=== PATIENT | male | born 1945 | race Caucasian/White ===

== ENCOUNTER 2019-08-10 09:06 | Emergency (ER) | payer MEDICARE, SELFPAY ==
[2019-08-10 09:12] VITALS: BP 108/67; PULSE 79; RESP 22; TEMP 37.5; O2SAT 98
--- NOTE | 2019-08-10 09:13 | ED.GENADULT ---
HPI - General Adult General Chief complaint: Upper Respiratory Infection Stated complaint: RUNNY NOSE/COUGH Time Seen by Provider: 08/10/19 09:29 Source: patient Mode of arrival: ambulatory Limitations: no limitations History of Present Illness HPI narrative: 74-year-old male patient presents to the [facility] with complaints of cold symptoms that started yesterday. Patient had been complaining of a runny nose as well as a stuffy nose, as well as a cough. Patient states that he has had some shortness of breath with the cough at times and only has a sore throat when he coughs. Denies any fevers that he is aware of. Denies any history of lung issues but was a previous smoker that has quit now for 10 years. Patient states he has been taking [id number] Tylenol and Coricidin for his symptoms so far. Patient states that he did get a flu shot this year. Related Data Home Medications Medication Instructions Recorded Confirmed hydrochlorothiazide 25 mg tablet 12.5 mg PO DAILY tablet 05/04/19 08/10/19 metformin 500 mg tablet 500 mg PO BID 05/04/19 08/10/19 metoprolol tartrate 25 mg tablet 25 mg PO BID 05/04/19 08/10/19 aspirin 81 mg tablet,delayed 81 mg PO DAILY 07/01/19 08/10/19 release pantoprazole 40 mg granules 40 mg PO DAILY 07/01/19 08/10/19 delayed-release for susp in packet acetaminophen [Tylenol] 325 mg PO ONCE PRN 08/10/19 08/10/19 chlorpheniramine-dextromethorp tablet PO 08/10/19 [Coricidin HBP Cough and Cold] Allergies Allergy/AdvReac Type Severity Reaction Status Date / Time simvastatin Allergy Unknown Leg cramp Verified 08/10/19 09:22 Hyfyoqa-Ecu-Llp Reductase Allergy Unknown Cramping Verified 08/10/19 09:22 Inhibitor of the Muscles Review of Systems Review of Systems: Narrative: CONSTITUTIONAL: Denies fever, chills, or sweats. EYES: Denies visual changes, redness, or discharge. ENT: Positive rhinorrhea, congestion, sore throat, denies otalgia. CARDIOVASCULAR: Denies chest pain, palpitations, or edema. RESPIRATORY: Positive cough with dyspnea. GASTROINTESTINAL: Denies abdominal pain, nausea, vomiting, or diarrhea. GENITOURINARY: Denies dysuria or hematuria. SKIN: Denies rash or itching. MUSCULOSKELETAL: Denies back pain, joint pain, or myalgia. NEUROLOGIC: Denies headache, numbness, or weakness. PSYCHIATRIC: Denies anxiety or depression. [facility], [facility] Past Medical History Medical History Afib CAD (coronary artery disease) Diabetes 1.5, managed as type 2 GERD (gastroesophageal reflux disease) Hyperlipidemia Hypertension Peptic ulcer Primary osteoarthritis of left hip Left worse than right Surgical History Surgical History History of cholecystectomy History of coronary artery bypass graft History of hernia repair History of total bilateral knee replacement Family History Family History Sibling Patient's sister is in good health Other Breast cancer Carcinoma of colon Malignant neoplasm of prostate Lung cancer Arthritis Social History Social History Smoking status: Former smoker Alcohol intake: current Comments At the time of my signature I agree with nursing past medical history, surgical, social, and family history. There is no relevant family history pertinent to the presenting complaint. Exam Narrative: Exam Narrative: GENERAL: ill-appearing, well-nourished, and in no acute distress. HEAD: Normocephalic, atraumatic. No tenderness noted to frontal maxillary sinuses on palpation. EYES: PERRLA and EOMI. ENT: Nares with erythema and edema noted bilaterally, no rhinorrhea or epistaxis. Mucous membranes moist. Posterior pharynx with slight erythema but no tonsil enlargement no exudates or lesions present. Bilateral TMs are clear no erythema or foreign
== END 2019-08-10 09:45 | disposition home or self-care (01) ==
PROVIDERS: Emergency Provider Nurse Practitioner Family; PCP Internal Medicine
DX: J06.9 Acute upper respiratory infection, unspecified (principal); R05 Cough; Z87.891 Personal history of nicotine dependence; I48.91 Unspecified atrial fibrillation; I25.10 Atherosclerotic heart disease of native coronary artery without angina pectoris; E11.9 Type 2 diabetes mellitus without complications; K21.9 Gastro-esophageal reflux disease without esophagitis; E78.5 Hyperlipidemia, unspecified; I10 Essential (primary) hypertension; M16.0 Bilateral primary osteoarthritis of hip; Z96.653 Presence of artificial knee joint, bilateral; Z95.1 Presence of aortocoronary bypass graft
CPT/HCPCS: 87804; 99213; G0463

== ENCOUNTER 2019-08-10 16:58 | Inpatient (IN) | payer MEDICARE, SELFPAY ==
--- NOTE | ~2019-08-10 | XR_ITS ---
EXAMINATION: XR chest 2V DATE: 08/10/2019 18:04 INDICATION: Cough, confirmed influenza TECHNIQUE: AP and lateral views of the chest are obtained. COMPARISON: 02/27/2018 FINDINGS: There are minimal airspace opacities of the lung bases. There is no pleural effusion or pne umothorax. Median sternotomy wires and mediastinal surgical clips are seen, likely from prior coronar y artery bypass grafting. The heart size is normal. There is mild thoracic spondylosis. IMPRESSION: 1. Minimal airspace opacities of the lung bases, consistent with atelectasis versus pneumonia. Reviewed, dictated and finalized at location A. CIENCE TECHNICIAN IMPRESSION: 1. Minimal airspace opacities of the lung bases, consistent with atelectasis ve rsus pneumonia.
[2019-08-10 17:07] VITALS: BP 124/68; PULSE 76; RESP 26; TEMP 38.5; O2SAT 93
[2019-08-10 17:10] VITALS: PULSE 74
--- NOTE | 2019-08-10 17:11 | ECG_ITS ---
Measurements Intervals Bennett Rate: 72 P: 67 MD: 176 QRS: 119 QRSD: 154 T: -14 QT: 386 QTc: 425 Interpretive Statements SINUS RHYTHM RIGHT BUNDLE BRANCH BLOCK LEFT POSTERIOR FASCICULAR BLOCK BASELINE ARTIFACT- I, II, AVR ABNORMAL ECG Electronically Signed On 08-10-2019 20:34:25 FIELD SPECIALIST by Aquiles Posey D.O.
--- NOTE | 2019-08-10 17:14 | ED.WEAKNESS ---
HPI - Weakness General Chief complaint: Weakness Stated complaint: Weakness, dizziness Time Seen by Provider: 08/10/19 17:08 Source: patient, family (spouse) and RN notes reviewed Mode of arrival: ambulatory Limitations: no limitations History of Present Illness HPI Narrative: Pt is a y/o male who presents to the ED with c/o moderate generalized weakness which began yesterday. He states he has been unable to stand up or ambulate. Pt reports he was leaning towards the left when he was ambulating. He reports a fever, a cough, rhinorrhea, and headache which began yesterday morning, but denies pain anywhere else in his body. The pt?s spouse reports the pt was also increasingly disoriented this morning. He also denies any aggravating or alleviating factors. Pt reports going to the Urgent Care today and had a flu test as well as some blood tests done. Patient was discharged with diagnosis of a cold. MD Complaint: generalized weakness Onset (ago): day(s) (yesterday) Duration: constant Location: generalized Migration: none Severity: moderate Relieving factors: none Exacerbating factors: none Associated symptoms: fever/chills (fever), headaches and other (rhinorrhea; cough; disoriented) Related Data Home Medications Medication Instructions Recorded Confirmed hydrochlorothiazide 25 mg tablet 12.5 mg PO DAILY tablet 05/04/19 08/10/19 metformin 500 mg tablet 500 mg PO BID 05/04/19 08/10/19 metoprolol tartrate 25 mg tablet 25 mg PO BID 05/04/19 08/10/19 aspirin 81 mg tablet,delayed 81 mg PO DAILY 07/01/19 08/10/19 release pantoprazole 40 mg granules 40 mg PO DAILY 07/01/19 08/10/19 delayed-release for susp in packet acetaminophen [Tylenol] 325 mg PO ONCE PRN 08/10/19 08/10/19 chlorpheniramine-dextromethorp tablet PO 08/10/19 [Coricidin HBP Cough and Cold] Allergies Allergy/AdvReac Type Severity Reaction Status Date / Time simvastatin Allergy Unknown Leg cramp Verified 08/10/19 09:22 Kchomyb-Cth-Utd Reductase Allergy Unknown Cramping Verified 08/10/19 09:22 Inhibitor of the Muscles Review of Systems Constitutional: Constitutional: Reports fever(s), Reports headache(s), Reports weakness (generalized) and Denies other (pain anywhere else in his body) ENT: Reports nasal discharge (rhinorrhea) Respiratory: Respiratory: Reports cough Neurologic: Denies headache(s), Reports weakness (generalized) and Reports other (disoriented) [facility] Social History Social History Smoking packs per day: 1.5 Smoking cigarettes per day: 30.0 Years smoked: 35 Smoking pack-years: 52.50 Smoking status: Former smoker Tobacco type: cigarettes Alcohol intake: never Substance use: never Gender identity (if verbalized by the patient): Male Spiritual care concerns: No Agree to blood products: Yes Exam Const: General: no acute distress and well developed Orientation/consciousness: oriented to person, oriented to place, oriented to time and patient oriented x3 HENMT: Head: normocephalic Ears: external ears normal General nose exam: Normal external nose present Eyes: General: appearance normal, both eyes and all related structures Conjunctivae: conjunctivae normal Neck: Neck: normal visual inspection and full ROM Chest: Chest palpation & inspection: normal inspection of the chest and no tenderness Resp: Effort & Inspection: normal respiratory effort Auscultation: clear to auscultation bilaterally Cardio: Rate: regular rate Rhythm: regular rhythm GI: GI Palp: No abdominal tenderness and Yes Soft to palpation Skin: General skin exam: normal color and turgor normal Neuro: General: oriented to person, oriented to place, oriented to time and patient oriented x3 Cognition (Neuro): normal cognition Extrem: General: normal to inspection, full ROM and no pedal edema Psych: Appearance: grossly normal Mental Status: mental status grossly normal Affect: kerri
[2019-08-10 17:32] VITALS: O2SAT 96
[2019-08-10] MEDS: ACETAMINOPHEN 325 MG TABLET 650 MG PO (17:35)
[2019-08-10] MEDS: SODIUM CHLORIDE 0.9% IV 1,000 ML 999 ML IV CONT (17:36)
[2019-08-10 17:39] LABS: Basophils Percent Auto 0.4 % (0.2-1.2); Eosinophils Percent Auto 0.1 % (0-4.4); Hematocrit 44.6 % (42.0-52.0); Hemoglobin 15.1 g/dL (14.0-18.0); Immature Granulocyte Absolute 0.03 K/mm3 (0.00-0.031); Immature Granulocyte Percent A 0.4 % (0-0.5); Lymphocytes Absolute Auto 1.16 K/mm3 (0.9-3.2); Lymphocytes Percent Auto 16.4 % (18.3-44.2); Mean Corpuscular HGB Conc 33.9 g/dl (32-36); Mean Corpuscular Hemoglobin 30.3 pg (26-34); Mean Corpuscular Volume 89.6 fl (80-100); Mean Platelet Volume 9.6 fl (7.4-10.4); Monocytes Absolute Auto 1.1 K/mm3 (0.1-0.6); Monocytes Percent Auto 14.9 % (2.6-8.5); Neutrophils Absolute Auto 4.8 K/mm3 (1.3-6.7); Neutrophils Percent Auto 67.8 % (45.5-73.1); Platelet Count Result 141 k/mm3 (150-375); Red Blood Count 4.98 M/mm3 (4.6-6.20); Red Cell Distribution Width 12.5 % (11.5-14.5); White Blood Count 7.1 K/mm3 (4.5-10.0)
[2019-08-10 17:50] LABS: Partial Thromboplastin Time 29.7 SECONDS (22.3-36.8)
[2019-08-10 17:51] LABS: Lactic Acid Reflex 1.6 mmol/L (0.7-2.1)
[2019-08-10 17:52] LABS: Alanine Aminotransferase 29 U/L (4-50); Albumin Level 4.3 g/dL (3.5-5.1); Alkaline Phosphatase 72 U/L (38-126); Aspartate Amino Transferase 28 U/L (17-59); Bilirubin,Total 0.7 mg/dL (0.2-1.3); Blood Urea Nitrogen 15 mg/dL (9-20); Calcium 9.5 mg/dL (8.4-10.2); Carbon Dioxide 27 mmol/L (22-30); Chloride 93 mmol/L (98-107); Estimated Glomerular Filt Rate 46; Glucose 127 mg/dL (75-110); Potassium 3.9 mmol/L (3.4-5.0); Sodium 134 mmol/L (137-145)
[2019-08-10 18:18] LABS: Add Urine Microscopic? YES; Appearance Urine Clear (Clear); Bilirubin Urine Negative (Negative); Blood Urine 1+ (Negative); Color Urine Yellow (Yellow); Glucose Urine UA Negative (Negative); Ketones Urine Negative (Negative); Leukocyte Esterase Ur Negative LEU/UL (Negative); Nitrate Urine Negative (Negative); Protein Urine 2+ mg/dL (Negative); RBC Urine 0-2 /hpf (0-2); Squamous Epithelial Cell Urine Rare /hpf (Few); Urobilinogen Urine Negative mg/dL (<2.0); WBC Urine 0-3 /hpf
[2019-08-10] MEDS: OSELTAMIVIR PHOSPHATE 75 MG CAP (18:42)
[2019-08-10 19:28] VITALS: BP 110/79; PULSE 73; RESP 18; TEMP 37.7; O2SAT 94
--- NOTE | 2019-08-10 19:51 | ADMGEN ---
This patient, Justin Fair, was admitted to Medical Room 245-. Patient/family oriented to hospital policies and general routines including ID bracelet, bed and alarms, visiting hours, pain management, procedures, bathroom and other care routines, personal items, smoking policy, room service/diet, and visiting hours. Valuables list has been completed. Information on how to activate the Rapid Response Team has been discussed. Patient/Family are encouraged to report perceived risks to care and to ask questions if they do not understand what they are told or what they should do.
[2019-08-10 20:00] VITALS: BP 110/66; PULSE 65; RESP 22; TEMP 36.6; O2SAT 94; BMI 30.7
[2019-08-10 20:50] VITALS: TEMP 36.6
[2019-08-11] MEDS: ACETAMINOPHEN 325 MG TABLET 650 MG PO ×3 (02:49→15:14)
--- NOTE | 2019-08-11 03:44 | PM.IMHP ---
H&P: HPI History of Present Illness Chief complaint: influenza a Narrative: Jutsin Fair is a 74 year old male who was very weak and according to his was somewhat confused. The symptoms started 2 days ago. He was is unable to stand up or ambulate. The patient was leaning toward the left side when he is ambulating. He had fever cough runny nose headache that started yesterday his generalized body aches. He had flu-like symptoms. The patient went to the urgent care to yesterday and the flu test was found to be negative and he was diagnosed with a cold. Patient was found to be positive for influenza a here and was started on Tamiflu. Also his acute renal failure as well. Initially the patient was given a Zithromax and Rocephin for infiltrates possible pneumonia but they were stopped. He was given Tylenol for the fever. Date of service 08/11/2019. Review of Systems Review of Systems: Narrative: The patient stated that he was so weak and unable to take care of himself. He does live with his . His stated that he was disorientated. He is now answering questions without difficulty. He has body aches fever and chills. All systems reviewed & are unremarkable except as noted in HPI and below Constitutional: Constitutional: Reports as per HPI and Reports no additional constitutional complaints Eyes: Eyes: Reports as per HPI and Reports no additional eye complaints ENT: Reports system reviewed and no additional complaints, except as documented and Reports Normal hearing present Cardiovascular: Cardiovascular: Reports no additional cardiovascular complaints Respiratory: Respiratory: Reports no additional respiratory complaints and Reports no additional respiratory complaints Gastrointestinal: Gastrointestinal: Reports as per HPI and Reports no additional gastrointestinal complaints Musculoskeletal: Musculoskeletal: Reports no additional musculoskeletal complaints Integumentary/Breasts: Skin/Breast: Reports system reviewed and no additional complaints, except as docu and Reports as per HPI Neurologic: Reports system reviewed and no additional complaints, except as documented, Reports as per HPI and Reports Normal hearing present Psychiatric: Psychiatric: Reports no additional psychiatric complaints and Reports as per HPI Endocrine: Endocrine: Reports no additional endocrine complaints Hematologic/Lymphatic: Hematologic/Lymphatic: Reports no additional hematologic/lymphatic complaints Allergic/Immunologic: Allergic/Immunologic: Reports no additional allergic/immunologic complaints [facility] Past Medical History Medical History (Updated 08/11/19 @ 03:54 by Maribell Walden NP) Afib Intermittent CAD (coronary artery disease) 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, managed as type 2 GERD (gastroesophageal reflux disease) History of prostate cancer Treated with radiation pellets Hyperlipidemia Hypertension Peptic ulcer Primary osteoarthritis of left hip Left worse than right Surgical History Surgical History (Updated 08/11/19 @ 03:49 by Maribell Walden NP) History of cholecystectomy History of coronary artery bypass graft 2 vessel CABG History of hernia repair History of total bilateral knee replacement Family History Family History (Updated 08/11/19 @ 03:49 by Maribell Walden NP) Sibling Patient's sister is in good health Breast cancer Other Breast cancer Carcinoma of colon Malignant neoplasm of prostate Lung cancer Arthritis Mother Mesothelioma Social History Social History (Updated 08/11/19 @ 03:50 by Maribell Walden NP) Social History: Patient lives with his and she is the power of title attorney for healthcare. He desires to be full code. He has 3 sons and 1 stepdaughter. 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 Smoking packs per day: 1.5 Smoking cigarettes per day: 30.0 Years smoked: 35 Smoking pack-years: 52.50 Smoking status: Former smoker Tobac
[2019-08-11 04:00] VITALS: BP 111/63; PULSE 72; RESP 22; TEMP 36.2; O2SAT 94
[2019-08-11] MEDS: BENZOCAINE/MENTHOL (*BKC) 18 EA LOZENGE 1 LOZENGE PO ×3 (04:41→21:37)
[2019-08-11 06:00] VITALS: BP 111/63; PULSE 72; RESP 22; TEMP 36.2; O2SAT 94
[2019-08-11 06:10] LABS: Basophils Percent Auto 0.4 % (0.2-1.2); Eosinophils Percent Auto 0.4 % (0-4.4); Hematocrit 40.4 % (42.0-52.0); Hemoglobin 13.9 g/dL (14.0-18.0); Immature Granulocyte Absolute 0.02 K/mm3 (0.00-0.031); Immature Granulocyte Percent A 0.4 % (0-0.5); Immature Platelet Fraction Pct 2.8 % (0.9-11.2); Lymphocytes Absolute Auto 1.52 K/mm3 (0.9-3.2); Lymphocytes Percent Auto 27.6 % (18.3-44.2); Mean Corpuscular HGB Conc 34.4 g/dl (32-36); Mean Corpuscular Hemoglobin 30.6 pg (26-34); Mean Platelet Volume 9.7 fl (7.4-10.4); Monocytes Absolute Auto 0.9 K/mm3 (0.1-0.6); Monocytes Percent Auto 16.4 % (2.6-8.5); Neutrophils Percent Auto 54.8 % (45.5-73.1); Platelet Count Result 126 k/mm3 (150-375); Red Blood Count 4.54 M/mm3 (4.6-6.20); Red Cell Distribution Width 12.6 % (11.5-14.5); White Blood Count 5.5 K/mm3 (4.5-10.0)
[2019-08-11 06:13] LABS: Alanine Aminotransferase 27 U/L (4-50); Albumin Level 3.5 g/dL (3.5-5.1); Alkaline Phosphatase 58 U/L (38-126); Aspartate Amino Transferase 27 U/L (17-59); Bilirubin,Total 0.5 mg/dL (0.2-1.3); Blood Urea Nitrogen 14 mg/dL (9-20); Carbon Dioxide 27 mmol/L (22-30); Chloride 98 mmol/L (98-107); Estimated CRCL calculation 51 ml/min; Estimated Glomerular Filt Rate 49; Glucose 114 mg/dL (75-110); Magnesium 1.8 mg/dL (1.6-2.3); Potassium 3.3 mmol/L (3.4-5.0); Sodium 134 mmol/L (137-145)
[2019-08-11] MEDS: ASPIRIN 81 MG ENTERIC TABLET PO (09:13)
[2019-08-11] MEDS: PANTOPRAZOLE 40 MG TABLET PO (09:13)
[2019-08-11] MEDS: OSELTAMIVIR PHOSPHATE 75 MG CAP PO ×2 (09:13→20:06)
[2019-08-11 09:14] VITALS: PULSE 68
[2019-08-11] MEDS: METOPROLOL TARTRATE 25 MG TABLET PO ×2 (09:14→17:52)
[2019-08-11 11:28] LABS: Glucose Point of Care 101 (65-105)
--- NOTE | 2019-08-11 12:13 | PM.IMPN ---
Progress Note: A&P Assessment and Plan (1) Acute renal failure: Code(s): N17.9 - Acute kidney failure, unspecified Status: Acute Assessment and Plan: Iv hydration, creat is 1.4, continue to hold metformin (2) Hypertension: Code(s): I10 - Essential (primary) hypertension Status: Chronic Assessment and Plan: Continue with metoprolol for BP control (3) Hyperlipidemia: Code(s): E78.5 - Hyperlipidemia, unspecified Status: Chronic Assessment and Plan: Continue with Zetia. (4) Diabetes 1.5, managed as type 2: Code(s): E13.9 - Other specified diabetes mellitus without complications Status: Chronic Assessment and Plan: Accu-Cheks AC and HS. Correction SSI (5) Afib: Code(s): I48.91 - Unspecified atrial fibrillation Status: Chronic Assessment and Plan: Patient is in sinus rhythm at this time. On metoprolol. low risk not on any anti coagulation (6) Influenza A: Code(s): J10.1 - Influenza due to other identified influenza virus with other respiratory manifestations Status: Acute Assessment and Plan: Supportive care. Tylenol for the fever and Tamiflu. Patient is acute renal failure, add Iv fluids for hydration. (7) Weakness: Code(s): R53.1 - Weakness Status: Acute Assessment and Plan: Likley secondary to influenza and CAP (8) CAP (community acquired pneumonia): Code(s): J18.9 - Pneumonia, unspecified organism Status: Acute Assessment and Plan: per cxr and symptoms, pt is on iv rocephin amd iv zithromax, Bc is still pending Subjective Date/time seen: 08/11/19 12:13 Interval history: 74 year old male admitted weak and confused found to have influenza a and pneumonia. Still feels tired and has a cough, not confused today, holding conservation answering questions appropriately Review of Systems Review of Systems: All systems reviewed & are unremarkable except as noted in HPI and below Cardiovascular: Cardiovascular: Reports no additional cardiovascular complaints Respiratory: Respiratory: Reports chest congestion and Reports cough Gastrointestinal: Gastrointestinal: Reports as per HPI and Reports no additional gastrointestinal complaints Musculoskeletal: Musculoskeletal: Reports no additional musculoskeletal complaints Neurologic: Reports system reviewed and no additional complaints, except as documented, Reports as per HPI and Reports Normal hearing present Psychiatric: Psychiatric: Reports no additional psychiatric complaints and Reports as per HPI Exam Const: Other: Fatigue, ill appearing, wet cough HENMT: Head: normal to inspection Resp: Effort & Inspection: no respiratory distress Auscultation: no rhonchi and no wheezes Cardio: Rate: regular rate Rhythm: regular rhythm GI: Inspection: normal to inspection GI Palp: No abdominal tenderness, No Guarding due to palpation present (GI) and No Hepatomegaly present Auscultation: normal bowel sounds Neuro: General: oriented to person and No confusion Extrem: General: clubbing, cyanosis or edema noted Objective Data Vital Signs Vital Signs: Vital Signs - 24 hr 08/10/19 17:07 08/10/19 17:10 08/10/19 17:32 Temperature 38.5 C H Pulse Rate 76 74 Respiratory Rate 26 H Blood Pressure 124/68 Pulse Oximetry 93 96 08/10/19 19:28 08/10/19 20:00 08/10/19 20:50 Temperature 37.7 C H 36.6 C 36.6 C Pulse Rate 73 65 Respiratory Rate 18 22 H Blood Pressure 110/79 110/66 Pulse Oximetry 94 94 08/11/19 04:00 08/11/19 06:00 08/11/19 09:14 Temperature 36.2 C L 36.2 C L Pulse Rate 72 72 68 Respiratory Rate 22 H 22 H Blood Pressure 111/63 111/63 Pulse Oximetry 94 94 Intake/Output Intake/Output: Intake & Output 08/08/19 08/09/19 08/10/19 08/11/19 23:59 23:59 23:59 23:59 Intake Total 1350 740 Output Total 1000 Balance 1350 -260 Meds/Results Medications: Ac
[2019-08-11 12:15] LABS: Glucose Point of Care 100 (65-105)
--- NOTE | 2019-08-11 13:15 | PCCCNOTE ---
On 08/11/19, the student, [Landy Scott ], provided care and completed [id number] documentation on this patient. I have reviewed the student's documentation and agree with the findings.
[2019-08-11] MEDS: SODIUM CHLORIDE 0.9% IV 1,000 ML 75 ML IV CONT (13:22)
[2019-08-11 14:00] VITALS: BP 111/63; PULSE 58; RESP 20; TEMP 36.3; O2SAT 95
[2019-08-11 17:52] VITALS: PULSE 62
[2019-08-11 18:01] LABS: Glucose Point of Care 90 (65-105)
[2019-08-11] MEDS: EZETIMIBE 10 MG TABLET PO (20:06)
[2019-08-11 22:00] VITALS: BP 127/68; PULSE 61; RESP 20; TEMP 36.2; O2SAT 99
[2019-08-12] MEDS: ACETAMINOPHEN 325 MG TABLET 650 MG PO (00:22)
[2019-08-12] MEDS: SODIUM CHLORIDE 0.9% IV 1,000 ML 75 ML IV CONT (05:40)
[2019-08-12 05:54] LABS: Hematocrit 43.1 % (42.0-52.0); Hemoglobin 14.4 g/dL (14.0-18.0); Mean Corpuscular HGB Conc 33.4 g/dl (32-36); Mean Corpuscular Hemoglobin 30.6 pg (26-34); Mean Corpuscular Volume 91.5 fl (80-100); Mean Platelet Volume 9.8 fl (7.4-10.4); Platelet Count Result 129 k/mm3 (150-375); Red Blood Count 4.71 M/mm3 (4.6-6.20); Red Cell Distribution Width 12.9 % (11.5-14.5); White Blood Count 5.1 K/mm3 (4.5-10.0)
[2019-08-12 06:00] VITALS: BP 113/69; PULSE 61; RESP 20; TEMP 36.3; O2SAT 98
[2019-08-12 06:07] LABS: Blood Urea Nitrogen 16 mg/dL (9-20); Calcium 8.7 mg/dL (8.4-10.2); Carbon Dioxide 27 mmol/L (22-30); Chloride 102 mmol/L (98-107); Estimated CRCL calculation 60 ml/min; Estimated Glomerular Filt Rate 59; Glucose 102 mg/dL (75-110); Sodium 139 mmol/L (137-145)
[2019-08-12 06:19] LABS: Glucose Point of Care 137 (65-105)
[2019-08-12 08:04] VITALS: PULSE 61
[2019-08-12] MEDS: ASPIRIN 81 MG ENTERIC TABLET PO (08:04)
[2019-08-12] MEDS: METOPROLOL TARTRATE 25 MG TABLET PO ×2 (08:04→17:21)
[2019-08-12] MEDS: PANTOPRAZOLE 40 MG TABLET PO (08:04)
[2019-08-12] MEDS: OSELTAMIVIR PHOSPHATE 75 MG CAP PO ×2 (08:05→21:16)
[2019-08-12 09:49] LABS: Glucose Point of Care 101 (65-105)
[2019-08-12] MEDS: BENZOCAINE/MENTHOL (*BKC) 18 EA LOZENGE 1 LOZENGE PO ×2 (11:05→19:31)
--- NOTE | 2019-08-12 13:25 | PM.IMPN ---
Progress Note: A&P Assessment and Plan (1) Acute renal failure: Code(s): N17.9 - Acute kidney failure, unspecified Status: Acute Assessment and Plan: Creat improved to 1.2 stop iv fluids encourage oral, can restart pts metformin (2) Hypertension: Code(s): I10 - Essential (primary) hypertension Status: Chronic Assessment and Plan: Continued with metoprolol for BP control (3) Hyperlipidemia: Code(s): E78.5 - Hyperlipidemia, unspecified Status: Chronic Assessment and Plan: Continue with Zetia. (4) Diabetes 1.5, managed as type 2: Code(s): E13.9 - Other specified diabetes mellitus without complications Status: Chronic Assessment and Plan: Accu-Cheks AC and HS. Correction SSI (5) Afib: Code(s): I48.91 - Unspecified atrial fibrillation Status: Chronic Assessment and Plan: Patient is in sinus rhythm at this time. On metoprolol. low risk not on any anti coagulation (6) Influenza A: Code(s): J10.1 - Influenza due to other identified influenza virus with other respiratory manifestations Status: Acute Assessment and Plan: Supportive care. Tylenol for the fever and Tamiflu. Add perles (7) Weakness: Code(s): R53.1 - Weakness Status: Acute Assessment and Plan: Likley secondary to influenza and CAP (8) CAP (community acquired pneumonia): Code(s): J18.9 - Pneumonia, unspecified organism Status: Acute Assessment and Plan: per cxr and symptoms, pt is on iv rocephin amd iv zithromax, Bc prelim is negative Subjective Date/time seen: 08/12/19 13:25 Interval history: 74 year old male admitted weak and confused found to have influenza a and pneumonia. Pt feels fatigued, with dry throat and cough. But overall feels better than yesterday, not confused, holding conservation answering questions appropriately Review of Systems Review of Systems: All systems reviewed & are unremarkable except as noted in HPI and below Constitutional: Constitutional: Reports as per HPI and Reports no additional constitutional complaints Eyes: Eyes: Reports as per HPI and Reports no additional eye complaints ENT: Reports system reviewed and no additional complaints, except as documented and Reports Normal hearing present Cardiovascular: Cardiovascular: Reports no additional cardiovascular complaints Respiratory: Respiratory: Reports no additional respiratory complaints, Reports no additional respiratory complaints, Reports chest congestion and Reports cough Gastrointestinal: Gastrointestinal: Reports as per HPI and Reports no additional gastrointestinal complaints Musculoskeletal: Musculoskeletal: Reports no additional musculoskeletal complaints Integumentary/Breasts: Skin/Breast: Reports system reviewed and no additional complaints, except as docu and Reports as per HPI Neurologic: Reports system reviewed and no additional complaints, except as documented, Reports as per HPI, Reports Normal hearing present and Denies confusion Psychiatric: Psychiatric: Reports no additional psychiatric complaints, Reports as per HPI and Denies confusion Endocrine: Endocrine: Reports no additional endocrine complaints Hematologic/Lymphatic: Hematologic/Lymphatic: Reports no additional hematologic/lymphatic complaints Allergic/Immunologic: Allergic/Immunologic: Reports no additional allergic/immunologic complaints Exam Const: General: cooperative, comfortable, no acute distress, well developed, alert, awake, Physically active and ill appearing; No confusion Nutritional Appearance: average body habitus, well nourished and overweight Orientation/consciousness: oriented to person, oriented to place, oriented to time, patient oriented x3 and No confusion Limitations: no limitations Other: Fatigue, ill appearing, wet cough HENMT: Head: normal to inspection, No palpable skull fracture present, normoceph
[2019-08-12 13:52] LABS: Glucose Point of Care 116 (65-105)
[2019-08-12 14:00] VITALS: BP 119/64; PULSE 60; RESP 18; TEMP 36.3; O2SAT 97
[2019-08-12 17:21] VITALS: PULSE 60
[2019-08-12] MEDS: BENZONATATE 100 MG CAPSULE PO (17:21)
[2019-08-12] MEDS: metFORMIN HCL 500 MG TABLET PO (17:21)
[2019-08-12 17:38] LABS: Glucose Point of Care 108 (65-105)
[2019-08-12 20:09] LABS: Glucose Point of Care 157 (65-105)
[2019-08-12] MEDS: EZETIMIBE 10 MG TABLET PO (21:16)
[2019-08-12 21:56] VITALS: BP 137/85; PULSE 50; RESP 20; TEMP 36.4; O2SAT 98
[2019-08-13 02:00] VITALS: BP 144/86; PULSE 53; RESP 20; TEMP 36.3; O2SAT 98
[2019-08-13 06:00] VITALS: BP 117/57; PULSE 74; RESP 18; TEMP 36.4; O2SAT 96
[2019-08-13 08:03] LABS: Glucose Point of Care 106 (65-105)
[2019-08-13 08:04] VITALS: PULSE 64
[2019-08-13] MEDS: ASPIRIN 81 MG ENTERIC TABLET PO (08:04)
[2019-08-13] MEDS: BENZONATATE 100 MG CAPSULE PO ×2 (08:04→13:04)
[2019-08-13] MEDS: METOPROLOL TARTRATE 25 MG TABLET PO (08:04)
[2019-08-13] MEDS: hydroCHLOROthiazide 12.5 MG CAPSULE PO (08:04)
[2019-08-13] MEDS: PANTOPRAZOLE 40 MG TABLET PO (08:04)
[2019-08-13] MEDS: OSELTAMIVIR PHOSPHATE 75 MG CAP PO (08:04)
[2019-08-13] MEDS: metFORMIN HCL 500 MG TABLET PO (08:05)
[2019-08-13 10:00] VITALS: BP 117/67; PULSE 52; RESP 17; TEMP 36.8; O2SAT 96
[2019-08-13] MEDS: BENZOCAINE/MENTHOL (*BKC) 18 EA LOZENGE 1 LOZENGE PO (11:09)
--- NOTE | 2019-08-13 12:04 | PM.DS ---
DS: Diagnosis Admitting Diagnosis Admitting Diagnosis: Influenza due to other identified influenza virus with other respiratory manifestations Discharge Diagnosis (1) Acute renal failure: Code(s): N17.9 - Acute kidney failure, unspecified Status: Acute Assessment and Plan: Creat improved to 1.2, encourage oral fluids,restart pts metformin, pt had been on iv hydration earlier in admission (2) Hypertension: Code(s): I10 - Essential (primary) hypertension Status: Chronic Assessment and Plan: Continued with metoprolol for BP control (3) Hyperlipidemia: Code(s): E78.5 - Hyperlipidemia, unspecified Status: Chronic Assessment and Plan: Continue with Zetia. (4) Diabetes 1.5, managed as type 2: Code(s): E13.9 - Other specified diabetes mellitus without complications Status: Chronic Assessment and Plan: Restart metformin (5) Afib: Code(s): I48.91 - Unspecified atrial fibrillation Status: Chronic Assessment and Plan: Patient is in sinus rhythm at this time. On metoprolol. low risk not on any anti coagulation (6) Influenza A: Code(s): J10.1 - Influenza due to other identified influenza virus with other respiratory manifestations Status: Acute Assessment and Plan: Supportive care. Tylenol for the fever and Tamiflu. Continue perles at home. (7) Weakness: Code(s): R53.1 - Weakness Status: Acute Assessment and Plan: Likley secondary to influenza and CAP (8) CAP (community acquired pneumonia): Code(s): J18.9 - Pneumonia, unspecified organism Status: Acute Assessment and Plan: per cxr and symptoms, pt is on iv rocephin amd iv zithromax, Bc prelim is negative, transition to oral z-pack DS: Summary Time Spent with Patient Time attestation: Total time spent providing and/or coordinating discharge services:40 minutes on day of discharge Exam Const: General: cooperative, comfortable, no acute distress, well developed, alert, awake, Physically active and ill appearing; No confusion Nutritional Appearance: average body habitus, well nourished and overweight Orientation/consciousness: oriented to person, oriented to place, oriented to time, patient oriented x3 and No confusion Limitations: no limitations Other: Tired, no cough today HENMT: Head: normal to inspection, No palpable skull fracture present, normocephalic, atraumatic and abrasion Ears: hearing grossly normal bilaterally, external ears normal and TM's normal bilaterally General nose exam: Normal external nose present, Normal nares present and No nasal polyps present Mouth: Yes Normal oral and palatal mucosa present Throat: posterior oropharynx normal Eyes: General: appearance normal, both eyes and all related structures Alignment and Position: alignment normal Periorbital: periorbital findings normal Eyelids: eyelids normal Conjunctivae: conjunctivae normal Sclera: sclerae normal Cornea: corneas normal Pupils: Equal, round and reactive pupils present and Pupil accommodation reflex normal EOM: EOMs intact bilaterally Neck: Neck: normal visual inspection, full ROM, no lymphadenopathy, trachea midline and supple Thyroid: thyroid normal Carotids: normal carotid upstroke Lymphatic: no lymphadenopathy noted Chest: Chest palpation & inspection: normal inspection of the chest Resp: Effort & Inspection: normal respiratory effort and no respiratory distress Auscultation: clear to auscultation bilaterally, no rhonchi and no wheezes Percussion: percussion normal Cardio: Palpation: normal PMI Rate: regular rate Rhythm: regular rhythm Heart sounds: S1 normal heart sound present and S2 normal heart sound present Peripheral pulses: Peripheral pulses 2+ throughout GI: Inspection: normal to inspection Auscultation: normal bowel sounds Rectal Exam: deferred Other: Large right lower quadrant hernia that is soft and a
[2019-08-13 19:37] LABS: Glucose Point of Care 80 (65-105)
== END 2019-08-13 13:45 | disposition home or self-care (01) | DRG 682 ==
LOC: ANHED 17:38 → ANH2MED 18:50
PROVIDERS: Nurse Practitioner; Admitting Provider Hospitalist; Emergency Provider Emergency Medicine; PCP Internal Medicine; Visit Provider Family Medicine
DX: N17.9 Acute kidney failure, unspecified (principal); J10.00 Influenza due to other identified influenza virus with unspecified type of pneumonia; I48.20 Chronic atrial fibrillation, unspecified; E78.5 Hyperlipidemia, unspecified; E13.9 Other specified diabetes mellitus without complications; I10 Essential (primary) hypertension; I25.10 Atherosclerotic heart disease of native coronary artery without angina pectoris; K21.9 Gastro-esophageal reflux disease without esophagitis; M16.0 Bilateral primary osteoarthritis of hip; Z87.11 Personal history of peptic ulcer disease; Z85.46 Personal history of malignant neoplasm of prostate; Z95.1 Presence of aortocoronary bypass graft; Z90.49 Acquired absence of other specified parts of digestive tract; Z96.653 Presence of artificial knee joint, bilateral; Z87.891 Personal history of nicotine dependence
CPT/HCPCS: 36415; 71046; 80048; 80053; 81001; 83605; 83735; 85025; 85027; 85055; 85610; 85730; 87040; 87804; 93005; 96361; 96365; 99285; A9270; J0456; J0696; J7030; J7060

== ENCOUNTER 2019-08-17 10:12 | Outpatient (CLI) | payer MEDICARE, SELFPAY ==
--- NOTE | ~2019-08-17 | XR_ITS ---
EXAMINATION: XR chest 2V EXAM DATE: 08/17/2019 10:30 INDICATION: Pneumonia. TECHNIQUE: Frontal and lateral projections of the chest obtained and reviewed. Comparison is made to prior examination from 08/10/2019. FINDINGS: Sternotomy wires are present without findings to suggest sternal dehiscence. The lungs are clear. There are no pleural effusions. The cardiomediastinal silhouette is within normal limits. There is no pneumothorax suspected. The bones and soft tissues are unremarkable. IMPRESSION: Resolution of previously seen basilar airspace disease. Reviewed, dictated and finalized at location A. Y MOBILE EQUIPMENT OPERATOR
== END 2019-08-17 10:13 | disposition home or self-care (01) ==
LOC: ANHIMG 10:14
PROVIDERS: PCP Internal Medicine; Visit Provider Internal Medicine
DX: J18.9 Pneumonia, unspecified organism (principal); R91.8 Other nonspecific abnormal finding of lung field
CPT/HCPCS: 71046

== ENCOUNTER 2019-12-22 10:01 | Outpatient (CLI) | payer MEDICARE, SELFPAY ==
[2019-12-22 11:20] LABS: Basophils Percent Auto 0.5 % (0.2-1.2); Eosinophils Absolute Auto 0.2 K/mm3 (0-0.3); Eosinophils Percent Auto 2.1 % (0-4.4); Hematocrit 43.6 % (42.0-52.0); Hemoglobin 15.1 g/dL (14.0-18.0); Immature Granulocyte Absolute 0.03 K/mm3 (0.00-0.031); Immature Granulocyte Percent A 0.4 % (0-0.5); Lymphocytes Absolute Auto 2.62 K/mm3 (0.9-3.2); Lymphocytes Percent Auto 32.6 % (18.3-44.2); Mean Corpuscular HGB Conc 34.6 g/dl (32-36); Mean Corpuscular Hemoglobin 31.1 pg (26-34); Mean Corpuscular Volume 89.7 fl (80-100); Mean Platelet Volume 9.8 fl (7.4-10.4); Monocytes Absolute Auto 0.6 K/mm3 (0.1-0.6); Neutrophils Absolute Auto 4.5 K/mm3 (1.3-6.7); Neutrophils Percent Auto 56.4 % (45.5-73.1); Platelet Count Result 154 k/mm3 (150-375); Red Blood Count 4.86 M/mm3 (4.6-6.20); Red Cell Distribution Width 12.5 % (11.5-14.5)
[2019-12-22 11:32] LABS: Albumin Level 4.2 g/dL (3.5-5.1)
[2019-12-22 11:36] LABS: Hemoglobin A1C 6.7 % (<5.7)
[2019-12-22 13:20] LABS: Urine Cotinine NEGATIVE
== END 2019-12-22 10:02 | disposition home or self-care (01) ==
LOC: ANHSURGERY 10:06
PROVIDERS: PCP Internal Medicine; Visit Provider Orthopaedic Surgery
DX: Z01.818 Encounter for other preprocedural examination (principal); M16.12 Unilateral primary osteoarthritis, left hip
CPT/HCPCS: 36415; 80307; 82040; 83036; 85025; 87081

== ENCOUNTER 2020-01-27 06:33 | Outpatient (CLI) | payer MEDICARE, SELFPAY ==
[2020-01-27 08:02] LABS: Alanine Aminotransferase 38 U/L (4-50); Albumin Level 4.3 g/dL (3.5-5.1); Alkaline Phosphatase 73 U/L (38-126); Anion Gap 13.4 mmol/L (7-16); Aspartate Amino Transferase 40 U/L (17-59); Bilirubin,Total 0.9 mg/dL (0.2-1.3); Blood Urea Nitrogen 17 mg/dL (9-20); Calcium 9.9 mg/dL (8.4-10.2); Carbon Dioxide 27 mmol/L (22-30); Chloride 102 mmol/L (98-107); Cholesterol 183 mg/dL (0-200); Estimated Glomerular Filt Rate 59; Glucose 134 mg/dL (75-110); HDL Direct 40 mg/dL; Potassium 4.4 mmol/L (3.4-5.0); Sodium 138 mmol/L (137-145); Triglycerides 120 mg/dL (<150)
[2020-01-27 08:13] LABS: LDL Cholesterol Direct 122 mg/dL
[2020-01-27 08:56] LABS: Creatinine Urine 168.6 mg/dL
[2020-01-27 08:59] LABS: MALB Creatinine Ratio 6.3 mg/g (0-30); Microalbumin Urine Random 10.7 mg/L (0-16.7)
[2020-01-27 11:18] LABS: Hemoglobin A1C 6.4 % (<5.7)
== END 2020-01-27 06:34 | disposition home or self-care (01) ==
LOC: ANHLAB 06:35
PROVIDERS: PCP Internal Medicine; Visit Provider Internal Medicine
DX: E78.5 Hyperlipidemia, unspecified (principal); I10 Essential (primary) hypertension; E11.9 Type 2 diabetes mellitus without complications
CPT/HCPCS: 36415; 80053; 80061; 82043; 83036

== ENCOUNTER 2020-07-13 11:34 | Outpatient (CLI) | payer MEDICARE, SELFPAY ==
--- NOTE | ~2020-07-13 | XR_ITS ---
EXAMINATION: XR chest 2V DATE: 07/13/2020 11:48 INDICATION: Abnormal weight loss. TECHNIQUE: Frontal and lateral views of the chest were obtained. COMPARISON: Chest 2 views 08/17/2019, CT abdomen and pelvis 02/24/2019 FINDINGS: The chest demonstrates clear lungs without pneumonia, pleural effusion, or pneumothorax. Th e heart size is normal. Median sternotomy wires and mediastinal surgical clips are seen, likely from prior coronary artery bypass grafting. Surgical clips in the right upper quadrant are likely from cho lecystectomy. IMPRESSION: 1. No acute cardiopulmonary disease. Reviewed, dictated and finalized at location A. TRONICS PROCESSOR
== END 2020-07-13 11:35 | disposition home or self-care (01) ==
PROVIDERS: PCP Internal Medicine; Visit Provider Internal Medicine
DX: R63.4 Abnormal weight loss (principal)
CPT/HCPCS: 71046

== ENCOUNTER 2020-07-24 07:14 | Outpatient (CLI) | payer MEDICARE, SELFPAY ==
[2020-07-24 08:02] LABS: Basophils Percent Auto 0.5 % (0.2-1.2); Eosinophils Absolute Auto 0.2 K/mm3 (0-0.3); Eosinophils Percent Auto 2.4 % (0-4.4); Hematocrit 50.4 % (42.0-52.0); Hemoglobin 17.5 g/dL (14.0-18.0); Immature Granulocyte Absolute 0.02 K/mm3 (0.00-0.031); Immature Granulocyte Percent A 0.3 % (0-0.5); Lymphocytes Absolute Auto 2.46 K/mm3 (0.9-3.2); Lymphocytes Percent Auto 33.4 % (18.3-44.2); Mean Corpuscular HGB Conc 34.7 g/dl (32-36); Mean Corpuscular Hemoglobin 30.9 pg (26-34); Mean Platelet Volume 9.7 fl (7.4-10.4); Monocytes Absolute Auto 0.6 K/mm3 (0.1-0.6); Monocytes Percent Auto 8.2 % (2.6-8.5); Neutrophils Absolute Auto 4.1 K/mm3 (1.3-6.7); Neutrophils Percent Auto 55.2 % (45.5-73.1); Platelet Count Result 197 k/mm3 (150-375); Red Blood Count 5.66 M/mm3 (4.6-6.20); Red Cell Distribution Width 11.9 % (11.5-14.5); White Blood Count 7.4 K/mm3 (4.5-10.0)
[2020-07-24 08:03] LABS: Alanine Aminotransferase 32 U/L (4-50); Albumin Level 4.4 g/dL (3.5-5.1); Alkaline Phosphatase 84 U/L (38-126); Anion Gap 4 mmol/L (8-16); Aspartate Amino Transferase 32 U/L (17-59); Bilirubin,Total 1.1 mg/dL (0.2-1.3); Blood Urea Nitrogen 14 mg/dL (9-20); Carbon Dioxide 33 mmol/L (22-30); Chloride 100 mmol/L (98-107); Cholesterol 181 mg/dL (0-200); Estimated Glomerular Filt Rate 59; Glucose 118 mg/dL (75-110); HDL Direct 35 mg/dL; Potassium 3.4 mmol/L (3.4-5.0); Sodium 137 mmol/L (137-145); Triglycerides 190 mg/dL (<150)
[2020-07-24 08:14] LABS: LDL Cholesterol Direct 129 mg/dL
[2020-07-24 08:24] LABS: Creatinine Urine 256.9 mg/dL
[2020-07-24 08:28] LABS: MALB Creatinine Ratio 6.7 mg/g (0-30); Microalbumin Urine Random 17.2 mg/L (0-16.7)
[2020-07-24 08:33] LABS: Prostate Specific Antigen < 0.1 ng/mL (< OR = 4.0)
== END 2020-07-24 07:15 | disposition home or self-care (01) ==
PROVIDERS: PCP Internal Medicine; Referring Provider Internal Medicine Gastroenterology; Visit Provider Internal Medicine
DX: R63.4 Abnormal weight loss (principal); Z85.46 Personal history of malignant neoplasm of prostate; I10 Essential (primary) hypertension; Z51.81 Encounter for therapeutic drug level monitoring; E78.5 Hyperlipidemia, unspecified; E11.9 Type 2 diabetes mellitus without complications
CPT/HCPCS: 36415; 80053; 80061; 82043; 83036; 84153; 84443; 85025

== ENCOUNTER 2020-08-08 09:35 | Outpatient (CLI) | payer MEDICARE, SELFPAY ==
--- NOTE | ~2020-08-08 | CT_ITS ---
EXAMINATION: CT abdomen pelvis w con INDICATION: Abnormal weight loss TECHNIQUE: Computed tomographic images of the abdomen and pelvis were obtained after the administrati on of 100 cc of Omnipaque 350 intravenous contrast. The dose-length product (DLP) was 716.03 mGy-cm. Automated exposure control and iterative reconstruction technique were employed. COMPARISON: 02/24/2019 FINDINGS: Minimal dependent atelectasis is present in the lung bases. The heart size is normal. The g allbladder is surgically absent. The spleen and pancreas are normal. Cysts of the liver measure up to 7 mm in the liver dome. There is chronic unchanged mild nodularity of the adrenal glands. Simple cys ts of the kidneys measure up to 4.2 cm on the right. There is an unchanged 2.6 cm hyperattenuating le dwayne of the right kidney lower pole which does not enhance when compared to the prior examination, mo st consistent with a proteinaceous cyst. There is chronic moderate right hydronephrosis with abrupt c hange in caliber at the ureteropelvic junction, likely related to a large adjacent peripelvic cysts N o pathologically enlarged abdominal or pelvic lymph nodes are identified. There is no free intraperit abreu gas or evidence of bowel obstruction. There are multiple ventral hernias containing both fat an d nonobstructed loops of small bowel. There is mild lumbar spondylosis. Brachytherapy seeds are noted in the prostate. There are changes of left inguinal hernia repair. 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 IMPRESSION: 1. No CT correlate for the patient's symptoms. Reviewed, dictated and finalized at location A. RMATION SYSTEMS PLANNER
== END 2020-08-08 09:36 | disposition home or self-care (01) ==
PROVIDERS: PCP Internal Medicine; Referring Provider Internal Medicine Gastroenterology; Visit Provider Internal Medicine
DX: R63.4 Abnormal weight loss (principal); K76.89 Other specified diseases of liver
CPT/HCPCS: 74177; Q9967

== ENCOUNTER → 2020-08-19 06:27 | Outpatient (CLI) | payer MEDICARE, SELFPAY ==
[2020-08-19 22:49] LABS: SARS-CoV-2 RNA PCR Negative
== END ==
PROVIDERS: PCP Internal Medicine; Visit Provider Internal Medicine Gastroenterology
DX: Z01.812 Encounter for preprocedural laboratory examination (principal); Z20.822 Contact with and (suspected) exposure to COVID-19
CPT/HCPCS: C9803; U0003; U0005

== ENCOUNTER 2020-08-23 01:18 | Day surgery (SDC) | payer MEDICARE, SELFPAY ==
[2020-08-07 12:31] VITALS: BMI 26.3
[2020-08-23 07:52] VITALS: BP 129/78; PULSE 56; RESP 18; TEMP 36.3; O2SAT 98; BMI 24.8
[2020-08-23] MEDS: LACTATED RINGERS 1,000 ML 150 ML IV CONT (08:07)
[2020-08-23 08:08] LABS: Glucose Point of Care 91 (65-105)
--- NOTE | 2020-08-23 08:55 | WPDHPUPDATE1 ---
History and Physical Update Update Date/Time: 08/23/20 08:55 History and Physical has been reviewed, including an updated exam of the patient. There are NO changes in the patient's condition. Risks, benefits, and alternatives have been discussed and questions answered. Patient agrees to proceed with procedure.
[2020-08-23] MEDS: BENZOCAINE (*SP) 60 ML SPRAY CAN (HURRICAINE) 1 SPRAY MUCOUS MEM (09:02)
--- NOTE | 2020-08-23 09:08 | WPDANESEPPF ---
Anes - Initial Pre Proc Eval Procedure: Operation Date: 08/23/20 09:00 Proposed Procedures p Esophagogastroduodenoscopy & Colonoscopy - Yohan Espinosa MD Date/Time: 08/23/20 09:08 Surgeon: Yohan Espinosa MD Pre Op Diagnosis: Weight Loss/ Diarrhea/ Gerd Patient Data Age: 75 Gender: M Height: 6 ft 1 in Weight: 85.5 kg Last Vital Signs Temp 97.3 F L 08/23/20 07:52 Pulse 56 L 08/23/20 07:52 Resp 18 08/23/20 07:52 BP 129/78 08/23/20 07:52 Pulse Ox 98 08/23/20 07:52 Allergies Allergy/AdvReac Type Severity Reaction Status Date / Time simvastatin Allergy Mild Leg cramp Verified 08/23/20 07:51 Zjtmvkv-Mqj-Mbr Reductase Allergy Mild Cramping Verified 08/23/20 07:51 Inhibitor of the Muscles Home Medications Medication Instructions Recorded Confirmed Type hydrochlorothiazide 25 mg tablet 12.5 mg PO DAILY tablet 05/04/19 08/07/20 History metoprolol tartrate 25 mg tablet 25 mg PO BID 05/04/19 08/07/20 History aspirin 81 mg tablet,delayed 81 mg PO DAILY 07/01/19 08/07/20 History release pantoprazole 40 mg granules 40 mg PO DAILY 07/01/19 08/07/20 History delayed-release for susp in packet acetaminophen [Tylenol] 650 mg PO Q4H PRN 08/10/19 08/07/20 History ezetimibe 10 mg tablet 10 mg PO HS #90 tablet 03/16/20 08/07/20 Rx metformin 500 mg tablet 500 mg PO BID #180 tablet 04/24/20 08/07/20 Rx blood-glucose meter #1 ea 07/20/20 08/02/20 Rx blood sugar diagnostic #200 ea 07/24/20 08/02/20 Rx lancets 30 gauge #200 ea 07/24/20 08/02/20 Rx buspirone 7.5 mg tablet 7.5 mg PO TID #60 tablet 08/02/20 08/07/20 Rx sodium,potassium,mag sulfates 17.5 See Rx Instructions PO .COMPLEX 08/03/20 Rx gram-3.13 gram-1.6 gram oral soln #354 ml Laboratory Tests 08/23/20 08:04 POC Capillary Glucose 91 mg/dl mg/dl (65-105) Patient hx anesthesia problems: none Family hx anesthesia problems: none PMFSH Past Medical History Medical History (Updated 08/02/20 @ 08:38 by Bo Hong DO) Afib Intermittent CAD (coronary artery disease) 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, managed as type 2 GERD (gastroesophageal reflux disease) History of prostate cancer Treated with radiation pellets Hyperlipidemia Hypertension Peptic ulcer Primary osteoarthritis of left hip Left worse than right Weight loss Surgical History Surgical History History of cholecystectomy History of coronary artery bypass graft 2 vessel CABG History of hernia repair History of total bilateral knee replacement Family History Family History Sibling Patient's sister is in good health Breast cancer Other Breast cancer Carcinoma of colon Malignant neoplasm of prostate Lung cancer Arthritis Mother Mesothelioma Social History Social History Social History: Patient lives with his and she is the power of staff attorney for healthcare. He desires to be full code. He has 3 sons and 1 stepdaughter. 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 Smoking packs per day: 1 Smoking cigarettes per day: 20.0 Years smoked: 52.5 Smoking pack-years: 52.50 Smoking status: Current every day smoker Tobacco type: cigarettes Additional smoking assessment comments: QUIT SMOKING FOR YEAR BUT DUE TO CURRENT ISSUES, SMOKING AGAIN Alcohol intake: never Substance use: never Substance use type: unknown Living arrangements: with family Gender identity (if verbalized by the patient): Male Spiritual care concerns: No Agree to blood products: Yes Anes - Eval Final PreProcedure Day of Procedure 08/23/20 09:08 Heart: irregular rhythm Lungs: clear to auscultation Airway: Mallampati scale class III Neurological: alert and oriented Last oral intake: >/= 8 hours ASA classification: III Zoie
[2020-08-23 09:29] VITALS: BP 95/62; PULSE 56; RESP 20; O2SAT 99
[2020-08-23 09:39] VITALS: BP 99/67; PULSE 54; RESP 18; O2SAT 99
[2020-08-23 09:49] VITALS: BP 112/69; PULSE 56; RESP 20; O2SAT 98
== END 2020-08-23 10:05 | disposition home or self-care (01) ==
PROVIDERS: PCP Internal Medicine; Visit Provider Internal Medicine Gastroenterology
PROC: 0DJ08ZZ Inspection of Upper Intestinal Tract, Via Natural or Artificial Opening Endoscopic (ICD-10-PCS; CPT 43235; principal; 2020-08-23 09:00)
DX: R19.7 Diarrhea, unspecified (principal); R63.4 Abnormal weight loss; D12.2 Benign neoplasm of ascending colon; K44.9 Diaphragmatic hernia without obstruction or gangrene; K29.50 Unspecified chronic gastritis without bleeding; K57.30 Diverticulosis of large intestine without perforation or abscess without bleeding; K21.9 Gastro-esophageal reflux disease without esophagitis; K27.9 Peptic ulcer, site unspecified, unspecified as acute or chronic, without hemorrhage or perforation; K64.8 Other hemorrhoids; K64.4 Residual hemorrhoidal skin tags; I25.10 Atherosclerotic heart disease of native coronary artery without angina pectoris; I48.20 Chronic atrial fibrillation, unspecified; I10 Essential (primary) hypertension; E78.5 Hyperlipidemia, unspecified; E13.9 Other specified diabetes mellitus without complications; C61 Malignant neoplasm of prostate; M16.12 Unilateral primary osteoarthritis, left hip; Z95.1 Presence of aortocoronary bypass graft; Z80.0 Family history of malignant neoplasm of digestive organs; Z96.653 Presence of artificial knee joint, bilateral; Z90.49 Acquired absence of other specified parts of digestive tract
CPT/HCPCS: 45385; 45380; 43239; 82948; 88305; 88342; C9803; J2704; J7120; U0003; U0005

== ENCOUNTER 2020-09-15 07:34 | Outpatient (CLI) | payer MEDICARE, SELFPAY ==
--- NOTE | ~2020-09-15 | CT_ITS ---
EXAMINATION: CT lung screening DATE: 09/15/2020 07:54 INDICATION: Z87.891 - Personal history of nicotine dependence TECHNIQUE: Computed tomography (CT) of the chest was performed without intravenous contrast. Addition al 3D reconstructions utilizing coronal maximum intensity projection (MIP) were performed. Automated exposure control and iterative reconstruction technique were employed. The dose-length product was 12 8.55 mGy-cm. COMPARISON: CT abdomen and pelvis studies dated 08/08/2020 and 02/16/2019 FINDINGS: There are multiple bilateral scattered <4 mm pulmonary nodules some of which are calcified and others not. Bilateral diffuse mild bronchiectasis with lower lobar predominance. Unchanged patchy regions o f mild reticular and groundglass opacities in the right lower lobe, likely sequela of chronic infecti on. No acute pneumonia, pulmonary edema or pleural effusion. Heart size is normal. Atherosclerotic co ronary artery calcification. Postoperative change of prior median sternotomy and coronary artery bypa ss grafting. No pericardial effusion. No pathologically enlarged thoracic lymphadenopathy. A few low- attenuation right renal cysts the largest measuring up to 2.3 cm. Again seen is high attenuation mate rial likely representing small gallstones within a small fluid-filled structure at the gallbladder fo ssa which likely represents a cystic duct remnant in this patient reportedly post cholecystectomy wit h a couple surgical clips near the splenic flexure of the colon. Correlate with surgical history. The re are several diverticula along the transverse colon without adjacent inflammatory change to suggest diverticulitis. Air-fluid level within a 6 x 3.3 cm duodenal diverticulum. Mild thoracic dextrocurva ture with mild spondylosis. IMPRESSION: 1. Lung-RADS category 2: Benign appearance or behavior. Continue annual screening with noncontrast lo w-dose chest CT in 12 months. 2. Cholelithiasis within a likely small cystic duct remnant at the gallbladder fossa. Reviewed, dictated and finalized at location B. IMPRESSION: 1. Lung-RADS category 2: Benign appearance or behavior. Continue annual screeni ng with noncontrast low-dose chest CT in 12 months. 2. Cholelithiasis within a likely small cystic duct remnant at the gallbladder fossa.
== END 2020-09-15 07:35 | disposition home or self-care (01) ==
PROVIDERS: PCP Internal Medicine; Visit Provider Internal Medicine
DX: Z87.891 Personal history of nicotine dependence (principal)
CPT/HCPCS: 71271

== ENCOUNTER 2021-01-26 06:33 | Outpatient (CLI) | payer MEDICARE, SELFPAY ==
[2021-01-26 07:39] LABS: Alanine Aminotransferase 20 U/L (4-50); Albumin Level 3.9 g/dL (3.5-5.1); Alkaline Phosphatase 82 U/L (38-126); Anion Gap 5 mmol/L (8-16); Aspartate Amino Transferase 24 U/L (17-59); Blood Urea Nitrogen 11 mg/dL (9-20); Calcium 9.7 mg/dL (8.4-10.2); Carbon Dioxide 29 mmol/L (22-30); Chloride 105 mmol/L (98-107); Cholesterol 182 mg/dL (0-200); Estimated Glomerular Filt Rate > 60; Glucose 103 mg/dL (65-110); HDL Direct 49 mg/dL; Potassium 4.6 mmol/L (3.4-5.0); Sodium 139 mmol/L (137-145); Triglycerides 97 mg/dL (<150)
[2021-01-26 07:43] LABS: LDL Cholesterol Direct 112 mg/dL
[2021-01-26 08:22] LABS: Creatinine Urine 60.2 mg/dL
[2021-01-26 08:25] LABS: Hemoglobin A1C 5.8 % (<5.7)
[2021-01-26 09:34] LABS: MALB Creatinine Ratio < 10.0 mg/g (0-30); Microalbumin Urine Random < 6.0 mg/L (0-16.7)
== END 2021-01-26 06:34 | disposition home or self-care (01) ==
PROVIDERS: PCP Internal Medicine; Visit Provider Nurse Practitioner
DX: E13.9 Other specified diabetes mellitus without complications (principal); E78.5 Hyperlipidemia, unspecified
CPT/HCPCS: 36415; 80053; 80061; 82043; 83036

== ENCOUNTER 2021-07-10 06:39 | Outpatient (CLI) | payer MEDICARE, SELFPAY ==
[2021-07-10 07:50] LABS: Alanine Aminotransferase 22 U/L (4-50); Albumin Level 4.4 g/dL (3.5-5.1); Alkaline Phosphatase 88 U/L (38-126); Anion Gap 7 mmol/L (8-16); Aspartate Amino Transferase 26 U/L (17-59); Blood Urea Nitrogen 15 mg/dL (9-20); Calcium 9.8 mg/dL (8.4-10.2); Carbon Dioxide 31 mmol/L (22-30); Chloride 101 mmol/L (98-107); Cholesterol 188 mg/dL (0-200); Estimated Glomerular Filt Rate 53; Glucose 104 mg/dL (65-110); HDL Direct 45 mg/dL; Potassium 4.3 mmol/L (3.4-5.0); Sodium 139 mmol/L (137-145); Triglycerides 143 mg/dL (<150)
[2021-07-10 08:01] LABS: LDL Cholesterol Direct 113 mg/dL
[2021-07-10 08:20] LABS: Prostate Specific Antigen < 0.1 ng/mL (< OR = 4.0)
== END 2021-07-10 06:40 | disposition home or self-care (01) ==
PROVIDERS: PCP Internal Medicine; Visit Provider Internal Medicine
DX: Z51.81 Encounter for therapeutic drug level monitoring (principal); Z79.899 Other long term (current) drug therapy; I10 Essential (primary) hypertension; E13.9 Other specified diabetes mellitus without complications; E78.5 Hyperlipidemia, unspecified; Z85.46 Personal history of malignant neoplasm of prostate
CPT/HCPCS: 36415; 80053; 80061; 83036; 84153

== ENCOUNTER 2021-07-13 09:47 | Outpatient (CLI) | payer MEDICARE, SELFPAY ==
--- NOTE | ~2021-07-13 | XR_ITS ---
EXAMINATION: XR thoracic spine 3V EXAM DATE: 07/13/2021 10:07 INDICATION: M54.9 - Dorsalgia, unspecified. TECHNIQUE: Frontal and lateral projections of the thoracic spine as well as lateral swimmers projecti on of the upper thoracic spine for interpretation. There is no prior study for comparison. FINDINGS: Sternotomy wires. Mild mid and lower thoracic disc disease. No acute fractures identified. The vertebral body heights relatively well-maintained. Paraspinal soft tissue is unremarkable. IMPRESSION: Mild thoracic spondylosis. No acute findings. Reviewed, dictated and finalized at location A. PLE CUTTER
--- NOTE | ~2021-07-13 | XR_ITS ---
EXAMINATION: XR lumbar spine 2-3V EXAM DATE: 07/13/2021 10:07 INDICATION: M54.9 - Dorsalgia, unspecified . TECHNIQUE: Lumber spine frontal, lateral, lateral L5-S1 projections for interpretation. There is no prior study for comparison. FINDINGS: Mild to moderate lumbar disc disease. Severe left L4-5 facet arthropathy, otherwise modera te to severe lower lumbar facet arthropathy. Small endplate osteophytes. Mild lumbar levoscoliosis. T here is 2 mm anterolisthesis L3 on L4. There are cholecystectomy clips. Sacrum, sacroiliac joints, sa cral arcuate lines are intact. Paraspinal soft tissue is unremarkable. IMPRESSION: Advanced lower lumbar facet arthropathy. Reviewed, dictated and finalized at location A. ECTION MANAGER
== END 2021-07-13 09:48 | disposition home or self-care (01) ==
LOC: ANHIMG 09:50
PROVIDERS: PCP Internal Medicine; Visit Provider Internal Medicine
DX: M47.813 Spondylosis without myelopathy or radiculopathy, cervicothoracic region (principal)
CPT/HCPCS: 72072; 72100

== ENCOUNTER 2021-10-04 08:00 | Outpatient (RCR) | payer MEDICARE, SELFPAY ==
--- NOTE | 2021-09-06 11:41 | PTOPEVAL ---
Thank you for referring Justin Fair to [facility].? The patient is scheduled to be seen for therapy? 2 x/week for 6 weeks. Please review, sign, date and return this plan of care SHI. I agree with and certify that the following plan of care is medically necessary. Referring Physician Date Attending Provider: Bo Hong DO Referring Provider: Bo Hong DO Evaluation Information Problem Diagnosis low back pain Onset unknown Cause 6-7 months Additional Evaluation Detail X-ray: Severe left L4-5 facet arthropathy, otherwise moderate to severe lower lumbar facet arthropathy. Small endplate osteophytes. Mild lumbar levoscoliosis. There is 2 mm anterolisthesis L3 on L4 He has received previous therapy, but not for his back. Subjective Information He has had an increase in his Query Text:As Reported By Patient/ low back pain for the past 6-7 Family months. He as attending [employer] but stopped in May due to people not wearing a mask. He has been trying to walk the past few weeks. He reports limitations with playing golf due to twisting motion, lifting, walking, prolong sitting, daily task. Repeated child nurse increase his pain. Increased pain in the morning, but improved with movement. Pain Assessment Self Report Pain Assessment Lower Back Reported Pain Level 0 Pain Description Aching,Sharp,Tightness Pain Frequency Chronic Lowest Pain Intensity 0 Greatest Pain Intensity 8 Pain Aggravating Factors Bending,Exercise/Activity, Lifting,Prolonged Position, Sitting,Supine,Walking,Weight Bearing/Standing Cervical and Lumbar ROM Lumbar ROM Lumbar Flexion Active Mid Dean:Hands to: Lateral Flexion mid thigh region:Active Hands to: Lumbar Comments 75% flex/lateral flex 100% ext pain with lateral flex and ext Lower Extremity Range of Motion General Lower Extremity Range of Motion Reason Not Measur
--- NOTE | 2021-09-20 08:15 | PCPTNOTE ---
Patient called & cancelled scheduled appointment this date due to having another appointment.
--- NOTE | 2021-10-04 08:46 | PTOPEVAL ---
Physical Therapy Discharge Summary Thank you for referring Justin Fair to [facility].? Justin has achieved 8 therapy visits to address his back pain. He demonstrates indep with his HEP. As a result of skilled therapy services he has reached maximal potential with therapy services. Will DC skilled therapy services. Please review, sign, date and return this discharge summary SHI. I agree with and certify that the following plan of care is medically necessary. Referring Physician Date Attending Provider: Bo Hong DO Referring Provider: Bo Hong DO Diagnosis low back pain Onset unknown Cause 6-7 months Additional Evaluation Detail X-ray: Severe left L4-5 facet arthropathy, otherwise moderate to severe lower lumbar facet arthropathy. Small endplate osteophytes. Mild lumbar levoscoliosis. There is 2 mm anterolisthesis L3 on L4 He has received previous therapy, but not for his back. Subjective Information Reports he cont to have more Query Text:As Reported By Patient/ pain in the morning, but Family improves during the day. Improved pain with morning exercises. Denies any changes in pain with walking. Mild increased with 18 holes of golf. Pain noted with the twisting motion. Increased pain with vacuuming, otherwise only slight pain with normal daily task. Pain Assessment Lower Back Reported Pain Level 0 Pain Description Aching Pain Frequency Chronic Lowest Pain Intensity 0 Greatest Pain Intensity 6 Cervical and Lumbar ROM Lumbar Flexion Active Ankle:Hands to: Lateral Flexion distal thigh region:Active Hands to: Lumbar Comments 75% flex/lateral flex 100% ext no pain with trunk motion, pulling sensation Cervical and Lumbar Muscle Testing Upper Abdominal Strength 4-Good- Lower Abdominal Strength 3+Fair+ Upper Back Extension 3 Fair Lower Back Extension 3 Fair Lower Extremity Muscle Strength Testing General Lower Extremity Strength Gross Lower Extremity Strength right hip flex: 5/5, ext: 5/5, abd: 3/5
== END 2021-10-05 11:03 | disposition home or self-care (01) ==
LOC: ANHPT 08:00
PROVIDERS: PCP Internal Medicine; Referring Provider Internal Medicine; Visit Provider Internal Medicine
DX: M54.9 Dorsalgia, unspecified (principal)
CPT/HCPCS: 97110; 97112; 97162

== ENCOUNTER 2021-10-31 08:52 | Emergency (ER) | payer MEDICARE, SELFPAY ==
--- NOTE | ~2021-10-31 | XR_ITS ---
EXAMINATION: XR knee LT 3V DATE: 10/31/2021 09:49 INDICATION: Medial left knee pain post twisting injury TECHNIQUE: Anteroposterior, oblique and crosstable lateral views of the left knee were obtained COMPARISON: None. FINDINGS: Left total knee arthroplasty with patellar resurfacing which appears well seated with no periprosthet ic lucency to suggest loosening or infection. No fracture. Joint spaces appear unremarkable on nonwei ghtbearing imaging. Small left knee joint effusion suggested at the suprapatellar pouch. Surgical cli ps along the medial aspect of the thigh likely related to prior saphenous vein graft harvest. IMPRESSION: 1. Left total knee arthroplasty with no acute osseous abnormality. 2. Likely small left knee joint effusion. Reviewed, dictated and finalized at location A.
[2021-10-31 08:55] VITALS: BP 152/94; PULSE 56; RESP 18; TEMP 36.6; O2SAT 100
--- NOTE | 2021-10-31 09:33 | ED.FALL ---
HPI - Fall General Chief Complaint: Fall Stated Complaint: fall yesterday Time Seen by Provider: 10/31/21 09:04 History of Present Illness HPI Narrative: 76-year-old male presents to the emergency room for evaluation of left knee pain. Patient states that he was on his porch yesterday and slipped down 1 stair, causing his knee to bend beneath him. Patient states that he was ambulatory following the injury. Reports noticing some soft tissue swelling and applied ice to the affected area. Patient denies any joint laxity when he is walking. Patient does report history of left knee arthroplasty. Related Data Home Medications Medication Instructions Recorded Confirmed hydrochlorothiazide 25 mg tablet 12.5 mg PO DAILY tablet 05/04/19 08/16/21 metoprolol tartrate 25 mg tablet 25 mg PO BID 05/04/19 08/16/21 aspirin 81 mg tablet,delayed 81 mg PO DAILY 07/01/19 08/16/21 release acetaminophen [Tylenol] 650 mg PO Q4H PRN 08/10/19 07/13/21 Allergies Allergy/AdvReac Type Severity Reaction Status Date / Time simvastatin Allergy Mild Leg cramp Verified 08/16/21 13:10 Uedaslm-NEU-QqM Reductase Allergy Mild Cramping Verified 08/16/21 13:10 Inhibitor of the [Jybmhjp-Uqi-Ukj Reductase Muscles Inhibitor] Review of Systems Review of Systems: CONSTITUTIONAL: Denies fever, chills, or sweats. EYES: Denies visual changes, redness, or discharge. ENT: Denies rhinorrhea, congestion, sore throat, or otalgia. CARDIOVASCULAR: Denies chest pain, palpitations, or edema. RESPIRATORY: Denies cough or dyspnea. GASTROINTESTINAL: Denies abdominal pain, nausea, vomiting, or diarrhea. GENITOURINARY: Denies dysuria or hematuria. SKIN: Denies rash or itching. MUSCULOSKELETAL: Reports left knee pain NEUROLOGIC: Denies headache, numbness, dizziness, or weakness. PSYCHIATRIC: Denies anxiety or depression. 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, managed as type 2 Diarrhea GERD (gastroesophageal reflux disease) History of prostate cancer Treated with radiation pellets Hyperlipidemia Hypertension Peptic ulcer Primary osteoarthritis of left hip Left worse than right Right shoulder pain Weight loss Surgical History Surgical History History of cholecystectomy History of coronary artery bypass graft 2 vessel CABG History of hernia repair History of total bilateral knee replacement Family History Family History Sibling Patient's sister is in good health Breast cancer Other Breast cancer Carcinoma of colon Malignant neoplasm of prostate Lung cancer Arthritis Mother Mesothelioma Social History Social History Social History: Patient lives with his and she is the power of wood pattern maker for healthcare. He desires to be full code. He has 3 sons and 1 stepdaughter. 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 Smoking packs per day: 1 Smoking cigarettes per day: 20.0 Years smoked: 53 Smoking pack-years: 53.00 Smoking status: Former smoker Tobacco type: cigarettes Second hand tobacco smoke exposure: No Additional smoking assessment comments: QUIT SMOKING FOR YEAR BUT DUE TO CURRENT ISSUES, SMOKING AGAIN Alcohol intake: current Alcohol use details: social beers Substance use: never Substance use type: does not use and unknown Gender identity (if verbalized by the patient): Male Spiritual care concerns: No Agree to blood products: Yes Exam Narrative: GENERAL: Well-appearing, well-nourished, and in no acute distress. HEAD: Normocephalic, atraumatic. EYES: PERRLA and EOMI. CHEST: Clear to auscultation. No respiratory distress. No wheezes rales or rhonchi HEART: Regular r
== END 2021-10-31 10:00 | disposition home or self-care (01) ==
PROVIDERS: Emergency Provider Nurse Practitioner Family; PCP Internal Medicine
DX: S83.92XA Sprain of unspecified site of left knee, initial encounter (principal); I48.91 Unspecified atrial fibrillation; I25.10 Atherosclerotic heart disease of native coronary artery without angina pectoris; E78.5 Hyperlipidemia, unspecified; E13.9 Other specified diabetes mellitus without complications; I10 Essential (primary) hypertension; K21.9 Gastro-esophageal reflux disease without esophagitis; M16.0 Bilateral primary osteoarthritis of hip; Z87.11 Personal history of peptic ulcer disease; Z85.46 Personal history of malignant neoplasm of prostate; Z95.1 Presence of aortocoronary bypass graft; Z96.653 Presence of artificial knee joint, bilateral; Z79.82 Long term (current) use of aspirin; F17.210 Nicotine dependence, cigarettes, uncomplicated; W10.9XXA Fall (on) (from) unspecified stairs and steps, initial encounter
CPT/HCPCS: 73562; 99283

== ENCOUNTER 2022-02-18 06:34 | Outpatient (CLI) | payer MEDICARE, SELFPAY ==
[2022-02-18 07:41] LABS: Alanine Aminotransferase 26 U/L (6-50); Alkaline Phosphatase 89 U/L (38-126); Anion Gap 8 mmol/L (8-16); Aspartate Amino Transferase 28 U/L (17-59); Bilirubin,Total 0.6 mg/dL (0.2-1.3); Blood Urea Nitrogen 13 mg/dL (9-20); Carbon Dioxide 28 mmol/L (22-30); Chloride 103 mmol/L (98-107); Cholesterol 186 mg/dL (0-200); Estimated Glomerular Filt Rate 59; Glucose 112 mg/dL (65-110); HDL Direct 38 mg/dL; Potassium 4.4 mmol/L (3.4-5.0); Sodium 139 mmol/L (137-145); Triglycerides 109 mg/dL (<150)
[2022-02-18 07:52] LABS: LDL Cholesterol Direct 108 mg/dL
[2022-02-18 10:04] LABS: Hemoglobin A1C 5.9 % (<5.7)
== END 2022-02-18 06:35 | disposition home or self-care (01) ==
LOC: ANHLAB 06:36
PROVIDERS: PCP Internal Medicine; Visit Provider Internal Medicine
DX: I10 Essential (primary) hypertension (principal); Z51.81 Encounter for therapeutic drug level monitoring; E78.5 Hyperlipidemia, unspecified; E13.9 Other specified diabetes mellitus without complications
CPT/HCPCS: 36415; 80053; 80061; 83036

== ENCOUNTER 2022-06-07 08:45 | Outpatient (RCR) | payer MEDICARE, SELFPAY ==
[2022-04-11 09:42] VITALS: BP_SYST 110
--- NOTE | 2022-04-11 10:56 | PTOPEVAL1 ---
Assessment and note entered by Georgina Rabago, PT Evaluation Information Diagnosis right shoulder pain Onset 11/2021 Subjective Information Saw another therapy place for shoulder a year ago, helped pain some. Shoulder has flared up again. Had a steroid shot 2 weeks ago that didn't help. RTD May 08 Reported Pain Level Pain Score 4/10 current, 10/10 highest 1/10 lowest rating Assessment PT Clinical Summary Pt presents w/ c/o right shoulder pain that he has a history of in previous years. Sought therapy a year ago and had some benefit but reports pain increased again this past summer. Current pt reports at rest being a 4/10, pain will go as low as 1/10, and as high as 10/10. His pain is effecting his ability to dress, bathe, lift/carry, effects his sleeping, and perform recreational activities such as golfing. Evaluation shows poor posture w/ rounded shoulder, anterior and inferiorly subluxed humerus, capsular tightness, impingement symptoms with poor GH/scapular kinematics, decreased RTC and postural strength without RTC tear. Today pt was educated in use of cryotherapy vs heat for inflammation, kinematics with golfing, and how appropriate posture benefits his shoulder rehab. Pt will benefit from therapy for continued education, manual stretching, strengthening, postural reeducation, and anti- inflammatory modalities to improve efficiency of progress. Pt reports he will be out of town for a time prior to RTD on May 01, thus will have minimal visits to address issues prior to that date. Will be provided home program for his trip to prevent loss of gains while away. Plan of Care Interventions Electrical Stimulation,Hot Pack/Cold Pack,Manual Therapy,Neuro Re-education,Patient/Caregiver Educati,Therapeutic Activities,Therapeutic Exercise,Ultrasound PT Services Indicated Yes Treatment Frequency and 2x weekly x 4 weeks. Duration These treatments will address the objective and functional deficits as defined above. The patient will be advanced safely and appropriately in order for the patient to progress towards his/her prior level of function. Additional exercises will be introduced and as well as a comprehensive home exercise program upon discharge, if needed, ?to ensure carryover of functional gains achieved in the clinic. This treatment plan has been reviewed and agreement upon by the patient.
[2022-05-08 08:42] VITALS: BP_SYST 130
--- NOTE | 2022-05-08 09:22 | PTOPEVAL1 ---
Assessment and note entered by Georgina Rabago, PT Assessment Status Progress note Diagnosis right shoulder pain Onset 11/2021 Subjective Information Reports last two visits therapists they got aggressive and this seemed to help RTD Jun 12. Reported Pain Level Pain Score 1: Self Report Assessment PT Clinical Summary Pt has attended 8 therapy sessions and has been applying education and home exercises. Last two sessions he reports the therapists were more aggressive and he felt like this helped significantly. Cont to demo mild discomfort with resisted testing and with end-range PROM, cont to demo subluxation of humerus in GH joint. Thus patient would benefit from continued therapy for remainder of four visits from initial script then additional therapy 1-2x weekly x 4-6 weeks. Plan of Care Interventions Electrical Stimulation,Hot Pack/Cold Pack,Manual Therapy,Neuro Re-education,Patient/Caregiver Educati,Therapeutic Activities,Therapeutic Exercise,Ultrasound PT Services Indicated Yes Treatment Frequency and 1-2x weekly x 4-6 weeks. Duration These treatments will address the objective and functional deficits as defined above. The patient will be advanced safely and appropriately in order for the patient to progress towards his/her prior level of function. Additional exercises will be introduced and as well as a comprehensive home exercise program upon discharge, if needed, ?to ensure carryover of functional gains achieved in the clinic. This treatment plan has been reviewed and agreement upon by the patient.
--- NOTE | 2022-05-20 11:26 | PCPTNOTE ---
Patient called & cancelled scheduled appointments for this week due to holiday.
--- NOTE | 2022-07-09 11:13 | PCPTNOTE ---
PHYSICAL THERAPY DISCHARGE 07-09-22 Attending Provider: MARYJANE Lacey Patient:Justin Fair Date of :1945 Mr. Fair has not returned for any further treatments since 06/07/2022, therefore he will be discharged at this time. He had received 12 PT sessions, from April 11 to June 07 for R shoulder pain. He then stopped attending therapy. The goals were not assessed. Thank you for referring this patient to [facility].
== END 2022-07-09 13:47 | disposition home or self-care (01) ==
LOC: ANHPT 08:45
PROVIDERS: PCP Internal Medicine; Visit Provider Physician Assistant Surgical
DX: M25.511 Pain in right shoulder (principal); M75.81 Other shoulder lesions, right shoulder
CPT/HCPCS: 97014; 97110; 97140; 97162; 97530; G0283

== ENCOUNTER 2022-08-26 07:26 | Outpatient (CLI) | payer MEDICARE, SELFPAY ==
[2022-08-26 08:37] LABS: Alanine Aminotransferase 23 U/L (6-50); Albumin Level 4.3 g/dL (3.5-5.1); Alkaline Phosphatase 105 U/L (38-126); Anion Gap 4 mmol/L (8-16); Aspartate Amino Transferase 25 U/L (17-59); Blood Urea Nitrogen 13 mg/dL (9-20); Calcium 9.5 mg/dL (8.4-10.2); Carbon Dioxide 31 mmol/L (22-30); Chloride 99 mmol/L (98-107); Cholesterol 200 mg/dL (0-200); Estimated Glomerular Filt Rate 58; Glucose 107 mg/dL (65-110); HDL Direct 39 mg/dL; Potassium 4.2 mmol/L (3.4-5.0); Sodium 134 mmol/L (137-145); Triglycerides 132 mg/dL (<150)
[2022-08-26 08:48] LABS: LDL Cholesterol Direct 113 mg/dL
== END 2022-08-26 07:27 | disposition home or self-care (01) ==
PROVIDERS: PCP Internal Medicine; Visit Provider Nurse Practitioner
DX: E78.5 Hyperlipidemia, unspecified (principal)
CPT/HCPCS: 36415; 80053; 80061

== ENCOUNTER 2022-09-03 10:00 | Outpatient (CLI) | payer MEDICARE, SELFPAY | END 2022-09-03 10:01 | disposition home or self-care (01) | PROVIDERS: PCP Internal Medicine; Visit Provider Specialist | DX: D36.10 Benign neoplasm of peripheral nerves and autonomic nervous system, unspecified (principal) | CPT/HCPCS: 88305; 88342 ==

== ENCOUNTER 2022-09-25 10:49 | Outpatient (CLI) | payer MEDICARE, SELFPAY ==
--- NOTE | ~2022-09-25 | CT_ITS ---
CT Scan of the Chest without Contrast: Clinical Indication: Lung cancer screening, current smoker Technique: Contiguous sections were acquired throughout the chest without intravenous contrast. Dose reduction technique was used on this scan by utilizing automated exposure control and iterative recon struction technique. The dose-length product (DLP) was 108.26 mGy-cm. COMPARISON: 09/15/2020 Findings: There is no evidence of any significant mediastinal, hilar or axillary lymphadenopathy. Evidence of p rior CABG noted. There is no evidence of pleural or pericardial effusion. Stable scattered areas of focal scarring or chronic interstitial change. No suspicious pulmonary nodu le. Images through the upper abdomen reveal gallstones. Impression: Lung-RADS 2: Benign appearance. 12 month follow-up screening CT advised. Cholelithiasis. Reviewed, dictated and finalized at [facility]. Impression: Lung-RADS 2: Benign appearance. 12 month follow-up screening CT advised. Cholelithiasis.
== END 2022-09-25 10:50 | disposition home or self-care (01) ==
PROVIDERS: PCP Internal Medicine; Visit Provider Nurse Practitioner Family
DX: Z12.2 Encounter for screening for malignant neoplasm of respiratory organs (principal); F17.210 Nicotine dependence, cigarettes, uncomplicated
CPT/HCPCS: 71271

== ENCOUNTER 2023-02-05 06:33 | Outpatient (CLI) | payer MEDICARE, SELFPAY ==
[2023-02-05 07:16] LABS: Alanine Aminotransferase 24 U/L (6-50); Albumin Level 4.1 g/dL (3.5-5.1); Alkaline Phosphatase 82 U/L (38-126); Anion Gap 3 mmol/L (8-16); Aspartate Amino Transferase 27 U/L (17-59); Bilirubin,Total 0.5 mg/dL (0.2-1.3); Blood Urea Nitrogen 14 mg/dL (9-20); Calcium 9.7 mg/dL (8.4-10.2); Carbon Dioxide 31 mmol/L (22-30); Chloride 102 mmol/L (98-107); Cholesterol 189 mg/dL (0-200); Estimated Glomerular Filt Rate 53; Glucose 121 mg/dL (65-110); HDL Direct 41 mg/dL; Potassium 4.9 mmol/L (3.4-5.0); Sodium 136 mmol/L (137-145); Triglycerides 113 mg/dL (<150)
[2023-02-05 07:26] LABS: Hemoglobin A1C 6.1 % (<5.7)
[2023-02-05 07:27] LABS: LDL Cholesterol Direct 119 mg/dL
[2023-02-05 08:05] LABS: Creatinine Urine 86.7 mg/dL
[2023-02-05 08:12] LABS: MALB Creatinine Ratio < 6.9 mg/g (0-30); Microalbumin Urine Random < 6.0 mg/L (0-16.7)
== END 2023-02-05 06:34 | disposition home or self-care (01) ==
PROVIDERS: PCP Family Medicine; Referring Provider Podiatrist Foot & Ankle Surgery; Visit Provider Nurse Practitioner Family
DX: I10 Essential (primary) hypertension (principal); E13.9 Other specified diabetes mellitus without complications; E78.5 Hyperlipidemia, unspecified
CPT/HCPCS: 36415; 80053; 80061; 82043; 83036

== ENCOUNTER 2023-02-24 13:52 | Outpatient (CLI) | payer MEDICARE, SELFPAY ==
--- NOTE | ~2023-02-24 | US_ITS ---
EXAMINATION: US art doppler w press LE BI DATE: 02/24/2023 15:37 INDICATION: Bilateral lower extremity peripheral arterial occlusive disease TECHNIQUE: Segmental pressures and plethysmographic and Doppler waveforms of the brachial and lower e xtremity arteries were obtained. COMPARISON: None. FINDINGS: Right and left brachial artery pressures of 103 mm Hg and 104 mm Hg, respectively, are concordant (no rmal difference <= 30 mmHg). The right and left high-thigh pressure indices are 1.27 and 1.36, respec tively (normal > 1.2). The right ankle-brachial index (CABRERA) is 1.38 (normal >= 0.9-1). The right great toe-brachial index (T BI) is 0.18 (normal >= 0.6-0.8). The right lower extremity segmental pressure gradients are increased between the right dorsalis pedis artery and both the right whirk-sog-picw popliteal artery and poste rior tibial artery (normal gradients <= 20-30 mmHg between adjacent levels on the same leg or the love e levels on the two legs). Arterial waveforms are biphasic with brisk systolic upstrokes throughout t he arteries of the right lower limb. The left CABRERA is 1.38. The left TBI is 0.31. The left lower extremity segmental pressure gradients are increased between the left dorsalis pedis artery and both the left qbhss-nuc-uljn popliteal artery a nd posterior tibial artery. Arterial waveforms are biphasic with brisk systolic upstrokes throughout the arteries of the left lower limb. IMPRESSION: 1. Arterial occlusive disease to bilateral lower limbs with moderate to severely decreased right and moderately decreased left toe brachial indices. Reviewed, dictated and finalized at location A. IMPRESSION: 1. Arterial occlusive disease to bilateral lower limbs with moderate to severel y decreased right and moderately decreased left toe brachial indices.
== END 2023-02-24 13:53 | disposition home or self-care (01) ==
PROVIDERS: PCP Family Medicine; Visit Provider Podiatrist Foot & Ankle Surgery
DX: I73.9 Peripheral vascular disease, unspecified (principal)
CPT/HCPCS: 93923

== ENCOUNTER 2023-04-19 14:45 | Emergency (ER) | payer MEDICARE, SELFPAY ==
[2023-04-19] VITALS (7 sets, daily range): BP systolic 120–138; BP diastolic 74–78; PULSE 58; RESP 16; TEMP 36.8; O2SAT 94–98
--- NOTE | ~2023-04-19 | CT_ITS ---
EXAMINATION: CT chest abdomen pelvis w con DATE: 04/19/2023 16:12 INDICATION: left sided abdominal pain, fall, hemoptysis . TECHNIQUE: Computed tomography (CT) of the chest, abdomen, and pelvis was performed with 100 mL Omnip aque-350 intravenous contrast. Automated exposure control and iterative reconstruction technique were employed. The dose-length product was 911.09 mGy-cm. COMPARISON: CT lung screening 09/25/2022; CT abdomen pelvis 08/08/2020 FINDINGS: CHEST: No thoracic aortic injury. No mediastinal hematoma. No pericardial effusion. Coronary artery calcification. Prior CABG. No acute lung injury. Senescent changes in the lungs. No pleural effusion or pneumothorax. ABDOMEN/PELVIS: No solid organ injury. Chronic adrenal nodularity. Multiple bilateral renal cysts and hypodensities t hat are too small to characterize but statistically most likely represent cysts. Chronic right pelvie ctasis. No evidence of bowel or mesenteric injury. Cholecystectomy. Large duodenal diverticula. No free fluid or free air. No retroperitoneal hematoma. Pelvic contents are atraumatic. Prostate seeds. Diverticulosis without diverticulitis. MUSCULOSKELETAL: No acute extraspinal fracture. No fracture or traumatic malalignment of the thoracic or lumbar spine. Multiple large fat and bowel-containing but otherwise uncomplicated appearing ventral hernias. Fat-co ntaining, 3.9 cm uncomplicated appearing left lateral abdominal wall hernia. Uncomplicated fat-contai dory right inguinal hernia. Left inguinal hernia repair. Urethral diverticulum. IMPRESSION: No acute process detected in the chest, abdomen, or pelvis. Reviewed, dictated and finalized at location K.
--- NOTE | ~2023-04-19 | XR_ITS ---
EXAM: XR elbow RT min 3V DATE: 04/19/2023 15:45 HISTORY: posterior right elbow pain, fall today onto bricks . COMPARISON: None available. FINDINGS: Normal mineralization. No fracture or dislocation. No lytic or blastic lesion. Mild degene rative changes. No erosion or periosteal change. Soft tissues within normal limits. IMPRESSION: No acute osseous finding in the right elbow. Reviewed, dictated and finalized at location K.
[2023-04-19 15:33] LABS: Basophils Absolute Auto 0.1 K/mm3 (0.0-0.1); Basophils Percent Auto 0.6 % (0.2-1.2); Eosinophils Absolute Auto 0.2 K/mm3 (0-0.3); Eosinophils Percent Auto 2.2 % (0-4.4); Hematocrit 46.4 % (42.0-52.0); Hemoglobin 15.9 g/dL (14.0-18.0); Immature Granulocyte Absolute 0.03 K/mm3 (0.00-0.031); Immature Granulocyte Percent A 0.3 % (0-0.5); Lymphocytes Absolute Auto 3.08 K/mm3 (0.9-3.2); Lymphocytes Percent Auto 33.2 % (18.3-44.2); Mean Corpuscular HGB Conc 34.3 g/dl (32-36); Mean Corpuscular Hemoglobin 30.9 pg (26-34); Mean Corpuscular Volume 90.3 fl (80-100); Mean Platelet Volume 9.3 fl (7.4-10.4); Monocytes Absolute Auto 0.7 K/mm3 (0.1-0.6); Monocytes Percent Auto 7.7 % (2.6-8.5); Neutrophils Absolute Auto 5.2 K/mm3 (1.3-6.7); Platelet Count Result 175 k/mm3 (150-375); Red Blood Count 5.14 M/mm3 (4.6-6.20); Red Cell Distribution Width 12.9 % (11.5-14.5); White Blood Count 9.3 K/mm3 (4.5-10.0)
--- NOTE | 2023-04-19 15:33 | ED.FALL ---
HPI - Fall General Chief Complaint: Fall Stated Complaint: fall Time Seen by Provider: 04/19/23 15:04 Source: patient and family Mode of arrival: ambulatory Limitations: no limitations History of Present Illness HPI Narrative: This is a 78 year old male that presents to the ER for a fall today. Reports he was walking up the steps carrying a box and tripped and fell forward. Reports landing on his left side. Reports since he has had left sided abdominal pain. Also reports right elbow pain. Reports he had one episode of hemoptysis. This happened a couple of hours prior to arrival. Denies hitting his head, loss of consciousness, vomiting, numbness, or weakness. Related Data Home Medications Medication Instructions Recorded Confirmed hydrochlorothiazide 25 mg tablet 12.5 mg PO DAILY 05/04/19 04/02/23 metoprolol tartrate 25 mg tablet 25 mg PO BID 05/04/19 04/02/23 aspirin 81 mg tablet,delayed 81 mg PO DAILY 07/01/19 04/02/23 release (Adult Aspirin Regimen) acetaminophen 325 mg tablet 650 mg PO Q4H PRN Pain 08/10/19 04/02/23 (Tylenol) Allergies Allergy/AdvReac Type Severity Reaction Status Date / Time simvastatin Allergy Mild Leg cramp Verified 04/19/23 14:46 Ksaubnp-RUL-BkZ Reductase Allergy Mild Cramping Verified 04/19/23 14:46 Inhibitor of the [Zanflnh-Jgt-Owl Reductase Muscles Inhibitor] Review of Systems Review of Systems: CONSTITUTIONAL: Denies fever EYES: Denies visual changes CARDIOVASCULAR: Denies chest pain RESPIRATORY: Denies dyspnea. GASTROINTESTINAL: Reports abdominal pain. Denies vomiting MUSCULOSKELETAL: Reports joint pain, and myalgia.Denies back pain NEUROLOGIC: Denies numbness, or weakness. 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, managed as type 2 Diarrhea GERD (gastroesophageal reflux disease) History of prostate cancer Treated with radiation pellets Hyperlipidemia Hypertension Peptic ulcer Primary osteoarthritis of left hip Left worse than right Right shoulder pain Weight loss Surgical History Surgical History History of cholecystectomy History of coronary artery bypass graft 2 vessel CABG History of hernia repair History of total bilateral knee replacement Family History Family History Sibling Patient's sister is in good health Breast cancer Other Breast cancer Carcinoma of colon Malignant neoplasm of prostate Lung cancer Arthritis Mother Mesothelioma Social History Social History Social History: Patient lives with his and she is the power of fingernail technician for healthcare. He desires to be full code. He has 3 sons and 1 stepdaughter. 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 Smoking packs per day: 1 Smoking cigarettes per day: 20.0 Years smoked: 53 Smoking pack-years: 53.00 Smoking status: Current every day smoker Tobacco type: cigarettes Second hand tobacco smoke exposure: No Additional smoking assessment comments: QUIT SMOKING FOR YEAR BUT DUE TO CURRENT ISSUES, SMOKING AGAIN Alcohol intake: current Alcohol use details: social beers Substance use: never Substance use type: does not use and unknown Lack of Transportation: No Lack of Food: Never True Current Housing: I Have Housing Concerned About Future Housing: No Difficulty Paying Gas/Electric Bills: No Difficulty Paying for Meds: No Currently Unemployed: No Education: Decline to Answer Difficulty w/ Childcare or Family Care: No Living arrangements: with family Occupation/Education: retired Gender identity (if verbalized by the patient): Male Spiritual
[2023-04-19 15:43] LABS: INR 0.9; Partial Thromboplastin Time 31.2 SECONDS (22.3-36.8); Prothrombin Time 12.8 Seconds (11.1-14.7)
[2023-04-19 15:44] LABS: Alanine Aminotransferase 23 U/L (6-50); Albumin Level 4.2 g/dL (3.5-5.1); Alkaline Phosphatase 79 U/L (38-126); Anion Gap 5 mmol/L (8-16); Aspartate Amino Transferase 28 U/L (17-59); Bilirubin,Total 0.6 mg/dL (0.2-1.3); Blood Urea Nitrogen 15 mg/dL (9-20); Calcium 9.5 mg/dL (8.4-10.2); Carbon Dioxide 26 mmol/L (22-30); Chloride 103 mmol/L (98-107); Estimated CRCL calculation 54 ml/min; Estimated Glomerular Filt Rate > 60; Glucose 106 mg/dL (65-110); Potassium 3.6 mmol/L (3.4-5.0); Sodium 134 mmol/L (137-145)
== END 2023-04-19 17:09 | disposition home or self-care (01) ==
PROVIDERS: Emergency Provider Physician Assistant; PCP Nurse Practitioner Family
DX: S59.901A Unspecified injury of right elbow, initial encounter (principal); R10.12 Left upper quadrant pain; I48.91 Unspecified atrial fibrillation; I25.10 Atherosclerotic heart disease of native coronary artery without angina pectoris; I10 Essential (primary) hypertension; E13.9 Other specified diabetes mellitus without complications; E78.5 Hyperlipidemia, unspecified; K21.9 Gastro-esophageal reflux disease without esophagitis; M16.0 Bilateral primary osteoarthritis of hip; F17.210 Nicotine dependence, cigarettes, uncomplicated; Z95.1 Presence of aortocoronary bypass graft; Z96.653 Presence of artificial knee joint, bilateral; Z85.46 Personal history of malignant neoplasm of prostate; Z90.49 Acquired absence of other specified parts of digestive tract; Z79.82 Long term (current) use of aspirin; W10.9XXA Fall (on) (from) unspecified stairs and steps, initial encounter
CPT/HCPCS: 36415; 71260; 73080; 74177; 80053; 85025; 85610; 85730; 99284; Q9967

== ENCOUNTER 2023-05-16 09:15 | Outpatient (RCR) | payer MEDICARE, SELFPAY ==
--- NOTE | 2023-05-06 13:46 | OPREHPOC ---
Outpatient Therapy Plan of Care This is a Multidisciplinary Plan of Care that may contain components documented by all disciplines (PT, OT, and ST.) PT Problem 1 PT Problem #1 Knowledge Deficit PT Goal 1 Goal 1. Patient will perform independent HEP Target Visit 9 PT Problem 2 PT Problem #2 Impaired Functional Mobil PT Goal 1 Goal 1. Patient will report no falls in the last month Target Visit 9 PT Problem 3 PT Problem #3 Impaired Strength PT Goal 1 Goal 1. Patient will demo 4+/5 LE MMT in all planes Target Visit 9 PT Problem 4 PT Problem #4 Impaired Functional ADLs PT Goal 1 Goal 1. Patient will report he is able to perform all ADL's at his prior level Target Visit 9
--- NOTE | 2023-05-06 13:46 | PTOPEVAL1 ---
Assessment and note entered by Faiza Zuniga DPT Evaluation Information Assessment Status Evaluation Subjective Information Pt reports he fell 2 weeks ago. He is moving and was carrying a box, missed a step and fell and hit concrete. Reports he was negative for fractures or internal bleeding but he is still having tenderness under his ribs (highest 7-8/10 and lowest 0/10). This is his only fall. Also states he feels like he is getting weak and feels unsteady on his feet. Gets wobbly if turning too quickly. Pt also reports he has been told he has peripheral artery disease and an abominal surgery. Can cook, clean, walk, and do other exercises but is much slower than he used to be. Also thinks he shuffles his feet. No return to MD scheduled currently. Patient goal: improve function, get around without falling Reported Pain Level Pain Score 0: Self Report Assessment PT Clinical Summary The patient is presenting to skilled therapy following a fall 2 weeks ago. He presents with decreased LE strength, gait impairments, and a 45/ 56 Puente Balance Scale score which are contributing to his difficulty with his normal activities including walking and doing ADL's at his prior level. He will highly benefit from therapy to address his impairments to improve strength and function and to prevent further falls. Plan of Care Interventions Gait Training,Manual Therapy,Neuro Re-education, Patient/Caregiver Education,Therapeutic Activities, Therapeutic Exercise PT Services Indicated Yes Treatment Frequency and 2 times a week for 8 visits Duration These treatments will address the objective and functional deficits as defined above. The patient will be advanced safely and appropriately in order for the patient to progress towards his/her prior level of function. Additional exercises will be introduced and as well as a comprehensive home exercise program upon discharge, if needed, ?to ensure carryover of functional gains achieved in the clinic. This treatment plan has been reviewed and agreement upon by the patient.
--- NOTE | 2023-05-19 15:05 | PCPTNOTE ---
Pt. came into office on date of appointment and canceled 05/19/23 appointment and all remaining visits but did not state why.
--- NOTE | 2023-05-20 08:56 | PTOPDC ---
Assessment and note entered by Faiza Zuniga DPT Evaluation Information Assessment Status Discharge - Pt Not Present Subjective Information - Assessment PT Clinical Summary Patient is self discharging at this time- has too many other commitments and will follow up when he is able. Plan of Care PT Services Indicated No
== END 2023-05-20 10:44 | disposition home or self-care (01) ==
LOC: ANHPT 09:15
PROVIDERS: PCP Nurse Practitioner Family; Visit Provider Nurse Practitioner Family
DX: R53.1 Weakness (principal); W19.XXXA Unspecified fall, initial encounter
CPT/HCPCS: 97110; 97112; 97161; 97530

== ENCOUNTER 2023-06-26 06:36 | Outpatient (CLI) | payer MEDICARE, SELFPAY ==
[2023-06-26 07:34] LABS: Basophils Percent Auto 0.7 % (0.2-1.2); Eosinophils Absolute Auto 0.2 K/mm3 (0-0.3); Eosinophils Percent Auto 2.6 % (0-4.4); Hematocrit 52.2 % (42.0-52.0); Hemoglobin 17.4 g/dL (14.0-18.0); Immature Granulocyte Absolute 0.01 K/mm3 (0.00-0.031); Immature Granulocyte Percent A 0.2 % (0-0.5); Lymphocytes Absolute Auto 2.28 K/mm3 (0.9-3.2); Lymphocytes Percent Auto 39.4 % (18.3-44.2); Mean Corpuscular HGB Conc 33.3 g/dl (32-36); Mean Corpuscular Hemoglobin 30.9 pg (26-34); Mean Corpuscular Volume 92.6 fl (80-100); Mean Platelet Volume 9.2 fl (7.4-10.4); Monocytes Absolute Auto 0.4 K/mm3 (0.1-0.6); Monocytes Percent Auto 6.7 % (2.6-8.5); Neutrophils Absolute Auto 2.9 K/mm3 (1.3-6.7); Neutrophils Percent Auto 50.4 % (45.5-73.1); Platelet Count Result 181 k/mm3 (150-375); Red Blood Count 5.64 M/mm3 (4.6-6.20); Red Cell Distribution Width 12.7 % (11.5-14.5); White Blood Count 5.8 K/mm3 (4.5-10.0)
[2023-06-26 07:43] LABS: Alanine Aminotransferase 27 U/L (6-50); Albumin Level 4.5 g/dL (3.5-5.1); Alkaline Phosphatase 104 U/L (38-126); Anion Gap 9 mmol/L (8-16); Aspartate Amino Transferase 30 U/L (17-59); Bilirubin,Total 0.9 mg/dL (0.2-1.3); Blood Urea Nitrogen 12 mg/dL (9-20); Calcium 9.8 mg/dL (8.4-10.2); Carbon Dioxide 28 mmol/L (22-30); Chloride 104 mmol/L (98-107); Estimated Glomerular Filt Rate 58; Glucose 114 mg/dL (65-110); Sodium 141 mmol/L (137-145)
[2023-06-26 10:50] LABS: Hemoglobin A1C 6.1 % (<5.7)
== END 2023-06-26 06:37 | disposition home or self-care (01) ==
LOC: ANHLAB 06:39
PROVIDERS: PCP Nurse Practitioner Family; Visit Provider Nurse Practitioner Family
DX: E78.5 Hyperlipidemia, unspecified (principal); I10 Essential (primary) hypertension; Z51.81 Encounter for therapeutic drug level monitoring; Z85.46 Personal history of malignant neoplasm of prostate; Z87.891 Personal history of nicotine dependence; E13.9 Other specified diabetes mellitus without complications
CPT/HCPCS: 36415; 80053; 83036; 85025

== ENCOUNTER 2023-09-29 06:38 | Outpatient (CLI) | payer MEDICARE, SELFPAY ==
[2023-09-29 07:21] LABS: Basophils Absolute Auto 0.1 K/mm3 (0.0-0.1); Eosinophils Absolute Auto 0.2 K/mm3 (0-0.3); Eosinophils Percent Auto 2.7 % (0-4.4); Hematocrit 50.3 % (42.0-52.0); Hemoglobin 16.7 g/dL (14.0-18.0); Immature Granulocyte Absolute 0.03 K/mm3 (0.00-0.031); Immature Granulocyte Percent A 0.5 % (0-0.5); Lymphocytes Percent Auto 33.5 % (18.3-44.2); Mean Corpuscular HGB Conc 33.2 g/dl (32-36); Mean Corpuscular Hemoglobin 30.6 pg (26-34); Mean Corpuscular Volume 92.1 fl (80-100); Mean Platelet Volume 8.8 fl (7.4-10.4); Monocytes Absolute Auto 0.5 K/mm3 (0.1-0.6); Monocytes Percent Auto 8.1 % (2.6-8.5); Neutrophils Absolute Auto 3.4 K/mm3 (1.3-6.7); Neutrophils Percent Auto 54.2 % (45.5-73.1); Platelet Count Result 175 k/mm3 (150-375); Red Blood Count 5.46 M/mm3 (4.6-6.20); Red Cell Distribution Width 12.8 % (11.5-14.5); White Blood Count 6.3 K/mm3 (4.5-10.0)
[2023-09-29 09:37] LABS: Iron 167 ug/dL (49-181)
[2023-09-29 09:44] LABS: Vitamin D 25 Hydroxy 58.7 ng/mL
[2023-09-29 09:53] LABS: Alanine Aminotransferase 27 U/L (6-50); Albumin Level 4.2 g/dL (3.5-5.1); Alkaline Phosphatase 90 U/L (38-126); Anion Gap 4 mmol/L (4-12); Aspartate Amino Transferase 28 U/L (17-59); Bilirubin,Total 0.7 mg/dL (0.2-1.3); Blood Urea Nitrogen 16 mg/dL (9-20); Calcium 9.8 mg/dL (8.4-10.2); Carbon Dioxide 28 mmol/L (22-30); Chloride 104 mmol/L (98-107); Cholesterol 192 mg/dL (0-200); Estimated Glomerular Filt Rate > 60; Glucose 116 mg/dL (65-110); HDL Direct 40 mg/dL; Magnesium 2.3 mg/dL (1.6-2.3); Potassium 3.8 mmol/L (3.4-5.0); Sodium 136 mmol/L (137-145); Triglycerides 140 mg/dL (<150)
[2023-09-29 09:54] LABS: Percent Iron Saturation 53 % (20-50)
[2023-09-29 10:05] LABS: LDL Cholesterol Direct 124 mg/dL
[2023-09-29 10:17] LABS: NT Pro B Type Natriuretic Pept 112 pg/mL (19.9-100)
[2023-09-29 10:28] LABS: Hemoglobin A1C 6.3 % (<5.7)
[2023-10-04 06:29] LABS: Testosterone Total 655 ng/dL (250-1100)
== END 2023-09-29 06:39 | disposition home or self-care (01) ==
PROVIDERS: PCP Nurse Practitioner Family; Referring Provider Internal Medicine Cardiovascular Disease; Visit Provider Nurse Practitioner Family
DX: E78.5 Hyperlipidemia, unspecified (principal); I10 Essential (primary) hypertension; I25.810 Atherosclerosis of coronary artery bypass graft(s) without angina pectoris; I48.91 Unspecified atrial fibrillation; R53.83 Other fatigue; R06.02 Shortness of breath
CPT/HCPCS: 36415; 80053; 80061; 82306; 82607; 82728; 82746; 83036; 83540; 83550; 83735; 83880; 84403; 84443; 85025

== ENCOUNTER 2024-02-12 08:45 | Outpatient (RCR) | payer MEDICARE, SELFPAY | END 2024-02-12 10:27 | disposition home or self-care (01) | LOC: ANHCPREHAB 08:45 | PROVIDERS: PCP Nurse Practitioner Family; Visit Provider Internal Medicine Cardiovascular Disease | DX: Z95.5 Presence of coronary angioplasty implant and graft (principal) | CPT/HCPCS: 93798 ==

== ENCOUNTER 2024-04-01 07:22 | Outpatient (CLI) | payer MEDICARE, SELFPAY ==
[2024-04-01 08:23] LABS: LDL Cholesterol Direct 127 mg/dL
[2024-04-01 08:29] LABS: Alanine Aminotransferase 27 U/L (6-50); Albumin Level 4.7 g/dL (3.5-5.1); Alkaline Phosphatase 83 U/L (38-126); Anion Gap 6 mmol/L (4-12); Aspartate Amino Transferase 35 U/L (17-59); Bilirubin,Total 1.1 mg/dL (0.2-1.3); Blood Urea Nitrogen 16 mg/dL (9-20); Carbon Dioxide 30 mmol/L (22-30); Chloride 101 mmol/L (98-107); Cholesterol 212 mg/dL (0-200); Estimated Glomerular Filt Rate > 60; Glucose 117 mg/dL (65-110); HDL Direct 45 mg/dL; Potassium 5.3 mmol/L (3.4-5.0); Sodium 137 mmol/L (137-145); Triglycerides 158 mg/dL (<150)
[2024-04-01 08:37] LABS: Hemoglobin A1C 6.1 % (<5.7)
[2024-04-01 10:13] LABS: Creatinine Urine 83.1 mg/dL
[2024-04-01 10:32] LABS: MALB Creatinine Ratio < 7.2 mg/g (0-30); Microalbumin Urine Random < 6.0 mg/L (0-16.7)
== END 2024-04-01 07:23 | disposition home or self-care (01) ==
LOC: ANHLAB 07:24
PROVIDERS: PCP Nurse Practitioner Family; Visit Provider Nurse Practitioner Family
DX: E13.9 Other specified diabetes mellitus without complications (principal); I10 Essential (primary) hypertension; R53.83 Other fatigue; I48.91 Unspecified atrial fibrillation; I73.9 Peripheral vascular disease, unspecified
CPT/HCPCS: 36415; 80053; 80061; 82043; 83036

== ENCOUNTER 2024-05-25 10:20 | Outpatient (CLI) | payer MEDICARE, SELFPAY ==
--- NOTE | ~2024-05-25 | CT_ITS ---
CT abdomen pelvis w con Ordering provider: Shazia Funes APRN History: 79 years Male with . STAT abdominal pain, large non reduciable ventral herni . Comparison: April 19, 2023 Technique: CT abdomen and pelvis with IV and without oral contrast. Automated exposure control and it erative reconstruction technique were employed. The dose-length product was 624.92 mGy-cm. 100 mL Omnipaque 350 was given IV. Findings: VISUALIZED LOWER CHEST: Dependent atelectatic changes. UPPER ABDOMINAL ORGANS: Liver: Fat infiltration. Gallbladder: Status post cholecystectomy with highly suggestive stone seen in the dilated CBD. Spleen: Normal. Stomach/duodenum: Thickened wall of the stomach. Clinical evaluation for gastritis advised. Duodenal diverticulum. Pancreas: Atrophic. Adrenals: Right adrenal adenoma measuring 1.1. Left adrenal adenoma measuring 1.1 cm. No follow-up is advised unless clinically warranted. Kidneys: Bilateral renal cysts with the largest in the right lower pole measuring 4.6 x 3.4 cm. PELVIC ORGANS: The bladder is normal. Brachytherapy changes seen in the prostate. BOWEL AND MESENTERY: Colon: Thickened wall of the sigmoid colon is seen in the right side with inflammatory changes sugges tive of diverticulitis. Normal appendix. Small Bowel: Slight dilatation of the small bowel is seen in the left side of the abdomen No definite obstruction. Peritoneum/mesentery: No free air or free fluid. No mesenteric lymphadenopathy. RETROPERITONEUM: Mild atheromatous disease of the abdominal aorta. No retroperitoneal lymphadenopat hy. MUSCULOSKELETAL: Superficial soft tissues: Anterior abdominal wall hernias noted in the right anterior and left anteri or wall of the pelvis with bowel content. Right inguinal hernia with fat content. The superficial sof t tissues are normal. Bones: Age appropriate degenerative changes of the spine. 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 IMPRESSION: 1. Diverticulitis in the sigmoid colon seen in the right side of the pelvis with no definite abscess formation or free air or fluid. 2. Anterior abdominal wall hernias with no definite obstruction. Slight dilatation of the bowel loop s in the left side of the abdomen is noted. Follow-up advised. 3. Right fat-containing inguinal hernia. 4. Bilateral renal cysts. 5. Atrophic pancreas. 6. Thickened wall of the stomach which may indicate gastritis. Clinical evaluation advised. Reviewed, dictated and finalized at location A. NG MANAGER IMPRESSION: 1. Diverticulitis in the sigmoid colon seen in the right side of the pelvis wi th no definite abscess formation or free air or fluid. 2. Anterior abdominal wall hernias with no definite obstruction. Slight dilata tion of the bowel loops in the left side of the abdomen is noted. Follow-up adv ised. 3. Right fat-containing inguinal hernia. 4. Bilateral renal cysts. 5. Atrophic pancreas. 6. Thickened wall of the stomach which may indicate gastritis. Clinical evalua tion advised.
[2024-05-25 10:58] LABS: Estimated Glomerular Filt Rate 49
== END 2024-05-25 10:21 | disposition home or self-care (01) ==
PROVIDERS: PCP Nurse Practitioner Family; Visit Provider Nurse Practitioner
DX: K43.9 Ventral hernia without obstruction or gangrene (principal); K40.90 Unilateral inguinal hernia, without obstruction or gangrene, not specified as recurrent; K92.89 Other specified diseases of the digestive system; K86.89 Other specified diseases of pancreas; K57.32 Diverticulitis of large intestine without perforation or abscess without bleeding; K46.9 Unspecified abdominal hernia without obstruction or gangrene; N28.1 Cyst of kidney, acquired
CPT/HCPCS: 74177; Q9967

== ENCOUNTER 2024-07-28 12:15 | Outpatient (CLI) | payer MEDICARE, SELFPAY ==
--- OUTSIDE RECORDS SUMMARY | 2024-07-28 13:12 | XMS_ITS | Continuity of Care Document ---
Author Organization [facility] Address [address] [place] [address] [address] [place] [address] Phone Care Team Providers Care Client Engagement Manager Name Role Phone Arminda Bauer Unavailable Unavailable Procedures Procedure Date Remove Foreign Body From Eye Advance Directives Directive Yes / No Effective Date File Name No Information Encounters Encounter Description Practice Location Reason(s) For Visit Diagnoses Date Provider Providers Copied on Encounter [facility], [address] [place] [address] [address], [place], [place], [id number], [place] tel:[phone] [address] [facility] No Information [phone] Lizette Hilliard. [address] [facility] , [address], [place], [address], [place]. tel:[phone] Family History Family Member Type Diagnosis Age At Onset No Information Payers Payer name Insurance type Covered republican ID Authoriza tion(s) No Information Social History Type Description Quantity Date Captured Comments Sex Male Smoking Status No Information Chief Complaint And Reason For Visit No Information Reason For Referral Reason For Referral No Information History Of Present Illness Encounter Date Complaint History Of Prese nt Illness No Information Functional Status Date Functional Assessmen t No Information Instructions Date Instruction Additional Infor mation No Information Assessments Type Assessment Date No Information Patient Care Teams Name Effective Dates (start - stop) Status Members No Information
--- OUTSIDE RECORDS SUMMARY | 2024-07-28 13:12 | XMS_ITS | Patient Health Summary ---
Author Organization [facility] Address [address] [place] [address] Care Team Providers Care Assistant Designer Name Role Phone Ace Hanna MD Primary Care Provider [phone] Note from [facility],non-owned Affiliates and Associated Physician Practices is amultiple site organization consisting of ambulatory clinics and hospital sitesin [place], [place], [place] and [place]. This disclosure is being madepursuant to the Care Everywhere program and may not contain all information available regarding this patient. Last updated 18.[facility] Allergies No known active allergies Medications * Be aware that medications may not be up to date on this document. Alwaysverify current medications with the patient. * metoprolol tartrate IR (LOPRESSOR) 100 MG tablet * atorvastatin (LIPITOR) 20 MG tablet * Tamsulosin HCl (FLOMAX PO) * aspirin 325 MG tablet * Ranitidine HCl (ZANTAC 75 PO) Active Problems Problem Noted Date Diagnosed Date Heart disease Prostate CA Hypertension Social History Tobacco Use Types Packs/Day Years Used Date Smoking Tobacco: Some Days Cigarettes 1 8 Alcohol Use Standard Drinks/Week Comments No 0 (1 standard drink = 0.6 oz pur e alcohol) Sex and Gender Information Value Date Recorded Sex Assigned at Not on file Gender Identity Not on file Sexual Orientation Not on file Last Filed Vital Signs Vital Sign Reading Time Taken Comments Blood Pressure 113/80 07/18/2015 12:00 PM [employer] Pulse 62 07/18/2015 12:00 PM [employer] Temperature 36.8 ??C (98.3 ??F) 07/18/2015 11:[address] Respiratory Rate 15 07/18/2015 12:00 PM [employer] Oxygen Saturation 94% 07/18/2015 12:00 PM [employer] Inhaled Oxygen Concentration - - Weight 111.1 kg (245 lb) 07/18/2015 9:34 AM [employer] Height 185.4 cm (6' 1 ) 07/18/2015 9:34 AM [employer] Body Mass Index 32.32 07/18/2015 9:34 AM [employer] Procedures * PATHOLOGY TISSUE EXAM (STL)(Performed 12/14/2012) Performed for Hernia, inguinal, Heart disease, Prostate ca (HCC), Hypertension * DERMATOPATHOLOGY(Performed 10/29/2011) * DERMATOPATHOLOGY(Performed 10/17/2011) * DERMATOPATHOLOGY(Performed 12/18/2010) Results * GROSS + MICRO EXAM (STL) (12/14/2012 10:00 AM CDT) Case Report Surgical Pathology Report ? Case: [id number] ? Authorizing Provider: ??Nathaniel Salazar MD ? Ordering Provider: ?? Nathaniel Salazar MD ? Ordering Location: ? [facility] ?Collected: ? 12/14/2012 10:00 AM ? Pathologist: ? Víctor De La O MD ?Received: ?12/15/2012 ??8:12 AM ?Signed Out: ?12/16/2012 ??3:02 PM (Final) ? Specimen: ?Hernia Inguinal, left ? 12/16/2012 3:02 PM CDT [facility] Final Diagnosis 1. ? Hernia sac, left, contents: -- ? Adipose tissue with fat necrosis /lionel 12/16/2012 3:02 PM CDT [facility] Gross Description The specimen is labeled, Glass, Justin, and hernia sac left contents and consists of a 5.5 x 2 x 2 cm irregular strip of partially indurated yellow lobular congested tissue. The cut surfaces display areas of bright yellow discoloration. [employer] Lecturer sections of the specimen are submitted in a single cassette. LL/na 12/16/2012 3:02 PM CDT [facility] Microscopic Description Section labeled hernia sac, left, shows fibrofatty tissue. ??Fat necrosis is present. ??Malignancy is not identified. ?? MALACHI/lionel 12/16/2012 3:02 PM CDT [facility] Synoptic Report 12/16/2012 3:02 PM CDT [facility] Miscellaneous samples (specimen) MISCELLANEOUS SAMPLES / Unknown 12/14/2012 10:00 AM CDT 12/15/2012 8:12 AM CDT Nathaniel Salazar MD LAB - PATHOLOGY/CYTO LOGY ORDERABLES Performing Organization Address [facility] Co de Phone Number [facility] [address] [place] [address] * PATHOLOGY TISSUE FOR DERMATOLOGY (10/29/2011 12:00 AM CDT) Only the most recent of3 resultswithin the time period is included. 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 Check margins. Previous Bx: [id number]. GROSS DESCRIPTION: Received is one formalin filled container labeled with the patient's name and designated left scapula. The specimen consists of an ellipse measuring [id number] and is oriented with a suture/notch at the 12 o'clock position (labeled on the requisition as notched at medial pole). The 12 o'clock to 6 o'clock margin is inked green. The 6 o'clock to 12 o'clock margin is inked black. The 12 o'clock tip is submitted in cassette 1. The 6 o'clock tip is submitted in cassette 2. The remainder of the ellipse is serially sectioned and submitted in cassettes 3. Jar 0. MICROSCOPIC DESCRIPTION: There are fibroblasts and collagen bundles oriented parallel to the skin surface. There are elongated blood vessels, some of which are oriented perpendicular to the skin surface. ?? No residual tumor is identified. Final Diagnosis performed by Isa Murrell M.D. Electronically signed 10/31/2011 5:02:27PM [facility] Comment: Performed at: Dermatopathology Laboratory [facility] - Department of Dermatology [address] [place] [address] Phone number: [phone] Toll Free: [phone] FAX: [phone] 10/29/2011 10/30/2011 Martin Garcia MD LAB - PATHOLOGY/CYTO LOGY ORDERABLES Performing Organization Address [facility] Co de Phone Number [facility] [address] Lab [address] [phone] Care Teams Assistant Designer Relationship Specialty Start Date End Date Ace Hanna MD [address] [place] [id number] PCP - General Family Medicine 11/25/12
--- OUTSIDE RECORDS SUMMARY | 2024-07-28 13:12 | XMS_ITS | CONTINUITY OF CARE DOCUMENT ---
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 Jeronimo Chandler RN ENCOUNTERS Date Type Provider Location Encounter Diag nosis - In-person encounter Office Visit Pushpa Thomas MD [facility] HYPERCHOLESTEROLEMI A- intolerant of all statins and zetia - In-person encounter Office Visit Pushpa Thomas MD [facility] - In-person encounter Office Visit Pushpa Thomas MD [facility] - In-person encounter Office Visit Pushpa Thomas MD [facility] - In-person encounter Office Visit Pushpa Thomas MD [facility] HYPERCHOLESTEROLEMI A- intolerant of all statins and zetiaCAD-03/13 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, inf lat ischemia on stress 02/10 - In-person encounter Office Visit Pushpa Thomas MD [facility] CABG- SVG- DIAG open, 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 in [place]-10/29 CATH OCC VALDES-LAD, PAT SVG-2ND DIAGCAD-03/13 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, inf lat ischemia on stress 02/10DIZZINESS-02/10 HOLTER SB PVC-HR 83-42, 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 2013 - In-person encounter Office Visit Pushpa Thomas MD [facility] - In-person encounter Office Visit Pushpa Thomas MD [facility] - In-person encounter Office Visit Pushpa Thomas MD [facility] - In-person encounter Office Visit Pushpa Thomas MD [facility] - In-person encounter Office Visit Pushpa Thomas MD [facility] DIZZINESS-02/10 HOLTER SB PVC-HR 83-42, 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 2012 - In-person encounter Office Visit Pushpa Thomas MD [facility] - In-person encounter Office Visit Pushpa Thomas MD [facility] - In-person encounter Office Visit Pushpa Thomas MD [facility] - In-person encounter Office Visit Pushpa Thomas MD [facility] - In-person encounter Office Visit Pushpa Thomas MD [facility] - In-person encounter Office Visit Pushpa Thomas MD [facility] - In-person encounter Office Visit Pushpa Thomas MD [facility] - In-person encounter Office Visit Pushpa Thomas MD [facility] CAD-03/13 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, inf lat ischemia on stress 02/10TOBACCO ABUSE - In-person encounter Office Visit Pushpa Thomas MD [facility] HYPERCHOLESTEROLEMI A- intolerant of all statins and zetia - In-person encounter Office Visit Pushpa Thomas MD [facility] HTN-11/11 CAROTID NEGCABG- SVG- DIAG open, 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 in HYPERCHOLESTEROLE [place]- intolerant of all statins and zetia VITAL SIGNS Date Observation Value Provider blood pressure, diastolic 75 mm[Hg] Nd debbie Marcelino blood pressure, systolic 130 mm[Hg] Ruth Ann arauz Marcelino pulse rate 60 /min Kiersten Marcelino oxygen saturation, oximetry 97 % Kiersten Marcelino respiratory rate E&M 15 /min Kiersten Marcelino Body Mass Index (Ratio) 33.90 kg/m2 Tessa juwan Marcelino weight E&M 250 [lb_av] Kiersten Marcelino blood pressure, diastolic 79 mm[Hg] Alejandro Danielle blood pressure, systolic 148 mm[Hg] Fernanda Danielle pulse rate 73 /min Melida hutton oxygen saturation, oximetry 97 % Melida Danielle respiratory rate E&M 18 /min Hernan Danielle Body Mass Index (Ratio) 33.50 kg/m2 Shelly Danielle weight E&M 247 [lb_av] Melida hutton Body Mass Index (Ratio) 31.73 kg/m2 Anea clark Champagne blood pressure, diastolic 93 mm[Hg] An eatkinza Champagne blood pressure, systolic 150 mm[Hg] Ane atris Brown pulse rate 55 /min Aneatris Brown oxygen saturation, oximetry 99 % Aneatris Brown respiratory rate E&M 18 /min Aneatri s Brown weight E&M 234 [lb_av] Aneatris Brown Body Mass Index (Ratio) 30.92 kg/m2 Mills i Diego blood pressure, diastolic 80 mm[Hg] Ke rri Diego blood pressure, systolic 120 mm[Hg] Kaity ri Diego pulse rate 66 /min Michelle Willy piotr oxygen saturation, oximetry 98 % Michelle Diego respiratory rate E&M 16 /min Michelle larios weight E&M 228 [lb_av] Michelle Willy [facility] Body Mass Index (Ratio) 30.11 kg/m2 Anea clark [facility] blood pressure, diastolic 74 mm[Hg] An eatris [facility] blood pressure, systolic 124 mm[Hg] Ane atris [facility] pulse rate 53 /min Aneatris [facility] oxygen saturation, oximetry 98 % Aneatris [facility] respiratory rate E&M 18 /min Aneatri s [facility] weight E&M 222 [lb_av] Aneatris [facility] Body Mass Index (Ratio) 29.70 kg/m2 Anea clark [facility] blood pressure, diastolic 87 mm[Hg] An eatris [facility] blood pressure, systolic 140 mm[Hg] Ane atris [facility] pulse rate 85 /min Aneatris Brown oxygen saturation, oximetry 95 % Aneatris Brown respiratory rate E&M 18 /min Aneatri s Brown weight E&M 219 [lb_av] Aneatris Brown Body Mass Index (Ratio) 29.56 kg/m2 Anea clark [facility] blood pressure, diastolic 102 mm[Hg] An eatris Brown blood pressure, systolic 154 mm[Hg] Ane atris Brown pulse rate 80 /min Aneatris Brown oxygen saturation, oximetry 98 % Aneatris Brown respiratory rate E&M 18 /min Aneatri s [facility] weight E&M 218 [lb_av] Aneatris Brown Body Mass Index (Ratio) 29.81 kg/m2 Tessa ssa [facility] blood pressure, diastolic 70 mm[Hg] Nd debbie [facility] blood pressure, systolic 130 mm[Hg] Ruth Ann dailya [facility] pulse rate 48 /min Kiersten [facility] oxygen saturation, oximetry 97 % Kiersten Marcelino respiratory rate E&M 14 /min Kiersten [facility] weight E&M 219 [lb_av] Kiersten Marcelino Body Mass Index (Ratio) 30.35 kg/m2 Mills i Diego blood pressure, diastolic 86 mm[Hg] Ke rri Diego blood pressure, systolic 128 mm[Hg] Kaity ri Diego pulse rate 50 /min Michelle Willy lrer oxygen saturation, oximetry 98 % Michelle Cortez respiratory rate E&M 15 /min Michelle larios weight E&M 223 [lb_av] Michelle Mirae lder Body Mass Index (Ratio) 29.26 kg/m2 Travis Suero 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 weight E&M 215 [lb_av] Melony Suero 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 Body Mass Index (Ratio) 29.81 kg/m2 Mills i Diego blood pressure, diastolic 69 mm[Hg] Ke rri Diego blood pressure, systolic 124 mm[Hg] Ker ri Diego pulse rate 53 /min Michelle Mirawilson lder oxygen saturation, oximetry 98 % Michelle Diego respiratory rate E&M 17 /min Michelle Mclaughlin farrukhnfeldpiotr weight E&M 219 [lb_av] Michelle Willy lder height E&M 72 [in_i] Michelle Willy lder Body Mass Index (Ratio) 30.96 kg/m2 Lacr etifernando Tadeo 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 weight E&M 221.2 [lb_av] Lacretifernando Contreras ls 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 blood pressure, diastolic, standing 80 mm [Hg] Jeronimo Chandler RN blood pressure, systolic, standing 140 mm [Hg] Jeronimo Chandler RN blood pressure, diastolic, sitting 80 mm[ Hg] Jeronimo Chandler RN blood pressure, systolic, sitting 140 mm[ Hg] Jeronimo Chandler RN blood pressure, caro tolic, supine, left arm 80 mm[Hg] Jeronimo Chandler RN blood pressure, syst olic, supine, left arm 128 mm[Hg] Jeronimo Chandler RN Body Mass Index (Ratio) 30.51 kg/m2 Lina humphries Diego blood pressure, diastolic 82 mm[Hg] Alpesh vasquezkristel Diego blood pressure, systolic 143 mm[Hg] Kaity mchugh Diego pulse rate 46 /min Michelle Willy lder oxygen saturation, oximetry 96 % Michelle Diego respiratory rate E&M 16 /min Michelle Mclaughlin harriet weight E&M 218 [lb_av] Michelle Willy lder height E&M 71 [in_i] Michelle Willy lder blood pressure, diastolic 78 mm[Hg] Aleyda acevedo [place] blood pressure, systolic 134 mm[Hg] Adalberto eph [place] pulse rate 67 /min Amilcar [place] oxygen saturation, oximetry 96 % Amilcar [place] respiratory rate E&M 16 /min Amilcar [place] weight E&M 225 [lb_av] Amilcar [place] blood pressure, diastolic 58 mm[Hg] Aleyda seph [place] blood pressure, systolic 120 mm[Hg] Adalberto eph [place] pulse rate 55 /min Mineral [place] oxygen saturation, oximetry 97 % Mineral [place] respiratory rate E&M 16 /min Mineral [place] weight E&M 226 [lb_av] Mineral [place] blood pressure, diastolic, left arm 61 mm [Hg] [facility] pressure, systolic, left arm 114 mm [Hg] [facility] blood pressure, diastolic, right arm 58 m m[Hg] Denyean Soliz blood pressure, systolic, right arm 132 m m[Hg] Denyean Soliz blood pressure, diastolic 61 mm[Hg] Sandoval Soliz blood pressure, systolic 114 mm[Hg] Andi an Soliz pulse rate 58 /min [facility] oxygen saturation, oximetry 98 % [facility] respiratory rate E&M 16 /min Andiyean Soliz weight E&M 231 [lb_av] Denyean Soliz blood pressure, diastolic 75 mm[Hg] Chris Gordon blood pressure, systolic 140 mm[Hg] Abdullahi Gordon pulse rate 60 /min Liz Gordon respiratory rate E&M 16 /min Eze Gordon weight E&M 231 [lb_av] Liz Gordon blood pressure, diastolic 79 mm[Hg] Elder Chandler RN blood pressure, systolic 143 mm[Hg] Jeronimo Chandler RN pulse rate 57 /min Jeronimo Chandler RN oxygen saturation, oximetry 98 % Jeronimo Chandler RN respiratory rate E&M 16 /min Jeronimo arteagaterry RN weight E&M 230 [lb_av] Jeronimo Chandler RN blood pressure, diastolic 70 mm[Hg] Aleyda seph [place] blood pressure, systolic 135 mm[Hg] Adalberto eph [place] pulse rate 56 /min Amilcar [place] oxygen saturation, oximetry 97 % Amilcar [place] respiratory rate E&M 16 /min Amilcar [place] weight E&M 261 [lb_av] Amilcar [place] blood pressure, diastolic 76 mm[Hg] Aleyda seph [place] blood pressure, systolic 126 mm[Hg] Adalberto eph [place] pulse rate 56 /min Amilcar [place] oxygen saturation, oximetry 97 % Amilcar [place] respiratory rate E&M 16 /min Amilcar [place] weight E&M 247 [lb_av] Amilcar [place] blood pressure, diastolic 81 mm[Hg] Aleyda seph [place] blood pressure, systolic 148 mm[Hg] Adalberto eph [place] pulse rate 56 /min Amilcar [place] oxygen saturation, oximetry 97 % Amilcar [place] respiratory rate E&M 16 /min Amilcar [place] weight E&M 246 [lb_av] Amilcar [place] ALLERGIES Allergy Name Onset Date Reaction Criticality Status ZETIA abdominal pain abdominal pain Low Cr iticality active CRESTOR Low Criticality active LIPITOR muscle aches Low Criticality active ZOCOR Upset stomach Low Criticality active RESULTS Date Observation Value Provider Reference Range Interpretation Location red blood cell distribution width, size density 41.3 fL [facility] - immature granulocytes, percentage of total cells, blood 0.3 % [facility] - nucleated red blood cells as percent of blood leukocytes 0.0 % [facility] - red blood cell (erythrocyte) count, per high power field 0.0 10*3/UL [facility] - eosinophils as percent of blood leukocytes 1.6 % [facility] - neutrophils as percent of blood leukocytes 63.7 % [facility] - Absolute Neutrophils 7.6 CELLS/UL [facility] 1.5 - 7.8 basophils as percent of blood leukocytes 0.5 % [facility] - Absolute Basophils 0.1 CELLS/UL [facility] 0.0 - 0.2 monocytes as percent of blood leukocytes 7.8 % [facility] - Absolute Monocytes 0.9 CELLS/UL [facility] 0.2 - 1.0 lymphocytes as percent of blood leukocytes 26.1 % [facility] - Absolute Lymphocytes 3.1 CELLS/UL [facility] 0.9 - 3.9 mean platelet volume 10.0 (?) [facility] - platelet count 185.0 THOUSAND/UL [facility] 100.0 - 400.0 mean corpuscular hemoglobin concentration, RBC 33.2 G/DL [facility] 31.0 - 38.0 mean corpuscular hemoglobin, RBC 30.6 pg [facility] 25.0 - 35.0 mean corpuscular volume, RBC 92.1 fL [facility] 75.0 - 100.0 hematocrit, blood 46.4 % [facility] 35.0 - 55.0 hemoglobin, blood 15.4 g/dL [facility] 11.5 - 16.5 erythrocyte count, whole blood 5.0 MILLION/UL [facility] 3.5 - 5.5 hemoglobin A1C, blood, as % of total hemoglobin 6.2 % [facility] 4.0 - 6.0 High thyroid stimulating hormone, serum 1.230 ?IU/ML [facility] 0.270 - 4.200 anion gap, serum 12.4 [facility] - albumin/globulin ratio, serum 2.7 g/dL [facility] 1.1 - 2.5 High globulin, serum 3.2 [facility] 2.3 - 3.8 urea nitrogen/creatinine ratio, serum 9.2 [facility] - Estimated Glomerular Filtration Rate (calc) 63.3 (?) [facility] 59.0 - chloride, serum 103.6 mmol/L [facility] 98.0 - 107.0 potassium, serum 4.4 mmol/L [facility] 3.5 - 5.1 sodium, serum 142.0 mmol/L [facility] 136.0 - 145.0 creatine, serum 1.2 mg/dL [facility] 0.7 - 1.2 carbon dioxide, venous blood 26.0 mmol/L [facility] 23.0 - 31.0 albumin, serum 4.6 g/dL [facility] 3.5 - 5.2 calcium, serum 9.8 mg/dL [facility] 8.6 - 10.2 aspartate aminotransferase (SGOT), serum 22.0 1/L [facility] 0.0 - 40.0 alkaline phosphatase, serum 96.0 1/L [facility] 40.0 - 130.0 alanine aminotransferase (SGPT), serum 34.0 1/L [facility] 0.0 - 41.0 protein, total, serum 7.8 g/dL [facility] 6.6 - 8.7 urea nitrogen, blood 11.0 mg/dL [facility] 8.0 - 23.0 Glucose Urine 125.0 mg/dL [facility] 74.0 - 99.0 High bilirubin, serum, total 0.5 mg/dL [facility] 0.0 - 1.2 platelet count 159 10*3/mm3 Jorge Ruiz hematocrit, blood 48.0 % Jorge Ruiz international normalized ratio (INR) 1.0 [facility] blood glucose, random 96 mg/dL [facility] creatinine, serum 1.01 mg/dL [facility] urea nitrogen, blood 14 mg/dL [facility] potassium, serum 4.2 mmol/L [facility] sodium, serum 142 mmol/L [facility] TOTAL NON-HDL-C (LDL VLDL) 101 [facility] alanine aminotransferase (SGPT), serum 18 1/L [facility] aspartate aminotransferase (SGOT), serum 22 1/L [facility] cholesterol/HDL ratio, serum 4.2 [facility] cholesterol, serum 132 mg/dL [facility] triglyceride, target level 150 mg/dL [facility] HDL cholesterol, serum, target level 40 mg/dL [facility] triglyceride, serum, fasting 92 mg/dL [facility] Normal HDL cholesterol, serum 31 mg/dL [facility] Low LDL cholesterol, serum 82 mg/dL [facility] Normal LDL target level 100 mg/dL [facility] cholesterol, target level 200 mg/dL [facility] TOTAL NON-HDL-C (LDL VLDL) 101 [facility] amin[facility] ([facility]PT), serum 18 1/L Lac[facility] aspartate aminotransferase (SGOT), serum 24 1/L [facility] cholesterol/HDL ratio, serum 3.7 [facility] cholesterol, serum 138 mg/dL [facility] triglyceride, target level 150 mg/dL [facility] HDL cholesterol, serum, target level 40 mg/dL [facility] triglyceride, serum, fasting 90 mg/dL Lui Tadeo 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 Normal HDL cholesterol, serum 37 mg/dL Lui Tadeo 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 Low LDL cholesterol, serum 83 mg/dL Lui aTdeo 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 Normal LDL target level 100 mg/dL Lui Tadeo 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 cholesterol, target level 200 mg/dL Lui Tadeo 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 LDL cholesterol, serum 151 mg/dL [facility] cholesterol, serum 221 mg/dL [facility] triglyceride, serum, fasting 98 mg/dL [facility] HDL cholesterol, serum 33 mg/dL [facility] LDL cholesterol, serum 165 mg/dL [facility] cholesterol, serum 218 mg/dL [facility] thyroid stimulating hormone, serum 0.83 u[IU]/mL [facility] hemoglobin A1C, blood, as % of total hemoglobin 5.6 % [facility] anion gap, serum 8.9 [facility] globulins, serum, total 3.3 g/dL [facility] estimated glomerular filtration rate >60 [facility] albumin/globulin ratio, serum 1.2 [facility] protein, total, serum 7.4 g/dL [facility] albumin, serum 4.1 g/dL [facility] bilirubin, serum, total 0.55 mg/dL [facility] alkaline phosphatase, serum 137 1/L [facility] alanine aminotransferase (SGPT), serum 36 1/L [facility] aspartate aminotransferase (SGOT), serum 19 1/L [facility] calcium, serum 9.2 mg/dL [facility] blood glucose, fasting 102 mg/dL [facility] creatinine, serum 0.93 mg/dL [facility] urea nitrogen, blood 9.3 mg/dL [facility] carbon dioxide, serum, total 28 mmol/L [facility] chloride, serum 104 mmol/L [facility] potassium, serum 3.9 mmol/L [facility] sodium, serum 137 mmol/L [facility] platelet count 168 10*3/uL [facility] red blood cell distribution width 12.4 % [facility] mean corpuscular hemoglobin concentration, RBC 34.8 g/dL [facility] mean corpuscular hemoglobin, RBC 32.0 pg [facility] mean corpuscular volume, RBC 91.9 fL [facility] hematocrit, blood 42.2 % [facility] hemoglobin, blood 14.7 g/dL [facility] erythrocyte (RBC) count 4.59 10*6/mm3 [facility] monocytes as percent of blood leukocytes 8.9 % [facility] lymphocytes as percent of blood leukocytes 35.2 % [facility] leukocyte count, blood 5.9 10*3/mm3 [facility] cholesterol/HDL ratio, serum 3.3 [facility] triglyceride, serum, fasting 99 mg/dL [facility] HDL cholesterol, serum 39 mg/dL [facility] LDL cholesterol, serum 68 mg/dL [facility] cholesterol, serum 127 mg/dL [facility] albumin/globulin ratio, serum 1.4 [facility] protein, total, serum 6.6 g/dL [facility] albumin, serum 3.9 g/dL [facility] bilirubin, serum, total 0.7 mg/dL [facility] alkaline phosphatase, serum 103 1/L [facility] alanine aminotransferase (SGPT), serum 27 1/L [facility] aspartate aminotransferase (SGOT), serum 35 1/L [facility] calcium, serum 9.2 mg/dL [facility] blood glucose, fasting 109 mg/dL [facility] creatinine, serum 1.2 mg/dL [facility] urea nitrogen, blood 10 mg/dL [facility] carbon dioxide, serum, total 26 mmol/L [facility] chloride, serum 106 mmol/L [facility] potassium, serum 4.7 mmol/L [facility] sodium, serum 143 mmol/L [facility] platelet count 160 10*3/uL [facility] red blood cell distribution width 13.7 % [facility] mean corpuscular hemoglobin concentration, RBC 33.6 g/dL [facility] mean corpuscular hemoglobin, RBC 31.6 pg [facility] mean corpuscular volume, RBC 93.9 fL [facility] hematocrit, blood 49.4 % [facility] hemoglobin, blood 16.6 g/dL [facility] erythrocyte (RBC) count 5.3 10*6/mm3 [facility] neutrophils, segmented as percent of blood leukocytes 3.3 % [facility] monocyte count, blood 0.4 10*3/mm3 [facility] lymphocyte count, blood 2.7 10*3/mm3 [facility] neutrophils as percent of blood leukocytes 50.8 % [facility] monocytes as percent of blood leukocytes 6.7 % [facility] lymphocytes as percent of blood leukocytes 42.5 % [facility] leukocyte count, blood 6.4 10*3/mm3 [facility] cholesterol/HDL ratio, serum 3.3 [facility] triglyceride, serum, fasting 99 mg/dL [facility] HDL cholesterol, serum 39 mg/dL [facility] LDL cholesterol, serum 68 mg/dL [facility] cholesterol, serum 127 mg/dL [facility] albumin/globulin ratio, serum 1.4 [facility] protein, total, serum 6.6 g/dL [facility] albumin, serum 3.9 g/dL [facility] bilirubin, serum, total 0.7 mg/dL [facility] alkaline phosphatase, serum 103 1/L [facility] alanine aminotransferase (SGPT), serum 35 1/L [facility] aspartate aminotransferase (SGOT), serum 27 1/L [facility] calcium, serum 9.2 mg/dL [facility] blood glucose, fasting 109 mg/dL [facility] creatinine, serum 1.2 mg/dL [facility] Joseph urea nitrogen, blood 10 mg/dL [facility] carbon dioxide, serum, total 26 mmol/L [facility] chloride, serum 106 mmol/L [facility] potassium, serum 4.7 mmol/L [facility] sodium, serum 143 mmol/L [facility] platelet count 160 10*3/uL [facility] red blood cell distribution width 13.7 % [facility] Joseph mean corpuscular hemoglobin concentration, RBC 33.6 g/dL [facility] mean corpuscular hemoglobin, RBC 31.6 pg [facility] mean corpuscular volume, RBC 93.9 fL [facility] hematocrit, blood 49.4 % [facility] hemoglobin, blood 16.6 g/dL [facility] erythrocyte (RBC) count 5.3 10*6/mm3 [facility] Joseph neutrophils, segmented as percent of blood leukocytes 3.3 % [facility] Joseph monocyte count, blood 0.4 10*3/mm3 [facility] lymphocyte count, blood 2.7 10*3/mm3 [facility] neutrophils as percent of blood leukocytes 50.8 % [facility] monocytes as percent of blood leukocytes 6.7 % [facility] lymphocytes as percent of blood leukocytes 42.5 % [facility] leukocyte count, blood 6.4 10*3/mm3 [facility] international normalized ratio (INR) 1.1 [facility] prothrombin time (patient) 10.5 s [facility] platelet count 162 THOUSAND/UL [facility] 140-400 Normal red blood cell distribution width 13.0 % [facility] 11.0-15.0 Normal mean corpuscular hemoglobin concentration, RBC 35.4 G/DL [facility] 32.0-36.0 Normal mean corpuscular hemoglobin, RBC 32.5 pg [facility] 27.0-33.0 Normal mean corpuscular volume, RBC 91.8 fL [facility] 80.0-100.0 Normal hematocrit, blood 50.3 % [facility] 38.5-50.0 High hemoglobin electrophoresis, blood 17.8 [facility] 13.2-17.1 High erythrocyte (RBC) count 5.48 MILLION/UL [facility] 4.20-5.80 Normal leukocyte (white blood cells) count, blood 7.5 THOUSAND/UL [facility] 3.8-10.8 Normal alanine aminotransferase (SGPT), serum 29 1/L [facility] 9-60 Normal aspartate aminotransferase (SGOT), serum 21 1/L [facility] 10-35 Normal alkaline phosphatase, serum 102 1[facility] Normal bilirubin, serum, total 0.6 mg/dL [facility] 0.2-1.2 Normal albumin/globulin ratio, serum 1.4 (calc) [facility] 1.0-2.1 Normal globulins, serum, total 3.0 G/DL (CALC) [facility] 2.1-3.7 Normal albumin, serum 4.3 g/dL [facility] 3.6-5.1 Normal protein, total, serum 7.3 g/dL [facility] 6.2-8.3 Normal calcium, serum 10.2 mg/dL [facility] 8.6-10.2 Normal carbon dioxide, venous blood 25 mmol/L [facility] 21-33 Normal chloride, serum 105 mmol/L [facility] 98-110 Normal potassium, serum 5.0 mmol/L [facility] 3.5-5.3 Normal sodium, serum 141 mmol/L [facility] 135-146 Normal urea nitrogen/creatinine ratio, serum NOT APPLICABLE (calc) [facility] 6-22 Estimated Glomerular Filtration Rate (calc) >60 mL/min/1.73m2 [facility] > OR = 60 Normal creatinine, serum 1.30 mg/dL [facility] 0.76-1.46 Normal urea nitrogen, blood 11 mg/dL [facility] 7-25 Normal blood glucose, random 109 mg/dL [facility] 65-99 High cholesterol/HDL ratio, serum, percent 4.5 (calc) [facility] < OR = 5.0 Normal LDL cholesterol, serum 97 MG/DL (CALC) [facility] <130 Normal HDL cholesterol, serum 38 mg/dL [facility] > OR = 40 Low cholesterol, serum 170 mg/dL [facility] 125-200 Normal triglyceride, serum, fasting 173 mg/dL [facility] <150 High HISTORY OF MEDICATION USE Medication Status Instructions Dates Provider Indications Com ments HYDROCHLOROTHIAZIDE 25 MG ORAL TABLET active ONE TAB DAILY 03/27 Pushpa Thomas MD TOPROL XL 25 MG ORAL TABLET EXTENDED RELEASE 24 HOUR active 1 tab daily 10/31 Melida Danielle LOSARTAN POTASSIUM-HCTZ 50-12.5 MG ORAL TABLET completed po daily 10/24 - 03/27 Melida Danielle PRILOSEC 20 MG ORAL CAPSULE DELAYED RELEASE active take one pill a day 08/30 Michelle Cortez LOSARTAN POTASSIUM 50 MG ORAL TABLET completed po daily 02/21 - 08/30 Michelle Cortez ZETIA 10 MG ORAL TABLET completed ONE TAB. DAILY 02/08 - Kiersten Marcelino HYZAAR 50-12.5 MG ORAL TABLET completed po daily 02/08 - 02/21 Pushpa Thomsa MD TOPROL XL 25 MG ORAL TABLET EXTENDED RELEASE 24 HOUR completed take one pill a day 02/08 - 10/24 Pushpa Thomas MD CRESTOR 10 MG ORAL TABLET completed ONE TAB. DAILY - 11/08 Kiersten Marcelino LIPITOR 20 MG ORAL TABLET completed ONE TAB PO DAILY - Michelle Cortez TOPROL XL 50 MG ORAL TABLET EXTENDED RELEASE 24 HOUR completed take one pill a day - 02/08 Peri Champagne ZANTAC 150 MG ORAL TABLET completed 1 tablet by mouth daily - 08/30 Michelle Cortez FLOMAX 0.4 MG ORAL CAPSULE completed 1 capsule by mouth daily - 02/08 Peri Champagne LIVALO 4 MG ORAL TABLET completed One tablet daily - 10/27 Amilcar Manacotushar RAPAFLO 8 MG ORAL CAPSULE completed 1 capsule by mouth daily - 10/27 Amilcar Manacotushar CHANTIX STARTING MONTH SHAHID 0.5 MG X 11 & 1 MG X 42 [facility] completed One pack. Take as directed. 07/08 - 11/06 Liz Gordon BUSPAR 5 MG TABS completed 3 tablets daily - 11/06 Liz Gordon NIASPAN 1000 MG ORAL TABLET EXTENDED RELEASE completed ONE TAB. AT BEDTIME - Dispense as written - 11/05 Ryan Soliz CHANTIX 1 MG ORAL TABLET completed 1 tbalet by mouth three times daily - 09/12 Amilcar Joiner ASPIRIN 325 MG ORAL TABLET active one tab daily Yolette [place] PROTONIX 40 MG ORAL TABLET DELAYED RELEASE completed 1 tablet by mouth once daily - 11/06 Liz Gordon LIPITOR 20 MG ORAL TABLET completed 1 tbalet by mouth once daily - 11/05 Ryan Soliz SOCIAL HISTORY Date Observation Value Provider social history reviewed E&M revi ewed - no changes required Pushpa Thomas MD physical exercise, frequency, days per week yes Kiersten Marcelino alcohol use, average drinks per day social Kiersten Marcelino alcohol use yes Kiersten Mareclino caffeine use, averag e drinks per day yes Kiersten Macrelino drug use none Kiersten Marcelino passive cigarette sm julianne exposure yes Kiersten Marcelino smoking, year quit 2014 Kiersten Pham cCaarthur number of years as a smoker 35 a Kiersten Marcelino smoking, date started 1976 Leigh Ann Marcelino smoking history, tot al pack/year 36 Kiersten Marcelino smoking history, tot al pack/day 1 Kiersten Marcelino cigarette use yes Kiersten Marcelino smoking status Former smoker Kiersten Lilly arthur social history reviewed E&M revi ewed - no changes required Pushpa Thomas MD physical exercise, frequency, days per week yes Melida Danielle alcohol use, average drinks per day social Melida Danielle alcohol use yes Melida hutton caffeine use, averag e drinks per day yes Melida Danielle drug use none Melida Donnell brennen passive cigarette sm julianne exposure yes Melida Danielle smoking, year quit 2014 Melida Danielle number of years as a smoker 35 a Melida Danielle smoking, date started 1976 Alicia Danielle smoking history, tot al pack/year 36 Melida Danielle smoking history, tot al pack/day 1 Melida Danielle cigarette use yes Melida calvin smoking status Former smoker Melida Avila smoking history, tot al pack/year 38 Jeronimo Chandler RN social history reviewed E&M revi ewed - no changes required Peri Champagne smoking status Former smoker Peri Carson kinsey social history reviewed E&M revi ewed - no changes required Pushpa Thomas MD alcohol use, average drinks per day social Michelle Cortez alcohol use yes Michelle Willy davis number of years as a smoker 35 a Michellelolita Cortez smoking history, tot al pack/day 1 Michelle Cortez smoking, year quit 2014 Michelle olson cigarette use yes Michelle duran smoking status Former smoker Michelle dodge smoking/tobacco cess ation, patient education and counseling yes Pushpa Thomas MD social history reviewed E&M revi ewed - no changes required Pushpa Thomas MD smoking/tobacco cess ation, patient education and counseling yes Pushpa Thomas MD social history reviewed E&M revi ewed - no changes required Pushpa Thomas MD social history reviewed E&M revi ewed - no changes required Pushpa Thomas MD smoking/tobacco cess ation, patient education and counseling yes Pushpa Thomas MD social history reviewed E&M reviewed Pushpa Thomas MD smoking history, tot al pack/year 35 Kiersten Marcelino smoking history, tot al pack/year 37 Jeronimo Chandler RN smoking/tobacco cess ation, patient education and counseling yes Pushpa Thomas MD social history reviewed E&M reviewed Pushpa Thomas MD cigarette use yes Michelle duran smoking history, tot al pack/year 36 Michelle Cortez smoking/tobacco cess ation, patient education and counseling yes Melony Pio 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 smoking history, tot al pack/year 34 Melony Pio [employer]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 smoking/tobacco cess ation, patient education and counseling yes Pushpa Thomas MD drug use none Pushpa Thomas MD social history reviewed E&M reviewed Pushpa Thomas MD smoking history, tot al pack/day 1 Michelle Cortez smoking history, tot al pack/year 36 Michelle Cortez physical exercise, frequency, days per week yes Lui Tadeo 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 smoking status current every day smoker L rjbutch Carlyle [employer]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 cigarette use 1 Lacrbutch Barretowilson breen [employer]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 social history reviewed E&M reviewed Lui Tadeo [employer]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 smoking history, tot al pack/year 34 Lui Carlyle [employer]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 social history reviewed E&M reviewed Jeronimo Chandler RN drug use no Michelle lrer passive cigarette sm julianne exposure yes Michelle Cortez smoking/tobacco cess ation, patient education and counseling yes Michelle Cortez smoking history, tot al pack/day 1.5 Michelle Cortez smoking history, tot al pack/year 33 Michelle Cortez cigarette use yes Michelle duran smoking, date started 1976 Michelle Cortez smoking status current every day smoker K sirikristel Cortez social history reviewed E&M reviewed Pushpa Thomas MD smoking/tobacco cess ation, patient education and counseling yes Pushpa Thomas MD social history reviewed E&M reviewed Pushpa Thomas MD smoking/tobacco cess ation, patient education and counseling yes Pushpa Thomas MD smoking/tobacco cess ation, patient education and counseling yes Pushpa Thomas MD social history reviewed E&M reviewed Pushpa Thomas MD smoking/tobacco cess ation, patient education and counseling yes Jeronimo Chandler RN social history reviewed E&M reviewed Jeronimo Chandler RN drug use none Pushpa Thomas MD smoking/tobacco cess ation, patient education and counseling yes Jeronimo Chandler RN social history reviewed E&M reviewed Jeronimo Chandler RN social history reviewed E&M reviewed Jeronimo Chandler RN social history reviewed E&M reviewed Jeronimo Chandler RN smoking/tobacco cess ation, patient education and counseling yes Pushpa Thomas MD social history E&M Marital Statu s: L rudy with family/friends E thnicity: Jeronimo Chandler RN caffeine use, averag e drinks per day yes Jeronimo Chandler RN alcohol use, average drinks per day socially Jeronimo Chandler RN smoking status Smoker Jeronimo Chandler RN social history reviewed E&M reviewed Jeronimo Chandler RN MENTAL STATUS Date Observation Value Provider assessment of judgme nt and insight E&M Alert and oriented to time, place and person. Mood and affect are normal. Pushpa Thomas MD assessment of judgme nt and insight E&M Alert and oriented to time, place and person. Mood and affect are normal. Pushpa Thomas MD assessment of judgme nt and insight E&M Alert and oriented to time, place and person. Mood and affect are normal. Pushpa Thomas MD assessment of judgme nt and insight E&M Alert and oriented to time, place and person. Mood and affect are normal. Jeronimo Chandler RN assessment of judgme nt and insight E&M Alert and oriented to time, place and person. Mood and affect are normal. Pushpa Thomas MD assessment of judgme nt and insight E&M Alert and oriented to time, place and person. Mood and affect are normal. Pushpa Thomas MD assessment of judgme nt and insight E&M Alert and oriented to time, place and person. Mood and affect are normal. Pushpa Thomas MD assessment of judgme nt and insight E&M Alert and oriented to time, place and person. Mood and affect are normal. Jeronimo Chandler RN assessment of judgme nt and insight E&M Alert and oriented to time, place and person. Mood and affect are normal. Jeronimo Chandler RN assessment of judgme nt and insight E&M Alert and oriented to time, place and person. Mood and affect are normal. Jeronimo Chandler RN assessment of judgme nt and insight E&M Alert and oriented to time, place and person. Mood and affect are normal. Jeronimo Chandler RN assessment of judgme nt and insight E&M Alert and oriented to time, place and person. Mood and affect are normal. Jeronimo Chandler RN FAMILY HISTORY Family Member Condition Father Family History of Co antonella Cancer: Mother Negative FH of Coron memo Artery Disease INSURANCE PROVIDERS Payer name Policy type / Coverage type [employer] [employer] [facility] DUAL COMPLETE HMO O [id number] TREATMENT PLAN Date Name Performer Cardiology Pushpa Thomas MD Cardiology Pushpa Thomas MD Cardiology Pushpa Thomas MD Cardiology Pushpa Thomas MD Cardiology Pushpa Thomas MD Cardiology Pushpa Thomas MD Cardiology Pushpa Thomas MD Cardiology:quit jun 2014 Pushpa Thomas MD Cardiology Pushpa Thomas MD Cardiology Pushpa Thomas MD Follow up : T he following medications were removed from the medication list: Losartan Potassium 50 Mg Tabs (Losartan potassium) ..... Po daily His updated medication list for this problem includes: Aspirin 325 Mg Tabs (Aspirin) ..... One tab daily Toprol Xl 25 Mg Oral [id number] (Metoprolol succinate) ..... Take one pill a day BP today: 120/80 P rior BP: 124/74 (04/04/2014) Prior 10 Yr Risk Heart Disease: N/A (07/08/2012) Labs Reviewed: C reat: 1.01 (02/21/2014) C hol: 132 (01/06/2013) HDL: 31 (01/06/2013) LDL: 82 (01/06/2013) T (01/06/2013) Pushpa Thomas MD Follow Up: T he following medications were removed from the medication list: Crestor 10 Mg Tabs (Rosuvastatin calcium) ..... One tab. daily His updated medication list for this problem includes: Toprol Xl 50 Mg [id number] (Metoprolol succinate) ..... Take one pill a day Aspirin 325 Mg Tabs (Aspirin) ..... One tab daily Pushpa Thomas MD Follow Up: T he following medications were removed from the medication list: Crestor 10 Mg Tabs (Rosuvastatin calcium) ..... One tab. daily His updated medication list for this problem includes: Toprol Xl 50 Mg [id number] (Metoprolol succinate) ..... Take one pill a day Aspirin 325 Mg Tabs (Aspirin) ..... One tab daily BP today: 130/70 Prior BP: 128/86 (04/26/2013) N uclear Stress Findings: 1. Regadenoson mediated myocardial perfusion study 2 . Normal left ventricular systolic function with a calculated ejection fraction of 54%. 3 . There is a fixed defect involving the inferior wall most consistent with diaphragmatic attenuation. (10/30/2010) C ardiac Cath: Complete revascularization with the LAD territory to a vein graft. A tretic VALDES. 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 N ormal LV systolic function. [facility] (10/11/2008) C arotid Doppler/Duplex: Mild plaque with less than 50% stenosis of the internal carotid arteries bilaterally. Vertebral flow is antegrade bilaterally. - (11/11/2012) C HOL: 132 (01/06/2013) LDL: 82 (01/06/2013) HDL: 31 (01/06/2013) T (01/06/2013) H gb: 14.7 (06/06/2011) HCT: 42.2 (06/06/2011) Platelets: 162 THOUSAND/UL (09/07/2008) R BC: 4.59 (06/06/2011) WBC: 5.9 (06/06/2011) B UN: 9.3 (06/06/2011) Creat: 0.93 (06/06/2011) Glucose: 102 (06/06/2011) N a+: 137 (06/06/2011) K+: 3.9 (06/06/2011) Cl: 104 (06/06/2011) PT: 10.5 (09/19/2008) INR: 1.1 (09/19/2008) T SH: 0.83 (06/06/2011) Pushpa Thomas MD Follow up: T he following medications were removed from the medication list: Lipitor 20 Mg Tabs (Atorvastatin calcium) ..... One tab po daily His updated medication list for this problem includes: Toprol Xl 50 Mg [id number] (Metoprolol succinate) ..... Take one pill a day Aspirin 325 Mg Tabs (Aspirin) ..... One tab daily Crestor 10 Mg Tabs (Rosuvastatin calcium) ..... One tab. daily Pushpa Thomas MD Follow up: T he following medications were removed from the medication list: Lipitor 20 Mg Tabs (Atorvastatin calcium) ..... One tab po daily His updated medication list for this problem includes: Toprol Xl 50 Mg [id number] (Metoprolol succinate) ..... Take one pill a day Aspirin 325 Mg Tabs (Aspirin) ..... One tab daily Crestor 10 Mg Tabs (Rosuvastatin calcium) ..... One tab. daily Orders: E KG (CPT-02707) BP today: 128/86 Prior BP: 124/69 (10/26/2012) N uclear Stress Findings: 1. Regadenoson mediated myocardial perfusion study 2 . Normal left ventricular systolic function with a calculated ejection fraction of 54%. 3 . There is a fixed defect involving the inferior wall most consistent with diaphragmatic attenuation. (10/30/2010) C ardiac Cath: Complete revascularization with the LAD territory to a vein graft. A tretic VALDES. 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 N ormal LV systolic function. [facility] (10/11/2008) C arotid Doppler/Duplex: Mild plaque with less than 50% stenosis of the internal carotid arteries bilaterally. Vertebral flow is antegrade bilaterally. - GC (11/11/2012) C HOL: 132 (01/06/2013) LDL: 82 (01/06/2013) HDL: 31 (01/06/2013) T (01/06/2013) H gb: 14.7 (06/06/2011) HCT: 42.2 (06/06/2011) Platelets: 162 THOUSAND/UL (09/07/2008) R BC: 4.59 (06/06/2011) WBC: 5.9 (06/06/2011) B UN: 9.3 (06/06/2011) Creat: 0.93 (06/06/2011) Glucose: 102 (06/06/2011) N a+: 137 (06/06/2011) K+: 3.9 (06/06/2011) Cl: 104 (06/06/2011) PT: 10.5 (09/19/2008) INR: 1.1 (09/19/2008) T SH: 0.83 (06/06/2011) Pushpa Thomas MD Follow up: H is updated medication list for this problem includes: Toprol Xl 50 Mg [id number] (Metoprolol succinate) ..... Take one pill a day Aspirin 325 Mg Tabs (Aspirin) ..... One tab daily BP today: 128/86 P rior BP: 124/69 (10/26/2012) Prior 10 Yr Risk Heart Disease: N/A (07/08/2012) Labs Reviewed: C reat: 0.93 (06/06/2011) C hol: 132 (01/06/2013) HDL: 31 (01/06/2013) LDL: 82 (01/06/2013) T (01/06/2013) Pushpa Thomas MD Follow up: T he following medications were removed from the medication list: Lipitor 20 Mg Tabs (Atorvastatin calcium) ..... One tab po daily His updated medication list for this problem includes: Toprol Xl 50 Mg [id number] (Metoprolol succinate) ..... Take one pill a day Aspirin 325 Mg Tabs (Aspirin) ..... One tab daily Pushpa Thomas MD Follow up: T he following medications were removed from the medication list: Lipitor 20 Mg Tabs (Atorvastatin calcium) ..... One tab po daily His updated medication list for this problem includes: Toprol Xl 50 Mg [id number] (Metoprolol succinate) ..... Take one pill a day Aspirin 325 Mg Tabs (Aspirin) ..... One tab daily Orders: E KG (CPT-96599) BP today: 128/86 Prior BP: 124/69 (10/26/2012) N uclear Stress Findings: 1. Regadenoson mediated myocardial perfusion study 2 . Normal left ventricular systolic function with a calculated ejection fraction of 54%. 3 . There is a fixed defect involving the inferior wall most consistent with diaphragmatic attenuation. (10/30/2010) C ardiac Cath: Complete revascularization with the LAD territory to a vein graft. A tretic VALDES. 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 N ormal LV systolic function. [facility] (10/11/2008) C arotid Doppler/Duplex: Mild plaque with less than 50% stenosis of the internal carotid arteries bilaterally. Vertebral flow is antegrade bilaterally. - (11/11/2012) C HOL: 132 (01/06/2013) LDL: 82 (01/06/2013) HDL: 31 (01/06/2013) T (01/06/2013) H gb: 14.7 (06/06/2011) HCT: 42.2 (06/06/2011) Platelets: 162 THOUSAND/UL (09/07/2008) R BC: 4.59 (06/06/2011) WBC: 5.9 (06/06/2011) B UN: 9.3 (06/06/2011) Creat: 0.93 (06/06/2011) Glucose: 102 (06/06/2011) N a+: 137 (06/06/2011) K+: 3.9 (06/06/2011) Cl: 104 (06/06/2011) PT: 10.5 (09/19/2008) INR: 1.1 (09/19/2008) T SH: 0.83 (06/06/2011) Pushpa Thomas MD Follow up: H is updated medication list for this problem includes: Toprol Xl 50 Mg [id number]-[id number] (Metoprolol succinate) ..... Take one pill a day Aspirin 325 Mg Tabs (Aspirin) ..... One tab daily BP today: 128/86 Prior BP: 124/69 (10/26/2012) H gb: 14.7 (06/06/2011) HCT: 42.2 (06/06/2011) Platelets: 162 THOUSAND/UL (09/07/2008) R BC: 4.59 (06/06/2011) WBC: 5.9 (06/06/2011) BUN: 9.3 (06/06/2011) Creat: 0.93 (06/06/2011) Glucose: 102 (06/06/2011) N a+: 137 (06/06/2011) K+: 3.9 (06/06/2011) Cl: 104 (06/06/2011) Anion Gap: 8.9 (06/06/2011) Calcium: 9.2 (06/06/2011) TSH: 0.83 (06/06/2011) Nuclear Stress Findings: 1. Regadenoson mediated myocardial perfusion study 2 . Normal left ventricular systolic function with a calculated ejection fraction of 54%. 3 . There is a fixed defect involving the inferior wall most consistent with diaphragmatic attenuation. (10/30/2010) C ardiac Cath: Complete revascularization with the LAD territory to a vein graft. A celeste VALDES. 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 N ormal LV systolic function. [facility] (10/11/2008) Pushpa Thomas MD Lipid management: H is updated medication list for this problem includes: Lipitor 20 Mg Tabs (Atorvastatin calcium) ..... One tab po daily Patient presents for lipid follow up. States he is taking his medications faithfully but not adhering to a low fat, low cholesterol diet. He continues to smoke and his HDL continues to be low. He is advised to stop smoking. No change in medications. Will return to lipid clinic in 6 months. Melony Suero NP follow up: H is updated medication list for this problem includes: Toprol Xl 50 Mg [id number] (Metoprolol succinate) ..... Take one pill a day Aspirin 325 Mg Tabs (Aspirin) ..... One tab daily BP today: 124/69 P rior BP: 140/80 (04/13/2012) Prior 10 Yr Risk Heart Disease: N/A (07/08/2012) Labs Reviewed: C reat: 0.93 (06/06/2011) C hol: 138 (07/08/2012) HDL: 37 (07/08/2012) LDL: 83 (07/08/2012) T (07/08/2012) Pushpa Thomas MD follow up: H is updated medication list for this problem includes: Toprol Xl 50 Mg [id number]-[id number] (Metoprolol succinate) ..... Take one pill a day Aspirin 325 Mg Tabs (Aspirin) ..... One tab daily Lipitor 20 Mg Tabs (Atorvastatin calcium) ..... One tab po daily BP today: 124/69 Prior BP: 140/80 (04/13/2012) N uclear Stress Findings: 1. Regadenoson mediated myocardial perfusion study 2 . Normal left ventricular systolic function with a calculated ejection fraction of 54%. 3 . There is a fixed defect involving the inferior wall most consistent with diaphragmatic attenuation. (10/30/2010) C ardiac Cath: Complete revascularization with the LAD territory to a vein graft. A tretic VALDES. 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 N ormal LV systolic function. [facility] (10/11/2008) C HOL: 138 (07/08/2012) LDL: 83 (07/08/2012) HDL: 37 (07/08/2012) T (07/08/2012) H gb: 14.7 (06/06/2011) HCT: 42.2 (06/06/2011) Platelets: 162 THOUSAND/UL (09/07/2008) R BC: 4.59 (06/06/2011) WBC: 5.9 (06/06/2011) B UN: 9.3 (06/06/2011) Creat: 0.93 (06/06/2011) Glucose: 102 (06/06/2011) N a+: 137 (06/06/2011) K+: 3.9 (06/06/2011) Cl: 104 (06/06/2011) PT: 10.5 (09/19/2008) INR: 1.1 (09/19/2008) T SH: 0.83 (06/06/2011) Pushpa Thomas MD follow up: H is updated medication list for this problem includes: Toprol Xl 50 Mg [id number]-[id number] (Metoprolol succinate) ..... Take one pill a day Aspirin 325 Mg Tabs (Aspirin) ..... One tab daily Lipitor 20 Mg Tabs (Atorvastatin calcium) ..... One tab po daily BP today: 124/69 Prior BP: 140/80 (04/13/2012) N uclear Stress Findings: 1. Regadenoson mediated myocardial perfusion study 2 . Normal left ventricular systolic function with a calculated ejection fraction of 54%. 3 . There is a fixed defect involving the inferior wall most consistent with diaphragmatic attenuation. (10/30/2010) C ardiac Cath: Complete revascularization with the LAD territory to a vein graft. A celeste VALDES. 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 N ormal LV systolic function. [facility] (10/11/2008) C HOL: 138 (07/08/2012) LDL: 83 (07/08/2012) HDL: 37 (07/08/2012) T (07/08/2012) H gb: 14.7 (06/06/2011) HCT: 42.2 (06/06/2011) Platelets: 162 THOUSAND/UL (09/07/2008) R BC: 4.59 (06/06/2011) WBC: 5.9 (06/06/2011) B UN: 9.3 (06/06/2011) Creat: 0.93 (06/06/2011) Glucose: 102 (06/06/2011) N a+: 137 (06/06/2011) K+: 3.9 (06/06/2011) Cl: 104 (06/06/2011) PT: 10.5 (09/19/2008) INR: 1.1 (09/19/2008) T SH: 0.83 (06/06/2011) Pushpa Thomas MD follow up: H is updated medication list for this problem includes: Toprol Xl 50 Mg [id number] (Metoprolol succinate) ..... Take one pill a day Aspirin 325 Mg Tabs (Aspirin) ..... One tab daily BP today: 143/82 P rior BP: 134/78 (10/28/2011) Labs Reviewed: C reat: 0.93 (06/06/2011) C hol: 218 (06/06/2011) HDL: 33 (06/06/2011) LDL: 165 (06/06/2011) T (06/06/2011) Pushpa Thomas MD follow up: H is updated medication list for this problem includes: Toprol Xl 50 Mg [id number] (Metoprolol succinate) ..... Take one pill a day Aspirin 325 Mg Tabs (Aspirin) ..... One tab daily Lipitor 20 Mg Tabs (Atorvastatin calcium) ..... One tab po daily BP today: 143/82 Prior BP: 134/78 (10/28/2011) N uclear Stress Findings: 1. Regadenoson mediated myocardial perfusion study 2 . Normal left ventricular systolic function with a calculated ejection fraction of 54%. 3 . There is a fixed defect involving the inferior wall most consistent with diaphragmatic attenuation. (10/30/2010) C ardiac Cath: Complete revascularization with the LAD territory to a vein graft. A tretic VALDES. 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 N ormal LV systolic function. [facility] (10/11/2008) C HOL: 218 (06/06/2011) LDL: 165 (06/06/2011) HDL: 33 (06/06/2011) T (06/06/2011) H gb: 14.7 (06/06/2011) HCT: 42.2 (06/06/2011) Platelets: 162 THOUSAND/UL (09/07/2008) R BC: 4.59 (06/06/2011) WBC: 5.9 (06/06/2011) B UN: 9.3 (06/06/2011) Creat: 0.93 (06/06/2011) Glucose: 102 (06/06/2011) N a+: 137 (06/06/2011) K+: 3.9 (06/06/2011) Cl: 104 (06/06/2011) PT: 10.5 (09/19/2008) INR: 1.1 (09/19/2008) T SH: 0.83 (06/06/2011) Pushpa Thomas MD follow up: H is updated medication list for this problem includes: Toprol Xl 50 Mg [id number]-[id number] (Metoprolol succinate) ..... Take one pill a day Aspirin 325 Mg Tabs (Aspirin) ..... One tab daily Lipitor 20 Mg Tabs (Atorvastatin calcium) ..... One tab po daily Orders: E KG (CPT-93193) BP today: 143/82 Prior BP: 134/78 (10/28/2011) N uclear Stress Findings: 1. Regadenoson mediated myocardial perfusion study 2 . Normal left ventricular systolic function with a calculated ejection fraction of 54%. 3 . There is a fixed defect involving the inferior wall most consistent with diaphragmatic attenuation. (10/30/2010) C ardiac Cath: Complete revascularization with the LAD territory to a vein graft. A vedatic VALDES. 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 N ormal LV systolic function. [facility] (10/11/2008) C HOL: 218 (06/06/2011) LDL: 165 (06/06/2011) HDL: 33 (06/06/2011) T (06/06/2011) H gb: 14.7 (06/06/2011) HCT: 42.2 (06/06/2011) Platelets: 162 THOUSAND/UL (09/07/2008) R BC: 4.59 (06/06/2011) WBC: 5.9 (06/06/2011) B UN: 9.3 (06/06/2011) Creat: 0.93 (06/06/2011) Glucose: 102 (06/06/2011) N a+: 137 (06/06/2011) K+: 3.9 (06/06/2011) Cl: 104 (06/06/2011) PT: 10.5 (09/19/2008) INR: 1.1 (09/19/2008) T SH: 0.83 (06/06/2011) Pushpa Thomas MD follow up: B P today: 143/82 Prior BP: 134/78 (10/28/2011) C HOL: 218 (06/06/2011) LDL: 165 (06/06/2011) HDL: 33 (06/06/2011) T (06/06/2011) His updated medication list for this problem includes: Lipitor 20 Mg Tabs (Atorvastatin calcium) ..... One tab po daily Pushpa Thomas MD follow up: B P today: 143/82 Prior BP: 134/78 (10/28/2011) C HOL: 218 (06/06/2011) LDL: 165 (06/06/2011) HDL: 33 (06/06/2011) T (06/06/2011) Pushpa Thomas MD follow up: H is updated medication list for this problem includes: Toprol Xl 50 Mg [id number] (Metoprolol succinate) ..... Take one pill a day Aspirin 325 Mg Tabs (Aspirin) ..... One tab daily BP today: 143/82 Prior BP: 134/78 (10/28/2011) N uclear Stress Findings: 1. Regadenoson mediated myocardial perfusion study 2 . Normal left ventricular systolic function with a calculated ejection fraction of 54%. 3 . There is a fixed defect involving the inferior wall most consistent with diaphragmatic attenuation. (10/30/2010) C ardiac Cath: Complete revascularization with the LAD territory to a vein graft. A tretic VALDES. 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 N ormal LV systolic function. [facility] (10/11/2008) C HOL: 218 (06/06/2011) LDL: 165 (06/06/2011) HDL: 33 (06/06/2011) T (06/06/2011) H gb: 14.7 (06/06/2011) HCT: 42.2 (06/06/2011) Platelets: 162 THOUSAND/UL (09/07/2008) R BC: 4.59 (06/06/2011) WBC: 5.9 (06/06/2011) B UN: 9.3 (06/06/2011) Creat: 0.93 (06/06/2011) Glucose: 102 (06/06/2011) N a+: 137 (06/06/2011) K+: 3.9 (06/06/2011) Cl: 104 (06/06/2011) PT: 10.5 (09/19/2008) INR: 1.1 (09/19/2008) T SH: 0.83 (06/06/2011) Pushpa Thomas MD follow up Pushpa Thomas MD 6 month follow-up: H is updated medication list for this problem includes: Toprol Xl 100 Mg Tb24 (Metoprolol succinate) ..... 1 tablet by mouth once daily Aspirin 325 Mg Tabs (Aspirin) ..... One tab daily BP today: 134/78 P rior BP: 120/58 (04/15/2011) Labs Reviewed: C reat: 0.93 (06/06/2011) C hol: 218 (06/06/2011) HDL: 33 (06/06/2011) LDL: 165 (06/06/2011) T (06/06/2011) Pushpa Thomas MD 6 month follow-up: T he following medications were removed from the medication list: Livalo 4 Mg Tabs (Pitavastatin calcium) ..... One tablet daily His updated medication list for this problem includes: Toprol Xl 100 Mg Tb24 (Metoprolol succinate) ..... 1 tablet by mouth once daily Aspirin 325 Mg Tabs (Aspirin) ..... One tab daily BP today: 134/78 Prior BP: 120/58 (04/15/2011) N uclear Stress Findings: 1. Regadenoson mediated myocardial perfusion study 2 . Normal left ventricular systolic function with a calculated ejection fraction of 54%. 3 . There is a fixed defect involving the inferior wall most consistent with diaphragmatic attenuation. (10/30/2010) C ardiac Cath: Complete revascularization with the LAD territory to a vein graft. A tretic VALDES. 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 N ormal LV systolic function. [facility] (10/11/2008) C HOL: 218 (06/06/2011) LDL: 165 (06/06/2011) HDL: 33 (06/06/2011) T (06/06/2011) H gb: 14.7 (06/06/2011) HCT: 42.2 (06/06/2011) Platelets: 162 THOUSAND/UL (09/07/2008) R BC: 4.59 (06/06/2011) WBC: 5.9 (06/06/2011) B UN: 9.3 (06/06/2011) Creat: 0.93 (06/06/2011) Glucose: 102 (06/06/2011) N a+: 137 (06/06/2011) K+: 3.9 (06/06/2011) Cl: 104 (06/06/2011) PT: 10.5 (09/19/2008) INR: 1.1 (09/19/2008) T SH: 0.83 (06/06/2011) Pushpa Thomas MD 6 month follow-up Pushpa Grewal 6 month follow-up [facility] Echo: H is updated medication list for this problem includes: Toprol Xl 100 Mg Tb24 (Metoprolol succinate) ..... 1 tablet by mouth once daily Aspirin 325 Mg Tabs (Aspirin) ..... One tab daily BP today: 120/58 P rior BP: 114/61 (11/05/2010) Labs Reviewed: C reat: 1.2 (04/20/2009) C hol: 127 (04/20/2009) HDL: 39 (04/20/2009) LDL: 68 (04/20/2009) T (04/20/2009) Pushpa Thomas MD 6 month follow-up [facility] Echo: H is updated medication list for this problem includes: Toprol Xl 100 Mg Tb24 (Metoprolol succinate) ..... 1 tablet by mouth once daily Aspirin 325 Mg Tabs (Aspirin) ..... One tab daily BP today: 120/58 Prior BP: 114/61 (11/05/2010) N uclear Stress Findings: 1. Regadenoson mediated myocardial perfusion study 2 . Normal left ventricular systolic function with a calculated ejection fraction of 54%. 3 . There is a fixed defect involving the inferior wall most consistent with diaphragmatic attenuation. (10/30/2010) C ardiac Cath: Complete revascularization with the LAD territory to a vein graft. A tretic VALDES. 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 N ormal LV systolic function. [facility] (10/11/2008) C HOL: 127 (04/20/2009) LDL: 68 (04/20/2009) HDL: 39 (04/20/2009) T (04/20/2009) H gb: 16.6 (04/20/2009) HCT: 49.4 (04/20/2009) Platelets: 162 THOUSAND/UL (09/07/2008) R BC: 5.3 (04/20/2009) WBC: 6.4 (04/20/2009) B UN: 10 (04/20/2009) Creat: 1.2 (04/20/2009) Glucose: 109 (04/20/2009) N a+: 143 (04/20/2009) K+: 4.7 (04/20/2009) Cl: 106 (04/20/2009) PT: 10.5 (09/19/2008) INR: 1.1 (09/19/2008) Pushpa Thomas MD 6 month follow-up wi th Echo: H is updated medication list for this problem includes: Toprol Xl 100 Mg Tb24 (Metoprolol succinate) ..... 1 tablet by mouth once daily Aspirin 325 Mg Tabs (Aspirin) ..... One tab daily Orders: E KG ([id number]) BP today: 120/58 Prior BP: 114/61 (11/05/2010) N uclear Stress Findings: 1. Regadenoson mediated myocardial perfusion study 2 . Normal left ventricular systolic function with a calculated ejection fraction of 54%. 3 . There is a fixed defect involving the inferior wall most consistent with diaphragmatic attenuation. (10/30/2010) C ardiac Cath: Complete revascularization with the LAD territory to a vein graft. A tretic VALDES. 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 N ormal LV systolic function. [facility] (10/11/2008) C HOL: 127 (04/20/2009) LDL: 68 (04/20/2009) HDL: 39 (04/20/2009) T (04/20/2009) H gb: 16.6 (04/20/2009) HCT: 49.4 (04/20/2009) Platelets: 162 THOUSAND/UL (09/07/2008) RBC: 5.3 (04/20/2009) WBC: 6.4 (04/20/2009) B UN: 10 (04/20/2009) Creat: 1.2 (04/20/2009) Glucose: 109 (04/20/2009) N a+: 143 (04/20/2009) K+: 4.7 (04/20/2009) Cl: 106 (04/20/2009) PT: 10.5 (09/19/2008) INR: 1.1 (09/19/2008) Pushpa Thomas MD 6 month follow-up with Echo Claude Thomas MD follow up: H is updated medication list for this problem includes: Toprol Xl 100 Mg Tb24 (Metoprolol succinate) ..... 1 tablet by mouth once daily Aspirin 325 Mg Tabs (Aspirin) ..... One tab daily BP today: 114/61 P rior BP: 140/75 (11/06/2009) Labs Reviewed: C reat: 1.2 (04/20/2009) C hol: 127 (04/20/2009) HDL: 39 (04/20/2009) LDL: 68 (04/20/2009) T (04/20/2009) Pushpa Thomas MD follow up: T he following medications were removed from the medication list: Lipitor 20 Mg Tabs (Atorvastatin calcium) ..... 1 tbalet by mouth once daily Niaspan 1000 Mg Tbcr (Niacin (antihyperlipidemic)) ..... One tab. at bedtime - dispense as written His updated medication list for this problem includes: Toprol Xl 100 Mg Tb24 (Metoprolol succinate) ..... 1 tablet by mouth once daily Aspirin 325 Mg Tabs (Aspirin) ..... One tab daily BP today: 114/61 Prior BP: 140/75 (11/06/2009) N uclear Stress Findings: 1. Regadenoson mediated myocardial perfusion study 2 . Normal left ventricular systolic function with a calculated ejection fraction of 54%. 3 . There is a fixed defect involving the inferior wall most consistent with diaphragmatic attenuation. (10/30/2010) C ardiac Cath: Complete revascularization with the LAD territory to a vein graft. A vedatic VALDES. 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 N ormal LV systolic function. [facility] (10/11/2008) C HOL: 127 (04/20/2009) LDL: 68 (04/20/2009) HDL: 39 (04/20/2009) T (04/20/2009) H gb: 16.6 (04/20/2009) HCT: 49.4 (04/20/2009) Platelets: 162 THOUSAND/UL (09/07/2008) R BC: 5.3 (04/20/2009) WBC: 6.4 (04/20/2009) B UN: 10 (04/20/2009) Creat: 1.2 (04/20/2009) Glucose: 109 (04/20/2009) N a+: 143 (04/20/2009) K+: 4.7 (04/20/2009) Cl: 106 (04/20/2009) PT: 10.5 (09/19/2008) INR: 1.1 (09/19/2008) Pushpa Thomas MD follow up: T he following medications were removed from the medication list: Lipitor 20 Mg Tabs (Atorvastatin calcium) ..... 1 tbalet by mouth once daily Niaspan 1000 Mg Tbcr (Niacin (antihyperlipidemic)) ..... One tab. at bedtime - dispense as written His updated medication list for this problem includes: Toprol Xl 100 Mg Tb24 (Metoprolol succinate) ..... 1 tablet by mouth once daily Aspirin 325 Mg Tabs (Aspirin) ..... One tab daily BP today: 114/61 Prior BP: 140/75 (11/06/2009) N uclear Stress Findings: 1. Regadenoson mediated myocardial perfusion study 2 . Normal left ventricular systolic function with a calculated ejection fraction of 54%. 3 . There is a fixed defect involving the inferior wall most consistent with diaphragmatic attenuation. (10/30/2010) C ardiac Cath: Complete revascularization with the LAD territory to a vein graft. A tretic VALDES. 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 N ormal LV systolic function. [facility] (10/11/2008) C HOL: 127 (04/20/2009) LDL: 68 (04/20/2009) HDL: 39 (04/20/2009) T (04/20/2009) H gb: 16.6 (04/20/2009) HCT: 49.4 (04/20/2009) Platelets: 162 THOUSAND/UL (09/07/2008) R BC: 5.3 (04/20/2009) WBC: 6.4 (04/20/2009) B UN: 10 (04/20/2009) Creat: 1.2 (04/20/2009) Glucose: 109 (04/20/2009) N a+: 143 (04/20/2009) K+: 4.7 (04/20/2009) Cl: 106 (04/20/2009) PT: 10.5 (09/19/2008) INR: 1.1 (09/19/2008) Pushpa Thomas MD cath follow-up: H is updated medication list for this problem includes: Toprol Xl 100 Mg Tb24 (Metoprolol succinate) ..... 1 tablet by mouth once daily Aspirin 81 Mg Tabs (Aspirin) ..... 1 tablet by mouth once daily BP today: 135/70 P rior BP: 126/76 (09/12/2008) Labs Reviewed: C reat: 1.30 (09/07/2008) C hol: 170 (09/07/2008) HDL: 38 (09/07/2008) LDL: 97 MG/DL (CALC) (09/07/2008) T (09/07/2008) Pushpa Thomas MD cath follow-up: B P today: 135/70 Prior BP: 126/76 (09/12/2008) N uclear Stress Findings: 1. Adenosine mediated myocardial perfusion study 2 . Normal left ventricular systolic function with a calculated ejection fraction of 57%. 3 . Myocardial scintigraphy demonstrates inferior wall ischemia. [facility] (09/08/2008) C ardiac Cath: Complete revascularization with the LAD territory to a vein graft. A tretic VALDES. 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 N ormal LV systolic function. [facility] (10/11/2008) C HOL: 170 (09/07/2008) LDL: 97 MG/DL (CALC) (09/07/2008) HDL: 38 (09/07/2008) T (09/07/2008) H CT: 50.3 (09/07/2008) Platelets: 162 THOUSAND/UL (09/07/2008) R BC: 5.48 MILLION/UL (09/07/2008) BUN: 11 (09/07/2008) Creat: 1.30 (09/07/2008) Glucose: 109 (09/07/2008) N a+: 141 (09/07/2008) K+: 5.0 (09/07/2008) Cl: 105 (09/07/2008) PT: 10.5 (09/19/2008) INR: 1.1 (09/19/2008) Pushpa Thomas MD cath follow-up: H is updated medication list for this problem includes: Toprol Xl 100 Mg Tb24 (Metoprolol succinate) ..... 1 tablet by mouth once daily Lipitor 20 Mg Tabs (Atorvastatin calcium) ..... 1 tbalet by mouth once daily Niaspan 500 Mg Tbcr (Niacin (antihyperlipidemic)) ..... One tab. at bedtime Aspirin 81 Mg Tabs (Aspirin) ..... 1 tablet by mouth once daily & #13;BP today: 135/70 Prior BP: 126/76 (09/12/2008) N uclear Stress Findings: 1. Adenosine mediated myocardial perfusion study 2 . Normal left ventricular systolic function with a calculated ejection fraction of 57%. 3 . Myocardial scintigraphy demonstrates inferior wall ischemia. [facility] (09/08/2008) C ardiac Cath: Complete revascularization with the LAD territory to a vein graft. Atretic VALDES. 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 N ormal LV systolic function. [facility] (10/11/2008) C HOL: 170 (09/07/2008) LDL: 97 MG/DL (CALC) (09/07/2008) HDL: 38 (09/07/2008) T (09/07/2008) H CT: 50.3 (09/07/2008) Platelets: 162 THOUSAND/UL (09/07/2008) R BC: 5.48 MILLION/UL (09/07/2008) BUN: 11 (09/07/2008) Creat: 1.30 (09/07/2008) Glucose: 109 (09/07/2008) N a+: 141 (09/07/2008) K+: 5.0 (09/07/2008) Cl: 105 (09/07/2008) PT: 10.5 (09/19/2008) INR: 1.1 (09/19/2008) Pushpa Thomas MD cath follow-up: H is updated medication list for this problem includes: Toprol Xl 100 Mg Tb24 (Metoprolol succinate) ..... 1 tablet by mouth once daily Lipitor 20 Mg Tabs (Atorvastatin calcium) ..... 1 tbalet by mouth once daily Niaspan 500 Mg Tbcr (Niacin (antihyperlipidemic)) ..... One tab. at bedtime Aspirin 81 Mg Tabs (Aspirin) ..... 1 tablet by mouth once daily & #13;BP today: 135/70 Prior BP: 126/76 (09/12/2008) N uclear Stress Findings: 1. Adenosine mediated myocardial perfusion study 2 . Normal left ventricular systolic function with a calculated ejection fraction of 57%. 3 . Myocardial scintigraphy demonstrates inferior wall ischemia. [facility] (09/08/2008) C ardiac Cath: Complete revascularization with the LAD territory to a vein graft. Atretic VALDES. 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 N ormal LV systolic function. [facility] (10/11/2008) C HOL: 170 (09/07/2008) LDL: 97 MG/DL (CALC) (09/07/2008) HDL: 38 (09/07/2008) T (09/07/2008) H CT: 50.3 (09/07/2008) Platelets: 162 THOUSAND/UL (09/07/2008) R BC: 5.48 MILLION/UL (09/07/2008) BUN: 11 (09/07/2008) Creat: 1.30 (09/07/2008) Glucose: 109 (09/07/2008) N a+: 141 (09/07/2008) K+: 5.0 (09/07/2008) Cl: 105 (09/07/2008) PT: 10.5 (09/19/2008) INR: 1.1 (09/19/2008) Pushpa Thomas MD cath follow-up: H is updated medication list for this problem includes: Lipitor 20 Mg Tabs (Atorvastatin calcium) ..... 1 tbalet by mouth once daily Niaspan 500 Mg Tbcr (Niacin (antihyperlipidemic)) ..... One tab. at bedtime BP today: 135/70 Prior BP: 126/76 (09/12/2008) C HOL: 170 (09/07/2008) LDL: 97 MG/DL (CALC) (09/07/2008) HDL: 38 (09/07/2008) T (09/07/2008) Pushpa Thomas MD cath follow-up: H is updated medication list for this problem includes: Toprol Xl 100 Mg Tb24 (Metoprolol succinate) ..... 1 tablet by mouth once daily Lipitor 20 Mg Tabs (Atorvastatin calcium) ..... 1 tbalet by mouth once daily Niaspan 500 Mg Tbcr (Niacin (antihyperlipidemic)) ..... One tab. at bedtime Aspirin 81 Mg Tabs (Aspirin) ..... 1 tablet by mouth once daily & #13;BP today: 135/70 Prior BP: 126/76 (09/12/2008) N uclear Stress Findings: 1. Adenosine mediated myocardial perfusion study 2 . Normal left ventricular systolic function with a calculated ejection fraction of 57%. 3 . Myocardial scintigraphy demonstrates inferior wall ischemia. [facility] (09/08/2008) C ardiac Cath: Complete revascularization with the LAD territory to a vein graft. Atretic VALDES. 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 N ormal LV systolic function. [facility] (10/11/2008) C HOL: 170 (09/07/2008) LDL: 97 MG/DL (CALC) (09/07/2008) HDL: 38 (09/07/2008) T (09/07/2008) H CT: 50.3 (09/07/2008) Platelets: 162 THOUSAND/UL (09/07/2008) R BC: 5.48 MILLION/UL (09/07/2008) BUN: 11 (09/07/2008) Creat: 1.30 (09/07/2008) Glucose: 109 (09/07/2008) N a+: 141 (09/07/2008) K+: 5.0 (09/07/2008) Cl: 105 (09/07/2008) PT: 10.5 (09/19/2008) INR: 1.1 (09/19/2008) Pushpa Thomas MD stress test follow-u p: H is updated medication list for this problem includes: Lipitor 20 Mg Tabs (Atorvastatin calcium) ..... 1 tbalet by mouth once daily Toprol Xl 100 Mg Tb24 (Metoprolol succinate) ..... 1 tablet by mouth once daily Aspirin 81 Mg Tabs (Aspirin) ..... 1 tablet by mouth once daily BP today: 126/76 Prior BP: 148/81 (08/29/2008) N uclear Stress Findings: 1. Adenosine mediated myocardial perfusion study 2 . Normal left ventricular systolic function with a calculated ejection fraction of 57%. 3 . Myocardial scintigraphy demonstrates inferior wall ischemia. [facility] (09/08/2008) C ardiac Cath: Single vessel CAD unchanged from 1994. Occluded PIERRE to the LAD artery. Patent SVG to the 2nd digonal filling the LAD distribution as well. [facility] (11/25/2001) C HOL: 170 (09/07/2008) LDL: 97 MG/DL (CALC) (09/07/2008) HDL: 38 (09/07/2008) T (09/07/2008) H CT: 50.3 (09/07/2008) Platelets: 162 THOUSAND/UL (09/07/2008) R BC: 5.48 MILLION/UL (09/07/2008) BUN: 11 (09/07/2008) Creat: 1.30 (09/07/2008) Glucose: 109 (09/07/2008) N a+: 141 (09/07/2008) K+: 5.0 (09/07/2008) Cl: 105 (09/07/2008) Pushpa Thomas MD stress test follow-u p: H is updated medication list for this problem includes: Lipitor 20 Mg Tabs (Atorvastatin calcium) ..... 1 tbalet by mouth once daily Toprol Xl 100 Mg Tb24 (Metoprolol succinate) ..... 1 tablet by mouth once daily Aspirin 81 Mg Tabs (Aspirin) ..... 1 tablet by mouth once daily BP today: 126/76 Prior BP: 148/81 (08/29/2008) N uclear Stress Findings: 1. Adenosine mediated myocardial perfusion study 2 . Normal left ventricular systolic function with a calculated ejection fraction of 57%. 3 . Myocardial scintigraphy demonstrates inferior wall ischemia. [facility] (09/08/2008) C ardiac Cath: Single vessel CAD unchanged from 1994. Occluded PIERRE to the LAD artery. Patent SVG to the 2nd digonal filling the LAD distribution as well. [facility] (11/25/2001) C HOL: 170 (09/07/2008) LDL: 97 MG/DL (CALC) (09/07/2008) HDL: 38 (09/07/2008) T (09/07/2008) H CT: 50.3 (09/07/2008) Platelets: 162 THOUSAND/UL (09/07/2008) R BC: 5.48 MILLION/UL (09/07/2008) BUN: 11 (09/07/2008) Creat: 1.30 (09/07/2008) Glucose: 109 (09/07/2008) N a+: 141 (09/07/2008) K+: 5.0 (09/07/2008) Cl: 105 (09/07/2008) Pushpa Thomas MD Date Name TSH, 3RD GENERATION W/REFLEX TO FT4 HEMOGLOBIN A1c CBC (INCLUDES DIFF/P LT) COMPREHENSIVE METABO LIC PANEL W/EGFR Stress Test - Adenos ine Complete Echo ECP Commercial COMPREHENSIVE METABO LIC PANEL W/EGFR CBC (H/H, RBC, INDIC ES, WBC, PLT) LIPID PANEL Stress Test - Adenos ine Complete Echo HISTORY OF PROCEDURES Procedure Date Procedure Name Provider Procedure Notes S tatus SNOMED-CT: 28889452 Physical Exam, Performed: Pulse Exam of Foot Pushpa Thomas MD completed SNOMED-CT: 254426978 [id number] Current Medications Documented Pushpa Thomas MD completed FVC - 17575 Pushpa Thomas MD complete d FRC - 49967 Pushpa Thomas MD complete d DLCO - 64416 Pushpa Thomas MD complet ed Lipid Strip Pushpa Thomas MD complete d EKG Pushpa Thomas MD completed EKG Pushpa Thomas MD completed EKG Pushpa Thomas MD completed ePrescribe - Check t his box if eRx is used Pushpa Thomas MD completed JF Thomas MD completed JF Thomas MD completed JF Thomas MD completed JF Thomas MD completed
--- OUTSIDE RECORDS SUMMARY | 2024-07-28 13:12 | XMS_ITS | Clinical Summary ---
Author Organization [facility] Address [address] [place] [address] Phone Care Team Providers Care Clay Stain Mixer Name Role Phone Ace Hanna MD Primary Care Provider [phone] Allergies Active Allergy Reactions Criticality Noted Date Comments Simvastatin Nausea and Vomiting Low 07/20/2012 Medications metoprolol tartrate (LOPRESSOR) 50 mg Oral tablet 100 mg daily. 03/06/2011 Active aspirin (SAGAR) 325 mg Oral tablet daily. Active omeprazole (PRILOSEC) 20 mg Capsule, Delayed Release(E.C.) Take 20 mg by mouth daily. Active losartan-hydroch lorothiazide (HYZAAR) 50-12.5 mg tablet Take 1 Tab by mouth daily. Active ezetimibe (ZETIA) 10 mg tablet Take 10 mg by mouth daily. Active Active Problems No known active problems Social History Tobacco Use Types Packs/Day Years Used Date Smoking Tobacco: Former Cigarettes 1 27 0 06/30/1987 - 06/30/2014 Alcohol Use Standard Drinks/Week Comments Yes 1.7 (1 standard drink = 0.6 oz p ure alcohol) Sex and Gender Information Value Date Recorded Sex Assigned at Not on file Legal Sex Male 5:58 AM POLICY INTERN Gender Identity Not on file Sexual Orientation Not on file Occupation Industry Job Start Date Job End Date Not on file Not on file Not on file Not on file Last Filed Vital Signs Vital Sign Reading Time Taken Comments Blood Pressure 130/84 10/28/2016 1:24 PM CDT Pulse 60 07/17/2016 10:26 AM POLICY INTERN Temperature 37 ??C (98.6 ??F) 07/17/2016 10:25 AM POLICY INTERN Respiratory Rate 18 02/16/2013 10:09 AM CDT Oxygen Saturation 97% 07/17/2016 10:26 AM POLICY INTERN Inhaled Oxygen Concentration - - Weight 111.6 kg (246 lb) 10/28/2016 1:24 PM CDT Height 185.4 cm (6' 1 ) 10/28/2016 1:24 PM CDT Body Mass Index 32.46 10/28/2016 1:24 PM CDT Plan of Treatment Health Maintenance Due Date Last Done Comments DIABETES ANNUAL FOOT EXAM 1961 DIABETES ANNUAL RETINAL EXAM 1961 DIABETES HBA1C Q 6 MONTHS 1961 DIABETES MICROALBUMIN ANNUAL SCREEN 1961 LDL CHOLESTEROL ANNUAL 1961 DTAP/TDAP/TD VACCINES (1 - Tdap) 1962 PNEUMOCOCCAL VACCINE 65+ YEARS (1 of 2 - PCV) 03/04/19 62 ZOSTER VACCINE (1 of 2) 1993 RSV VACCINE (60+ or ) (1 - 1-dose 75+ series) 2018 INFLUENZA VACCINE (#1) 2024 Medical Devices Implanted Type Area Supervisor Last Model Department Device Identifier Shelf Expiration Date Model / Serial / Lot Log [id number] - Brachytherapy Implants - 1 - Seed Calibrated 1-125 [id number] Implanted:Qty: 1 on 03/12/2011 at [facility] Bilateral: Prostate CR BARD- UROL DIV 06/29/2012 [id number] / / [id number] Description:total # [place]: 22total # Seeds:78 Insurance [facility] [id number] Advance Directives For more information, please contact: [phone] * Full Code (Latest Code Status on File) Date Activated Date Inactivated Comments 03/12/2011 1:20 PM 03/13/2011 1:33 PM * Full Code Date Activated Date Inactivated Comments 03/12/2011 7:51 AM 03/12/2011 1:20 PM Care Teams Clay Stain Mixer Relationship Specialty [place] [address] [place] [address] [address] [place] [id number] PCP - General Family Practice 07/05/10
--- OUTSIDE RECORDS SUMMARY | 2024-07-28 13:12 | XMS_ITS | Encounter Summary ---
Author Organization [facility] Address [address] [place] [id number] Care Team Providers Care Supervisor Prop Making Name Role Phone Teodoro Garcia MD Primary Care Provider [phone] [phone] Encounter Details Date Type Department Care Team (Late st Contact Info) Description 09/29/2023 Orders Only [facility] [address] [place] [id number] Scanning, Provider Social History Tobacco Use Types Packs/Day Years Used Date Smoking Tobacco: Every Day Cigarettes Smokeless Tobacco: Never Alcohol Use Standard Drinks/Week Comments Yes 0 (1 standard drink = 0.6 oz pur e alcohol) Personal Safety Answer Date Recorded Getting School Help Needed Not on file 08/14 Sex and Gender Information Value Date Recorded Sex Assigned at Not on file Legal Sex Male 3:43 AM BUSINESS ADMINISTRATION PROGRAM CHAIR Gender Identity Not on file Sexual Orientation Not on file documented as of this encounter Plan of Treatment Not on file documented as of this encounter Procedures Procedure Name Priority Date/Time Associated Diagnosis Comments SCAN - LABS 09/29/2023 documented in this encounter Results * SCAN - LABS (09/29/2023) us Provider Scanning Edited Result - Final documented in this encounter Visit Diagnoses Not on filedocumented in this encounter Care Teams Supervisor Prop Making Relationship Specialty Start Date End Date Teodoro Garcia MD PCP - General Family Practice 03/19/23 documented as of this encounter
--- OUTSIDE RECORDS SUMMARY | 2024-07-28 13:12 | XMS_ITS | Referral Summary ---
Author Organization [facility] Address [address] [place] [address] Care Team Providers Care Business Law Teacher Name Role Phone Ace Hanna MD Primary Care Provider +1- [phone] Source Comments [facility],non-owned Affiliates and Associated Physician Practices is amultiple site organization consisting of ambulatory clinics and hospital sitesin [place], [place], [place] and [place]. This disclosure is being madepursuant to the Care Everywhere program and may not contain all information available regarding this patient. Last updated 18.[facility] [employer] Allergies No known active allergies Medications * Be aware that medications may not be up to date on this document. Alwaysverify current medications with the patient. Medication Sig Dispensed Refills Start Date End Date Status metoprolol tartrate IR (LOPRESSOR) 100 MG tablet Active atorvastatin (LIPITOR) 20 MG tablet Active Tamsulosin HCl (FLOMAX PO) Active aspirin 325 MG tablet Act tian Ranitidine HCl (ZANTAC 75 PO) Active Active Problems Problem Noted Date Diagnosed Date [...] Comments Blood Pressure 113/80 07/18/2015 12:00 PM COLLEGE HIRE Pulse 62 07/18/2015 12:00 PM COLLEGE HIRE Temperature 36.8 ??C (98.3 ??F) 07/18/2015 11:[address] Respiratory Rate 15 07/18/2015 12:00 PM COLLEGE HIRE Oxygen Saturation 94% 07/18/2015 12:00 PM COLLEGE HIRE Inhaled Oxygen Concentration - - Weight 111.1 kg (245 lb) 07/18/2015 9:34 AM COLLEGE HIRE Height 185.4 cm (6' 1 ) 07/18/2015 9:34 AM COLLEGE HIRE Body Mass Index 32.32 07/18/2015 9:34 AM COLLEGE HIRE Plan of Treatment Not on file Care Teams Business Law Teacher Relationship Specialty Start Date End Date Ace Hanna MD [address] [place] [address] [address] [place] [address] PCP - General Family Medicine 11/25/12
--- OUTSIDE RECORDS SUMMARY | 2024-07-28 13:12 | XMS_ITS | Clinical Summary ---
Author Organization [facility] Address [address] [place] [address] Care Team Providers Care Securities Clerk Name Role Phone Ace Hanna MD Primary Care Provider +1- [phone] Source Comments [facility],non-owned Affiliates and Associated Physician Practices is amultiple site organization consisting of ambulatory clinics and hospital sitesin [place], [place], [place] and [place]. This disclosure is being madepursuant to the Care Everywhere program and may not contain all information available regarding this patient. Last updated 18.[facility] [employer] Allergies No known active allergies Medications * [...] Diagnosed Date Heart disease Prostate CA Hypertension Family History Medical History Relation Name Comments Lung Cancer Mother mesothelomia Relation Name Status Comments Father Alive Mother Sister Alive Social History Tobacco Use Types Packs/Day Years [...] Comments Blood Pressure 113/80 07/18/2015 12:00 PM WORKFORCE MANAGER Pulse 62 07/18/2015 12:00 PM WORKFORCE MANAGER Temperature 36.8 ??C (98.3 ??F) 07/18/2015 11:[address] Respiratory Rate 15 07/18/2015 12:00 PM WORKFORCE MANAGER Oxygen Saturation 94% 07/18/2015 12:00 PM WORKFORCE MANAGER Inhaled Oxygen Concentration - - Weight 111.1 kg (245 lb) 07/18/2015 9:34 AM WORKFORCE MANAGER Height 185.4 cm (6' 1 ) 07/18/2015 9:34 AM WORKFORCE MANAGER Body Mass Index 32.32 07/18/2015 9:34 AM WORKFORCE MANAGER Plan of Treatment Health Maintenance Due Date Last Done Comments DTAP/TDAP/TD VACCINES (1 - Tdap) 1962 PNEUMOCOCCAL VACCINE 50+ (1 of 2 - PCV) 1962 ZOSTER VACCINE (1 of 2) 1993 Respiratory Syncytial Virus (RSV) Vaccine Pt: or over 60 yrs (1 - 1-dose 75+ series) 2018 COVID-19 VACCINE ( - 2023-2 5 season) 2024 INFLUENZA VACCINE (#1) 2024 DEPRESSION SCREENING 06/30/2024 MEDICARE AWV ? CALENDAR YEAR 2024 HEPATITIS B VACCINE Aged Out No longe r eligible based on patient's age to complete this topic HIB VACCINE Aged Out No longer eligi ble based on patient's age to complete this topic HPV VACCINE Aged Out No longer eligi ble based on patient's age to complete this topic MENINGOCOCCAL (Group B) VACCINE Aged Out No longer eligible based on patient's age to complete this topic MENINGOCOCCAL VACCINE Aged Out No antonella swathi eligible based on patient's age to complete this topic Care Teams Securities Clerk Relationship Specialty Start Date End Date Ace Hanna MD [address] [place] [address] [address] [place] [address] PCP - General Family Medicine 11/25/12
--- OUTSIDE RECORDS SUMMARY | 2024-07-28 13:12 | XMS_ITS | Clinical Summary ---
Author Organization [facility] [address] Address [address] [place] [address] Care Team Providers Care Software Installer Name Role Phone Teodoro Garcia MD Primary Care Provider +1 -[phone] Allergies Active Allergy Reactions Criticality Noted Date Comments Erythromycin Ethyl Alcohol Unknown Ezetimibe Muscle pain Medium Simvastatin Nausea And Vomiting Low 07/20/2012 Zgncsgj-Emj-Wee Reductase Inhibitors High Medications pantoprazole DR (PROTONIX) 40 mg EC tablet Take 1 tablet (40 mg total) by mouth daily Active aspirin 81 mg tablet Take 1 tablet (81 mg total) by mouth daily Active ezetimibe (ZETIA) 10 mg tablet Take 1 tablet (10 mg total) by mouth daily Active ticagrelor (BRILINTA) 90 mg tablet Take 1 tablet (90 mg total) by mouth 2 (two) times a day 60 tablet 11 4 Active isosorbide mononitrate ER (IMDUR) 30 mg 24 hr tablet Take 1 tablet (30 mg total) by mouth daily 90 tablet 2 4 11/04/19 25 Active Additional Information Patient not taking.Reported on 05/18/2024 hydroCHLOROthiaz tabby 12.5 mg tablet Take 1 tablet (12.5 mg total) by mouth daily 90 tablet 2 4 Active rosuvastatin (CRESTOR) 20 mg tablet Take 1 tablet (20 mg total) by mouth nightly 90 tablet 3 4 05/18/20 25 Active metoprolol tartrate (LOPRESSOR) 25 mg immediate release tablet Take 1 tablet (25 mg total) by mouth 2 (two) times a day 180 tablet 2 4 Active Active Problems Problem Noted Date Diagnosed Date Chest pain 09/29/2023 Cardiovascular stress test abnormal 09/29/2023 PAD (peripheral artery disease) 09/23/2023 Tobacco abuse 12/10/2021 Unintentional weight loss 07/27/2020 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 Palpitations 03/08/2019 Mixed diabetic hyperlipidemi a associated with type 2 diabetes mellitus ([facility]) 03/08/2019 Sick sinus syndrome ([facility]) 01/12/2018 Atrial bigeminy 12/22/2017 Ventricular bigeminy 09/08/2017 PVC's (premature ventricular contractions) 11/21 Overview (11/29/2016): Frequent PVCs Hyperglycemia 11/21/2016 Overview (11/29/2016): Elevated blood sugar Premature atrial contraction 11/21/2016 Overview (11/29/2016): PAC (premature atrial contraction) Muscle pain 10/11/2016 Overview (11/22/2016): Myalgia Bradycardia 10/11/2016 Overview (11/22/2016): Bradycardia 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 01/29/2016 Overview (10/04/2016): Coronary artery disease involving red cliff coronary artery of red cliff heart without angina pectoris Dyspnea on exertion 01/29/2016 Overview (10/04/2016): BARKER (dyspnea on exertion) Statin intolerance 01/29/2016 Overview (10/04/2016): Statin intolerance Obstructive sleep apnea syndrome 01/29/2016 Overview (10/04/2016): KATIE (obstructive sleep apnea) History of coronary artery bypass surgery 2015 Overview (10/04/2016): S/P CABG (coronary artery bypass graft) Tobacco dependence in remission 01/29/2016 Overview (10/04/2016): Tobacco abuse, in remission Hypertensive heart disease without congestive he art failure 01/29/2016 Overview (10/04/2016): Hypertensive heart disease without heart failure Hypertension associated with diabetes 01/03/2015 Overview (10/04/2016): HBP Acid reflux 01/03/2015 Overview (10/04/2016): Acid reflux Shortness of breath 01/03/2015 Overview (10/04/2016): SOB Cyst of thyroid 01/03/2015 Overview (10/04/2016): Thyroid cyst Resolved Problems Problem Noted Date Diagnosed Date Resolved Date Dyslipidemia 03/07/2017 12/10/2021 Benign hypertension 01/29/2016 12/11/19 22 Overview (10/04/2016): HTN (hypertension), benign Hypercholesterolemia 01/03/2015 022 Overview (10/04/2016): High cholesterol Encounters Date Type Department Care Team Description 05/18/2024 8:45 AM INSPECTOR WELDED PARTS Office Visit [facility] Cardiology [address] [place] [address] Guillaume Villafana MD Coronary artery disease of [place] artery of [place] heart with stable angina pectoris (HCC) (Primary Dx); 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); Hypertensive heart disease without congestive heart failure from Last 3 Months Surgical History Surgery Date Site/Laterality Comments CORONARY ARTERY BYPASS GRAFT bypass KNEE ARTHROPLASTY Knee replacement CHOLECYSTECTOMY Cholecystectomy HERNIA REPAIR Hernia repair Medical History Medical History Date Comments Hypertension Coronary artery disease Diabetes mellitus (HCC) Hx of CABG Lung disease GERD (gastroesophageal reflux disease) Family History Medical History Relation Name Comments Other Father Unknown; Cause of : Unknown Other Mother mesothelioma; C ause of : mesothelioma Hypertension Other Family history of Hypertension; Relation Name Status Comments Father (Age 93) Mother (Age 85) Other Social History Tobacco Use Types Packs/Day Years Used Date Smoking Tobacco: Every Day Cigarettes Smokeless Tobacco: Never Tobacco Cessation:Ready to Q uit: Not Asked; Counseling Given: Not Answered Alcohol Use Standard Drinks/Week Comments Yes 0 (1 standard drink = 0.6 oz pur e alcohol) AUDIT-C Answer Date Recorded Q1: How often do you have a drink containing alcohol? Never 10/28/2023 Q2: How many drinks containi ng alcohol do you have on a typical day when you are drinking? Patient does not drink Q3: How often do you have si x or more drinks on one occasion? Never 10/28/2023 Personal Safety Answer Date Recorded Have you ever been in or are you currently in a harmful physical or emotional relationship or is someone making you feel afraid or unsafe? Denies 10/28/2023 Sex and Gender Information Value Date Recorded Sex Assigned at Not on file Legal Sex Male 3:43 AM INSPECTOR WELDED PARTS Gender Identity Not on file Sexual Orientation Not on file Obstetrics History Last Filed Vital Signs Vital Sign Reading Time Taken Comments Blood Pressure 110/60 11/13/2023 9:49 AM CDT Pulse 58 11/13/2023 9:49 AM CDT Temperature 36.7 ??C (98.1 ??F) 10/28/2023 7:22 AM CD T Respiratory Rate 12 03/07/2017 8:35 AM CDT Oxygen Saturation 96% 11/13/2023 9:49 AM CDT Inhaled Oxygen Concentration - - Weight 88.5 kg (195 lb) 11/13/2023 9:49 AM CDT Height 185.4 cm (6' 1 ) 11/13/2023 9:49 AM CDT Body Mass Index 25.73 11/13/2023 9:49 AM CDT Plan of Treatment Health Maintenance Due Date Last Done Comments Albumin Creatinine Ratio, Urine 1945 Depression Screening 1945 Dilated Eye Exam 1943 Foot Exam 1943 DTaP/Tdap/Td Vaccine (1 - Tdap) 1954 Hepatitis B Screening 1961 Zoster Vaccine (1 of 2) 1993 Well Visit 65+ 2008 Hemoglobin A1C 09/01/2017 2017 Pneumococcal vaccine 65+ (2 of 2 - PCV) 06/25/2019 06/25/2018 Influenza Vaccine (#1) 2024 9, 06/11/2018, 05/09/2016, Additional history exists Fall Risk Assessment 10/27/2024 10/28/2023 eGFR 10/27/2024 10/28/2023 Lipid Panel 05/18/2025 05/18/2024, 08/0 02/2023, 10/21/2022, Additional history exists Medical Devices Implanted Type Area Customer Care Representative Device Identifier Shelf Expiration Date Model / Serial / Lot Other - See Comments Other - see comments Left: Knee Other - See Comments Other - see comments Right: Knee Medtronic Card Vasc Surgery 3.0 X 18mm Norman [employer] Rx Coronary Stent [id number] - [id number] Implanted:Qty : 1 on 10/28/2023 by Abigail Saxena MD at [facility] Medtronic Card Vasc Surgery 07/26/2026 [id number] / / [id number] [employer]AND[employer] Angio-Seal Vip 6fr Closere Device [id number] - [id number] Implanted:Qty : 1 on 10/28/2023 by Abigail Saxena MD at [facility] CANDDi [id number] / / Procedures Procedure Name Priority Date/Time Associated Diagnosis Comments POCT LIPID PANEL Routine 05/18/2024 10:0 0 AM INSPECTOR WELDED PARTS 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) EGFR Routine 10/28/2023 7:13 AM CDT HEMOGLOBIN A1C Routine 2017 from Last 3 Months or Most Recently Relevant to Health Maintenance Results * POCT lipid panel (05/18/2024 10:00 AM INSPECTOR WELDED PARTS) Cholesterol, POC 156 mg/dL Comment:GLU = 126 HDL, POC 33 mg/dL Triglycerides, POC 93 mg/dL LDL Cholesterol POC 104 mg/dL Chol/HDL Ratio, POC 3.2 Non-HDL Cholesterol, POC 123 mg/dL Cholesterol Total, POC 156 mg/dL Capillary blood 05/18/2024 1 0:00 AM INSPECTOR WELDED PARTS us Guillaume Villafana MD POINT OF CARE TEST ORDERABLES Fi nal Result * (ABNORMAL) eGFR (10/28/2023 7:13 AM CDT) eGFR 55(L) >=60 mL/min/1. 73 m2 Comment: Interpretive Data Reference Interval Normal ?>/= 90 mL/min/1.73m2 Mildly decreased* ? 60 - 89 mL/min/1.73m2 Mildly to moderately decreased ?45 - 59 mL/min/1.73m2 Moderately to severely decreased ??30 - 44 mL/min/1.73m2 Severely decreased ?15 - 29 mL/min/1.73m2 Kidney Failure ?< 15 ??mL/min/1.73m2 *Relative to young adult level Estimated glomerular filtration rate is determined by the 2020 CKD-EPI equation recommended by the National Kidney Foundation (A Unifying Approach to GFR Estimation: Recommendations of the NKF-ASK Task Force on Reassessing the Inclusion of Race in Diagnosing Kidney Disease, JASN 2020). The CKD-EPI equation should not be used for patients with unstable renal function and has not been validated in children and those over 70. Current interpretive data was last reviewed 2021. Blood 10/28/2023 7:13 AM CDT 10/28/2023 7:18 AM CDT us Abigail Saxena MD LAB BLOOD ORDERABLES Final Result STEPHANIE [address] [place] [address] * Hemoglobin A1c (2017) Blood specimen (specimen) us Historical Provider LAB BLOOD ORDERABLES Norah l Result from Last 3 Months or Most Recently Relevant to Health Maintenance Insurance [employer] MEDICARE Advance Directives For more information, please contact: [phone] * Full Code (Latest Code Status on File) Date Activated Date Inactivated Comments 10/28/2023 10:03 AM 10/28/2023 4:45 PM Care Teams Software Installer Relationship Specialty Start Date End Date Teodoro Garcia MD PCP - General Family Practice 03/19/23
--- OUTSIDE RECORDS SUMMARY | 2024-07-28 13:12 | XMS_ITS | Referral Summary ---
Author Organization [facility] [address] [facility] [address] Address [address] [place] [address] Care Team Providers Care Russian Rubber Name Role Phone Teodoro Garcia MD Primary Care Provider [phone] [phone] Encounters Date Type Department Care Team Description 05/18/2024 8:45 AM BOOK JACKET COVER MACHINE OPERATOR Office Visit [facility] Cardiology [address] [place] [address] Guillaume Villafana MD Coronary artery disease of [place] artery of [place] heart with stable angina pectoris (HCC) (Primary Dx); 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); Hypertensive heart disease without congestive heart failure from Last 3 Months Allergies Active Allergy Reactions Criticality Noted Date Comments Erythromycin Ethyl Alcohol Unknown Ezetimibe Muscle pain Medium Simvastatin Nausea And Vomiting Low 07/20/2012 Aihrwdp-Nwb-Cps Reductase Inhibitors High Medications pantoprazole DR (PROTONIX) [...] a associated with type 2 diabetes mellitus ([facility]) 03/08/2019 Sick sinus syndrome ([facility]) 01/12/2018 Atrial bigeminy 12/22/2017 Ventricular bigeminy 09/08/2017 PVC's (premature ventricular contractions) 11/21 Overview (11/29/2016): Frequent PVCs Hyperglycemia 11/21/2016 Overview (11/29/2016): Elevated blood sugar Premature atrial contraction 11/21/2016 Overview (11/29/2016): PAC (premature atrial contraction) Muscle pain 10/11/2016 Overview (11/22/2016): Myalgia Bradycardia 10/11/2016 Overview (11/22/2016): Bradycardia Coronary artery disease of n ative artery of [place] heart with stable angina pectoris 01/29/2016 Overview (10/04/2016): Coronary artery disease involving [place] coronary artery of [place] heart without angina pectoris Dyspnea on exertion [...] Hypercholesterolemia 01/03/2015 022 Overview (10/04/2016): High cholesterol Social History Tobacco Use Types Packs/Day Years [...] on file Legal Sex Male 3:43 AM BOOK JACKET COVER MACHINE OPERATOR Gender Identity Not on file Sexual Orientation [...] 11/13/2023 9:49 AM CDT Plan of Treatment Not on file Medical Devices Implanted Type Area Veterinary Dentist Device Identifier Shelf Expiration Date Model / Serial / Lot Other - See Comments Other - see comments Left: Knee Other - See Comments Other - see comments Right: Knee Medtronic Card Vasc Surgery 3.0 X 18mm [employer] Rx Coronary Stent [id number] - [id number] Implanted:Qty : 1 on 10/28/2023 by Abigail Saxena MD at [facility] Medtronic Card Vasc Surgery 07/26/2026 [id number] / / [id number] [employer] Angio-Seal Vip 6fr Closere Device [id number] - [id number] Implanted:Qty : 1 on 10/28/2023 by Abigail Saxena MD at [facility] [employer] [id number] / / Procedures Procedure Name Priority Date/Time Associated Diagnosis Comments POCT LIPID PANEL Routine 05/18/2024 10:0 0 AM BOOK JACKET COVER MACHINE OPERATOR 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) EGFR Routine 10/28/2023 7:13 AM CDT HEMOGLOBIN A1C Routine 2017 from Last 3 Months or Most Recently Relevant to Health Maintenance Results * POCT lipid panel (05/18/2024 10:00 AM BOOK JACKET COVER MACHINE OPERATOR) Cholesterol, POC 156 mg/dL Comment:GLU = 126 HDL, POC 33 mg/dL Triglycerides, POC 93 mg/dL LDL Cholesterol POC 104 mg/dL Chol/HDL Ratio, POC 3.2 Non-HDL Cholesterol, POC 123 mg/dL Cholesterol Total, POC 156 mg/dL Capillary blood 05/18/2024 1 0:00 AM BOOK JACKET COVER MACHINE OPERATOR us Guillaume Villafana MD POINT OF CARE [...] 7:13 AM CDT 10/28/2023 7:18 AM CDT Abigail Saxena MD LAB BLOOD ORDERABLES Final Result STEPHANIE GALINDO [address] Department [place] [address] * Hemoglobin A1c (2017) Blood specimen (specimen) Historical Provider LAB BLOOD ORDERABLES Norah l Result from Last 3 Months or Most Recently Relevant to Health Maintenance Insurance T MEDICARE Advance Directives For more information, please contact: [phone] * Full Code (Latest Code Status on File) Date Activated Date Inactivated Comments 10/28/2023 10:03 AM 10/28/2023 4:45 PM Care Teams Russian Rubber Relationship Specialty Start Date End Date Teodoro Garcia MD PCP - General Family Practice 03/19/23
[2024-07-28 13:13] LABS: Hematocrit 44.4 % (42.0-52.0); Hemoglobin 15.5 g/dL (14.0-18.0); Mean Corpuscular HGB Conc 34.9 g/dl (32-36); Mean Corpuscular Hemoglobin 31.5 pg (26-34); Mean Corpuscular Volume 90.2 fl (80-100); Mean Platelet Volume 9.9 fl (7.4-10.4); Platelet Count Result 166 k/mm3 (150-375); Red Blood Count 4.92 M/mm3 (4.6-6.20); Red Cell Distribution Width 12.6 % (11.5-14.5); White Blood Count 7.9 K/mm3 (4.5-10.0)
[2024-07-28 13:47] LABS: Alanine Aminotransferase 47 U/L (6-50); Albumin Level 4.1 g/dL (3.5-5.1); Alkaline Phosphatase 93 U/L (38-126); Anion Gap 10 mmol/L (4-12); Aspartate Amino Transferase 33 U/L (17-59); Bilirubin,Total 0.8 mg/dL (0.2-1.3); Blood Urea Nitrogen 14 mg/dL (9-20); Calcium 9.7 mg/dL (8.4-10.2); Carbon Dioxide 27 mmol/L (22-30); Chloride 103 mmol/L (98-107); Estimated Glomerular Filt Rate > 60; Glucose 119 mg/dL (65-110); Potassium 3.9 mmol/L (3.4-5.0); Sodium 140 mmol/L (137-145)
== END 2024-07-28 12:16 | disposition home or self-care (01) ==
PROVIDERS: PCP Nurse Practitioner Family; Visit Provider Nurse Practitioner
DX: K57.32 Diverticulitis of large intestine without perforation or abscess without bleeding (principal)
CPT/HCPCS: 36415; 80053; 85027

== ENCOUNTER 2024-07-29 07:48 | Outpatient (CLI) | payer MEDICARE, SELFPAY | END 2024-07-29 07:49 | disposition home or self-care (01) | LOC: ANHLAB 07:48 | PROVIDERS: PCP Nurse Practitioner Family; Visit Provider Nurse Practitioner | DX: R19.7 Diarrhea, unspecified (principal) | CPT/HCPCS: 82653; 83993; 87045; 87269; 87427; 87449 ==

== ENCOUNTER 2024-08-18 14:23 | Outpatient (CLI) | payer MEDICARE, SELFPAY ==
--- NOTE | ~2024-08-18 | CT_ITS ---
EXAMINATION: CT abdomen pelvis w con DATE: 08/18/2024 14:54 INDICATION: Abdominal pain. Diarrhea. TECHNIQUE: Computed tomography (CT) of the abdomen and pelvis was performed with 100 mL Omnipaque 350 intravenous contrast. Automated exposure control and iterative reconstruction technique were employe d. The dose-length product was 726.13 mGy-cm. COMPARISON: CT abdomen and pelvis 05/25/2024 FINDINGS: The visualized portions of lung bases demonstrate mild chronic interstitial lung disease. A calcified right lung nodule is consistent with old granulomatous disease. No pleural effusion. There is left atrial enlargement of the heart. There are coronary artery calcifications. No pericardial ef fusion. The liver is normal. No changes of cholecystectomy. Again seen is low attenuation in the mis pheral spleen with maximum thickness of 4 mm, likely an old hematoma. The pancreas and adrenal glands are normal. There are cysts in the kidneys measuring up to 5.2 cm on the right. There is an umbilica l hernia containing nonobstructed small bowel. There is a right sided rectal sheath hernia containing nonobstructed small bowel. There is a left lateral abdominal hernia containing fat. There is a right inguinal hernia containing fat. There are no pathologically enlarged lymph nodes. There is no free i ntraperitoneal fluid. There are changes of left inguinal hernia repair. There are brachytherapy seeds in the prostate. There is a right-sided L5 pars defects. There is severe lumbar spondylosis. IMPRESSION: 1. Umbilical hernia containing nonobstructed small bowel. 2. Right-sided rectus sheath hernia containing nonobstructed small bowel. 3. Right inguinal hernia containing fat. 4. Left lateral abdominal wall hernia containing fat. Reviewed, dictated and finalized at location A. ERECTOR HELPER
--- OUTSIDE RECORDS SUMMARY | 2024-08-18 14:28 | XMS_ITS | Referral Summary ---
Author Organization [facility] Address [address] [place] [address] Care Team Providers Care Junior Programmer Analyst Name Role Phone Ace Hanna MD Primary Care Provider +1- [phone] Source Comments [facility],non-owned Affiliates and Associated Physician Practices is amultiple site organization consisting of ambulatory clinics and hospital sitesin [place], [place], [place] and [place]. This disclosure is being madepursuant to the Care Everywhere program and may not contain all information available regarding this patient. Last updated 18.[facility] [employer] Allergies No known active allergies Medications * [...] Comments Blood Pressure 113/80 07/18/2015 12:00 PM DELIVERY MANAGER Pulse 62 07/18/2015 12:00 PM DELIVERY MANAGER Temperature 36.8 C (98.3 F) 07/18/2015 11:32 AM DELIVERY MANAGER Respiratory Rate 15 07/18/2015 12:00 PM DELIVERY MANAGER Oxygen Saturation 94% 07/18/2015 12:00 PM DELIVERY MANAGER Inhaled Oxygen Concentration - - Weight 111.1 kg (245 lb) 07/18/2015 9:34 AM DELIVERY MANAGER Height 185.4 cm (6' 1 ) 07/18/2015 9:34 AM DELIVERY MANAGER Body Mass Index 32.32 07/18/2015 9:34 AM DELIVERY MANAGER Plan of Treatment Not on file Care Teams Junior Programmer Analyst Relationship Specialty Start Date End Date Ace Hanna MD [address] [place] [address] [address] [place] [address] PCP - General Family Medicine 11/25/12
--- OUTSIDE RECORDS SUMMARY | 2024-08-18 14:28 | XMS_ITS | Encounter Summary ---
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
--- OUTSIDE RECORDS SUMMARY | 2024-08-18 14:28 | XMS_ITS | Clinical Summary ---
Author Organization [facility] Address [address] [place] [address] Phone Care Team Providers Care Employee Development Specialist Name Role Phone Ace Hanna MD Primary Care Provider +1- [phone] Allergies Active Allergy Reactions Criticality Noted Date [...] on file Legal Sex Male 5:58 AM FINISHING RANGE SUPERVISOR Gender Identity Not on file Sexual Orientation Not on file Occupation Industry Job Start Date Job End Date Not on file Not on file Not on file Not on file Last Filed Vital Signs Vital Sign Reading Time Taken Comments Blood Pressure 130/84 10/28/2016 1:24 PM CDT Pulse 60 07/17/2016 10:26 AM FINISHING RANGE SUPERVISOR Temperature 37 C (98.6 F) 07/17/2016 10:25 AM FINISHING RANGE SUPERVISOR Respiratory Rate 18 02/16/2013 10:09 AM CDT Oxygen Saturation 97% 07/17/2016 10:26 AM FINISHING RANGE SUPERVISOR Inhaled Oxygen Concentration - - Weight 111.6 [...] (#1) 2024 Medical Devices Implanted Type Area Fuel Tank Sealer And Tester Device Identifier Shelf Expiration Date Model / Serial / Lot Log [id number] - Brachytherapy Implants - 1 - Seed Calibrated 1-125 [id number] Implanted:Qty: 1 on 03/12/2011 at [facility] Bilateral: Prostate CR BARD- UROL DIV 06/29/2012 [id number] / / [id number] Description:total # [place]: 22total # Seeds:78 Insurance [facility] [id number] Advance Directives For more information, please contact: [phone] * Full Code (Latest Code Status on File) Date Activated Date Inactivated Comments 03/12/2011 1:20 PM 03/13/2011 1:33 PM * Full Code Date Activated Date Inactivated Comments 03/12/2011 7:51 AM 03/12/2011 1:20 PM Care Teams Employee Development Specialist Relationship Specialty Start Date End Date Ace Hanna MD [address] [place] [address] PCP - General Family Practice 07/05/10
--- OUTSIDE RECORDS SUMMARY | 2024-08-18 14:28 | XMS_ITS | Encounter Summary ---
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) (Primary Dx) Social History Tobacco Use Types Packs/Day Years [...] on file Legal Sex Male 3:43 AM UNCRATER Gender Identity Not on file Sexual Orientation Not on file documented as of this encounter Last Filed Vital Signs Vital Sign Reading Time Taken Comments Blood Pressure 118/60 08/17/2024 8:20 AM UNCRATER Pulse 54 08/17/2024 8:20 AM UNCRATER Temperature - - Respiratory Rate - - Oxygen Saturation 98% 08/17/2024 8:20 AM UNCRATER Inhaled Oxygen Concentration - - Weight 89.4 kg (197 lb) 08/17/2024 8:20 AM UNCRATER Height 182.9 cm (6') 08/17/2024 8:20 AM UNCRATER Body Mass Index 26.72 08/17/2024 8:20 AM UNCRATER documented in this encounter Ordered Prescriptions Prescription Sig Dispense Quantity Refills Last Filled Start Date End Date ticagrelor (BRILINTA) 60 mg tablet Take 1 tablet (60 mg total) by mouth 2 (two) times a day 180 tablet 3 08/17/2024 08/17/2025 documented in this encounter Progress Notes * Guillaume Villafana MD - 08/17/2024 8:30 AM CST [facility] CARDIOLOGY CHIEF COMPLAINT / REASON FOR CONSULT: Follow up for cardiac care HISTORY: Justin Fair is a 79 y.o. male with CAD status post CABG (valdes to LAD and SVG to diagonal) with subsequent catheterization showing atretic VALDES (2013) and subsequent PCI to OM1 (09/2023), PAD, hypertension, and hyperlipidemia presents for follow up of his cardiac care. He has been doing well without any chest pain. He has had shortness of breath with some level of physical activity however the amount of physical activity he has been doing without shortness of breath has remained stable. Exercise Tolerance: He is able to ambulate outside of his house Social: Quit tobacco 2023 Family History: Medications: Aspirin 81 mg p.o. daily Rosuvastatin 20 mg every evening Zetia 10 mg p.o. daily Brilinta 90 mg p.o. b.i.d. Hydrochlorothiazide 12.5 mg p.o. daily Lopressor 12.5 mg p.o. b.i.d. REVIEW OF SYSTEMS: GENERAL: As per HPI CVS: As per HPI HEME: No bruising, no bleeding PHYSICAL EXAMINATION: BP 118/60 (BP Location: Left arm, Patient Position: Sitting) Pulse 54 Ht 182.9 cm (6') Wt 89.4 kg (197 lb) SpO2 98% BMI 26.72 kg/m?? GENERAL: Alert, in no distress HEAD: Normocephalic and atraumatic EYES: Extraocular movement intact ENT: Unremarkable NECK: no jugular venous distention CHEST: Clear to auscultation, no wheezes, rales or rhonchi, symmetric air entry CARDIAC: Regular rate and rhythm, S1 S2 normal, no murmur, rub, heaves, thrills or gallops ABDOMEN: soft, nontender, no bruit EXTREMITIES: No edema PERIPHERAL PULSES: Peripheral pulses symmetrical SKIN: Warm and dry NEURO: Alert and oriented x 3 LABS: No results found for: CHOL No results found for: HDL No results found for: LDLCALC No results found for: TRIG No results found for: CHOLHDL No results found for: HGBA1C CARDIAC IMAGING RESULTS REVIEW: Echo 07/2022: Normal biventricular systolic function. Mild pulmonary hypertension. No significant valvular disease. Cardiac CT Stress Test 08/2023: lexiscan with small area and mild intensity lateral and anterolateral mis-infarct ischemia Cardiac Monitors Cath 09/2023: SVG-D patent. VALDES-LAD known atretic (2013). LAD occluded at ostium. RCA 20%. PCI to OM1 ASSESSMENT/PLAN: 79 y.o. male with CAD status post CABG (valdes to LAD and SVG to diagonal) with subsequent catheterization showing atretic VALDES (2013) and subsequent PCI to OM1 (09/2023), PAD, hypertension, and hyperlipidemia presents for follow up of his cardiac care CAD status post CABG with subsequent PCI -Continue aspirin 81 mg p.o. daily and rosuvastatin 20 mg every evening -Previously he complain of bruising that he felt to be unacceptable and after discussion of risks and benefits of continuing Brilinta at 90 mg p.o. b.i.d. and the alternatives, we arrived at the conclusion to decrease the Brilinta to 60 mg p.o. b.i.d. Hyperlipidemia -Previously unable to tolerate rosuvastatin however currently tolerating 20 mg every evening with mild amounts of muscle aches and joint pain which he finds to be tolerable and we will continue taking -His LDL has decreased from 104 to 63 and thus he is currently at goal and would recommend continuing rosuvastatin 20 mg every evening -I have also offered Repatha however at this time he does not want to start the injectable cholesterol lowering medication Hypertension -Continue hydrochlorothiazide 12.5 mg p.o. daily Peripheral arterial disease -Clinically without claudication Return to clinic in 6 months Guillaume Villafana MD ATER documented in this encounter Plan of Treatment Not on file documented as of this encounter Procedures Procedure Name Priority Date/Time Associated Diagnosis Comments LIPID PANEL Routine 08/17/2024 8:34 AM UNCRATER documented in this encounter Results * Lipid panel (08/17/2024 8:34 AM UNCRATER) SCRIBED Cholesterol, Total <100 <100 EXTERNAL LAB SCRIBED HDL 19 >40 EXTERNAL LAB SCRIBED LDL 63.6 <100 EXTERNAL LAB SCRIBED Triglycerides 82 <150 EXTERNAL LAB Blood 08/17/2024 8:34 AM UNCRATER us Guillaume Villafana MD LAB BLOOD ORDERABLES Final Resul t EXTERNAL LAB documented in this encounter Visit Diagnoses Diagnosis Coronary artery disease of [place] artery of [place] heart with stable angina pectoris (HCC)- Primary documented in this encounter Discontinued Medications Medication Sig Discontinue Reason Start Date End Da te ticagrelor (BRILINTA) 90 mg tablet Take 1 tablet (90 mg total) by mouth 2 (two) times a day Alternate therapy 10/28/2023 08/17/2024 documented as of this encounter Care Teams Manager Biologics Relationship Specialty Start Date End Date Teodoro Garcia MD PCP - General Family Practice 03/19/23 documented as of this encounter
--- OUTSIDE RECORDS SUMMARY | 2024-08-18 14:28 | XMS_ITS | Continuity of Care Document ---
Author Organization [facility] Address [address] [place] [address] [address] [place] [address] Phone Care Team Providers Care Director Skills Name Role Phone Arminda Bauer Unavailable Unavailable Procedures Procedure Date Remove Foreign Body From Eye Advance Directives Directive Yes / No Effective Date File Name No Information Encounters Encounter Description Practice Location Reason(s) For Visit Diagnoses Date Provider Providers Copied on Encounter [facility], [address] [place] [address] [address], [place], [place], [id number], [place] tel:[phone] [facility] [place] No Information [phone] Lizette Hilliard. [address] [facility] , [address], [place], [address], [place]. tel:[phone] Family History Family Member Type Diagnosis Age At Onset No Information Payers Payer name Insurance type Covered green party ID Authoriza tion(s) No Information Social History [...]
--- OUTSIDE RECORDS SUMMARY | 2024-08-18 14:28 | XMS_ITS | Referral Summary ---
Author Organization [facility] [address] [place] [address] [address] [place] [address] Care Team Providers Care Manager Drug Safety Name Role Phone Teodoro Garcia MD Primary Care Provider [phone] Encounters Date Type Department Care Team Description 08/17/2024 8:30 AM CRIME DATA SPECIALIST Office Visit [facility] Medical Group Cardiology [address] [facility] [address] [place] [address] Guillaume Villafana MD Coronary artery disease of [place] artery of [place]lin heart with stable angina pectoris (HCC) (Primary Dx) 05/18/2024 8:45 AM CRIME DATA SPECIALIST Office Visit [facility] Cardiology [address] [place] [address] [address] [place] [address] Guillaume Villafana MD Coronary artery disease of [place] artery of [place]lin heart with stable angina pectoris (HCC) (Primary Dx); 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); Hypertensive heart disease without congestive heart failure from Last 3 Months Allergies Active Allergy Reactions Criticality Noted Date Comments Erythromycin Ethyl Alcohol Unknown Ezetimibe Muscle pain Medium Simvastatin Nausea And Vomiting Low 07/20/2012 Nkijcyn-Ndr-Owi Reductase Inhibitors High Medications pantoprazole DR (PROTONIX) 40 mg EC tablet Take 1 tablet (40 mg total) by mouth daily Active aspirin 81 mg tablet Take 1 tablet (81 mg total) by mouth daily Active ezetimibe (ZETIA) 10 mg tablet Take 1 tablet (10 mg total) by mouth daily Active isosorbide mononitrate ER (IMDUR) 30 mg 24 hr tablet Take 1 tablet (30 mg total) by mouth daily 90 tablet 2 4 025 Active Additional Information Patient not taking.Reported on 08/17/2024 hydroCHLOROthia zide 12.5 mg tablet Take 1 tablet (12.5 mg total) by mouth daily 90 tablet 2 4 Active rosuvastatin (CRESTOR) 20 mg tablet Take 1 tablet (20 mg total) by mouth nightly 90 tablet 3 4 025 Active metoprolol tartrate (LOPRESSOR) 25 mg immediate release tablet Take 1 tablet (25 mg total) by mouth 2 (two) times a day 180 tablet 2 4 Active Additional Information Patient taking differently: 12.5 mgoral 2 times daily, Reported on 08/17/2024 ticagrelor (BRILINTA) 60 mg tablet Take 1 tablet (60 mg total) by mouth 2 (two) times a day 180 tablet 3 5 026 Active ticagrelor (BRILINTA) 90 mg tablet Take 1 tablet (90 mg total) by mouth 2 (two) times a day 60 tablet 11 4 025 Discontin ued(Alter master therapy) Active Problems Problem Noted Date Diagnosed Date Chest pain 09/29/2023 Cardiovascular stress test abnormal 09/29/2023 PAD (peripheral artery disease) 09/23/2023 Tobacco abuse 12/10/2021 Unintentional weight loss 07/27/2020 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 Palpitations 03/08/2019 Mixed diabetic hyperlipidemi a associated with type 2 diabetes mellitus ([facility]) 03/08/2019 Sick sinus syndrome ([facility]) 01/12/2018 Atrial bigeminy 12/22/2017 Ventricular bigeminy 09/08/2017 PVC's (premature ventricular contractions) 11/21 Overview (11/29/2016): Frequent PVCs Hyperglycemia 11/21/2016 Overview (11/29/2016): Elevated blood sugar Premature atrial contraction 11/21/2016 Overview (11/29/2016): PAC (premature atrial contraction) Muscle pain 10/11/2016 Overview (11/22/2016): Myalgia Bradycardia 10/11/2016 Overview (11/22/2016): Bradycardia Coronary artery disease of n at[place] artery of tetlin heart with stable angina pectoris 01/29/2016 Overview (10/04/2016): Coronary artery disease involving tetlin coronary artery of tetlin heart without angina pectoris Dyspnea on exertion [...] on file Legal Sex Male 3:43 AM CRIME DATA SPECIALIST Gender Identity Not on file Sexual Orientation Not on file Last Filed Vital Signs Vital Sign Reading Time Taken Comments Blood Pressure 118/60 08/17/2024 8:20 AM CRIME DATA SPECIALIST Pulse 54 08/17/2024 8:20 AM CRIME DATA SPECIALIST Temperature 36.7 C (98.1 F) 10/28/2023 7:22 AM CDT Respiratory Rate 12 03/07/2017 8:35 AM CDT Oxygen Saturation 98% 08/17/2024 8:20 AM CRIME DATA SPECIALIST Inhaled Oxygen Concentration - - Weight 89.4 kg (197 lb) 08/17/2024 8:20 AM CRIME DATA SPECIALIST Height 182.9 cm (6') 08/17/2024 8:20 AM CRIME DATA SPECIALIST Body Mass Index 26.72 08/17/2024 8:20 AM CRIME DATA SPECIALIST Plan of Treatment Not on file Medical Devices Implanted Type Area Non Licensed Operator Device Identifier Shelf Expiration Date Model / Serial / Lot Other - See Comments Other - see comments Left: Knee Other - See Comments Other - see comments Right: Knee Medtronic Card Vasc Surgery 3.0 X 18mm [employer] Coronary Stent [id number] - [id number] Implanted:Qty : 1 on 10/28/2023 by Abigail Saxena MD at [facility] Medtronic Card Vasc Surgery 07/26/2026 [id number] / / [id number] [employer] Angio-Seal Vip 6fr Closere Device [id number] - [id number] Implanted:Qty : 1 on 10/28/2023 by Abigail Saxena MD at [facility] [email or web address] [id number] / / Procedures Procedure Name Priority Date/Time Associated Diagnosis Comments LIPID PANEL Routine 08/17/2024 8:34 AM CRIME DATA SPECIALIST POCT LIPID PANEL Routine 05/18/2024 10:0 0 AM CRIME DATA SPECIALIST 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) EGFR Routine 10/28/2023 7:13 AM CDT HEMOGLOBIN A1C Routine 2017 from Last 3 Months or Most Recently Relevant to Health Maintenance Results * Lipid panel (08/17/2024 8:34 AM CRIME DATA SPECIALIST) SCRIBED Cholesterol, Total <100 <100 EXTERNAL LAB SCRIBED HDL 19 >40 EXTERNAL LAB SCRIBED LDL 63.6 <100 EXTERNAL LAB SCRIBED Triglycerides 82 <150 EXTERNAL LAB Blood 08/17/2024 8:34 AM CRIME DATA SPECIALIST us Guillaume Villafana MD LAB BLOOD ORDERABLES Final Resul t EXTERNAL LAB * POCT lipid panel (05/18/2024 10:00 AM CRIME DATA SPECIALIST) Cholesterol, POC 156 mg/dL Comment:GLU = 126 HDL, POC 33 mg/dL Triglycerides, POC 93 mg/dL LDL Cholesterol POC 104 mg/dL Chol/HDL Ratio, POC 3.2 Non-HDL Cholesterol, POC 123 mg/dL Cholesterol Total, POC 156 mg/dL Capillary blood 05/18/2024 1 0:00 AM CRIME DATA SPECIALIST us Guillaume Villafana MD POINT OF CARE TEST ORDERABLES Fi nal Result * (ABNORMAL) eGFR (10/28/2023 7:13 AM CDT) eGFR 55(L) >=60 mL/min/1. 73 m2 Comment: Interpretive Data Reference Interval Normal >/= 90 mL/min/1.73m2 Mildly decreased* 60 - 89 mL/min/1.73m2 Mildly to moderately decreased 45 - 59 mL/min/1.73m2 Moderately to severely decreased 30 - 44 mL/min/1.73m2 Severely decreased 15 - 29 mL/min/1.73m2 Kidney Failure < 15 mL/min/1.73m2 *Relative to young adult level Estimated glomerular [...] Saxena MD LAB BLOOD ORDERABLES Final Result Performing Organization Address City/State/ZIP Co ri Phone Number [facility] [address] [place] [address] * Hemoglobin A1c (2017) Blood specimen (specimen) Historical Provider LAB BLOOD ORDERABLES Norah l Result from Last 3 Months or Most Recently Relevant to Health Maintenance Insurance [employer] MEDICARE Advance Directives For more information, please contact: [phone] * Full Code (Latest Code Status on File) Date Activated Date Inactivated Comments 10/28/2023 10:03 AM 10/28/2023 4:45 PM Care Teams Manager Drug Safety Relationship Specialty Start Date End Date Teodoro Garcia MD PCP - General Family Practice 03/19/23
--- OUTSIDE RECORDS SUMMARY | 2024-08-18 14:28 | XMS_ITS | Patient Health Summary ---
Author Organization [facility] Address [address] [place] [address] Care Team Providers Care Medical Office Professional Instructor Name Role Phone Ace Hanna MD Primary Care Provider [phone]- [phone] Note from [facility],non-owned Affiliates and Associated Physician Practices is amultiple site organization consisting of ambulatory clinics and hospital sitesin [place], [place], [place] and [place]. This disclosure is being madepursuant to the Care Everywhere program and may not contain all information available regarding this patient. Last updated 18.[facility] Allergies No known active allergies Medications * [...] Comments Blood Pressure 113/80 07/18/2015 12:00 PM ENGRAVER HAND HARD METALS Pulse 62 07/18/2015 12:00 PM ENGRAVER HAND HARD METALS Temperature 36.8 C (98.3 F) 07/18/2015 11:32 AM ENGRAVER HAND HARD METALS Respiratory Rate 15 07/18/2015 12:00 PM ENGRAVER HAND HARD METALS Oxygen Saturation 94% 07/18/2015 12:00 PM ENGRAVER HAND HARD METALS Inhaled Oxygen Concentration - - Weight 111.1 kg (245 lb) 07/18/2015 9:34 AM ENGRAVER HAND HARD METALS Height 185.4 cm (6' 1 ) 07/18/2015 9:34 AM ENGRAVER HAND HARD METALS Body Mass Index 32.32 07/18/2015 9:34 AM ENGRAVER HAND HARD METALS Procedures * PATHOLOGY TISSUE EXAM (STL)(Performed 12/14/2012) Performed for Hernia, inguinal, Heart disease, Prostate ca (HCC), Hypertension * DERMATOPATHOLOGY(Performed 10/29/2011) * DERMATOPATHOLOGY(Performed 10/17/2011) * DERMATOPATHOLOGY(Performed 12/18/2010) Results * GROSS + MICRO EXAM (STL) (12/14/2012 10:00 AM CDT) Case Report Surgical Pathology Report Case: [id number] Authorizing Provider: Nathaniel Salazar MD Ordering Provider: Nathaniel Salazar MD Ordering Location: [facility] Collected: 12/14/2012 10:00 AM Pathologist: Víctor De La O MD Received: 12/15/2012 8:12 AM Signed Out: 12/16/2012 3:02 PM (Final) Specimen: Hernia Inguinal, left 12/16/2012 3:02 PM CDT [facility] Final Diagnosis 1. Hernia sac, left, contents: -- Adipose tissue with fat necrosis MALACHI/lionel 12/16/2012 3:02 PM CDT [facility] Gross Description The specimen is labeled, Glass, Justin, and hernia sac left contents and consists of a 5.5 x 2 x 2 cm irregular strip of partially indurated yellow lobular congested tissue. The cut surfaces display areas of bright yellow discoloration. Fiberglass Laminator sections of the specimen are submitted in a single cassette. LL/na 12/16/2012 3:02 PM CDT [facility] Microscopic Description Section labeled hernia sac, left, shows fibrofatty tissue. Fat necrosis is present. Malignancy is not identified. MALACHI/lionel 12/16/2012 3:02 PM CDT [facility] Synoptic Report 12/16/2012 3:02 PM CDT [facility] Miscellaneous samples (specimen) MISCELLANEOUS SAMPLES / Unknown 12/14/2012 10:00 AM CDT 12/15/2012 8:12 AM CDT Nathaniel Salazar MD LAB - PATHOLOGY/CYTO LOGY ORDERABLES [facility] [address] [place] [address] * PATHOLOGY TISSUE FOR DERMATOLOGY (10/29/2011 12:00 AM CDT) Only the most recent of3 resultswithin the time period is included. 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 Check margins. Previous Bx: [id number]. GROSS DESCRIPTION: Received is one formalin filled container labeled with the patient's name and designated left scapula. The specimen consists of an ellipse measuring [id number] and is oriented with a suture/notch at [...] are oriented perpendicular to the skin surface. No residual tumor is identified. Final Diagnosis performed by Isa Murrell M.D. Electronically signed 10/31/2011 5:02:27PM [facility] Comment: Performed at: Dermatopathology Laboratory [facility] - Department of Dermatology [address] [place] [place] [address] Phone number: [phone] Toll Free: [phone] FAX: [phone] 10/29/2011 10/30/2011 Martin Garcia MD LAB - PATHOLOGY/CYTO LOGY ORDERABLES Performing Organization Address City/State/ZIP Co nh Phone Number [facility] [address] [place] [address]. 5[address] Floor Lab [address] [phone] Care Teams Medical Office Professional Instructor Relationship Specialty Start Date End Date Ace Hanna MD [address] [place] [address] [address] [place] [address] PCP - General Family Medicine 11/25/12
--- OUTSIDE RECORDS SUMMARY | 2024-08-18 14:28 | XMS_ITS | Clinical Summary ---
Author Organization [facility] Address [address] [place] [address] Care Team Providers Care Camouflage Specialist Name Role Phone Ace Hanna MD Primary Care Provider [phone]- [phone] Source Comments [facility],non-owned Affiliates and Associated Physician Practices is amultiple site organization consisting of ambulatory clinics and hospital sitesin [place], [place] and [place]. This disclosure is being madepursuant to the Care Everywhere program and may not contain all information available regarding this patient. Last updated 18.[facility] [employer] Allergies No known active allergies Medications * [...] Comments Blood Pressure 113/80 07/18/2015 12:00 PM PRODUCTION AIDE Pulse 62 07/18/2015 12:00 PM PRODUCTION AIDE Temperature 36.8 C (98.3 F) 07/18/2015 11:32 AM PRODUCTION AIDE Respiratory Rate 15 07/18/2015 12:00 PM PRODUCTION AIDE Oxygen Saturation 94% 07/18/2015 12:00 PM PRODUCTION AIDE Inhaled Oxygen Concentration - - Weight 111.1 kg (245 lb) 07/18/2015 9:34 AM PRODUCTION AIDE Height 185.4 cm (6' 1 ) 07/18/2015 9:34 AM PRODUCTION AIDE Body Mass Index 32.32 07/18/2015 9:34 AM PRODUCTION AIDE Plan of Treatment Health Maintenance Due Date [...] (#1) 2024 DEPRESSION SCREENING 06/30/2024 MEDICARE AWV CALENDAR YEAR 2024 HEPATITIS B VACCINE Aged [...] age to complete this topic Care Teams Camouflage Specialist Relationship Specialty Start Date End Date Ace Hanna MD [address] [place] [address] PCP - General Family Medicine 11/25/12
--- OUTSIDE RECORDS SUMMARY | 2024-08-18 14:28 | XMS_ITS | Clinical Summary ---
Author Organization [facility] [place] [address] Address [address] [place] [address] Care Team Providers Care Director Of Corporate Marketing Name Role Phone Teodoro Garcia MD Primary Care Provider [phone] Allergies Active Allergy Reactions Criticality Noted Date Comments Erythromycin Ethyl Alcohol Unknown Ezetimibe Muscle pain Medium Simvastatin Nausea And Vomiting Low 07/20/2012 Irfogkr-Kuj-Yni Reductase Inhibitors High Medications pantoprazole DR (PROTONIX) [...] a associated with type 2 diabetes mellitus ([facility]/HCC) 03/08/2019 Sick sinus syndrome ([facility]) 01/12/2018 Atrial bigeminy 12/22/2017 Ventricular bigeminy 09/08/2017 PVC's (premature ventricular contractions) 11/21 Overview (11/29/2016): Frequent PVCs Hyperglycemia 11/21/2016 Overview (11/29/2016): Elevated blood sugar Premature atrial contraction 11/21/2016 Overview (11/29/2016): PAC (premature atrial contraction) Muscle pain 10/11/2016 Overview (11/22/2016): Myalgia Bradycardia 10/11/2016 Overview (11/22/2016): Bradycardia Coronary artery disease of n ative artery of [place] heart with stable angina pectoris 01/29/2016 Overview (10/04/2016): Coronary artery disease involving [place] coronary artery of [place] heart without angina pectoris Dyspnea on exertion [...] Department Care Team Description 08/17/2024 8:30 AM MANAGER SUSTAINABILITY Office Visit [facility] [address] [place] [address] Guillaume Villafana MD Coronary artery disease of [place] artery of [place] heart with stable angina pectoris (HCC) (Primary Dx) 05/18/2024 8:45 AM MANAGER SUSTAINABILITY Office Visit [facility] [address] [place] [address] Guillaume Villafana MD Coronary artery disease of [place] artery of [place] heart with stable angina pectoris (HCC) (Primary [...] on file Legal Sex Male 3:43 AM MANAGER SUSTAINABILITY Gender Identity Not on file Sexual Orientation Not on file Obstetrics History Last Filed Vital Signs Vital Sign Reading Time Taken Comments Blood Pressure 118/60 08/17/2024 8:20 AM MANAGER SUSTAINABILITY Pulse 54 08/17/2024 8:20 AM MANAGER SUSTAINABILITY Temperature 36.7 C (98.1 F) 10/28/2023 7:22 AM CDT Respiratory Rate 12 03/07/2017 8:35 AM CDT Oxygen Saturation 98% 08/17/2024 8:20 AM MANAGER SUSTAINABILITY Inhaled Oxygen Concentration - - Weight 89.4 kg (197 lb) 08/17/2024 8:20 AM MANAGER SUSTAINABILITY Height 182.9 cm (6') 08/17/2024 8:20 AM MANAGER SUSTAINABILITY Body Mass Index 26.72 08/17/2024 8:20 AM MANAGER SUSTAINABILITY Plan of Treatment Health Maintenance Due Date [...] 10/27/2024 10/28/2023 eGFR 10/27/2024 10/28/2023 Lipid Panel 08/17/2025 08/17/2024, 04/30, 02/05/2023, Additional history exists Medical Devices Implanted Type Area Paperboard Machine Operator Device Identifier Shelf Expiration Date Model / Serial / Lot Other - See Comments Other - see comments Left: Knee Other - See Comments Other - see comments Right: Knee Medtronic Card Vasc Surgery 3.0 X 18mm [place] [employer] Coronary Stent [id number] - [id number] Implanted:Qty : 1 on 10/28/2023 by Abigail Saxena MD at [facility] Medtronic Card Vasc Surgery 07/26/2026 [id number] / / [id number] [employer] Angio-Seal Vip 6fr Closere Device [id number] - [id number] Implanted:Qty : 1 on 10/28/2023 by Abigail Saxena MD at [facility] [employer] [id number] / / Procedures Procedure Name Priority Date/Time Associated Diagnosis Comments LIPID PANEL Routine 08/17/2024 8:34 AM MANAGER SUSTAINABILITY POCT LIPID PANEL Routine 05/18/2024 10:0 0 AM MANAGER SUSTAINABILITY 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) EGFR Routine 10/28/2023 7:13 AM CDT HEMOGLOBIN A1C Routine 2017 from Last 3 Months or Most Recently Relevant to Health Maintenance Results * Lipid panel (08/17/2024 8:34 AM MANAGER SUSTAINABILITY) SCRIBED Cholesterol, Total <100 <100 EXTERNAL LAB SCRIBED HDL 19 >40 EXTERNAL LAB SCRIBED LDL 63.6 <100 EXTERNAL LAB SCRIBED Triglycerides 82 <150 EXTERNAL LAB Blood 08/17/2024 8:34 AM MANAGER SUSTAINABILITY us Guillaume Villafana MD LAB BLOOD ORDERABLES Final Resul t EXTERNAL LAB * POCT lipid panel (05/18/2024 10:00 AM MANAGER SUSTAINABILITY) Cholesterol, POC 156 mg/dL Comment:GLU = 126 HDL, POC 33 mg/dL Triglycerides, POC 93 mg/dL LDL Cholesterol POC 104 mg/dL Chol/HDL Ratio, POC 3.2 Non-HDL Cholesterol, POC 123 mg/dL Cholesterol Total, POC 156 mg/dL Capillary blood 05/18/2024 1 0:00 AM MANAGER SUSTAINABILITY us Guillaume Villafana MD POINT OF CARE [...] MD LAB BLOOD ORDERABLES Final Result STEPHANIE [address] Department [place] [address] * Hemoglobin A1c (2017) Blood specimen (specimen) Historical Provider LAB BLOOD ORDERABLES Norah l Result from Last 3 Months or Most Recently Relevant to Health Maintenance Insurance [employer] MEDICARE Advance Directives For more information, please contact: [phone] * Full Code (Latest Code Status on File) Date Activated Date Inactivated Comments 10/28/2023 10:03 AM 10/28/2023 4:45 PM Care Teams Director Of Corporate Marketing Relationship Specialty Start Date End Date Teodoro Garcia MD PCP - General Family Practice 03/19/23
== END 2024-08-18 14:24 | disposition home or self-care (01) ==
PROVIDERS: PCP Nurse Practitioner Family; Visit Provider Nurse Practitioner
DX: K42.9 Umbilical hernia without obstruction or gangrene (principal); K43.6 Other and unspecified ventral hernia with obstruction, without gangrene; K40.90 Unilateral inguinal hernia, without obstruction or gangrene, not specified as recurrent; K43.9 Ventral hernia without obstruction or gangrene
CPT/HCPCS: 74177; Q9967

== ENCOUNTER 2024-09-14 13:56 | Outpatient (CLI) | payer MEDICARE, SELFPAY ==
--- OUTSIDE RECORDS SUMMARY | 2024-09-14 15:44 | XMS_ITS | Encounter Summary ---
Author Organization [facility] Address [address] [place] [address] Care Team Providers Care Potash Flaker Name Role Phone Teodoro Garcia MD Primary Care Provider [phone] Encounter Details Date Type Department Care Team (Late st Contact Info) Description 09/29/2023 Orders Only [facility] [address] [place] [id number] Scanning, Provider Social History Tobacco Use Types [...] on file Legal Sex Male 3:43 AM PRESIDENT [place] Gender Identity Not on file Sexual Orientation [...] on filedocumented in this encounter Care Teams Potash Flaker Relationship Specialty Start Date End Date Teodoro Garcia MD PCP - General Family Practice 03/19/23 documented as of this encounter
--- OUTSIDE RECORDS SUMMARY | 2024-09-14 15:44 | XMS_ITS | Continuity of Care Document ---
Author Organization [facility] [place] [address] [place] [address] [address] [place] [address] Phone Care Team Providers Care Commercial Real Estate Sales Manager Name Role Phone Arminda Bauer Unavailable Unavailable Procedures Procedure Date Remove Foreign Body From Eye Advance Directives Directive Yes / No Effective Date File Name No Information Encounters Encounter Description Practice Location Reason(s) For Visit Diagnoses Date Provider Providers Copied on Encounter [facility], [address] [place] [address] [address], [place], [place], [id number], [place] tel:[phone] [facility] [place] No Information [address] Lizette Hilliard. [address] [facility] , [address], [place], [address], [place]. tel:[phone] Family History Family Member Type Diagnosis Age At Onset No Information Payers Payer name Insurance type Covered constitution party ID Authoriza tion(s) No Information Social [...]
--- OUTSIDE RECORDS SUMMARY | 2024-09-14 15:44 | XMS_ITS | Referral Summary ---
Author Organization [facility] [place] [address] [facility] [address] Address [address] [place] [address] Care Team Providers Care Paint Specialist Name Role Phone Teodoro Garcia MD Primary Care Provider [phone] Encounters Date Type Department Care Team Description 08/17/2024 8:30 AM PHOTOENGRAVING ETCHER Office Visit [facility] [address] [place] [address] Guillaume Villafana MD Coronary artery disease of [place] artery of [place] heart with stable angina pectoris (Primary Dx) from Last 3 Months Allergies Active Allergy Reactions Criticality Noted Date Comments Erythromycin Ethyl Alcohol Unknown Ezetimibe Muscle pain Medium Simvastatin Nausea And Vomiting Low 07/20/2012 Dtdibot-Qzi-Nkf Reductase Inhibitors High Medications pantoprazole DR (PROTONIX) [...] a associated with type 2 diabetes mellitus (CMS/[facility]) 03/08/2019 Sick sinus syndrome 01/12/2018 Atrial bigeminy 12/22/2017 Ventricular bigeminy 09/08/2017 PVC's (premature ventricular contractions) 11/21 Overview (11/29/2016): Frequent PVCs Hyperglycemia 11/21/2016 Overview (11/29/2016): Elevated blood sugar Premature atrial contraction 11/21/2016 Overview (11/29/2016): PAC (premature atrial contraction) Muscle pain 10/11/2016 Overview (11/22/2016): Myalgia Bradycardia 10/11/2016 Overview (11/22/2016): Bradycardia Coronary artery disease of n ative artery of [place] heart with stable angina pectoris 01/29/2016 Overview (10/04/2016): Coronary artery disease involving [place] coronary artery of [place] heart without angina pectoris Dyspnea on exertion [...] on file Legal Sex Male 3:43 AM PHOTOENGRAVING ETCHER Gender Identity Not on file Sexual Orientation Not on file Last Filed Vital Signs Vital Sign Reading Time Taken Comments Blood Pressure 118/60 08/17/2024 8:20 AM PHOTOENGRAVING ETCHER Pulse 54 08/17/2024 8:20 AM PHOTOENGRAVING ETCHER Temperature 36.7 C (98.1 F) 10/28/2023 7:22 AM CDT Respiratory Rate 12 03/07/2017 8:35 AM CDT Oxygen Saturation 98% 08/17/2024 8:20 AM PHOTOENGRAVING ETCHER Inhaled Oxygen Concentration - - Weight 89.4 kg (197 lb) 08/17/2024 8:20 AM PHOTOENGRAVING ETCHER Height 182.9 cm (6') 08/17/2024 8:20 AM PHOTOENGRAVING ETCHER Body Mass Index 26.72 08/17/2024 8:20 AM PHOTOENGRAVING ETCHER Plan of Treatment Not on file Medical Devices Implanted Type Area Remote Sensing Surveyor Device Identifier Shelf Expiration Date Model / Serial / Lot Other - See Comments Other - see comments Left: Knee Other - See Comments Other - see comments Right: Knee Medtronic Card Vasc Surgery 3.0 X 18mm [employer] Rx Coronary Stent [id number] - [id number] Implanted:Qty : 1 on 10/28/2023 by Abigail Saxena MD at [facility] Medtronic Card Vasc Surgery 07/26/2026 [id number] / / [id number] [employer] Angio-Seal Vip 6fr Closere Device [id number] - [id number] Implanted:Qty : 1 on 10/28/2023 [facility] [id number] / / Procedures Procedure Name Priority Date/Time Associated Diagnosis Comments LIPID PANEL Routine 08/17/2024 8:34 AM PHOTOENGRAVING ETCHER EGFR Routine 10/28/2023 7:13 AM CDT HEMOGLOBIN A1C Routine 2017 from Last 3 Months or Most Recently Relevant to Health Maintenance Results * Lipid panel (08/17/2024 8:34 AM PHOTOENGRAVING ETCHER) SCRIBED Cholesterol, Total <100 <100 EXTERNAL LAB SCRIBED HDL 19 >40 EXTERNAL LAB SCRIBED LDL 63.6 <100 EXTERNAL LAB SCRIBED Triglycerides 82 <150 EXTERNAL LAB Blood 08/17/2024 8:34 AM PHOTOENGRAVING ETCHER us Guillaume Villafana MD LAB BLOOD ORDERABLES Final Resul t EXTERNAL LAB * (ABNORMAL) eGFR (10/28/2023 7:13 AM CDT) [...] of Race in Diagnosing Kidney Disease, JASN 202). The CKD-EPI equation should not be used for patients with unstable renal function and has not been validated in children and those over 70. Current interpretive data was last reviewed 2021. Blood 10/28/2023 7:13 AM CDT 10/28/2023 7:18 AM CDT Abigail Saxena MD LAB BLOOD ORDERABLES Final Result STEPHANIE [address] Department [place] [address] * Hemoglobin A1c (2017) Blood specimen (specimen) Historical Provider LAB BLOOD ORDERABLES Norah l Result from Last 3 Months or Most Recently Relevant to Health Maintenance Insurance [employer] MED[employer]ARE Advance Directives For more information, please contact: [phone] * Full Code (Latest Code Status on File) Date Activated Date Inactivated Comments 10/28/2023 10:03 AM 10/28/2023 4:45 PM Care Teams Paint Specialist Relationship Specialty Start Date End Date Teodoro Garcia MD PCP - General Family Practice 03/19/23
--- OUTSIDE RECORDS SUMMARY | 2024-09-14 15:44 | XMS_ITS | Clinical Summary ---
Author Organization [facility] Address [address] [place] [address] Care Team Providers Care Brazing Machine Feeder Name Role Phone Ace Hanna MD Primary Care Provider [phone] Source Comments [facility],non-owned Affiliates and Associated Physician Practices is amultiple site organization consisting of ambulatory clinics and hospital sitesin [place], [place], [place] and [place]. This disclosure is being madepursuant to the Care Everywhere program and may not contain all information available regarding this patient. Last updated 18.[facility] Allergies No known active allergies Medications * [...] Comments Blood Pressure 113/80 07/18/2015 12:00 PM CABLE FORMER Pulse 62 07/18/2015 12:00 PM CABLE FORMER Temperature 36.8 C (98.3 F) 07/18/2015 11:32 AM CABLE FORMER Respiratory Rate 15 07/18/2015 12:00 PM CABLE FORMER Oxygen Saturation 94% 07/18/2015 12:00 PM CABLE FORMER Inhaled Oxygen Concentration - - Weight 111.1 kg (245 lb) 07/18/2015 9:34 AM CABLE FORMER Height 185.4 cm (6' 1 ) 07/18/2015 9:34 AM CABLE FORMER Body Mass Index 32.32 07/18/2015 9:34 AM CABLE FORMER Plan of Treatment Health Maintenance Due Date Last Done Comments DTAP/TDAP/TD VACCINES (1 - Tdap) 1962 PNEUMOCOCCAL VACCINE 50+ (1 of 2 - PCV) 1962 ZOSTER VACCINE (1 of 2) 1993 Respiratory Syncytial Virus (RSV) Vaccine Pt: or over 60 yrs (1 - 1-dose 75+ series) 2018 COVID-19 VACCINE (2023-2 5 season) 2024 INFLUENZA VACCINE (#1) 2024 [...] to complete this topic MENINGOCOCCAL (Group B) VACC INE SHARED DECISION-MAKING Aged Out No longer eligibl e based on patient's age to complete this topic MENINGOCOCCAL GROUPS A/C/Y/W VACCINE Aged Out No longer eligible b ased on patient's age to complete this topic Care Teams Brazing Machine Feeder Relationship Specialty Start Date End Date Ace Hanna MD [address] [place] [address] [address] [place] [address] PCP - General Family Medicine 11/25/12
--- OUTSIDE RECORDS SUMMARY | 2024-09-14 15:44 | XMS_ITS | CONTINUITY OF CARE DOCUMENT ---
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 Jeronimo Chandler RN ENCOUNTERS Date Type Provider Location Encounter Diag nosis - In-person encounter Office Visit Pushpa Thomas MD [facility] HYPERCHOLESTEROLEMI A- intolerant of all statins and zetia - In-person encounter Office Visit Pushpa Thomas MD [facility] - In-person encounter Office Visit Pushpa Thomas MD [facility] - In-person encounter Office Visit Pushpa Thomas MD [facility] - In-person encounter Office Visit Pushpa Thomas MD [facility] HYPERCHOLESTEROLEMI A- intolerant of all statins and zetiaCAD-03/13 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, inf lat ischemia on stress 02/10 - In-person encounter Office Visit Pushpa Thomas MD [facility] CABG- SVG- DIAG open, 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 in [place]-10/29 CATH OCC VALDES-LAD, PAT SVG-2ND DIAGCAD-03/13 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, inf lat ischemia on stress 02/10DIZZINESS-02/10 HOLTER SB PVC-HR 83-42, 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 2013 - In-person encounter Office Visit Pushpa Thomas MD [place] - In-person encounter Office Visit Pushpa Thomas MD [place] [facility] - In-person encounter Office Visit Pushpa Thomas MD [facility] - In-person encounter Office Visit Pushpa Thomas MD [facility] - In-person encounter Office Visit Pushpa Thomas MD [facility] [facility] DIZZINESS-02/10 HOLTER SB PVC-HR 83-42, 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 2012 - In-person encounter Office Visit Pushpa Thomas MD [facility] - In-person encounter Office Visit Pushpa Thomas MD [facility] [facility] - In-person encounter Office Visit Pushpa Thomas MD [facility] - In-person encounter Office Visit Pushpa Thomas MD [place] - In-person encounter Office Visit Pushpa Thomas MD [place] - In-person encounter Office Visit Pushpa Thomas MD [facility] [facility] - In-person encounter Office Visit Pushpa Thomas MD [facility] [facility] - In-person encounter Office Visit Pushpa Thomas MD [facility] [facility] CAD-03/13 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, inf lat ischemia on stress 02/10TOBACCO ABUSE - In-person encounter Office Visit Pushpa Thomas MD [facility] HYPERCHOLESTEROLEMI A- intolerant of all statins and zetia - In-person encounter Office Visit Pushpa Thomas MD [facility] HTN-11/11 CAROTID NEGCABG- SVG- DIAG open, 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 in HYPERCHOLESTEROLE [place]- intolerant of all statins and zetia VITAL SIGNS Date Observation Value Provider blood pressure, diastolic 75 mm[Hg] Nm debbie Marcelino blood pressure, systolic 130 mm[Hg] [...] larios weight E&M 228 [lb_av] Michelle Willy formerly [facility] Body Mass Index (Ratio) 30.11 kg/m2 [facility] blood pressure, diastolic 74 mm[Hg] [facility] blood pressure, systolic 124 mm[Hg] [facility] pulse rate 53 /min [facility] oxygen saturation, oximetry 98 % [facility] respiratory rate E&M 18 /min [facility] weight E&M 222 [lb_av] [facility] Body Mass Index (Ratio) 29.70 kg/m2 [facility] blood pressure, diastolic 87 mm[Hg] [facility] blood pressure, systolic 140 mm[Hg] [facility] pulse rate 85 /min Aneatris Brown oxygen saturation, oximetry 95 % Aneatris [facility] respiratory rate E&M 18 /min Aneatri s [facility] weight E&M 219 [lb_av] Aneatris [facility] Body Mass Index (Ratio) 29.56 kg/m2 [facility] blood pressure, diastolic 102 mm[Hg] An eatris [facility] blood pressure, systolic 154 mm[Hg] Ane atris [facility] pulse rate 80 /min Aneatris Brown oxygen saturation, oximetry 98 % Aneatris [facility] respiratory rate E&M 18 /min [facility] weight E&M 218 [lb_av] Aneatris Brown Body Mass Index (Ratio) 29.81 kg/m2 Tessa ssa [facility] blood pressure, diastolic 70 mm[Hg] Nm debbie [facility] blood pressure, systolic 130 mm[Hg] Ruth Ann dailya [facility] pulse rate 48 /min Kiersten [facility] oxygen saturation, oximetry 97 % Kiersten Marcelino respiratory rate E&M 14 /min Kiersten [facility] weight E&M 219 [lb_av] Kiersten Marcelino [...] Mass Index (Ratio) 29.26 kg/m2 Travis Suero [employer] weight E&M 215 [lb_av] Melony Suero [employer]AL [employer] DIRECT[employer] Body Mass Index (Ratio) 29.81 kg/m2 Mills [...] Index (Ratio) 30.96 kg/m2 Lacr etifernando Tadeo [employer]ERAL [employer] DIRECTOR weight E&M 221.2 [lb_av] Lacretifernando Contreras ls [employer]ER[employer] DIRECT[employer] blood pressure, diastolic, standing 80 mm [Hg] Jeronimo Chandler RN blood pressure, systolic, standing 140 mm [Hg] Jeronimo Chandler RN blood pressure, diastolic, sitting 80 mm[ Hg] Jeronimo Chandler RN blood pressure, systolic, sitting 140 mm[ Hg] Jeronimo Chandler RN blood pressure, caro tolic, supine, left arm 80 mm[Hg] Jeronimo Chnadler RN blood pressure, syst olic, supine, left [...] Adalberto eph [place] pulse rate 55 /min Whitney [place] oxygen saturation, oximetry 97 % Whitney [place] respiratory rate E&M 16 /min Whitney [place] weight E&M 226 [lb_av] Whitney [place] blood pressure, diastolic, left arm 61 mm [Hg] [facility] blood pressure, systolic, left arm 114 mm [Hg] [facility] blood pressure, diastolic, right arm 58 m m[Hg] Denyean Sloiz blood pressure, systolic, right arm 132 m m[Hg] Denyean Soliz blood pressure, diastolic 61 mm[Hg] Sandoval Soliz blood pressure, systolic 114 mm[Hg] Andi an Soliz pulse rate 58 /min [facility] oxygen saturation, oximetry 98 % [facility] respiratory rate E&M 16 /min Andiyean [...] Jorge Ruiz international normalized ratio (INR) 1.0 [facility] blood glucose, random 96 mg/dL [facility] creatinine, serum 1.01 mg/dL [facility] urea nitrogen, blood 14 mg/dL [facility] potassium, serum 4.2 mmol/L [facility] sodium, serum 142 mmol/L [facility] TOTAL NON-HDL-C (LDL VLDL) 101 [facility] alanine aminotransferase (SGPT), serum 18 1/L [facility] aspartate aminotransferase (SGOT), serum 22 1/L [facility] cholesterol/HDL ratio, serum 4.2 [facility] cholesterol, serum 132 mg/dL [facility] triglyceride, target level 150 mg/dL [facility] HDL cholesterol, serum, target level 40 mg/dL [facility] triglyceride, serum, fasting 92 mg/dL [facility] Normal HDL cholesterol, serum 31 mg/dL [facility] Low LDL cholesterol, serum 82 mg/dL [facility] Normal LDL target level 100 mg/dL [facility] cholesterol, target level 200 mg/dL [facility] TOTAL NON-HDL-C (LDL VLDL) 101 [facility] aminotransferase (SGPT), serum 18 1/L [facility] aspartate aminotransferase (SGOT), serum 24 1/L [facility] cholesterol/HDL ratio, serum 3.7 [facility] cholesterol, serum 138 mg/dL [facility] triglyceride, target level 150 mg/dL [facility] HDL cholesterol, serum, target level 40 mg/dL [facility] triglyceride, serum, fasting 90 mg/dL Lui Tadeo [employer] Normal HDL cholesterol, serum 37 mg/dL Lui Tadeo [employer] Low LDL cholesterol, serum 83 mg/dL Lui Tadeo [employer] Normal LDL target level 100 mg/dL Lui Tadeo [employer] cholesterol, target level 200 mg/dL Lui Tadeo [employer] LDL cholesterol, serum 151 mg/dL [facility] cholesterol, serum 221 mg/dL [facility] triglyceride, serum, fasting 98 mg/dL [facility] HDL cholesterol, serum 33 mg/dL [facility] LDL cholesterol, serum 165 mg/dL [facility] cholesterol, serum 218 mg/dL [facility] thyroid stimulating hormone, serum 0.83 u[IU]/mL [facility] hemoglobin A1C, blood, as % of total hemoglobin 5.6 % [facility] anion gap, serum 8.9 [facility] globulins, serum, total 3.3 g/dL [facility] estimated glomerular filtration rate >60 [facility] albumin/globulin ratio, serum 1.2 [facility] protein, total, serum 7.4 g/dL [facility] albumin, serum 4.1 g/dL [facility] bilirubin, serum, total 0.55 mg/dL [facility] alkaline phosphatase, serum 137 1/L [facility] alanine aminotransferase (SGPT), serum 36 1/L [facility] aspartate aminotransferase (SGOT), serum 19 1/L [facility] calcium, serum 9.2 mg/dL [facility] blood glucose, fasting 102 mg/dL [facility] creatinine, serum 0.93 mg/dL [facility] urea nitrogen, blood 9.3 mg/dL [facility] carbon dioxide, serum, total 28 mmol/L [facility] chloride, serum 104 mmol/L [facility] potassium, serum 3.9 mmol/L [facility] sodium, serum 137 mmol/L [facility] platelet count 168 10*3/uL [facility] red blood cell distribution width 12.4 % [facility] mean corpuscular hemoglobin concentration, RBC 34.8 g/dL [facility] mean corpuscular hemoglobin, RBC 32.0 pg [facility] mean corpuscular volume, RBC 91.9 fL [facility] hematocrit, blood 42.2 % [facility] hemoglobin, blood 14.7 g/dL [facility] erythrocyte (RBC) count 4.59 10*6/mm3 [facility] monocytes as percent of blood leukocytes 8.9 % [facility] lymphocytes as percent of blood leukocytes 35.2 % [facility] leukocyte count, blood 5.9 10*3/mm3 [facility] cholesterol/HDL ratio, serum 3.3 [facility] triglyceride, serum, fasting 99 mg/dL [facility] HDL cholesterol, serum 39 mg/dL [facility] LDL cholesterol, serum 68 mg/dL [facility] cholesterol, serum 127 mg/dL [facility] albumin/globulin ratio, serum 1.4 [facility] protein, total, serum 6.6 g/dL [facility] albumin, serum 3.9 g/dL [facility] bilirubin, serum, total 0.7 mg/dL [facility] alkaline phosphatase, serum 103 1/L [facility] alanine aminotransferase (SGPT), serum 27 1/L [facility] aspartate aminotransferase (SGOT), serum 35 1/L [facility] calcium, serum 9.2 mg/dL [facility] blood glucose, fasting 109 mg/dL [facility] creatinine, serum 1.2 mg/dL [facility] urea nitrogen, blood 10 mg/dL [facility] carbon dioxide, serum, total 26 mmol/L [facility] chloride, serum 106 mmol/L [facility] potassium, serum 4.7 mmol/L [facility] sodium, serum 143 mmol/L [facility] platelet count 160 10*3/uL [facility] red blood cell distribution width 13.7 % [facility] mean corpuscular hemoglobin concentration, RBC 33.6 g/dL [facility] mean corpuscular hemoglobin, RBC 31.6 pg [facility] mean corpuscular volume, RBC 93.9 fL [facility] hematocrit, blood 49.4 % [facility] hemoglobin, blood 16.6 g/dL [facility] erythrocyte (RBC) count 5.3 10*6/mm3 [facility] neutrophils, segmented as percent of blood leukocytes 3.3 % [facility] monocyte count, blood 0.4 10*3/mm3 [facility] lymphocyte count, blood 2.7 10*3/mm3 [facility] neutrophils as percent of blood leukocytes 50.8 % [facility] monocytes as percent of blood leukocytes 6.7 % [facility] lymphocytes as percent of blood leukocytes 42.5 % [facility] leukocyte count, blood 6.4 10*3/mm3 [facility] cholesterol/HDL ratio, serum 3.3 [facility] triglyceride, serum, fasting 99 mg/dL [facility] HDL cholesterol, serum 39 mg/dL [facility] LDL cholesterol, serum 68 mg/dL [facility] cholesterol, serum 127 mg/dL [facility] albumin/globulin ratio, serum 1.4 [facility] protein, total, serum 6.6 g/dL [facility] albumin, serum 3.9 g/dL [facility] bilirubin, serum, total 0.7 mg/dL [facility] alkaline phosphatase, serum 103 1/L [facility] alanine aminotransferase (SGPT), serum 35 1/L [facility] aspartate aminotransferase (SGOT), serum 27 1/L [facility] calcium, serum 9.2 mg/dL [facility] blood glucose, fasting 109 mg/dL [facility] creatinine, serum 1.2 mg/dL [facility] Joseph urea nitrogen, blood 10 mg/dL [facility] carbon dioxide, serum, total 26 mmol/L [facility] chloride, serum 106 mmol/L [facility] potassium, serum 4.7 mmol/L [facility] sodium, serum 143 mmol/L [facility] platelet count 160 10*3/uL [facility] red blood cell distribution width 13.7 % [facility] mean corpuscular hemoglobin concentration, RBC 33.6 g/dL [facility] mean corpuscular hemoglobin, RBC 31.6 pg [facility] mean corpuscular volume, RBC 93.9 fL [facility] hematocrit, blood 49.4 % [facility] hemoglobin, blood 16.6 g/dL [facility] erythrocyte (RBC) count 5.3 10*6/mm3 [facility] neutrophils, segmented as percent of blood leukocytes 3.3 % [facility] monocyte count, blood 0.4 10*3/mm3 [facility] lymphocyte count, blood 2.7 10*3/mm3 [facility] neutrophils as percent of blood leukocytes 50.8 % [facility] monocytes as percent of blood leukocytes 6.7 % [facility] lymphocytes as percent of blood leukocytes 42.5 % [facility] leukocyte count, blood 6.4 10*3/mm3 [facility] international normalized ratio (INR) 1.1 [facility] prothrombin time (patient) 10.5 s [facility] platelet count 162 THOUSAND/UL [facility] 140-400 Normal red blood cell distribution width 13.0 % [facility] 11.0-15.0 Normal mean corpuscular hemoglobin concentration, RBC [...] 10-35 Normal alkaline phosphatase, serum 102 1/L [facility]115 Normal bilirubin, serum, total 0.6 mg/dL [...] completed po daily 02/08 - 02/21 Pushpa Thomas MD TOPROL XL 25 MG [...] X 11 & 1 MG X 42 [facility] completed One pack. Take as directed. 07/08 [...] ORAL TABLET active one tab daily Yolette Stanley PROTONIX 40 MG ORAL TABLET DELAYED RELEASE [...] social Kiersten Marcelino alcohol use yes Kiersten Marcelino caffeine use, averag e drinks per day yes Kiersten Marcelino drug use none Kiersten Marcelino passive cigarette [...] of years as a smoker 33 a eMlida Danielle smoking, date started 1976 Alicia Danielle [...] patient education and counseling yes Melony Pio [employer] smoking history, tot al pack/year 34 Melony Pio [employer] DIRECT[employer] smoking/tobacco cess ation, patient education and counseling yes Pushpa Thomas MD drug use none Pushpa Thomas MD social history reviewed E&M reviewed Pushpa Thomas MD smoking history, tot al pack/day 1 Michelle Cortez smoking history, tot al pack/year 36 Michelle Cortez physical exercise, frequency, days per week yes Lui Tadeo [employer] smoking status current every day smoker L rjbutch Carlyle [employer] DIRECTOR cigarette use 1 Lacrbutch Barretowilson breen [employer]ERAL HOME DIRECTOR social history reviewed E&M reviewed Lui Tadeo [employer]ER[employer] HOME DIRECTOR smoking history, tot al pack/year 34 Lui Carlyle [employer]ER[employer] HOME DIRECTOR social history reviewed E&M reviewed Jeronimo Chandler [...] Payer name Policy type / Coverage type [place] [employer] [facility] DUAL COMPLETE HMO O [id number] TREATMENT PLAN Date Name Performer Cardiology [...] tab daily Toprol Xl 25 Mg Oral [id number] (Metoprolol succinate) ..... Take one pill a [...] this problem includes: Toprol Xl 50 Mg Hy56s-vki (Metoprolol succinate) ..... Take one pill a day Aspirin 325 Mg Tabs (Aspirin) ..... One tab daily Pushpa Thomas MD Follow Up: T he following medications were removed from the medication list: Crestor 10 Mg Tabs (Rosuvastatin calcium) ..... One tab. daily His updated medication list for this problem includes: Toprol Xl 50 Mg [id number]-[id number] (Metoprolol succinate) ..... Take one pill a [...] the RCA. N ormal LV systolic function. [facility] (10/11/2008) C arotid Doppler/Duplex: Mild plaque with [...] this problem includes: Toprol Xl 50 Mg Xh45d-[id number] (Metoprolol succinate) ..... Take one pill a [...] this problem includes: Toprol Xl 50 Mg Xn45j-wdw (Metoprolol succinate) ..... Take one pill a day Aspirin 325 Mg Tabs (Aspirin) ..... One tab daily Crestor 10 Mg Tabs (Rosuvastatin calcium) ..... One tab. daily Orders: E KG (CPT-94310) BP today: 128/86 Prior BP: 124/69 (10/26/2012) [...] the RCA. N ormal LV systolic function. [facility] (10/11/2008) C arotid Doppler/Duplex: Mild plaque with [...] this problem includes: Toprol Xl 50 Mg Nz91o-yfu (Metoprolol succinate) ..... Take one pill a [...] this problem includes: Toprol Xl 50 Mg Vi59h-epp (Metoprolol succinate) ..... Take one pill a day Aspirin 325 Mg Tabs (Aspirin) ..... One tab daily Pushpa Thomas MD Follow up: T he following medications were removed from the medication list: Lipitor 20 Mg Tabs (Atorvastatin calcium) ..... One tab po daily His updated medication list for this problem includes: Toprol Xl 50 Mg Qh49t-wto (Metoprolol succinate) ..... Take one pill a day Aspirin 325 Mg Tabs (Aspirin) ..... One tab daily Orders: E KG (CPT-47605) BP today: 128/86 Prior BP: 124/69 (10/26/2012) [...] the RCA. N ormal LV systolic function. [facility] (10/11/2008) C arotid Doppler/Duplex: Mild plaque with [...] this problem includes: Toprol Xl 50 Mg Oz50s-bnv (Metoprolol succinate) ..... Take one pill a [...] the RCA. N ormal LV systolic function. [facility] (10/11/2008) Pushpa Thomas MD Lipid management: H [...] this problem includes: Toprol Xl 50 Mg Yf11a-wyq (Metoprolol succinate) ..... Take one pill a [...] this problem includes: Toprol Xl 50 Mg Uj27i-qum (Metoprolol succinate) ..... Take one pill a [...] the RCA. N ormal LV systolic function. [facility] (10/11/2008) C HOL: 138 (07/08/2012) LDL: 83 [...] this problem includes: Toprol Xl 50 Mg Xc19m-fem (Metoprolol succinate) ..... Take one pill a [...] the RCA. N ormal LV systolic function. [facility] (10/11/2008) C HOL: 138 (07/08/2012) LDL: 83 [...] this problem includes: Toprol Xl 50 Mg Qa04q-fgj (Metoprolol succinate) ..... Take one pill a day Aspirin 325 Mg Tabs (Aspirin) ..... One tab daily BP today: 143/82 P rior BP: 134/78 (10/28/2011) Labs Reviewed: C reat: 0.93 (06/06/2011) C hol: 218 (06/06/2011) HDL: 33 (06/06/2011) LDL: 165 (06/06/2011) T (06/06/2011) Pushpa Thomas MD follow up: H is updated medication list for this problem includes: Toprol Xl 50 Mg Od79o-uke (Metoprolol succinate) ..... Take one pill a [...] the RCA. N ormal LV systolic function. [facility] (10/11/2008) C HOL: 218 (06/06/2011) LDL: 165 [...] this problem includes: Toprol Xl 50 Mg Co88y-kgh (Metoprolol succinate) ..... Take one pill a day Aspirin 325 Mg Tabs (Aspirin) ..... One tab daily Lipitor 20 Mg Tabs (Atorvastatin calcium) ..... One tab po daily Orders: E KG (CPT-29380) BP today: 143/82 Prior BP: 134/78 (10/28/2011) [...] the RCA. N ormal LV systolic function. [facility] (10/11/2008) C HOL: 218 (06/06/2011) LDL: 165 [...] this problem includes: Toprol Xl 50 Mg Dc96k-sqz (Metoprolol succinate) ..... Take one pill a [...] the RCA. N ormal LV systolic function. [facility] (10/11/2008) C HOL: 218 (06/06/2011) LDL: 165 [...] the RCA. N ormal LV systolic function. [facility] (10/11/2008) C HOL: 218 (06/06/2011) LDL: 165 [...] month follow-up Pushpa Grewal 6 month follow-up [facility] Echo: H is updated medication list for [...] (04/20/2009) Pushpa Thomas MD 6 month follow-up [facility] Echo: H is updated medication list for [...] the RCA. N ormal LV systolic function. [facility] (10/11/2008) C HOL: 127 (04/20/2009) LDL: 68 [...] ..... One tab daily Orders: E KG (CPT-71925) BP today: 120/58 Prior BP: 114/61 (11/05/2010) [...] the RCA. N ormal LV systolic function. [facility] (10/11/2008) C HOL: 127 (04/20/2009) LDL: 68 [...] the RCA. N ormal LV systolic function. [facility] (10/11/2008) C HOL: 127 (04/20/2009) LDL: 68 [...] the RCA. N ormal LV systolic function. [facility] (10/11/2008) C HOL: 127 (04/20/2009) LDL: 68 [...] . Myocardial scintigraphy demonstrates inferior wall ischemia. [facility] (09/08/2008) C ardiac Cath: Complete revascularization with the LAD territory to a vein graft. A tretic VALDES. 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 N ormal LV systolic function. [facility] (10/11/2008) C HOL: 170 (09/07/2008) LDL: 97 [...] . Myocardial scintigraphy demonstrates inferior wall ischemia. [facility] (09/08/2008) C ardiac Cath: Complete revascularization with the LAD territory to a vein graft. Atretic VALDES. 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 N ormal LV systolic function. [facility] (10/11/2008) C HOL: 170 (09/07/2008) LDL: 97 [...] . Myocardial scintigraphy demonstrates inferior wall ischemia. [facility] (09/08/2008) C ardiac Cath: Complete revascularization with the LAD territory to a vein graft. Atretic VALDES. 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 N ormal LV systolic function. [facility] (10/11/2008) C HOL: 170 (09/07/2008) LDL: 97 [...] . Myocardial scintigraphy demonstrates inferior wall ischemia. [facility] (09/08/2008) C ardiac Cath: Complete revascularization with the LAD territory to a vein graft. Atretic VALDES. 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 N ormal LV systolic function. [facility] (10/11/2008) C HOL: 170 (09/07/2008) LDL: 97 [...] Name Provider Procedure Notes S tatus SNOMED-CT: [id number] Physical Exam, Performed: Pulse Exam of Foot Pushpa Thomas MD completed SNOMED-CT: [id number] Current Medications Documented Pushpa Thomas MD completed FVC - 61270 Pushpa Thomas MD complete d FRC - 21402 Pushpa Thomas MD complete d DLCO - 14539 Pushpa Thomas MD complet ed Lipid Strip [...]
--- OUTSIDE RECORDS SUMMARY | 2024-09-14 15:44 | XMS_ITS | Clinical Summary ---
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 Gender Identity Not on file Sexual Orientation Not on file Occupation Industry Job Start Date Job End Date Not on file Not on file Not on file Not on file Last Filed Vital Signs Vital Sign Reading Time Taken Comments Blood Pressure 130/84 10/28/2016 1:24 PM CDT Pulse 60 07/17/2016 10:26 AM LAND USE PLANNER Temperature 37 C (98.6 F) 07/17/2016 10:25 AM LAND USE PLANNER Respiratory Rate 18 02/16/2013 10:09 AM CDT Oxygen Saturation 97% 07/17/2016 10:26 AM LAND USE PLANNER Inhaled Oxygen Concentration - - Weight 111.6 [...] (1 - Tdap) 1962 PNEUMOCOCCAL VACCINE 50+ YEARS (1 of 2 - PCV) 03/04/19 62 ZOSTER VACCINE (1 of 2) 1993 RSV VACCINE (60+ or ) (1 - 1-dose 75+ series) 2018 INFLUENZA VACCINE (#1) 2024 Medical Devices Implanted Type Area Project Management Intern Device Identifier Shelf Expiration Date Model / Serial / Lot Log [id number] - Brachytherapy Implants - 1 - Seed Calibrated 1-125 [id number] Implanted:Qty: 1 on 03/12/2011 at [facility] Bilateral: Prostate CR BARD- UROL DIV 06/29/2012 [id number] / / [id number] Description:total # [place]: 22total # Seeds:78 Insurance [facility] [id number] Advance Directives For more information, please contact: [phone] * Full Code (Latest Code Status on File) Date Activated Date Inactivated Comments 03/12/2011 1:20 PM 03/13/2011 1:33 PM * Full Code Date Activated Date Inactivated Comments 03/12/2011 7:51 AM 03/12/2011 1:20 PM Care Teams Civil Defense Director Relationship Specialty Start Date End Date Ace Hanna MD [address] [facility] [address] [place] [address] PCP - General Family Practice 07/05/10
--- OUTSIDE RECORDS SUMMARY | 2024-09-14 15:44 | XMS_ITS | Clinical Summary ---
Author Organization [facility] [address] Address [address] [place] [address] Care Team Providers Care Bag Machine Operator Helper Name Role Phone Teodoro Garcia MD Primary Care Provider +1 -[phone] Allergies Active Allergy Reactions Criticality Noted Date Comments Erythromycin Ethyl Alcohol Unknown Ezetimibe Muscle pain Medium Simvastatin Nausea And Vomiting Low 07/20/2012 Ytobncf-Paa-Uqt Reductase Inhibitors High Medications pantoprazole DR (PROTONIX) [...] a associated with type 2 diabetes mellitus (CMS/HCC) 03/08/2019 Sick sinus syndrome 01/12/2018 Atrial bigeminy 12/22/2017 Ventricular bigeminy 09/08/2017 PVC's (premature ventricular contractions) 11/21 Overview (11/29/2016): Frequent PVCs Hyperglycemia 11/21/2016 Overview (11/29/2016): Elevated blood sugar Premature atrial contraction 11/21/2016 Overview (11/29/2016): PAC (premature atrial contraction) Muscle pain 10/11/2016 Overview (11/22/2016): Myalgia Bradycardia 10/11/2016 Overview (11/22/2016): Bradycardia 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 01/29/2016 Overview (10/04/2016): Coronary artery disease involving inaja coronary artery of inaja heart without angina pectoris Dyspnea on exertion [...] Department Care Team Description 08/17/2024 8:30 AM ATTENDANT ARCADE Office Visit [facility] Cardiology [address] [place] [address] Guillaume Villafana MD 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 (Primary Dx) from Last 3 Months Surgical History Surgery [...] on file Legal Sex Male 3:43 AM ATTENDANT ARCADE Gender Identity Not on file Sexual Orientation Not on file Obstetrics History Last Filed Vital Signs Vital Sign Reading Time Taken Comments Blood Pressure 118/60 08/17/2024 8:20 AM ATTENDANT ARCADE Pulse 54 08/17/2024 8:20 AM ATTENDANT ARCADE Temperature 36.7 C (98.1 F) 10/28/2023 7:22 AM CDT Respiratory Rate 12 03/07/2017 8:35 AM CDT Oxygen Saturation 98% 08/17/2024 8:20 AM ATTENDANT ARCADE Inhaled Oxygen Concentration - - Weight 89.4 kg (197 lb) 08/17/2024 8:20 AM ATTENDANT ARCADE Height 182.9 cm (6') 08/17/2024 8:20 AM ATTENDANT ARCADE Body Mass Index 26.72 08/17/2024 8:20 AM ATTENDANT ARCADE Plan of Treatment Health Maintenance Due Date Last Done Comments Albumin Creatinine Ratio, Urine 1945 Depression Screening 1945 Dilated Eye Exam 1943 Foot Exam 1943 DTaP/Tdap/Td Vaccine (1 - Tdap) 1954 Hepatitis B Screening 1961 Zoster Vaccine (1 of 2) 1993 Well Visit 65+ 2008 Hemoglobin A1C 09/01/2017 2017 Pneumococcal vaccine 65+ (2 of 2 - PCV) 06/25/2019 06/25/2018 Influenza Vaccine (#1) 2024 , 06/11/2018, 05/09/2016, Additional history exists Fall Risk Assessment 10/27/2024 10/28/2023 eGFR 10/27/2024 10/28/2023 Lipid Panel 08/17/2025 08/17/2024, 04/30, 02/05/2023, Additional history exists Medical Devices Implanted Type Area Personal Care Attendant Device Identifier Shelf Expiration Date Model / Serial / Lot Other - See Comments Other - see comments Left: Knee Other - See Comments Other - see comments Right: Knee Medtronic Card Vasc Surgery 3.0 X 18mm [employer] Rx Coronary Stent [id number] - [id number] Implanted:Qty : 1 on 10/28/2023 by Abigail Saxena MD at [facility] Medtronic Card Vasc Surgery 07/26/2026 [id number] / / [id number] [employer] Angio-Seal Vip 6fr Closere Device [id number] - [id number] Implanted:Qty : 1 on 10/28/2023 by Abigail Saxena MD at [facility] [employer] [id number] / / Procedures Procedure Name Priority Date/Time Associated Diagnosis Comments LIPID PANEL Routine 08/17/2024 8:34 AM ATTENDANT ARCADE EGFR Routine 10/28/2023 7:13 AM CDT HEMOGLOBIN A1C Routine 2017 from Last 3 Months or Most Recently Relevant to Health Maintenance Results * Lipid panel (08/17/2024 8:34 AM ATTENDANT ARCADE) SCRIBED Cholesterol, Total <100 <100 EXTERNAL LAB SCRIBED HDL 19 >40 EXTERNAL LAB SCRIBED LDL 63.6 <100 EXTERNAL LAB SCRIBED Triglycerides 82 <150 EXTERNAL LAB Blood 08/17/2024 8:34 AM ATTENDANT ARCADE Guillaume Villafana MD LAB BLOOD ORDERABLES Final [...] BLOOD ORDERABLES Final Result Performing Organization Address City/[facility]/ZIP Co de Phone Number DAHLIAJAZZY [address] Department [place] [address] * Hemoglobin A1c (2017) Blood specimen (specimen) Historical Provider LAB BLOOD ORDERABLES Norah l Result from Last 3 Months or Most Recently Relevant to Health Maintenance Insurance [employer] MEDICARE Advance Directives For more information, please contact: [phone] * Full Code (Latest Code Status on File) Date Activated Date Inactivated Comments 10/28/2023 10:03 AM 10/28/2023 4:45 PM Care Teams Bag Machine Operator Helper Relationship Specialty Start Date End Date Teodoro Garcia MD PCP - General Family Practice 03/19/23
== END 2024-09-14 13:57 | disposition home or self-care (01) ==
LOC: CHSLAB 13:57
PROVIDERS: PCP Nurse Practitioner Family; Visit Provider Specialist
DX: L82.1 Other seborrheic keratosis (principal); L57.8 Other skin changes due to chronic exposure to nonionizing radiation
CPT/HCPCS: 88305

== ENCOUNTER 2024-10-06 06:57 | Outpatient (CLI) | payer MEDICARE, SELFPAY ==
--- OUTSIDE RECORDS SUMMARY | 2024-10-06 07:01 | XMS_ITS | Clinical Summary ---
Author Organization [facility] Address [address] [place] [address] Phone Care Team Providers Care Compressor House Operator Name Role Phone Ace Hanna MD Primary Care Provider +1- [phone] Allergies Active Allergy Reactions Criticality Noted Date [...] on file Legal Sex Male 5:58 AM OFFICE MACHINE INSTALLER Gender Identity Not on file Sexual Orientation Not on file Occupation Industry Job Start Date Job End Date Not on file Not on file Not on file Not on file Last Filed Vital Signs Vital Sign Reading Time Taken Comments Blood Pressure 130/84 10/28/2016 1:24 PM CDT Pulse 60 07/17/2016 10:26 AM OFFICE MACHINE INSTALLER Temperature 37 C (98.6 F) 07/17/2016 10:25 AM OFFICE MACHINE INSTALLER Respiratory Rate 18 02/16/2013 10:09 AM CDT Oxygen Saturation 97% 07/17/2016 10:26 AM OFFICE MACHINE INSTALLER Inhaled Oxygen Concentration - - Weight 111.6 [...] (#1) 2024 Medical Devices Implanted Type Area Senior Enlisted Advisor Device Identifier Shelf Expiration Date Model / Serial / Lot Log [id number] - Brachytherapy Implants - 1 - Seed Calibrated 1-125 [id number] Implanted:Qty: 1 on 03/12/2011 at [facility] Bilateral: Prostate CR BARD- UROL DIV 06/29/2012 [id number] / / [id number] Description:total # [place]: 22total # Seeds:78 Insurance [facility] [id number] Advance Directives For more information, please contact: [phone] * Full Code (Latest Code Status on File) Date Activated Date Inactivated Comments 03/12/2011 1:20 PM 03/13/2011 1:33 PM * Full Code Date Activated Date Inactivated Comments 03/12/2011 7:51 AM 03/12/2011 1:20 PM Care Teams Compressor House Operator Relationship Specialty Start Date End Date Ace Hanna MD [address] [facility] [address] [place] [address] PCP - General Family Practice 07/05/10
--- OUTSIDE RECORDS SUMMARY | 2024-10-06 07:01 | XMS_ITS | Clinical Summary ---
Author Organization [facility] [address] Address [address] [place] [address] Care Team Providers Care Painter Tumbling Barrel Name Role Phone Teodoro Garcia MD Primary Care Provider +1 -[phone] Allergies Active Allergy Reactions Criticality Noted Date Comments Erythromycin Ethyl Alcohol Unknown Ezetimibe Muscle pain Medium Simvastatin Nausea And Vomiting Low 07/20/2012 [place]-Xcc-Mza Reductase Inhibitors High Medications pantoprazole DR (PROTONIX) [...] Additional Information Patient not taking.Reported on 08/17/2024 hydroCHLOROthiaz tabby 12.5 mg tablet Take 1 [...] times a day 180 tablet 3 5 08/17/19 26 Active Active Problems Problem Noted Date Diagnosed Date Chest pain 09/29/2023 Cardiovascular stress test abnormal 09/29/2023 PAD (peripheral artery disease) 09/23/2023 Tobacco abuse 12/10/2021 Unintentional weight loss 07/27/2020 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 Palpitations 03/08/2019 Mixed diabetic hyperlipidemi a associated with type 2 diabetes mellitus ([facility]) 03/08/2019 Sick sinus syndrome 01/12/2018 Atrial bigeminy 12/22/2017 Ventricular bigeminy 09/08/2017 PVC's (premature ventricular contractions) 11/21 Overview (11/29/2016): Frequent PVCs Hyperglycemia 11/21/2016 Overview (11/29/2016): Elevated blood sugar Premature atrial contraction 11/21/2016 Overview (11/29/2016): PAC (premature atrial contraction) Muscle pain 10/11/2016 Overview (11/22/2016): Myalgia Bradycardia 10/11/2016 Overview (11/22/2016): Bradycardia Coronary artery disease of n ative artery of washoe heart with stable angina pectoris 01/29/2016 Overview (10/04/2016): Coronary artery disease involving washoe coronary artery of [place]hoe heart without angina pectoris Dyspnea on exertion [...] Department Care Team Description 08/17/2024 8:30 AM COMMUNITY ASSOCIATION MANAGER Office Visit [facility] Cardiology [address] [place] [address] Guillaume Villafana MD Coronary artery disease of [place] artery of [place]hoe heart with stable angina pectoris (Primary Dx) [...] on file Legal Sex Male 3:43 AM COMMUNITY ASSOCIATION MANAGER Gender Identity Not on file Sexual Orientation Not on file Obstetrics History Last Filed Vital Signs Vital Sign Reading Time Taken Comments Blood Pressure 118/60 08/17/2024 8:20 AM COMMUNITY ASSOCIATION MANAGER Pulse 54 08/17/2024 8:20 AM COMMUNITY ASSOCIATION MANAGER Temperature 36.7 C (98.1 F) 10/28/2023 7:22 AM CDT Respiratory Rate 12 03/07/2017 8:35 AM CDT Oxygen Saturation 98% 08/17/2024 8:20 AM COMMUNITY ASSOCIATION MANAGER Inhaled Oxygen Concentration - - Weight 89.4 kg (197 lb) 08/17/2024 8:20 AM COMMUNITY ASSOCIATION MANAGER Height 182.9 cm (6') 08/17/2024 8:20 AM COMMUNITY ASSOCIATION MANAGER Body Mass Index 26.72 08/17/2024 8:20 AM COMMUNITY ASSOCIATION MANAGER Plan of Treatment Health Maintenance Due Date Last Done Comments Albumin Creatinine Ratio, Urine 1943 Depression Screening 1943 Dilated Eye Exam 1943 Foot Exam 1943 DTaP/Tdap/Td Vaccine (1 - Tdap) 1954 Hepatitis B Screening 1961 Zoster Vaccine (1 of 2) 1993 Well Visit 65+ 2008 Hemoglobin A1C 09/01/2017 2017 Pneumococcal vaccine 65+ (2 of 2 - PCV) 06/25/2019 06/25/2018 Fall Risk Assessment 10/27/2024 10/28/2023 eGFR 10/27/2024 10/28/2023 Influenza Vaccine (Season Ended) 2025 05/17/2019, 06/11/2018, 05/09/2016, Additional history exists Lipid Panel 08/17/2025 08/17/2024, 04/30, 02/05/2023, Additional history exists Medical Devices Implanted Type Area Product Support Manager Device Identifier Shelf Expiration Date Model / Serial / Lot Other - See Comments Other - see comments Left: Knee Other - See Comments Other - see comments Right: Knee Medtronic [facility] Vasc Surgery 3.0 X 18mm [place] Rx Coronary Stent [id number] - [id number] Implanted:Qty : 1 on 10/28/2023 by [facility] 07/26/2026 [id number] / / [id number] [employer] Angio-Seal Vip 6fr Closere Device [id number] - [id number] Implanted:Qty : 1 on 10/28/2023 by Abigail Saxena MD at [employer] [id number] / / Procedures Procedure Name Priority Date/Time Associated Diagnosis Comments LIPID PANEL Routine 08/17/2024 8:34 AM COMMUNITY ASSOCIATION MANAGER EGFR Routine 10/28/2023 7:13 AM CDT HEMOGLOBIN A1C Routine 2017 from Last 3 Months or Most Recently Relevant to Health Maintenance Results * Lipid panel (08/17/2024 8:34 AM COMMUNITY ASSOCIATION MANAGER) SCRIBED Cholesterol, Total <100 <100 EXTERNAL LAB SCRIBED HDL 19 >40 EXTERNAL LAB SCRIBED LDL 63.6 <100 EXTERNAL LAB SCRIBED Triglycerides 82 <150 EXTERNAL LAB Blood 08/17/2024 8:34 AM COMMUNITY ASSOCIATION MANAGER us Guillaume Villafana MD LAB BLOOD ORDERABLES [...] MD LAB BLOOD ORDERABLES Final Result [address] Department [place] [address] * Hemoglobin A1c (2017) Blood specimen (specimen) Historical Provider LAB BLOOD ORDERABLES Norah l Result from Last 3 Months or Most Recently Relevant to Health Maintenance Insurance [employer] MEDICARE Advance Directives For more information, please contact: [phone] * Full Code (Latest Code Status on File) Date Activated Date Inactivated Comments 10/28/2023 10:03 AM 10/28/2023 4:45 PM Care Teams Painter Tumbling Barrel Relationship Specialty Start Date End Date Teodoro Garcia MD PCP - General Family Practice 03/19/23
--- OUTSIDE RECORDS SUMMARY | 2024-10-06 07:01 | XMS_ITS | Encounter Summary ---
Author Organization [facility] Healthcare Address [address] [place] [address] Care Team Providers Care Service Secretary Name Role Phone Teodoro Garcia MD Primary Care Provider +1 -[phone] Encounter Details Date Type Department Care Team (Late st Contact Info) Description 09/29/2023 Orders Only [facility] [address] [place] [address] Scanning, Provider Social History Tobacco Use Types [...] on file Legal Sex Male 3:43 AM PLC CONTROLS ENGINEER Gender Identity Not on file Sexual Orientation [...] on filedocumented in this encounter Care Teams Service Secretary Relationship Specialty Start Date End Date Teodoro Garcia MD PCP - General Family Practice 03/19/23 documented as of this encounter
--- OUTSIDE RECORDS SUMMARY | 2024-10-06 07:01 | XMS_ITS | CONTINUITY OF CARE DOCUMENT ---
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, inf lat ischemia on stress 02/10 active Pushpa soto MD TOBACCO ABUSE active Pushpa Thomas MD DIZZINESS-02/10 HOLTER SB PVC -HR 83-42, 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 2012 active Pushpa Thomas MD ENCOUNTERS Date Type Provider Location Encounter Diag nosis - In-person encounter Office Visit Pushpa Thomas MD [facility] HYPERCHOLESTEROLEMI A- intolerant of all statins and zetia - In-person encounter Office Visit Pushpa Thomas MD [facility] - In-person encounter Office Visit Pushpa Thomas MD [facility] - In-person encounter Office Visit Pushpa Thomas MD [facility] - In-person encounter Office Visit Pushpa Thomas MD [facility] HYPERCHOLESTEROLEMI A- intolerant of all statins and zetiaCAD-03/13 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, inf lat ischemia on stress 02/10 - In-person encounter Office Visit Pushpa Thomas MD [facility] CABG- SVG- DIAG open, 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 in [place]-10/29 CATH OCC VALDES-LAD, PAT SVG-2ND DIAGCAD-03/13 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, inf lat ischemia on stress 02/10DIZZINESS-02/10 HOLTER SB PVC-HR 83-42, 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 2013 - In-person encounter Office Visit Pushpa Thomas MD [facility] - In-person encounter Office Visit Pushpa Thomas MD [facility] - In-person encounter Office Visit Pushpa Thomas MD [facility] - In-person encounter Office Visit Pushpa Thomas MD [facility] - In-person encounter Office Visit Pushpa Thomas MD [facility] DIZZINESS-02/10 HOLTER SB PVC-HR 83-42, 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 2012 - In-person encounter Office Visit Pushpa Thomas MD [facility] - In-person encounter Office Visit Pushpa Thomas MD [facility] - In-person encounter Office Visit Pushpa Thomas MD [facility] - In-person encounter Office Visit Pushpa Thomas MD [facility] - In-person encounter Office Visit Pushpa Thomas MD [facility] - In-person encounter Office Visit Pushpa Thomas MD [facility] - In-person encounter Office Visit Pushpa Thomas MD [facility] - In-person encounter Office Visit Pushpa Thomas MD [facility] CAD-03/13 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, inf lat ischemia on stress 02/10TOBACCO ABUSE - In-person encounter Office Visit Pushpa Thomas MD [facility] HYPERCHOLESTEROLEMI A- intolerant of all statins and zetia - In-person encounter Office Visit Pushpa Thomas MD [facility] HTN-11/11 CAROTID NEGCABG- SVG- DIAG open, 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 in HYPERCHOLESTEROLE BLANCO- intolerant of all statins and zetia VITAL SIGNS Date Observation Value Provider blood pressure, diastolic 75 mm[Hg] Al debbie Marcelino blood pressure, systolic 130 mm[Hg] Ruth Ann arauz Marcelino pulse rate 60 /min Kiersten Marcelino oxygen saturation, oximetry 97 % Kiersten Marcelino respiratory rate E&M 15 /min Kiersten Marcelino Body Mass Index (Ratio) 33.90 kg/m2 Tessa juwan Marcelino weight E&M 250 [lb_av] Kiersten Marcelnio blood pressure, diastolic 79 mm[Hg] Alejandro Danielle [...] larios weight E&M 228 [lb_av] Michelle Willy [facility] Body Mass Index (Ratio) 30.11 kg/m2 Anea clark [facility] blood pressure, diastolic 74 mm[Hg] An eatris [facility] blood pressure, systolic 124 mm[Hg] Ane atris [facility] pulse rate 53 /min Aneatris [facility] oxygen saturation, oximetry 98 % Aneatris [facility] respiratory rate E&M 18 /min Aneatri s [facility] weight E&M 222 [lb_av] Aneatris [facility] Body Mass Index (Ratio) 29.70 kg/m2 Anea clark [facility] blood pressure, diastolic 87 mm[Hg] An eatris [facility] blood pressure, systolic 140 mm[Hg] Ane atris [facility] pulse rate 85 /min Aneatris [facility] oxygen saturation, oximetry 95 % Aneatris [facility] respiratory rate E&M 18 /min Aneatri s [facility] weight E&M 219 [lb_av] Aneatris Brown Body Mass Index (Ratio) 29.56 kg/m2 Anea clark [facility] blood pressure, diastolic 102 mm[Hg] An eatris Brown blood pressure, systolic 154 mm[Hg] Ane atris Brown pulse rate 80 /min Aneatris Brown oxygen saturation, oximetry 98 % Aneatris Brown respiratory rate E&M 18 /min Aneatri s [facility] weight E&M 218 [lb_av] Aneatris Brown Body Mass Index (Ratio) 29.81 kg/m2 Tessa ssa [facility] blood pressure, diastolic 70 mm[Hg] Al debbie [facility] blood pressure, systolic 130 mm[Hg] Ruth Ann dailya [facility] pulse rate 48 /min Kiersten [facility] oxygen saturation, oximetry 97 % Kiersten Marcelino respiratory rate E&M 14 /min Kiersten [facility] weight E&M 219 [lb_av] Kiersten Marcelino [...] Mass Index (Ratio) 29.26 kg/m2 Travis Suero CLINICAL RESEARCH NURSE COORDINATOR weight E&M 215 [lb_av] Melony Suero CLINICAL RESEARCH NURSE COORDINATOR Body Mass Index (Ratio) 29.81 kg/m2 [place] [...] Index (Ratio) 30.96 kg/m2 Lacr etifernando Tadeo CLINICAL RESEARCH NURSE COORDINATOR weight E&M 221.2 [lb_av] Lacretifernando Contreras ls CLINICAL RESEARCH NURSE COORDINATOR blood pressure, diastolic, standing 80 mm [Hg] [...] Adalberto eph [place] pulse rate 55 /min [facility] oxygen saturation, oximetry 97 % [facility] [place] respiratory rate E&M 16 /min [facility] [place] weight E&M 226 [lb_av] [facility] [place] blood pressure, diastolic, left arm 61 mm [Hg] [facility], systolic, left arm 114 mm [Hg] [facility] blood pressure, diastolic, right arm 58 m m[Hg] Denyean Soliz blood pressure, systolic, right arm 132 m m[Hg] Denyean Soliz blood pressure, diastolic 61 mm[Hg] Sandoval Soliz blood pressure, systolic 114 mm[Hg] Andi an Soliz pulse rate 58 /min [facility] oxygen saturation, oximetry 98 % [facility] respiratory rate E&M 16 /min [...] Jorge Ruiz international normalized ratio (INR) 1.0 [facility] blood glucose, random 96 mg/dL [facility] creatinine, serum 1.01 mg/dL [facility] urea nitrogen, blood 14 mg/dL [facility] potassium, serum 4.2 mmol/L [facility] sodium, serum 142 mmol/L [facility] TOTAL NON-HDL-C (LDL VLDL) 101 [facility] alanine aminotransferase (SGPT), serum 18 1/L [facility] aspartate aminotransferase (SGOT), serum 22 1/L [facility] cholesterol/HDL ratio, serum 4.2 [facility] cholesterol, serum 132 mg/dL [facility] triglyceride, target level 150 mg/dL [facility] HDL cholesterol, serum, target level 40 mg/dL [facility] triglyceride, serum, fasting 92 mg/dL [facility] Normal HDL cholesterol, serum 31 mg/dL [facility] Low LDL cholesterol, serum 82 mg/dL [facility] Normal LDL target level 100 mg/dL [facility] cholesterol, target level 200 mg/dL [facility] TOTAL NON-HDL-C (LDL VLDL) 101 [facility] aminotransferase (SGPT), serum 18 1/L [facility] aspartate aminotransferase (SGOT), serum 24 1/L [facility] cholesterol/HDL ratio, serum 3.7 [facility] cholesterol, serum 138 mg/dL [facility] triglyceride, target level 150 mg/dL [facility] HDL cholesterol, serum, target level 40 mg/dL [facility] triglyceride, serum, fasting 90 mg/dL Lui Tadeo CLINICAL RESEARCH NURSE COORDINATOR Normal HDL cholesterol, serum 37 mg/dL Lui Tadeo CLINICAL RESEARCH NURSE COORDINATOR Low LDL cholesterol, serum 83 mg/dL Lui Tadeo CLINICAL RESEARCH NURSE COORDINATOR Normal LDL target level 100 mg/dL Lui Tadeo CLINICAL RESEARCH NURSE COORDINATOR cholesterol, target level 200 mg/dL Lui Tadeo CLINICAL RESEARCH NURSE COORDINATOR LDL cholesterol, serum 151 mg/dL [facility] cholesterol, serum 221 mg/dL [facility] triglyceride, serum, fasting 98 mg/dL [facility] HDL cholesterol, serum 33 mg/dL [facility] LDL cholesterol, serum 165 mg/dL [facility] cholesterol, serum 218 mg/dL [facility] thyroid stimulating hormone, serum 0.83 u[IU]/mL [facility] hemoglobin A1C, blood, as % of total hemoglobin 5.6 % [facility] anion gap, serum 8.9 [facility] globulins, serum, total 3.3 g/dL [facility] estimated glomerular filtration rate >60 [facility] albumin/globulin ratio, serum 1.2 [facility] protein, total, serum 7.4 g/dL [facility] albumin, serum 4.1 g/dL [facility] bilirubin, serum, total 0.55 mg/dL [facility] alkaline phosphatase, serum 137 1/L [facility] alanine aminotransferase (SGPT), serum 36 1/L [facility] aspartate aminotransferase (SGOT), serum 19 1/L [facility] calcium, serum 9.2 mg/dL [facility] blood glucose, fasting 102 mg/dL [facility] creatinine, serum 0.93 mg/dL [facility] urea nitrogen, blood 9.3 mg/dL [facility] carbon dioxide, serum, total 28 mmol/L [facility] chloride, serum 104 mmol/L [facility] potassium, serum 3.9 mmol/L [facility] sodium, serum 137 mmol/L [facility] platelet count 168 10*3/uL [facility] red blood cell distribution width 12.4 % [facility] mean corpuscular hemoglobin concentration, RBC 34.8 g/dL [facility] mean corpuscular hemoglobin, RBC 32.0 pg [facility] mean corpuscular volume, RBC 91.9 fL [facility] hematocrit, blood 42.2 % [facility] hemoglobin, blood 14.7 g/dL [facility] erythrocyte (RBC) count 4.59 10*6/mm3 [facility] monocytes as percent of blood leukocytes 8.9 % [facility] lymphocytes as percent of blood leukocytes 35.2 % [facility] leukocyte count, blood 5.9 10*3/mm3 [facility] cholesterol/HDL ratio, serum 3.3 [facility] triglyceride, serum, fasting 99 mg/dL [facility] HDL cholesterol, serum 39 mg/dL [facility] LDL cholesterol, serum 68 mg/dL [facility] cholesterol, serum 127 mg/dL [facility] albumin/globulin ratio, serum 1.4 [facility] protein, total, serum 6.6 g/dL [facility] albumin, serum 3.9 g/dL [facility] bilirubin, serum, total 0.7 mg/dL [facility] alkaline phosphatase, serum 103 1/L [facility] alanine aminotransferase (SGPT), serum 27 1/L [facility] aspartate aminotransferase (SGOT), serum 35 1/L [facility] calcium, serum 9.2 mg/dL [facility] blood glucose, fasting 109 mg/dL [facility] creatinine, serum 1.2 mg/dL [facility] urea nitrogen, blood 10 mg/dL [facility] carbon dioxide, serum, total 26 mmol/L [facility] chloride, serum 106 mmol/L [facility] potassium, serum 4.7 mmol/L [facility] sodium, serum 143 mmol/L [facility] platelet count 160 10*3/uL [facility] red blood cell distribution width 13.7 % [facility] mean corpuscular hemoglobin concentration, RBC 33.6 g/dL [facility] mean corpuscular hemoglobin, RBC 31.6 pg [facility] mean corpuscular volume, RBC 93.9 fL [facility] hematocrit, blood 49.4 % [facility] hemoglobin, blood 16.6 g/dL [facility] erythrocyte (RBC) count 5.3 10*6/mm3 [facility] neutrophils, segmented as percent of blood leukocytes 3.3 % [facility] monocyte count, blood 0.4 10*3/mm3 [facility] lymphocyte count, blood 2.7 10*3/mm3 [facility] neutrophils as percent of blood leukocytes 50.8 % [facility] monocytes as percent of blood leukocytes 6.7 % [facility] lymphocytes as percent of blood leukocytes 42.5 % [facility] leukocyte count, blood 6.4 10*3/mm3 [facility] cholesterol/HDL ratio, serum 3.3 [facility] triglyceride, serum, fasting 99 mg/dL [facility] HDL cholesterol, serum 39 mg/dL [facility] LDL cholesterol, serum 68 mg/dL [facility] cholesterol, serum 127 mg/dL [facility] albumin/globulin ratio, serum 1.4 [facility] protein, total, serum 6.6 g/dL [facility] albumin, serum 3.9 g/dL [facility] bilirubin, serum, total 0.7 mg/dL [facility] alkaline phosphatase, serum 103 1/L [facility] alanine aminotransferase (SGPT), serum 35 1/L [facility] aspartate aminotransferase (SGOT), serum 27 1/L [facility] calcium, serum 9.2 mg/dL [facility] blood glucose, fasting 109 mg/dL [facility] creatinine, serum 1.2 mg/dL [facility] Joseph urea nitrogen, blood 10 mg/dL [facility] carbon dioxide, serum, total 26 mmol/L [facility] chloride, serum 106 mmol/L [facility] potassium, serum 4.7 mmol/L [facility] sodium, serum 143 mmol/L [facility] platelet count 160 10*3/uL [facility] red blood cell distribution width 13.7 % [facility] mean corpuscular hemoglobin concentration, RBC 33.6 g/dL [facility] mean corpuscular hemoglobin, RBC 31.6 pg [facility] mean corpuscular volume, RBC 93.9 fL [facility] hematocrit, blood 49.4 % [facility] hemoglobin, blood 16.6 g/dL [facility] erythrocyte (RBC) count 5.3 10*6/mm3 [facility] neutrophils, segmented as percent of blood leukocytes 3.3 % [facility] monocyte count, blood 0.4 10*3/mm3 [facility] lymphocyte count, blood 2.7 10*3/mm3 [facility] neutrophils as percent of blood leukocytes 50.8 % [facility] monocytes as percent of blood leukocytes 6.7 % [facility] lymphocytes as percent of blood leukocytes 42.5 % [facility] leukocyte count, blood 6.4 10*3/mm3 [facility] international normalized ratio (INR) 1.1 [facility] prothrombin time (patient) 10.5 s [facility] platelet count 162 THOUSAND/UL [facility] 140-400 Normal red blood cell distribution width 13.0 % [facility] 11.0-15.0 Normal mean corpuscular hemoglobin [...] 10-35 Normal alkaline phosphatase, serum 102 1/L [facility] Normal bilirubin, serum, total 0.6 [...] 1 capsule by mouth daily - 02/08 ePri Champagne LIVALO 4 MG ORAL TABLET completed One tablet daily - 10/27 Amilcar Manacotushar RAPAFLO 8 MG ORAL CAPSULE completed 1 capsule by mouth daily - 10/27 Amilcar Manacotushar CHANTIX STARTING MONTH SHAHID 0.5 MG X 11 & 1 MG X 42 [facility] completed One pack. Take as directed. 07/08 [...] ORAL TABLET active one tab daily Yolette Eastlake PROTONIX 40 MG ORAL TABLET DELAYED RELEASE [...] E&M revi ewed - no changes required Puspha Thomas MD physical exercise, frequency, days per [...] Melida calvin smoking status Former smoker Melida Avlia smoking history, tot al pack/year 38 Jeronimo [...] patient education and counseling yes Melony Pio CLINICAL RESEARCH NURSE COORDINATOR smoking history, tot al pack/year 36 Melony Pio CLINICAL RESEARCH NURSE COORDINATOR smoking/tobacco cess ation, patient education and counseling yes Pushpa Thomas MD drug use none Pushpa Thomas MD social history reviewed E&M reviewed Pushpa Thomas MD smoking history, tot al pack/day 1 Michelle Cortez smoking history, tot al pack/year 36 Michelle Cortez physical exercise, frequency, days per week yes Lui Tadeo CLINICAL RESEARCH NURSE COORDINATOR smoking status current every day smoker L rjbutch Carlyle CLINICAL RESEARCH NURSE COORDINATOR cigarette use 1 Lacrbutch Barretowilson breen CLINICAL RESEARCH NURSE COORDINATOR social history reviewed E&M reviewed Lui Tadeo CLINICAL RESEARCH NURSE COORDINATOR smoking history, tot al pack/year 36 Lui Carlyle CLINICAL RESEARCH NURSE COORDINATOR social history reviewed E&M reviewed Jeronimo Chandler [...] ation, patient education and counseling yes Jeronimo Chandelr RN social history reviewed E&M reviewed Jeronimo [...] Payer name Policy type / Coverage type [place] [employer] [facility] DUAL COMPLETE HMO O [id number] TREATMENT PLAN Date Name Performer Cardiology [...] tab daily Toprol Xl 25 Mg Oral [id number] (Metoprolol succinate) ..... Take one pill a [...] this problem includes: Toprol Xl 50 Mg [id number]-[id number] (Metoprolol succinate) ..... Take one pill a day Aspirin 325 Mg Tabs (Aspirin) ..... One tab daily Pushpa Thomas MD Follow Up: T he following medications were removed from the medication list: Crestor 10 Mg Tabs (Rosuvastatin calcium) ..... One tab. daily His updated medication list for this problem includes: Toprol Xl 50 Mg [id number]-[id number] (Metoprolol succinate) ..... Take one pill a [...] the RCA. N ormal LV systolic function. [facility] (10/11/2008) C arotid Doppler/Duplex: Mild plaque with [...] this problem includes: Toprol Xl 50 Mg [id number]-ane (Metoprolol succinate) ..... Take one pill a [...] this problem includes: Toprol Xl 50 Mg [id number]-aiv (Metoprolol succinate) ..... Take one pill a day Aspirin 325 Mg Tabs (Aspirin) ..... One tab daily Crestor 10 Mg Tabs (Rosuvastatin calcium) ..... One tab. daily Orders: E KG (CPT-17417) BP today: 128/86 Prior BP: 124/69 (10/26/2012) [...] the RCA. N ormal LV systolic function. [facility] (10/11/2008) C arotid Doppler/Duplex: Mild plaque with [...] this problem includes: Toprol Xl 50 Mg El97g-pwd (Metoprolol succinate) ..... Take one pill a [...] this problem includes: Toprol Xl 50 Mg Zw46d-awx (Metoprolol succinate) ..... Take one pill a day Aspirin 325 Mg Tabs (Aspirin) ..... One tab daily Pushpa Thomas MD Follow up: T he following medications were removed from the medication list: Lipitor 20 Mg Tabs (Atorvastatin calcium) ..... One tab po daily His updated medication list for this problem includes: Toprol Xl 50 Mg [id number]-mrj (Metoprolol succinate) ..... Take one pill a day Aspirin 325 Mg Tabs (Aspirin) ..... One tab daily Orders: E KG (CPT-00324) BP today: 128/86 Prior BP: 124/69 (10/26/2012) [...] the RCA. N ormal LV systolic function. [facility] (10/11/2008) C arotid Doppler/Duplex: Mild plaque with [...] this problem includes: Toprol Xl 50 Mg Fq56b-fen (Metoprolol succinate) ..... Take one pill a [...] the RCA. N ormal LV systolic function. [facility] (10/11/2008) Pushpa Thomas MD Lipid management: H [...] this problem includes: Toprol Xl 50 Mg [id number]-xzj (Metoprolol succinate) ..... Take one pill a [...] this problem includes: Toprol Xl 50 Mg Dx27i-eqh (Metoprolol succinate) ..... Take one pill a [...] the RCA. N ormal LV systolic function. [facility] (10/11/2008) C HOL: 138 (07/08/2012) LDL: 83 [...] this problem includes: Toprol Xl 50 Mg Yz60b-bta (Metoprolol succinate) ..... Take one pill a [...] the RCA. N ormal LV systolic function. [facility] (10/11/2008) C HOL: 138 (07/08/2012) LDL: 83 [...] this problem includes: Toprol Xl 50 Mg Fo35l-zdc (Metoprolol succinate) ..... Take one pill a day Aspirin 325 Mg Tabs (Aspirin) ..... One tab daily BP today: 143/82 P rior BP: 134/78 (10/28/2011) Labs Reviewed: C reat: 0.93 (06/06/2011) C hol: 218 (06/06/2011) HDL: 33 (06/06/2011) LDL: 165 (06/06/2011) T (06/06/2011) Pushpa Thomas MD follow up: H is updated medication list for this problem includes: Toprol Xl 50 Mg Pc11x-nhe (Metoprolol succinate) ..... Take one pill a [...] the RCA. N ormal LV systolic function. [facility] (10/11/2008) C HOL: 218 (06/06/2011) LDL: 165 [...] this problem includes: Toprol Xl 50 Mg Yj47x-njr (Metoprolol succinate) ..... Take one pill a day Aspirin 325 Mg Tabs (Aspirin) ..... One tab daily Lipitor 20 Mg Tabs (Atorvastatin calcium) ..... One tab po daily Orders: E KG (CPT-58383) BP today: 143/82 Prior BP: 134/78 (10/28/2011) [...] the RCA. N ormal LV systolic function. [facility] (10/11/2008) C HOL: 218 (06/06/2011) LDL: 165 [...] this problem includes: Toprol Xl 50 Mg Oi58h-fpa (Metoprolol succinate) ..... Take one pill a [...] the RCA. N ormal LV systolic function. [facility] (10/11/2008) C HOL: 218 (06/06/2011) LDL: 165 [...] the RCA. N ormal LV systolic function. [facility] (10/11/2008) C HOL: 218 (06/06/2011) LDL: 165 [...] month follow-up Pushpa Grewal 6 month follow-up [facility] Echo: H is updated medication list for [...] (04/20/2009) Pushpa Thomas MD 6 month follow-up [facility] Echo: H is updated medication list for [...] the RCA. N ormal LV systolic function. [facility] (10/11/2008) C HOL: 127 (04/20/2009) LDL: 68 [...] ..... One tab daily Orders: E KG (CPT-24197) BP today: 120/58 Prior BP: 114/61 (11/05/2010) [...] the RCA. N ormal LV systolic function. [facility] (10/11/2008) C HOL: 127 (04/20/2009) LDL: 68 [...] the RCA. N ormal LV systolic function. [facility] (10/11/2008) C HOL: 127 (04/20/2009) LDL: 68 [...] the RCA. N ormal LV systolic function. [facility] (10/11/2008) C HOL: 127 (04/20/2009) LDL: 68 [...] . Myocardial scintigraphy demonstrates inferior wall ischemia. [facility] (09/08/2008) C ardiac Cath: Complete revascularization with the LAD territory to a vein graft. A tretic VALDES. 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 N ormal LV systolic function. [facility] (10/11/2008) C HOL: 170 (09/07/2008) LDL: 97 [...] . Myocardial scintigraphy demonstrates inferior wall ischemia. [facility] (09/08/2008) C ardiac Cath: Complete revascularization with the LAD territory to a vein graft. Atretic VALDES. 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 N ormal LV systolic function. [facility] (10/11/2008) C HOL: 170 (09/07/2008) LDL: 97 [...] . Myocardial scintigraphy demonstrates inferior wall ischemia. [facility] (09/08/2008) C ardiac Cath: Complete revascularization with the LAD territory to a vein graft. Atretic VALDES. 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 N ormal LV systolic function. [facility] (10/11/2008) C HOL: 170 (09/07/2008) LDL: 97 [...] . Myocardial scintigraphy demonstrates inferior wall ischemia. [facility] (09/08/2008) C ardiac Cath: Complete revascularization with the LAD territory to a vein graft. Atretic VALDES. 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 N ormal LV systolic function. [facility] (10/11/2008) C HOL: 170 (09/07/2008) LDL: 97 [...] Name Provider Procedure Notes S tatus SNOMED-CT: 85296005 Physical Exam, Performed: Pulse Exam of Foot Pushpa Thomas MD completed SNOMED-CT: [id number] Current Medications Documented Pushpa Thomas MD completed FVC - 28542 Pushpa Thomas MD complete d FRC - 56005 Pushpa Thomas MD complete d DLCO - 74614 Pushpa Thomas MD complet ed Lipid Strip [...]
--- OUTSIDE RECORDS SUMMARY | 2024-10-06 07:01 | XMS_ITS | Clinical Summary ---
Author Organization [facility] Address [address] [place] [address] Care Team Providers Care Business Performance Advisor Name Role Phone Ace Hanna MD Primary Care Provider [phone] Source Comments [facility],non-owned Affiliates and Associated Physician Practices is amultiple site organization consisting of ambulatory clinics and hospital sitesin [place], [place], [place] and [place]. This disclosure is being madepursuant to the Care Everywhere program and may not contain all information available regarding this patient. Last updated 18.[facility] Vertra Allergies No known active allergies Medications * [...] Comments Blood Pressure 113/80 07/18/2015 12:00 PM IT SOLUTIONS ARCHITECT Pulse 62 07/18/2015 12:00 PM IT SOLUTIONS ARCHITECT Temperature 36.8 C (98.3 F) 07/18/2015 11:32 AM IT SOLUTIONS ARCHITECT Respiratory Rate 15 07/18/2015 12:00 PM IT SOLUTIONS ARCHITECT Oxygen Saturation 94% 07/18/2015 12:00 PM IT SOLUTIONS ARCHITECT Inhaled Oxygen Concentration - - Weight 111.1 kg (245 lb) 07/18/2015 9:34 AM IT SOLUTIONS ARCHITECT Height 185.4 cm (6' 1 ) 07/18/2015 9:34 AM IT SOLUTIONS ARCHITECT Body Mass Index 32.32 07/18/2015 9:34 AM IT SOLUTIONS ARCHITECT Plan of Treatment Health Maintenance Due Date Last Done Comments DTAP/TDAP/TD VACCINES (1 - Tdap) 1962 PNEUMOCOCCAL VACCINE 50+ (1 of 2 - PCV) 1962 ZOSTER VACCINE (1 of 2) 1993 Respiratory Syncytial Virus (RSV) Vaccine Pt: or over 60 yrs (1 - 1-dose 75+ series) 2018 COVID-19 VACCINE (2023-2 5 season) 2024 DEPRESSION SCREENING 06/30/2024 MEDICARE AWV CALENDAR YEAR 2024 INFLUENZA VACCINE (Season Ended) 2025 HEPATITIS B VACCINE Aged Out No longe [...] age to complete this topic Care Teams Business Performance Advisor Relationship Specialty Start Date End Date Ace Hanna MD [address] [place] [address] [address] [place] [address] PCP - General Family Medicine 11/25/12
--- OUTSIDE RECORDS SUMMARY | 2024-10-06 07:01 | XMS_ITS | Referral Summary ---
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 (Primary Dx) from Last 3 Months Allergies Active Allergy Reactions Criticality Noted Date Comments Erythromycin Ethyl Alcohol Unknown Ezetimibe Muscle pain Medium Simvastatin Nausea And Vomiting Low 07/20/2012 Kidcdbu-Vdp-Ezk Reductase Inhibitors High Medications pantoprazole DR (PROTONIX) [...] artery disease of n ative artery of stebbins heart with stable angina pectoris 01/29/2016 Overview (10/04/2016): Coronary artery disease involving stebbins coronary artery of stebbins heart without angina pectoris Dyspnea on exertion [...] on file Legal Sex Male 3:43 AM MULTIMEDIA TECHNICIAN Gender Identity Not on file Sexual Orientation Not on file Last Filed Vital Signs Vital Sign Reading Time Taken Comments Blood Pressure 118/60 08/17/2024 8:20 AM MULTIMEDIA TECHNICIAN Pulse 54 08/17/2024 8:20 AM MULTIMEDIA TECHNICIAN Temperature 36.7 C (98.1 F) 10/28/2023 7:22 AM CDT Respiratory Rate 12 03/07/2017 8:35 AM CDT Oxygen Saturation 98% 08/17/2024 8:20 AM MULTIMEDIA TECHNICIAN Inhaled Oxygen Concentration - - Weight 89.4 kg (197 lb) 08/17/2024 8:20 AM MULTIMEDIA TECHNICIAN Height 182.9 cm (6') 08/17/2024 8:20 AM MULTIMEDIA TECHNICIAN Body Mass Index 26.72 08/17/2024 8:20 AM MULTIMEDIA TECHNICIAN Plan of Treatment Not on file Medical Devices Implanted Type Area Radio Mechanic Helper Device Identifier Shelf Expiration Date Model / Serial / Lot Other - See Comments Other - see comments Left: Knee Other - See Comments Other - see comments Right: Knee Medtronic Card Vasc Surgery 3.0 X 18mm [place] Rx Coronary Stent [id number] - [id number] Implanted:Qty : 1 on 10/28/2023 by Abigail Saxena MD at [facility] Medtronic Card Vasc Surgery 07/26/2026 [id number] / / [id number] Thwap[employer] Angio-Seal Vip 6fr Closere Device [id number] - [id number] Implanted:Qty : 1 on 10/28/2023 by Abigail Saxena MD at [facility] [place] [facility] [id number] / / Procedures Procedure Name Priority Date/Time Associated Diagnosis Comments LIPID PANEL Routine 08/17/2024 8:34 AM MULTIMEDIA TECHNICIAN EGFR Routine 10/28/2023 7:13 AM CDT HEMOGLOBIN A1C Routine 2017 from Last 3 Months or Most Recently Relevant to Health Maintenance Results * Lipid panel (08/17/2024 8:34 AM MULTIMEDIA TECHNICIAN) SCRIBED Cholesterol, Total <100 <100 EXTERNAL LAB SCRIBED HDL 19 >40 EXTERNAL LAB SCRIBED LDL 63.6 <100 EXTERNAL LAB SCRIBED Triglycerides 82 <150 EXTERNAL LAB Blood 08/17/2024 8:34 AM MULTIMEDIA TECHNICIAN us Guillaume Villafana MD LAB BLOOD ORDERABLES [...] MD LAB BLOOD ORDERABLES Final Result STEPHANIE [address] [address] [place] [address] * Hemoglobin A1c (2017) Blood specimen (specimen) us Historical Provider LAB BLOOD ORDERABLES Norah canas Result from Last 3 Months or Most Recently Relevant to Health Maintenance Insurance AET MEDICARE Advance Directives For more information, please contact: [phone] * Full Code (Latest Code Status on File) Date Activated Date Inactivated Comments 10/28/2023 10:03 AM 10/28/2023 4:45 PM Care Teams Pick Up Driver Relationship Specialty Start Date End Date Teodoro Garcia MD PCP - General Family Practice 03/19/23
--- OUTSIDE RECORDS SUMMARY | 2024-10-06 07:01 | XMS_ITS | Continuity of Care Document ---
Author Organization [facility] Address [address] [place] [address] [address] [place] [address] Phone Care Team Providers Care Creative Project Manager Name Role Phone Arminda Bauer Unavailable Unavailable Procedures Procedure Date Remove Foreign Body From Eye Advance Directives Directive Yes / No Effective Date File Name No Information Encounters Encounter Description Practice Location Reason(s) For Visit Diagnoses Date Provider Providers Copied on Encounter [facility], [address] [place] [address] [address], [place], [place], [id number], [place] tel:[phone] [address] [facility] [place] No Information [address] Lizette [address]illiard. [address] , [address], [place], [address], [place]. tel:[phone] Family History Family Member Type Diagnosis Age [...]
[2024-10-06 08:20] LABS: Basophils Percent Auto 0.7 % (0.2-1.2); Eosinophils Absolute Auto 0.2 K/mm3 (0-0.3); Eosinophils Percent Auto 3.8 % (0-4.4); Hematocrit 45.7 % (42.0-52.0); Hemoglobin 14.8 g/dL (14.0-18.0); Immature Granulocyte Absolute 0.02 K/mm3 (0.00-0.031); Immature Granulocyte Percent A 0.3 % (0-0.5); Lymphocytes Absolute Auto 2.42 K/mm3 (0.9-3.2); Lymphocytes Percent Auto 42.2 % (18.3-44.2); Mean Corpuscular HGB Conc 32.4 g/dl (32-36); Mean Corpuscular Volume 92.7 fl (80-100); Mean Platelet Volume 9.9 fl (7.4-10.4); Monocytes Absolute Auto 0.5 K/mm3 (0.1-0.6); Monocytes Percent Auto 8.9 % (2.6-8.5); Neutrophils Absolute Auto 2.5 K/mm3 (1.3-6.7); Neutrophils Percent Auto 44.1 % (45.5-73.1); Platelet Count Result 156 k/mm3 (150-375); Red Blood Count 4.93 M/mm3 (4.6-6.20); Red Cell Distribution Width 12.6 % (11.5-14.5); White Blood Count 5.7 K/mm3 (4.5-10.0)
[2024-10-06 08:35] LABS: Alanine Aminotransferase 38 U/L (6-50); Albumin Level 4.1 g/dL (3.5-5.1); Alkaline Phosphatase 85 U/L (38-126); Anion Gap 8 mmol/L (4-12); Aspartate Amino Transferase 34 U/L (17-59); Bilirubin,Total 0.6 mg/dL (0.2-1.3); Blood Urea Nitrogen 20 mg/dL (9-20); Calcium 9.6 mg/dL (8.4-10.2); Carbon Dioxide 29 mmol/L (22-30); Chloride 102 mmol/L (98-107); Cholesterol 141 mg/dL (0-200); Estimated Glomerular Filt Rate 55; Glucose 116 mg/dL (65-110); HDL Direct 40 mg/dL; Potassium 4.8 mmol/L (3.4-5.0); Sodium 139 mmol/L (137-145); Triglycerides 164 mg/dL (<150)
[2024-10-06 08:47] LABS: LDL Cholesterol Direct 71 mg/dL
[2024-10-06 08:55] LABS: Hemoglobin A1C 7.1 % (<5.7)
[2024-10-06 09:51] LABS: Creatinine Urine 74.3 mg/dL
[2024-10-06 09:58] LABS: Microalbumin Urine Random < 6.0 mg/L (0-16.7)
[2024-10-06 09:59] LABS: MALB Creatinine Ratio < 8.1 mg/g (0-30)
== END 2024-10-06 06:58 | disposition home or self-care (01) ==
LOC: ANHLAB 06:59
PROVIDERS: PCP Nurse Practitioner Family; Visit Provider Nurse Practitioner Family
DX: I73.9 Peripheral vascular disease, unspecified (principal); E87.5 Hyperkalemia; E13.9 Other specified diabetes mellitus without complications; I48.91 Unspecified atrial fibrillation; I25.810 Atherosclerosis of coronary artery bypass graft(s) without angina pectoris; R53.83 Other fatigue; E78.5 Hyperlipidemia, unspecified; I10 Essential (primary) hypertension
CPT/HCPCS: 36415; 80053; 80061; 82043; 83036; 85025

== ENCOUNTER 2024-10-09 08:02 | Emergency (ER) | payer MEDICARE, SELFPAY ==
--- NOTE | 2024-10-09 08:03 | ED_ITS ---
HPI - General Adult General Chief complaint: Head Injury Stated complaint: HEAD INJURY Time Seen by Provider: 10/09/24 08:03 Source: patient Mode of arrival: ambulatory Limitations: no limitations History of Present Illness HPI narrative: 79-year-old male patient presents to the [facility] with complaints of head trauma. Patient states this morning he went to get up from his chair to go eat breakfast and states that his right leg gave out . Patient states he fell and hit the back of his head on a table leg. Denies any loss of consciousness at the time. Patient states he is on blood thinners and recently had a stent placed about a year ago in September 2023. Patient states he does feel little dizzy and lightheaded but denies any vision changes. Denies nausea vomiting or diarrhea. Patient states that the incident happened about 45 minutes prior to arrival. Denies any chest pain or shortness of breath. Denies any neck pain. Related Data Home Medications ?Medication ?Instructions ?Recorded ?Confirmed ?Last Taken ?Type hydrochlorothiazide 25 mg tablet 12.5 mg PO DAILY 05/04/19 07/28/24 Unknown History aspirin 81 mg tablet,delayed 81 mg PO DAILY 07/01/19 07/28/24 Unknown History release (Adult Aspirin Regimen) acetaminophen 325 mg tablet 650 mg PO Q4H PRN Pain 08/10/19 07/28/24 Unknown History (Tylenol) metoprolol tartrate 25 mg tablet 12.5 mg PO BID 10/22/23 07/28/24 Unknown History ticagrelor 60 mg tablet (Brilinta) 60 mg PO Q12H 04/13/24 07/28/24 Unknown History rosuvastatin 10 mg tablet 20 mg PO DAILY 05/25/24 07/28/24 Unknown History Allergies Allergy/AdvReac Type Severity Reaction Status Date / Time simvastatin Allergy Mild Leg cramp Verified 07/28/24 11:21 Fpaqrho-TLS-TvT Reductase Allergy Mild Cramping Verified 07/28/24 11:21 Inhibitor (Qgvcner-Ubf-Rey of the Reductase Inhibitor) Muscles Review of Systems Review of Systems: CONSTITUTIONAL: Denies fever, chills, or sweats. EYES: Denies visual changes, redness, or discharge. ENT: Denies rhinorrhea, congestion, sore throat, or otalgia. Positive head pain to the back of the head CARDIOVASCULAR: Denies chest pain, palpitations, or edema. RESPIRATORY: Denies cough or dyspnea. GASTROINTESTINAL: Denies abdominal pain, nausea, vomiting, or diarrhea. GENITOURINARY: Denies dysuria or hematuria. SKIN: Denies rash or itching. MUSCULOSKELETAL: Denies back pain, joint pain, or myalgia. NEUROLOGIC: Denies headache, numbness, or weakness. PSYCHIATRIC: Denies anxiety or depression. [facility] Past Medical History Medical History Arthritis Diarrhea Right shoulder pain Weight loss History of prostate cancer Treated with radiation pellets Primary osteoarthritis of left hip Left worse than right GERD (gastroesophageal reflux disease) CAD (coronary artery disease) History of 2 vessel CABG Afib Intermittent Peptic ulcer Hyperlipidemia Diabetes 1.5, managed as type 2 Hypertension Surgical History Surgical History History of hernia repair History of cholecystectomy History of total bilateral knee replacement History of coronary artery bypass graft 2 vessel CABG Family History Family History Sibling Breast cancer Patient's sister is in good health Other Malignant neoplasm of prostate Arthritis Breast cancer Lung cancer Carcinoma of colon Mother Mesothelioma Hypertension High cholesterol Grandparent Diabetes mellitus Social History Social History Social History: Patient lives with his and she is the power of litigation attorney associate for healthcare. He desires to be full code. He has 3 sons and 1 stepdaughter. 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 Smoking packs per day: 1 Smoking cigarettes per day: 20.0 Years smoked: 50 Smoking pack-years: 50.00 Smoking status: Former smoker Tobacco type: cigarettes Second hand tobacco smoke exposure: No Smoking end date: 04/14/24 Additional smoking assessment comments: quit for 30 years and then started back up 2020 Alcohol intake: current Alcohol use details: social beers Substance use: never Substance use type: does not use and unknown Do You Feel Safe in your Home?: Yes Lack of Transportation: No Lack of Food: Never True Current Housing: I Have Housing Concerned About Future Housing: No Difficulty Paying Gas/Electric Bills: No Difficulty Paying for Meds: No Currently Unemployed: No Education: Decline to Answer Difficulty w/ Childcare or Family Care: No Living arrangements: with family Occupation/Education: retired Gender identity (if verbalized by the patient): Male Sexual Orientation (if Verbalized by the Patient): Straight or Heterosexual Spiritual care concerns: No Agree to blood products: Yes Comments At the time of my signature I agree with nursing past medical history, surgical, social, and family history. There is no relevant family history pertinent to the presenting complaint. Exam Narrative: GENERAL: Well-appearing, well-nourished, and in no acute distress. HEAD: Normocephalic, patient has hematoma noted to the left upper occipital area to the back of the head. No open wound or bleeding noted. EYES: PERRLA and EOM intact without limitation or complaint of pain, no periorbital soft tissue swelling ,no erythema, warmth or tenderness noted, no obvious deformity. No crusting or swelling.no tearing or draining.No photophobia. No nystagmus No FB or lesion on lid eversion. Corneas grossly clear, no obvious FB or hyphens/hypopyon. No injection to sclera. Lids and lashes clear. ENT: Nares clear, no rhinorrhea or epistaxis. Mucous membranes moist. Posterior pharynx with no erythema, tonsillar enlargement, exudates or lesions present. Bilateral TMs are clear no erythema foreign bodies the canal. NECK: Supple. No lymphadenopathy CHEST: Clear to auscultation. No respiratory distress. HEART: Regular rate and rhythm. No murmur heard. Normal peripheral pulses. ABDOMEN: Soft, nontender, nondistended, normal active bowel sounds. EXTREMITIES: Normal range of motion. No edema. SKIN: Warm, dry, no rash. NEURO: Alert and oriented x4, GCS 15. Cranial nerves II through XII grossly intact. No focal neurological deficits. Normal muscle strength and tone. Normal deep tendon reflexes. Negative Babinski, normal finger to nose coordination he had normal heel to villegas glide. Speech is clear. Normal gait. Negative Romberg and no pronator drift Course Course Level of Care: Express Care Visit Vital Signs Vital signs: Vital Signs Temperature 36.6 C 10/09/24 08:12 Pulse Rate 51 L 10/09/24 08:12 Respiratory Rate 16 10/09/24 08:12 Blood Pressure 121/82 10/09/24 08:12 Pulse Oximetry 99 10/09/24 08:12 Temperature 36.6 C 10/09/24 08:12 Pulse Rate 51 L 10/09/24 08:12 Respiratory Rate 16 10/09/24 08:12 Blood Pressure 121/82 10/09/24 08:12 Pulse Oximetry 99 10/09/24 08:12 Vital signs reviewed. Transfer Transfered to: [place] Transportation: Other ( Private vehicle with driving) Transfer rationale: fall with head trauma to the head and patient is on blood thinners. Accepting physician: Dr Mayer Medical Decision Making MDM Narrative Medical decision making narrative: discussed with patient that since he is on blood thinners and did fall and hit his head and they are concerned about a head bleed we will need to send him to the hospital for further evaluation and possible CT of the head. Discussed with them that his oral exam is ultimately negative at this time but again because he is having some dizziness and lightheadedness we want to make sure that there is nothing else going on so we will send him to the ER for further evaluation. T michaely are aware the plan of care and are in agreement at this time. Patient is currently stable and patient was driven here by his I think that it is appropriate to allow them to drive him to the hospital on for further evaluation. Differential Diagnosis Differential Diagnosis: Differential diagnosis: Migraine, cluster headache, tension headache, sinusitis, dental infection, TMJ problems, pseudotumor cerebri, meningitis, encephalitis, giant cell arteritis, glaucoma, subarachnoid hemorrhage, subdural or epidural hematoma, intracranial bleed or tumor. Vital Signs Vital Signs: Vital Signs Temperature 36.6 C 10/09/24 08:12 Pulse Rate 51 L 10/09/24 08:12 Respiratory Rate 16 10/09/24 08:12 Blood Pressure 121/82 10/09/24 08:12 Pulse Oximetry 99 10/09/24 08:12 Temperature 36.6 C 10/09/24 08:12 Pulse Rate 51 L 10/09/24 08:12 Respiratory Rate 16 10/09/24 08:12 Blood Pressure 121/82 10/09/24 08:12 Pulse Oximetry 99 10/09/24 08:12 Critical Care Time Critical Care Time Critical Care Time: No Discharge Plan Discharge Clinical Impression: Fall (on) (from) other stairs and steps, initial encounter Acute head trauma Qualifiers: Encounter type: initial encounter Qualified Code(s): S09.90XA - Unspecified injury of head, initial encounter Patient Disposition: Acute Care Hospital Condition: Stable Instructions: Antibiotic Form Patient Language: [place] Prescriptions: No Action acetaminophen [Tylenol] 325 mg Tablet 650 mg PO Q4H PRN (Reason: Pain) Rx Instructions: 650 mg orally as needed aspirin [Adult Aspirin Regimen] 81 mg tablet,delayed release (DR/EC) 81 mg PO DAILY Brilinta 60 mg tablet 60 mg PO Q12H pantoprazole 40 mg tablet,delayed release (DR/EC) See Rx Instructions .ROUTE .COMPLEX Qty: 90 3RF Dose Instruction: TAKE ONE TABLET BY MOUTH ONCE DAILY Rx Instructions: TAKE ONE TABLET BY MOUTH ONCE DAILY hydrochlorothiazide 25 mg tablet 12.5 mg PO DAILY metoprolol tartrate 25 mg tablet 12.5 mg PO BID rosuvastatin 10 mg tablet 20 mg PO DAILY (DME) blood-glucose meter [OneTouch Verio Flex meter] Misc See Rx Instructions .ROUTE .MEDSUPPLY Qty: 1 0RF Rx Instructions: As directed (DME) lancets [OneTouch Delica Lancets] 30 gauge misc See Rx Instructions .ROUTE .MEDSUPPLY Qty: 200 0RF Rx Instructions: use to test daily (DME) OneTouch Verio test strips Strip See Rx Instructions .ROUTE .MEDSUPPLY Qty: 200 1RF Rx Instructions: use to test daily ezetimibe 10 mg tablet See Rx Instructions .ROUTE .COMPLEX Qty: 90 1RF Dose Instruction: TAKE 1 TABLET BY MOUTH AT BEDTIME Rx Instructions: TAKE 1 TABLET BY MOUTH AT BEDTIME Follow-up/Referrals: Cori Denise APRN [Primary Care Provider] - Time of Disposition: 08:26
[2024-10-09 08:12] VITALS: BP 121/82; PULSE 51; RESP 16; TEMP 36.6; O2SAT 99
== END 2024-10-09 08:19 | disposition short-term general hospital (02) ==
PROVIDERS: Emergency Provider Nurse Practitioner Family; PCP Nurse Practitioner Family
DX: S09.90XA Unspecified injury of head, initial encounter (principal); E78.5 Hyperlipidemia, unspecified; E13.9 Other specified diabetes mellitus without complications; I48.91 Unspecified atrial fibrillation; I10 Essential (primary) hypertension; I25.810 Atherosclerosis of coronary artery bypass graft(s) without angina pectoris; Z95.1 Presence of aortocoronary bypass graft; Z85.46 Personal history of malignant neoplasm of prostate; Z87.891 Personal history of nicotine dependence; W18.39XA Other fall on same level, initial encounter
CPT/HCPCS: 99213; G0463

== ENCOUNTER 2024-10-09 08:41 | Emergency (ER) | payer MEDICARE, SELFPAY ==
--- NOTE | ~2024-10-09 | CT_ITS ---
EXAM: CT brain wo con, CT cervical spine wo con - 10/09/2024 09:10 CDT HISTORY: 79 years old Male with Fall COMPARISON: None available. PROCEDURE: CT of the head and cervical spine without contrast. Axial, sagittal and coronal reformat joyce planes were evaluated. Automatic exposure control was used for this study. FINDINGS: CT HEAD: BRAIN PARENCHYMA: No acute hemorrhage. No mass effect or herniation. Abdalla-white matter differentiatio n is maintained. Mild chronic volume loss. Scattered hypodensities in subcortical and periventricular white matter, likely representing chronic microvascular ischemic changes in this age group. Atherosc lerotic calcification of the intracranial vessels is noted. VENTRICLES/ EXTRA-AXIAL SPACES: No hydrocephalus or extra-axial fluid collection. EXTRACRANIAL STRUCTURES: No calvarial fracture. CT CERVICAL SPINE: No acute fracture or subluxation. Straightening of cervical lordosis, likely positional or may be rel ated to muscle spasm. Multilevel degenerative changes of the cervical spine include varying degrees o f disk space narrowing, endplate osteophytosis as well as facet and uncal arthropathy. Prevertebral s oft tissues are within normal limits. Mosaic attenuation of the lungs, likely obstructive small airway disease. IMPRESSION: 1. No evidence for acute intracranial hemorrhage or calvarial fracture. 2. No evidence for cervical spine fracture or traumatic subluxation. 3. Multilevel degenerative changes of the cervical spine. Reviewed, dictated and finalized at location A. IMPRESSION: 1. No evidence for acute intracranial hemorrhage or calvarial fracture. 2. No evidence for cervical spine fracture or traumatic subluxation. 3. Multilevel degenerative changes of the cervical spine.
--- OUTSIDE RECORDS SUMMARY | 2024-10-09 08:43 | XMS_ITS | CONTINUITY OF CARE DOCUMENT ---
Author Name bao, bao Address Unknown Organization [facility] Address [address] [place] [address] Phone [phone] Care Team Providers Care Desulfurizer Hand Name Role Phone William RODRÍGUEZ, Pushpa Unavailable ARASH DELATORRE MD Unavailable [phone] ARASH DELATORRE MD Unavailable PROBLEMS Condition Status [...] In-person encounter Office Visit Pushpa Thomas MD [facility] HYPERCHOLESTEROLEMI A- intolerant of all statins and zetia - In-person encounter Office Visit Pushpa Thomas MD [facility] - In-person encounter Office Visit Pushpa Thomas MD [facility] - In-person encounter Office Visit Pushpa Thomas MD [facility] - In-person encounter Office Visit Pushpa Thomas MD [facility] HYPERCHOLESTEROLEMI A- intolerant of all statins and zetiaCAD-03/13 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, inf lat ischemia on stress 02/10 - In-person encounter Office Visit Pushpa Thomas MD [facility] CABG- SVG- DIAG open, 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 in [place]-10/29 CATH OCC VALDES-LAD, PAT SVG-2ND DIAGCAD-03/13 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, inf lat ischemia on stress 02/10DIZZINESS-02/10 HOLTER SB PVC-HR 83-42, 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 2013 - In-person encounter Office Visit Pushpa Thomas MD [facility] - In-person encounter Office Visit Pushpa Thomas MD [facility] - In-person encounter Office Visit Pushpa Thomas MD [facility] - In-person encounter Office Visit Pushpa Thomas MD [facility] - In-person encounter Office Visit Pushpa Thomas MD [facility] DIZZINESS-02/10 HOLTER SB PVC-HR 83-42, 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 2012 - In-person encounter Office Visit Pushpa Thomas MD [facility] - In-person encounter Office Visit Pushpa Thomas MD [facility] - In-person encounter Office Visit Pushpa Thomas MD [facility] - In-person encounter Office Visit Pushpa Thomas MD [facility] - In-person encounter Office Visit Pushpa Thomas MD [facility] - In-person encounter Office Visit Pushpa Thomas MD [facility] - In-person encounter Office Visit Pushpa Thomas MD [facility] - In-person encounter Office Visit Pushpa Thomas MD [facility] CAD-03/13 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, inf lat ischemia on stress 02/10TOBACCO ABUSE - In-person encounter Office Visit Pushpa Thomas MD [facility] HYPERCHOLESTEROLEMI A- intolerant of all statins and zetia - In-person encounter Office Visit Pushpa Thomas MD [facility] HTN-11/11 CAROTID NEGCABG- SVG- DIAG open, 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 in HYPERCHOLESTEROLE [place]- intolerant of all statins and zetia VITAL SIGNS Date Observation Value Provider blood pressure, diastolic 75 mm[Hg] Ok debbie Marcelino blood pressure, systolic 130 mm[Hg] Ruth Ann arauz Marcelino pulse rate 60 /min Kiersten Marcelino oxygen saturation, oximetry 97 % Kiersten Marcelino respiratory rate E&M 15 /min Kiersten Marcelino Body Mass Index (Ratio) 33.90 kg/m2 Tessa juwan Marcelino weight E&M 250 [lb_av] Kiersten Macrelino blood pressure, diastolic 79 mm[Hg] Alejandro Danielle [...] blood pressure, systolic 120 mm[Hg] Kaity ri Deigo pulse rate 66 /min Michelle Willy piotr oxygen saturation, oximetry 98 % Michelle Diego respiratory rate E&M 16 /min Michelle larios weight E&M 228 [lb_av] Michelle Willy [facility] Body Mass Index (Ratio) 30.11 kg/m2 Anea clark [facility] blood pressure, diastolic 74 mm[Hg] An eatris [facility] blood pressure, systolic 124 mm[Hg] Ane atris [facility] pulse rate 53 /min Aneatris [facility] oxygen saturation, oximetry 98 % Aneatris [facility] respiratory rate E&M 18 /min Aneatri s [facility] weight E&M 222 [lb_av] Aneatris [facility] Body Mass Index (Ratio) 29.70 kg/m2 Anea clark [facility] blood pressure, diastolic 87 mm[Hg] An eatris [facility] blood pressure, systolic 140 mm[Hg] Ane atris [facility] pulse rate 85 /min Aneatris Brown oxygen saturation, oximetry 95 % Aneatris Brown respiratory rate E&M 18 /min Aneatri s Brown weight E&M 219 [lb_av] Aneatris Brown Body Mass Index (Ratio) 29.56 kg/m2 Anea clark [facility] blood pressure, diastolic 102 mm[Hg] An eatris Brown blood pressure, systolic 154 mm[Hg] Ane atris Brown pulse rate 80 /min Aneatris Brown oxygen saturation, oximetry 98 % Aneatris Brown respiratory rate E&M 18 /min Aneatri s [facility] weight E&M 218 [lb_av] Aneatris Brown Body Mass Index (Ratio) 29.81 kg/m2 Tessa ssa [facility] blood pressure, diastolic 70 mm[Hg] Ok debbie [facility] blood pressure, systolic 130 mm[Hg] Ruth Ann dailya [facility] pulse rate 48 /min Kiersten [facility] oxygen saturation, oximetry 97 % Kiersten Marcelino respiratory rate E&M 14 /min Kiersten [facility] weight E&M 219 [lb_av] Kiersten Marcelino Body [...] Mass Index (Ratio) 29.26 kg/m2 Travis Suero [employer] weight E&M 215 [lb_av] Melony Suero [employer] Body Mass Index (Ratio) 29.81 kg/m2 [place] [...] Index (Ratio) 30.96 kg/m2 Lacr etifernando Tadeo [employer] weight E&M 221.2 [lb_av] Lacretifernando Contreras ls [employer] blood pressure, diastolic, standing 80 mm [Hg] Jeronimo Chandler RN blood pressure, systolic, standing 140 mm [Hg] eJronimo Chandler RN blood pressure, diastolic, sitting 80 [...] Adalberto eph [place] pulse rate 55 /min [place] oxygen saturation, oximetry 97 % [place] respiratory rate E&M 16 /min [place] weight E&M 226 [lb_av] [place] blood pressure, diastolic, left arm 61 mm [Hg] [facility], systolic, left arm 114 mm [Hg] [facility] blood pressure, diastolic, right arm 58 m m[Hg] Denyean Soliz blood pressure, systolic, right arm 132 m m[Hg] Denyean Soliz blood pressure, diastolic 61 mm[Hg] Sandoval Soliz blood pressure, systolic 114 mm[Hg] Andi an Soliz pulse rate 58 /min [facility] oxygen saturation, oximetry 98 % [facility] respiratory rate E&M 16 /min Andiyean Soliz weight E&M 231 [lb_av] Denyean Soliz blood pressure, diastolic 75 mm[Hg] Chris Gordon blood pressure, systolic 140 mm[Hg] Abdullahi Gordon pulse rate 60 /min Liz Gordon respiratory rate E&M 16 /min Eze Gordon weight E&M 231 [lb_av] Liz oGrdon blood pressure, diastolic 79 mm[Hg] Elder Chandler [...] Jorge Ruiz international normalized ratio (INR) 1.0 [facility] blood glucose, random 96 mg/dL [facility] creatinine, serum 1.01 mg/dL [facility] urea nitrogen, blood 14 mg/dL [facility] potassium, serum 4.2 mmol/L [facility] sodium, serum 142 mmol/L [facility] TOTAL NON-HDL-C (LDL VLDL) 101 [facility] alanine aminotransferase (SGPT), serum 18 1/L [facility] aspartate aminotransferase (SGOT), serum 22 1/L [facility] cholesterol/HDL ratio, serum 4.2 [facility] cholesterol, serum 132 mg/dL [facility] triglyceride, target level 150 mg/dL [facility] HDL cholesterol, serum, target level 40 mg/dL [facility] triglyceride, serum, fasting 92 mg/dL [facility] Normal HDL cholesterol, serum 31 mg/dL [facility] Low LDL cholesterol, serum 82 mg/dL [facility] Normal LDL target level 100 mg/dL [facility] cholesterol, target level 200 mg/dL [facility] TOTAL NON-HDL-C (LDL VLDL) 101 [facility] alanine aminotransferase (SGPT), serum 18 1/L Lac[facility] aspartate aminotransferase (SGOT), serum 24 1/L [facility] cholesterol/HDL ratio, serum 3.7 [facility] cholesterol, serum 138 mg/dL [facility] triglyceride, target level 150 mg/dL [facility] HDL cholesterol, serum, target level 40 mg/dL [facility] triglyceride, serum, fasting 90 mg/dL Lui Tadeo [employer] Normal HDL cholesterol, serum 37 mg/dL Lui Tadeo [employer] Low LDL cholesterol, serum 83 mg/dL Lui Tadeo [employer] Normal LDL target level 100 mg/dL Lui Tadeo [employer] cholesterol, target level 200 mg/dL Lui Tadeo [employer] LDL cholesterol, serum 151 mg/dL [facility] cholesterol, serum 221 mg/dL [facility] triglyceride, serum, fasting 98 mg/dL [facility] HDL cholesterol, serum 33 mg/dL [facility] LDL cholesterol, serum 165 mg/dL [facility] cholesterol, serum 218 mg/dL [facility] thyroid stimulating hormone, serum 0.83 u[IU]/mL [facility] hemoglobin A1C, blood, as % of total hemoglobin 5.6 % [facility] anion gap, serum 8.9 [facility] globulins, serum, total 3.3 g/dL [facility] estimated glomerular filtration rate >60 [facility] albumin/globulin ratio, serum 1.2 [facility] protein, total, serum 7.4 g/dL [facility] albumin, serum 4.1 g/dL [facility] bilirubin, serum, total 0.55 mg/dL [facility] alkaline phosphatase, serum 137 1/L [facility] alanine aminotransferase (SGPT), serum 36 1/L [facility] aspartate aminotransferase (SGOT), serum 19 1/L [facility] calcium, serum 9.2 mg/dL [facility] blood glucose, fasting 102 mg/dL [facility] creatinine, serum 0.93 mg/dL [facility] urea nitrogen, blood 9.3 mg/dL [facility] carbon dioxide, serum, total 28 mmol/L [facility] chloride, serum 104 mmol/L [facility] potassium, serum 3.9 mmol/L [facility] sodium, serum 137 mmol/L [facility] platelet count 168 10*3/uL [facility] red blood cell distribution width 12.4 % [facility] mean corpuscular hemoglobin concentration, RBC 34.8 g/dL [facility] mean corpuscular hemoglobin, RBC 32.0 pg [facility] mean corpuscular volume, RBC 91.9 fL [facility] hematocrit, blood 42.2 % [facility] hemoglobin, blood 14.7 g/dL [facility] erythrocyte (RBC) count 4.59 10*6/mm3 [facility] monocytes as percent of blood leukocytes 8.9 % [facility] lymphocytes as percent of blood leukocytes 35.2 % [facility] leukocyte count, blood 5.9 10*3/mm3 [facility] cholesterol/HDL ratio, serum 3.3 [facility] triglyceride, serum, fasting 99 mg/dL [facility] HDL cholesterol, serum 39 mg/dL [facility] LDL cholesterol, serum 68 mg/dL [facility] cholesterol, serum 127 mg/dL [facility] albumin/globulin ratio, serum 1.4 [facility] protein, total, serum 6.6 g/dL [facility] albumin, serum 3.9 g/dL [facility] bilirubin, serum, total 0.7 mg/dL [facility] alkaline phosphatase, serum 103 1/L [facility] alanine aminotransferase (SGPT), serum 27 1/L [facility] aspartate aminotransferase (SGOT), serum 35 1/L [facility] calcium, serum 9.2 mg/dL [facility] blood glucose, fasting 109 mg/dL [facility] creatinine, serum 1.2 mg/dL [facility] urea nitrogen, blood 10 mg/dL [facility] carbon dioxide, serum, total 26 mmol/L [facility] chloride, serum 106 mmol/L [facility] potassium, serum 4.7 mmol/L [facility] sodium, serum 143 mmol/L [facility] platelet count 160 10*3/uL [facility] red blood cell distribution width 13.7 % [facility] mean corpuscular hemoglobin concentration, RBC 33.6 g/dL [facility] mean corpuscular hemoglobin, RBC 31.6 pg [facility] mean corpuscular volume, RBC 93.9 fL [facility] hematocrit, blood 49.4 % [facility] hemoglobin, blood 16.6 g/dL [facility] erythrocyte (RBC) count 5.3 10*6/mm3 [facility] neutrophils, segmented as percent of blood leukocytes 3.3 % [facility] monocyte count, blood 0.4 10*3/mm3 [facility] lymphocyte count, blood 2.7 10*3/mm3 [facility] neutrophils as percent of blood leukocytes 50.8 % [facility] monocytes as percent of blood leukocytes 6.7 % [facility] lymphocytes as percent of blood leukocytes 42.5 % [facility] leukocyte count, blood 6.4 10*3/mm3 [facility] cholesterol/HDL ratio, serum 3.3 [facility] triglyceride, serum, fasting 99 mg/dL [facility] HDL cholesterol, serum 39 mg/dL [facility] LDL cholesterol, serum 68 mg/dL [facility] cholesterol, serum 127 mg/dL [facility] albumin/globulin ratio, serum 1.4 [facility] protein, total, serum 6.6 g/dL [facility] albumin, serum 3.9 g/dL [facility] bilirubin, serum, total 0.7 mg/dL [facility] alkaline phosphatase, serum 103 1/L [facility] alanine aminotransferase (SGPT), serum 35 1/L [facility] aspartate aminotransferase (SGOT), serum 27 1/L [facility] calcium, serum 9.2 mg/dL [facility] blood glucose, fasting 109 mg/dL [facility] creatinine, serum 1.2 mg/dL [facility] Joseph urea nitrogen, blood 10 mg/dL [facility] carbon dioxide, serum, total 26 mmol/L [facility] chloride, serum 106 mmol/L [facility] potassium, serum 4.7 mmol/L [facility] sodium, serum 143 mmol/L [facility] platelet count 160 10*3/uL [facility] red blood cell distribution width 13.7 % [facility] Joseph mean corpuscular hemoglobin concentration, RBC 33.6 g/dL [facility] mean corpuscular hemoglobin, RBC 31.6 pg [facility] mean corpuscular volume, RBC 93.9 fL [facility] hematocrit, blood 49.4 % [facility] hemoglobin, blood 16.6 g/dL [facility] erythrocyte (RBC) count 5.3 10*6/mm3 [facility] Joseph neutrophils, segmented as percent of blood leukocytes 3.3 % [facility] Joseph monocyte count, blood 0.4 10*3/mm3 [facility] lymphocyte count, blood 2.7 10*3/mm3 [facility] neutrophils as percent of blood leukocytes 50.8 % [facility] monocytes as percent of blood leukocytes 6.7 % [facility] lymphocytes as percent of blood leukocytes 42.5 % [facility] leukocyte count, blood 6.4 10*3/mm3 [facility] international normalized ratio (INR) 1.1 [facility] prothrombin time (patient) 10.5 s [facility] platelet count 162 THOUSAND/UL [facility] 140-400 Normal red blood cell distribution width 13.0 % [facility] 11.0-15.0 Normal mean corpuscular hemoglobin concentration, RBC [...] 10-35 Normal alkaline phosphatase, serum 102 [facility] Normal bilirubin, serum, total 0.6 mg/dL [...] 1 tablet by mouth daily - 08/30 Mcihelle Crotez FLOMAX 0.4 MG ORAL CAPSULE completed 1 capsule by mouth daily - 02/08 Peri Champagne LIVALO 4 MG ORAL TABLET completed One tablet daily - 10/27 Amilcar Manacotushar RAPAFLO 8 MG ORAL CAPSULE completed 1 capsule by mouth daily - 10/27 Amilcar Manacotushar CHANTIX STARTING MONTH SHAHID 0.5 MG X 11 & 1 MG X 42 [facility] completed One pack. Take as directed. 07/08 [...] patient education and counseling yes Melony Pio [employer] smoking history, tot al pack/year 34 Melony Pio [employer] smoking/tobacco cess ation, patient education and counseling yes Pushpa Thomas MD drug use none Pushpa Thomas MD social history reviewed E&M reviewed Pushpa Thomas MD smoking history, tot al pack/day 1 Michelle Cortez smoking history, tot al pack/year 36 Michelle Cortez physical exercise, frequency, days per week yes Lui Tadeo [employer] smoking status current every day smoker L rjbutch Carlyle [employer] cigarette use 1 Lacrbutch Barretowilson breen [employer] social history reviewed E&M reviewed Lui Tadeo [employer] smoking history, tot al pack/year 34 Lui Carlyle [employer] social history reviewed E&M reviewed Jeronimo Chandler [...] person. Mood and affect are normal. Pushpa Thmoas MD assessment of judgme nt and insight [...] Payer name Policy type / Coverage type Viola red green party ID [facility] DUAL COMPLETE HMO O [id number] TREATMENT PLAN Date Name Performer Cardiology [...] tab daily Toprol Xl 25 Mg Oral [id number] (Metoprolol succinate) ..... Take one pill a [...] this problem includes: Toprol Xl 50 Mg [id number]-[id number] (Metoprolol succinate) ..... Take one pill a day Aspirin 325 Mg Tabs (Aspirin) ..... One tab daily Pushpa Thomas MD Follow Up: T he following medications were removed from the medication list: Crestor 10 Mg Tabs (Rosuvastatin calcium) ..... One tab. daily His updated medication list for this problem includes: Toprol Xl 50 Mg [id number] (Metoprolol succinate) ..... Take one pill a [...] the RCA. N ormal LV systolic function. [facility] (10/11/2008) C arotid Doppler/Duplex: Mild plaque with [...] this problem includes: Toprol Xl 50 Mg [id number] (Metoprolol succinate) ..... Take one pill a [...] this problem includes: Toprol Xl 50 Mg Ys54m-vdw (Metoprolol succinate) ..... Take one pill a day Aspirin 325 Mg Tabs (Aspirin) ..... One tab daily Crestor 10 Mg Tabs (Rosuvastatin calcium) ..... One tab. daily Orders: E KG (CPT-41908) BP today: 128/86 Prior BP: 124/69 (10/26/2012) [...] the RCA. N ormal LV systolic function. [facility] (10/11/2008) C arotid Doppler/Duplex: Mild plaque with [...] this problem includes: Toprol Xl 50 Mg Rr44s-bhs (Metoprolol succinate) ..... Take one pill a [...] this problem includes: Toprol Xl 50 Mg Ml27s-uak (Metoprolol succinate) ..... Take one pill a day Aspirin 325 Mg Tabs (Aspirin) ..... One tab daily Pushpa Thomas MD Follow up: T he following medications were removed from the medication list: Lipitor 20 Mg Tabs (Atorvastatin calcium) ..... One tab po daily His updated medication list for this problem includes: Toprol Xl 50 Mg Le86k-nbn (Metoprolol succinate) ..... Take one pill a day Aspirin 325 Mg Tabs (Aspirin) ..... One tab daily Orders: E KG (CPT-40405) BP today: 128/86 Prior BP: 124/69 (10/26/2012) [...] the RCA. N ormal LV systolic function. [facility] (10/11/2008) C arotid Doppler/Duplex: Mild plaque with [...] this problem includes: Toprol Xl 50 Mg Sd44v-etr (Metoprolol succinate) ..... Take one pill a [...] the RCA. N ormal LV systolic function. [facility] (10/11/2008) Pushpa Thomas MD Lipid management: H [...] this problem includes: Toprol Xl 50 Mg Am25p-zct (Metoprolol succinate) ..... Take one pill a [...] this problem includes: Toprol Xl 50 Mg Wj10c-ncc (Metoprolol succinate) ..... Take one pill a [...] the RCA. N ormal LV systolic function. [facility] (10/11/2008) C HOL: 138 (07/08/2012) LDL: 83 [...] this problem includes: Toprol Xl 50 Mg Ki79x-fzv (Metoprolol succinate) ..... Take one pill a [...] the RCA. N ormal LV systolic function. [facility] (10/11/2008) C HOL: 138 (07/08/2012) LDL: 83 [...] this problem includes: Toprol Xl 50 Mg Lh09e-vxf (Metoprolol succinate) ..... Take one pill a day Aspirin 325 Mg Tabs (Aspirin) ..... One tab daily BP today: 143/82 P rior BP: 134/78 (10/28/2011) Labs Reviewed: C reat: 0.93 (06/06/2011) C hol: 218 (06/06/2011) HDL: 33 (06/06/2011) LDL: 165 (06/06/2011) T (06/06/2011) Pushpa Thomas MD follow up: H is updated medication list for this problem includes: Toprol Xl 50 Mg Jm39a-dnt (Metoprolol succinate) ..... Take one pill a [...] the RCA. N ormal LV systolic function. [facility] (10/11/2008) C HOL: 218 (06/06/2011) LDL: 165 [...] this problem includes: Toprol Xl 50 Mg Of33o-tmj (Metoprolol succinate) ..... Take one pill a day Aspirin 325 Mg Tabs (Aspirin) ..... One tab daily Lipitor 20 Mg Tabs (Atorvastatin calcium) ..... One tab po daily Orders: E KG (CPT-49231) BP today: 143/82 Prior BP: 134/78 (10/28/2011) [...] the RCA. N ormal LV systolic function. [facility] (10/11/2008) C HOL: 218 (06/06/2011) LDL: 165 [...] this problem includes: Toprol Xl 50 Mg [id number]-hhh (Metoprolol succinate) ..... Take one pill a [...] the RCA. N ormal LV systolic function. [facility] (10/11/2008) C HOL: 218 (06/06/2011) LDL: 165 [...] the RCA. N ormal LV systolic function. [facility] (10/11/2008) C HOL: 218 (06/06/2011) LDL: 165 [...] month follow-up Pushpa Grewal 6 month follow-up [facility] Echo: H is updated medication list for [...] (04/20/2009) Pushpa Thomas MD 6 month follow-up [facility] Echo: H is updated medication list for [...] the RCA. N ormal LV systolic function. [facility] (10/11/2008) C HOL: 127 (04/20/2009) LDL: 68 [...] ..... One tab daily Orders: E KG (CPT-74637) BP today: 120/58 Prior BP: 114/61 (11/05/2010) [...] the RCA. N ormal LV systolic function. [facility] (10/11/2008) C HOL: 127 (04/20/2009) LDL: 68 [...] the RCA. N ormal LV systolic function. [facility] (10/11/2008) C HOL: 127 (04/20/2009) LDL: 68 [...] the RCA. N ormal LV systolic function. [facility] (10/11/2008) C HOL: 127 (04/20/2009) LDL: 68 (04/20/2009) HDL: 39 (04/20/2009) T (04/20/2009) H gb: 16.6 (04/20/2009) HCT: 49.4 (04/20/2009) Platelets: 162 THOUSAND/UL (09/07/2008) R BC: 5.3 (04/20/2009) WBC: 6.4 (04/20/2009) B UN: 10 (04/20/2009) Creat: 1.2 (04/20/2009) Glucose: 109 (04/20/2009) N a+: 143 (04/20/2009) K+: 4.7 (04/20/2009) Cl: 106 (04/20/2009) PT: 10.5 (09/19/2008) INR: 1.1 (09/19/2008) uPshpa Thomas MD cath follow-up: H is updated [...] . Myocardial scintigraphy demonstrates inferior wall ischemia. [facility] (09/08/2008) C ardiac Cath: Complete revascularization with the LAD territory to a vein graft. A tretic VALDES. 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 N ormal LV systolic function. [facility] (10/11/2008) C HOL: 170 (09/07/2008) LDL: 97 [...] . Myocardial scintigraphy demonstrates inferior wall ischemia. [facility] (09/08/2008) C ardiac Cath: Complete revascularization with the LAD territory to a vein graft. Atretic VALDES. 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 N ormal LV systolic function. [facility] (10/11/2008) C HOL: 170 (09/07/2008) LDL: 97 [...] . Myocardial scintigraphy demonstrates inferior wall ischemia. [facility] (09/08/2008) C ardiac Cath: Complete revascularization with the LAD territory to a vein graft. Atretic VALDES. 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 N ormal LV systolic function. [facility] (10/11/2008) C HOL: 170 (09/07/2008) LDL: 97 [...] . Myocardial scintigraphy demonstrates inferior wall ischemia. [facility] (09/08/2008) C ardiac Cath: Complete revascularization with the LAD territory to a vein graft. Atretic VALDES. 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 N ormal LV systolic function. [facility] (10/11/2008) C HOL: 170 (09/07/2008) LDL: 97 [...] Name Provider Procedure Notes S tatus SNOMED-CT: 24284161 Physical Exam, Performed: Pulse Exam of Foot Pushpa Thomas MD completed SNOMED-CT: [id number] Current Medications Documented Pushpa Thomas MD completed FVC - 85257 Pushpa Thomas MD complete d FRC - 74557 Pushpa Thomas MD complete d DLCO - 53020 Pushpa Thomas MD complet ed Lipid Strip [...]
--- OUTSIDE RECORDS SUMMARY | 2024-10-09 08:43 | XMS_ITS | Clinical Summary ---
Author Organization [facility] [address] Address [address] [place] [address] Care Team Providers Care Job Change Crew Member Name Role Phone Teodoro Garcia MD Primary Care Provider +1 [phone] Allergies Active Allergy Reactions Criticality Noted Date Comments Erythromycin Ethyl Alcohol Unknown Ezetimibe Muscle pain Medium Simvastatin Nausea And Vomiting Low 07/20/2012 Fcpvwte-Nfu-Yej Reductase Inhibitors High Medications pantoprazole DR (PROTONIX) [...] a associated with type 2 diabetes mellitus ([facility]) 03/08/2019 Sick sinus syndrome 01/12/2018 Atrial bigeminy 12/22/2017 Ventricular bigeminy 09/08/2017 PVC's (premature ventricular contractions) 11/21 Overview (11/29/2016): Frequent PVCs Hyperglycemia 11/21/2016 Overview (11/29/2016): Elevated blood sugar Premature atrial contraction 11/21/2016 Overview (11/29/2016): PAC (premature atrial contraction) Muscle pain 10/11/2016 Overview (11/22/2016): Myalgia Bradycardia 10/11/2016 Overview (11/22/2016): Bradycardia 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 01/29/2016 Overview (10/04/2016): Coronary artery disease involving jackson coronary artery of jackson heart without angina pectoris Dyspnea on exertion [...] Department Care Team Description 08/17/2024 8:30 AM SPEECH THERAPIST Office Visit [facility] Cardiology [address] [place] [address] Guillaume Villafana MD 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 (Primary Dx) [...] on file Legal Sex Male 3:43 AM SPEECH THERAPIST Gender Identity Not on file Sexual Orientation Not on file Obstetrics History Last Filed Vital Signs Vital Sign Reading Time Taken Comments Blood Pressure 118/60 08/17/2024 8:20 AM SPEECH THERAPIST Pulse 54 08/17/2024 8:20 AM SPEECH THERAPIST Temperature 36.7 C (98.1 F) 10/28/2023 7:22 AM CDT Respiratory Rate 12 03/07/2017 8:35 AM CDT Oxygen Saturation 98% 08/17/2024 8:20 AM SPEECH THERAPIST Inhaled Oxygen Concentration - - Weight 89.4 kg (197 lb) 08/17/2024 8:20 AM SPEECH THERAPIST Height 182.9 cm (6') 08/17/2024 8:20 AM SPEECH THERAPIST Body Mass Index 26.72 08/17/2024 8:20 AM SPEECH THERAPIST Plan of Treatment Health Maintenance Due Date [...] history exists Medical Devices Implanted Type Area Special Education Educational Assistant Device Identifier Shelf Expiration Date Model / Serial / Lot Other - See Comments Other - see comments Left: Knee Other - See Comments Other - see comments Right: Knee Medtronic [facility] Vasc Surgery 3.0 X 18mm Norman [place] Rx Coronary Stent [id number] - [id number] Implanted:Qty : 1 on 10/28/2023 by Abigail Saxena MD at [facility] [facility] Card Vasc Surgery 07/26/2026 [id number] / / [id number] [employer] Angio-Seal Vip 6fr Closere Device [id number] - [id number] Implanted:Qty : 1 on 10/28/2023 by Abigail Saxena MD at [facility] [employer] [id number] / / Procedures Procedure Name Priority Date/Time Associated Diagnosis Comments LIPID PANEL Routine 08/17/2024 8:34 AM SPEECH THERAPIST EGFR Routine 10/28/2023 7:13 AM CDT HEMOGLOBIN A1C Routine 2017 from Last 3 Months or Most Recently Relevant to Health Maintenance Results * Lipid panel (08/17/2024 8:34 AM SPEECH THERAPIST) SCRIBED Cholesterol, Total <100 <100 EXTERNAL LAB SCRIBED HDL 19 >40 EXTERNAL LAB SCRIBED LDL 63.6 <100 EXTERNAL LAB SCRIBED Triglycerides 82 <150 EXTERNAL LAB Blood 08/17/2024 8:34 AM SPEECH THERAPIST us Guillaume Villafana MD LAB BLOOD ORDERABLES [...] MD LAB BLOOD ORDERABLES Final Result STEPHANIE [address] [place] [address] * Hemoglobin A1c (2017) Blood specimen (specimen) Historical Provider LAB BLOOD ORDERABLES Norah l Result from Last 3 Months or Most Recently Relevant to Health Maintenance Insurance [employer] MEDICARE Advance Directives For more information, please contact: [phone] * Full Code (Latest Code Status on File) Date Activated Date Inactivated Comments 10/28/2023 10:03 AM 10/28/2023 4:45 PM Care Teams Job Change Crew Member Relationship Specialty Start Date End Date Teodoro Garcia MD PCP - General Family Practice 03/19/23
--- OUTSIDE RECORDS SUMMARY | 2024-10-09 08:43 | XMS_ITS | Continuity of Care Document ---
Author Organization [facility] Address [address] [place] [address] [address] [place] [address] Phone Care Team Providers Care Engraver Name Role Phone Arminda Bauer Unavailable Unavailable Procedures Procedure Date Remove Foreign Body From Eye Advance Directives Directive Yes / No Effective Date File Name No Information Encounters Encounter Description Practice Location Reason(s) For Visit Diagnoses Date Provider Providers Copied on Encounter [facility], [address] [place] [address] [address], [place], [place], [id number], [place] tel:[phone] [facility] No Information [address] Lizette Hilliard. [address] , [address], [place], [address], [place]. tel:[phone] Family History Family Member Type Diagnosis Age At Onset No Information Payers Payer name Insurance type Covered alliance party ID Authoriza tion(s) No Information Social [...]
--- OUTSIDE RECORDS SUMMARY | 2024-10-09 08:43 | XMS_ITS | Referral Summary ---
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 (Primary Dx) from Last 3 Months Allergies Active Allergy Reactions Criticality Noted Date Comments Erythromycin Ethyl Alcohol Unknown Ezetimibe Muscle pain Medium Simvastatin Nausea And Vomiting Low 07/20/2012 Vntassi-Ysy-Kwu Reductase Inhibitors High Medications pantoprazole DR (PROTONIX) [...] artery disease of n ative artery of hamilton heart with stable angina pectoris 01/29/2016 Overview (10/04/2016): Coronary artery disease involving hamilton coronary artery of hamilton heart without angina pectoris Dyspnea on exertion [...] on file Legal Sex Male 3:43 AM HEALTHCARE APPLICATIONS ANALYST Gender Identity Not on file Sexual Orientation Not on file Last Filed Vital Signs Vital Sign Reading Time Taken Comments Blood Pressure 118/60 08/17/2024 8:20 AM HEALTHCARE APPLICATIONS ANALYST Pulse 54 08/17/2024 8:20 AM HEALTHCARE APPLICATIONS ANALYST Temperature 36.7 C (98.1 F) 10/28/2023 7:22 AM CDT Respiratory Rate 12 03/07/2017 8:35 AM CDT Oxygen Saturation 98% 08/17/2024 8:20 AM HEALTHCARE APPLICATIONS ANALYST Inhaled Oxygen Concentration - - Weight 89.4 kg (197 lb) 08/17/2024 8:20 AM HEALTHCARE APPLICATIONS ANALYST Height 182.9 cm (6') 08/17/2024 8:20 AM HEALTHCARE APPLICATIONS ANALYST Body Mass Index 26.72 08/17/2024 8:20 AM HEALTHCARE APPLICATIONS ANALYST Plan of Treatment Not on file Medical Devices Implanted Type Area Annealing Oven Operator Device Identifier Shelf Expiration Date Model / Serial / Lot Other - See Comments Other - see comments Left: Knee Other - See Comments Other - see comments Right: Knee Medtronic Card Vasc Surgery 3.0 X 18mm Norman [place] Rx Coronary Stent [id number] - [id number] Implanted:Qty : 1 on 10/28/2023 by Abigail Saxena MD at [facility] Medtronic Card Vasc Surgery 07/26/2026 [id number] / / [id number] [employer] Angio-Seal Vip 6fr Closere Device [id number] - [id number] Implanted:Qty : 1 on 10/28/2023 by Abigail Saxena MD at [facility] [employer] [id number] / / Procedures Procedure Name Priority Date/Time Associated Diagnosis Comments LIPID PANEL Routine 08/17/2024 8:34 AM HEALTHCARE APPLICATIONS ANALYST EGFR Routine 10/28/2023 7:13 AM CDT HEMOGLOBIN A1C Routine 2017 from Last 3 Months or Most Recently Relevant to Health Maintenance Results * Lipid panel (08/17/2024 8:34 AM HEALTHCARE APPLICATIONS ANALYST) SCRIBED Cholesterol, Total <100 <100 EXTERNAL LAB SCRIBED HDL 19 >40 EXTERNAL LAB SCRIBED LDL 63.6 <100 EXTERNAL LAB SCRIBED Triglycerides 82 <150 EXTERNAL LAB Blood 08/17/2024 8:34 AM HEALTHCARE APPLICATIONS ANALYST us Guillaume Villafana MD LAB BLOOD ORDERABLES [...] MD LAB BLOOD ORDERABLES Final Result STEPHANIE [address] Department of [employer] [place] [address] * Hemoglobin A1c (2017) Blood specimen (specimen) us Historical Provider LAB BLOOD ORDERABLES Norah canas Result from Last 3 Months or Most Recently Relevant to Health Maintenance Insurance [employer] MEDICARE Advance Directives For more information, please contact: [phone] * Full Code (Latest Code Status on File) Date Activated Date Inactivated Comments 10/28/2023 10:03 AM 10/28/2023 4:45 PM Care Teams Paint Spray Inspector Relationship Specialty Start Date End Date Teodoro Garcia MD PCP - General Family Practice 03/19/23
--- OUTSIDE RECORDS SUMMARY | 2024-10-09 08:43 | XMS_ITS | Clinical Summary ---
Author Organization [facility] Address [address] [place] [address] Care Team Providers Care House Manager Name Role Phone Ace Hanna MD Primary Care Provider [phone]- [phone] Source Comments [facility],non-owned Affiliates and Associated Physician Practices is amultiple site organization consisting of ambulatory clinics and hospital sitesin [place], [place], [place] and [place]. This disclosure is being madepursuant to the Care Everywhere program and may not contain all information available regarding this patient. Last updated 18.[facility] Provade Allergies No known active allergies Medications * Be aware that medications may not be up to date on this document. Alwaysverify current medications with the patient. metoprolol tartrate IR (LOPRESSOR) 100 MG tablet Active atorvastatin (LIPITOR) 20 MG tablet Active Tamsulosin HCl (FLOMAX PO) Active aspirin 325 MG tablet Active Ranitidine HCl (ZANTAC 75 PO) Activ e Active Problems Problem Noted Date Diagnosed Date [...] at Not on file Legal Sex Male 9:18 AM CDT Gender Identity Not on file Sexual Orientation Not on file Last Filed Vital Signs Vital Sign Reading Time Taken Comments Blood Pressure 113/80 07/18/2015 12:00 PM [employer] Pulse 62 07/18/2015 12:00 PM [employer] Temperature 36.8 C (98.3 F) 07/18/2015 11:32 AM [employer] Respiratory Rate 15 07/18/2015 12:00 PM [employer] Oxygen Saturation 94% 07/18/2015 12:00 PM [employer] Inhaled Oxygen Concentration - - Weight 111.1 kg (245 lb) 07/18/2015 9:34 AM [employer] Height 185.4 cm (6' 1 ) 07/18/2015 9:34 AM [employer] Body Mass Index 32.32 07/18/2015 9:34 AM [employer] Plan of Treatment Health Maintenance Due Date Last Done Comments DTAP/TDAP/TD VACCINES (1 - Tdap) 1962 PNEUMOCOCCAL VACCINE 50+ (1 of 2 - PCV) 1962 ZOSTER VACCINE (1 of 2) 1993 Respiratory Syncytial Virus (RSV) Vaccine Pt: or over 60 yrs (1 - 1-dose 75+ series) 2018 COVID-19 VACCINE ( - 2023-2 5 season) 2024 DEPRESSION SCREENING 06/30/2024 MEDICARE [...] on patient's age to complete this topic Insurance [facility] [place] [address] [facility] [place] [address] Care Teams House Manager Relationship Specialty Start Date End Date Ace Hanna MD [address] [place] [address] PCP - General Family Medicine 11/25/12
--- OUTSIDE RECORDS SUMMARY | 2024-10-09 08:44 | XMS_ITS | Clinical Summary ---
Author Organization [facility] Address [address] [place] [address] Phone Care Team Providers Care Senior Laboratory Technician Name Role Phone Ace Hanna MD Primary Care Provider [phone]- [phone] Allergies Active Allergy Reactions Criticality Noted Date [...] on file Legal Sex Male 5:58 AM ART HANDLER Gender Identity Not on file Sexual Orientation Not on file Occupation Industry Job Start Date Job End Date Not on file Not on file Not on file Not on file Last Filed Vital Signs Vital Sign Reading Time Taken Comments Blood Pressure 130/84 10/28/2016 1:24 PM CDT Pulse 60 07/17/2016 10:26 AM ART HANDLER Temperature 37 C (98.6 F) 07/17/2016 10:25 AM ART HANDLER Respiratory Rate 18 02/16/2013 10:09 AM CDT Oxygen Saturation 97% 07/17/2016 10:26 AM ART HANDLER Inhaled Oxygen Concentration - - Weight 111.6 [...] (#1) 2024 Medical Devices Implanted Type Area Airport Ramp Attendant Device Identifier Shelf Expiration Date Model / Serial / Lot Log [id number] - Brachytherapy Implants - 1 - Seed Calibrated 1-125 [id number] Implanted:Qty: 1 on 03/12/2011 at [facility] Bilateral: Prostate CR BARD- UROL DIV 06/29/2012 [id number] / / [id number] Description:total # [place]: 22total # Seeds:78 Insurance [facility] [id number] Advance Directives For more information, please contact: [phone] * Full Code (Latest Code Status on File) Date Activated Date Inactivated Comments 03/12/2011 1:20 PM 03/13/2011 1:33 PM * Full Code Date Activated Date Inactivated Comments 03/12/2011 7:51 AM 03/12/2011 1:20 PM Care Teams Senior Laboratory Technician Relationship Specialty Start Date End Date Ace Hanna MD [address] [place] [address] PCP - General Family Practice 07/05/10
--- OUTSIDE RECORDS SUMMARY | 2024-10-09 08:44 | XMS_ITS | Encounter Summary ---
Author Organization [facility] Address [address] [place] [address] Care Team Providers Care Material Spreader Name Role Phone Teodoro Garcia MD Primary Care Provider [phone] [phone] Encounter Details Date Type Department Care Team (Late st Contact Info) Description 09/29/2023 Orders Only [facility] [address] [place] [address] Scanning, Provider Social History Tobacco Use Types [...] on file Legal Sex Male 3:43 AM SECTION PLOTTER OPERATOR Gender Identity Not on file Sexual [...] on filedocumented in this encounter Care Teams Material Spreader Relationship Specialty Start Date End Date Teodoro Garcia MD PCP - General Family Practice 03/19/23 documented as of this encounter
[2024-10-09 08:46] VITALS: BP 130/74; PULSE 55; RESP 16; TEMP 36.6; O2SAT 97
--- NOTE | 2024-10-09 08:48 | ECG_ITS ---
Test Date: 2024-10-09 08:56:08 Measurements Intervals [place] Rate: 40 P: 0 CA: 0 QRS: 114 QRSD: 150 T: 3 QT: 456 QTc: 374 Interpretive Statements SLOW SINUS OR ECTOPIC ATRIAL BRADYCARDIA WITH NONCONDUCTED ATRIAL PREMATURE COMPLEX RIGHT BUNDLE BRANCH BLOCK LEFT POSTERIOR FASCICULAR BLOCK BASELINE ARTIFACT- I, II, III, AVR, AVL ,AVF, V3 ABNORMAL ECG No previous ECG available for comparison Electronically Signed On 10-09-2024 09:57:32 CDT by Aquiles Posey D.O.
[2024-10-09 09:03] VITALS: BP 111/72; BP 136/71; BP 140/74; PULSE 42; PULSE 44; PULSE 60
[2024-10-09 09:30] VITALS: BP 126/72; PULSE 46; RESP 16; TEMP 36.6; O2SAT 100
--- NOTE | 2024-10-09 09:44 | ED_ITS ---
HPI - General Adult General Chief complaint: Head Injury Stated complaint: HEAD INJURY [facility] Time Seen by Provider: 10/09/24 08:59 History of Present Illness HPI narrative: This is an 79-year-old male presenting after ground level fall. Patient is on Brilinta for heart disease. Patient was getting up from his sofa when he felt his right leg give out fell backwards striking the back of his head. No loss of consciousness. No neurologic deficits. No other complaints this time. Related Data Home Medications ?Medication ?Instructions ?Recorded ?Confirmed ?Last Taken ?Type hydrochlorothiazide 25 mg tablet 12.5 mg PO DAILY 05/04/19 07/28/24 Unknown History aspirin 81 mg tablet,delayed 81 mg PO DAILY 07/01/19 07/28/24 Unknown History release (Adult Aspirin Regimen) acetaminophen 325 mg tablet 650 mg PO Q4H PRN Pain 08/10/19 07/28/24 Unknown History (Tylenol) metoprolol tartrate 25 mg tablet 12.5 mg PO BID 10/22/23 07/28/24 Unknown History ticagrelor 60 mg tablet (Brilinta) 60 mg PO Q12H 04/13/24 07/28/24 Unknown History rosuvastatin 10 mg tablet 20 mg PO DAILY 05/25/24 07/28/24 Unknown History Allergies Allergy/AdvReac Type Severity Reaction Status Date / Time simvastatin Allergy Mild Leg cramp Verified 10/09/24 08:41 Dzcwvck-VCI-WdJ Reductase Allergy Mild Cramping Verified 10/09/24 08:41 Inhibitor (Prjhurj-Mpl-Iks of the Reductase Inhibitor) Muscles PMFSH Past Medical History Medical History Arthritis Diarrhea Right shoulder pain Weight loss History of prostate cancer Treated with radiation pellets Primary osteoarthritis of left hip Left worse than right GERD (gastroesophageal reflux disease) CAD (coronary artery disease) History of 2 vessel CABG Afib Intermittent Peptic ulcer Hyperlipidemia Diabetes 1.5, managed as type 2 Hypertension Surgical History Surgical History History of hernia repair History of cholecystectomy History of total bilateral knee replacement History of coronary artery bypass graft 2 vessel CABG Family History Family History Sibling Breast cancer Patient's sister is in good health Other Malignant neoplasm of prostate Arthritis Breast cancer Lung cancer Carcinoma of colon Mother Mesothelioma Hypertension High cholesterol Grandparent Diabetes mellitus Social History Social History Social History: Patient lives with his and she is the power of phonograph mechanic for healthcare. He desires to be full code. He has 3 sons and 1 stepdaughter. 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 Smoking packs per day: 1 Smoking cigarettes per day: 20.0 Years smoked: 50 Smoking pack-years: 50.00 Smoking status: Former smoker Tobacco type: cigarettes Second hand tobacco smoke exposure: No Smoking end date: 04/14/24 Additional smoking assessment comments: quit for 30 years and then started back up 2020 Alcohol intake: current Alcohol use details: social beers Substance use: never Substance use type: does not use and unknown Do You Feel Safe in your Home?: Yes Lack of Transportation: No Lack of Food: Never True Current Housing: I Have Housing Concerned About Future Housing: No Difficulty Paying Gas/Electric Bills: No Difficulty Paying for Meds: No Currently Unemployed: No Education: Decline to Answer Difficulty w/ Childcare or Family Care: No Living arrangements: with family Occupation/Education: retired Gender identity (if verbalized by the patient): Male Sexual Orientation (if Verbalized by the Patient): Straight or Heterosexual Spiritual care concerns: No Agree to blood products: Yes Exam Narrative: APPEARANCE: No apparent distress. Head: Small hematoma to the occipital scalp EYES: EOMI, NOSE: Atraumatic NECK: Trachea midline RESPIRATORY: No increased rate of breathing CTAB CARDIOVASCULAR: RRR, ABDOMINAL: Non-distended MUSCULOSKELETAl: No obvious deformities NEURO: Alert. Cranial nerves 2-12 grossly intact. Sensation light touch, motor function cerebellar function intact for 4 extremities. Gait exam was normal. SKIN:: Warm, dry. Normal color PSYCHIATRIC: Normal affect Course Vital Signs Vital signs: Vital Signs Temperature 97.9 F 10/09/24 08:46 Pulse Rate 55 L 10/09/24 08:46 Respiratory Rate 16 10/09/24 08:46 Blood Pressure 130/74 10/09/24 08:46 Pulse Oximetry 97 10/09/24 08:46 Oxygen Delivery Room Air 10/09/24 08:46 Temperature 97.9 F 10/09/24 08:46 Pulse Rate 60 10/09/24 09:03 Respiratory Rate 16 10/09/24 08:46 Blood Pressure 111/72 10/09/24 09:03 Pulse Oximetry 97 10/09/24 08:46 Oxygen Delivery Room Air 10/09/24 08:46 Medical Decision Making MDM Narrative Medical decision making narrative: -Course: 79-year-old male presenting after a ground level fall. CT head C- spine negative for acute bleed. Patient is bradycardic on arrival. Patient's has been bradycardic for many years. He is on metoprolol. His blood pressures are stable. He did not a syncopal event. Bradycardia is chronic and does not appear to be related to his fall today. Discussed admission versus discharge he would prefer to follow-up with his entry level accounting clerk outpatient. Patient be discharged with return precautions. -DDX includes but is not limited to: Intracranial hemorrhage, traumatic brain injury dehydration Vital Signs Vital Signs: Vital Signs Temperature 97.9 F 10/09/24 08:46 Pulse Rate 55 L 10/09/24 08:46 Respiratory Rate 16 10/09/24 08:46 Blood Pressure 130/74 10/09/24 08:46 Pulse Oximetry 97 10/09/24 08:46 Oxygen Delivery Room Air 10/09/24 08:46 Temperature 97.9 F 10/09/24 08:46 Pulse Rate 60 10/09/24 09:03 Respiratory Rate 16 10/09/24 08:46 Blood Pressure 111/72 10/09/24 09:03 Pulse Oximetry 97 10/09/24 08:46 Oxygen Delivery Room Air 10/09/24 08:46 Discharge Plan Discharge Clinical Impression: Fall, Bradycardia Patient Disposition: Home Condition: Stable Instructions: Antibiotic Form, Fall Prevention (ED) Additional Instructions: You were seen emergency department for fall. The CT of your head and cervical spine were negative for acute injuries. Please follow-up with your entry level accounting clerk. He can return to ED if you develop any new or worsening symptoms. Patient Language: Tajik Prescriptions: No Action acetaminophen [Tylenol] 325 mg Tablet 650 mg PO Q4H PRN (Reason: Pain) Rx Instructions: 650 mg orally as needed aspirin [Adult Aspirin Regimen] 81 mg tablet,delayed release (DR/EC) 81 mg PO DAILY Brilinta 60 mg tablet 60 mg PO Q12H pantoprazole 40 mg tablet,delayed release (DR/EC) See Rx Instructions .ROUTE .COMPLEX Qty: 90 3RF Dose Instruction: TAKE ONE TABLET BY MOUTH ONCE DAILY Rx Instructions: TAKE ONE TABLET BY MOUTH ONCE DAILY hydrochlorothiazide 25 mg tablet 12.5 mg PO DAILY metoprolol tartrate 25 mg tablet 12.5 mg PO BID rosuvastatin 10 mg tablet 20 mg PO DAILY (DME) blood-glucose meter [OneTouch Verio Flex meter] Misc See Rx Instructions .ROUTE .MEDSUPPLY Qty: 1 0RF Rx Instructions: As directed (DME) lancets [OneTouch Delica Lancets] 30 gauge misc See Rx Instructions .ROUTE .MEDSUPPLY Qty: 200 0RF Rx Instructions: use to test daily (DME) OneTouch Verio test strips Strip See Rx Instructions .ROUTE .MEDSUPPLY Qty: 200 1RF Rx Instructions: use to test daily ezetimibe 10 mg tablet See Rx Instructions .ROUTE .COMPLEX Qty: 90 1RF Dose Instruction: TAKE 1 TABLET BY MOUTH AT BEDTIME Rx Instructions: TAKE 1 TABLET BY MOUTH AT BEDTIME Follow-up/Referrals: Cori Denise APRN [Primary Care Provider] -
[2024-10-09] MEDS: LACTATED RINGERS 1,000 ML 999 ML IV CONT (09:52)
--- OUTSIDE RECORDS SUMMARY | 2024-10-09 09:56 | XMS_ITS | Clinical Summary ---
Author Organization [facility] Address [address] [address] Care Team Providers Care Glove Cuffer Name Role Phone Ace Hanna MD Primary Care Provider [phone] Source Comments [facility],non-owned Affiliates and Associated Physician Practices is amultiple site organization consisting of ambulatory clinics and hospital sitesin [place], [place]. This disclosure is being madepursuant to the Care Everywhere program and may not contain all information available regarding this patient. Last updated 18.[facility] [employer] Allergies No known active allergies Medications * [...] Comments Blood Pressure 113/80 07/18/2015 12:00 PM VENDOR MANAGEMENT SPECIALIST Pulse 62 07/18/2015 12:00 PM VENDOR MANAGEMENT SPECIALIST Temperature 36.8 C (98.3 F) 07/18/2015 11:32 AM VENDOR MANAGEMENT SPECIALIST Respiratory Rate 15 07/18/2015 12:00 PM VENDOR MANAGEMENT SPECIALIST Oxygen Saturation 94% 07/18/2015 12:00 PM VENDOR MANAGEMENT SPECIALIST Inhaled Oxygen Concentration - - Weight 111.1 kg (245 lb) 07/18/2015 9:34 AM VENDOR MANAGEMENT SPECIALIST Height 185.4 cm (6' 1 ) 07/18/2015 9:34 AM VENDOR MANAGEMENT SPECIALIST Body Mass Index 32.32 07/18/2015 9:34 AM VENDOR MANAGEMENT SPECIALIST Plan of Treatment Health Maintenance Due Date [...] patient's age to complete this topic Insurance [facility] MANAGED MEDICARE ADV [facility] MANAGED MEDICARE ADV Care Teams Glove Cuffer Relationship Specialty Start Date End Date Ace Hanna MD [address] [facility] [address] [place] [address] PCP - General Family Medicine 11/25/12
--- OUTSIDE RECORDS SUMMARY | 2024-10-09 09:56 | XMS_ITS | Continuity of Care Document ---
Author Organization [facility] Address [address] [place] [address] [address] [place] [address] Phone Care Team Providers Care Surveillance Operator Name Role Phone Arminda Bauer Unavailable Unavailable Procedures Procedure Date Remove Foreign Body From Eye Advance Directives Directive Yes / No Effective Date File Name No Information Encounters Encounter Description Practice Location Reason(s) For Visit Diagnoses Date Provider Providers Copied on Encounter [facility], [address] [place] [address] [address], [place], [place], [id number], [place] tel:[phone] [facility] [place] No Information [address] Lizette Hilliard. [address] , [address], [place], [address], [place]. tel:[phone] Family History Family Member Type Diagnosis Age [...]
--- OUTSIDE RECORDS SUMMARY | 2024-10-09 09:57 | XMS_ITS | Referral Summary ---
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 Office Visit [facility] Cardiology [address] [place] [address] Guillaume Villafana MD Coronary artery disease of [place] artery of [place] heart with stable angina pectoris (Primary Dx) from Last 3 Months Allergies Active Allergy Reactions Criticality Noted Date Comments Erythromycin Ethyl Alcohol Unknown Ezetimibe Muscle pain Medium Simvastatin Nausea And Vomiting Low 07/20/2012 Bcuulmq-Xhi-Ruv Reductase Inhibitors High Medications pantoprazole DR (PROTONIX) [...] artery disease of n at[place] artery of [place] heart with stable angina pectoris 01/29/2016 Overview (10/04/2016): Coronary artery disease involving [place] coronary artery of [place] heart without angina pectoris Dyspnea on exertion [...] on file Legal Sex Male 3:43 AM 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 Gender Identity Not on file Sexual Orientation Not on file Last Filed Vital Signs Vital Sign Reading Time Taken Comments Blood Pressure 118/60 08/17/2024 8:20 AM 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 Pulse 54 08/17/2024 8:20 AM 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 Temperature 36.7 C (98.1 F) 10/28/2023 7:22 AM CDT Respiratory Rate 12 03/07/2017 8:35 AM CDT Oxygen Saturation 98% 08/17/2024 8:20 AM 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 Inhaled Oxygen Concentration - - Weight 89.4 kg (197 lb) 08/17/2024 8:20 AM 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 Height 182.9 cm (6') 08/17/2024 8:20 AM 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 Body Mass Index 26.72 08/17/2024 8:20 AM 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 Plan of Treatment Not on file Medical Devices Implanted Type Area Animal Ecologist Device Identifier Shelf Expiration Date Model / Serial / Lot Other - See Comments Other - see comments Left: Knee Other - See Comments Other - see comments Right: Knee [employer] Card Vasc Surgery 3.0 X 18mm [place] [employer] Coronary Stent [id number] - [id number] Implanted:Qty : 1 on 10/28/2023 by Abigail Saxena MD at [facility] Med[employer] Card Vasc Surgery 07/26/2026 [id number] / / [id number] [email or web address] Angio-Seal Vip 6fr Closere Device [id number] - [id number] Implanted:Qty : 1 on 10/28/2023 by Abigail Saxena MD at [facility] [email or web address] [id number] / / Procedures Procedure Name Priority Date/Time Associated Diagnosis Comments LIPID PANEL Routine 08/17/2024 8:34 AM 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 EGFR Routine 10/28/2023 7:13 AM CDT HEMOGLOBIN A1C Routine 2017 from Last 3 Months or Most Recently Relevant to Health Maintenance Results * Lipid panel (08/17/2024 8:34 AM 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) SCRIBED Cholesterol, Total <100 <100 EXTERNAL LAB SCRIBED HDL 19 >40 EXTERNAL LAB SCRIBED LDL 63.6 <100 EXTERNAL LAB SCRIBED Triglycerides 82 <150 EXTERNAL LAB Blood 08/17/2024 8:34 AM 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 us Guillaume Villafana MD LAB BLOOD ORDERABLES [...] MD LAB BLOOD ORDERABLES Final Result STEPHANIE [address] Department [place] [address] * Hemoglobin A1c (2017) Blood specimen (specimen) us Historical Provider LAB BLOOD ORDERABLES Norah canas Result from Last 3 Months or Most Recently Relevant to Health Maintenance Insurance AET MEDICARE Advance Directives For more information, please contact: [phone] * Full Code (Latest Code Status on File) Date Activated Date Inactivated Comments 10/28/2023 10:03 AM 10/28/2023 4:45 PM Care Teams Appeals Rn Relationship Specialty Start Date End Date Teodoro Garcia MD PCP - General Family Practice 03/19/23
--- OUTSIDE RECORDS SUMMARY | 2024-10-09 09:57 | XMS_ITS | CONTINUITY OF CARE DOCUMENT ---
Author Name bao, bao Address Unknown Organization [facility] Address [address] [place] [address] Phone [phone] Care Team Providers Care Government Employee Name Role Phone William RODRÍGUEZ, Pushpa Unavailable ARASH DELATORRE MD Unavailable [phone] ARASH DELATORRE MD Unavailable [phone] PROBLEMS Condition Status Date Provider Notes Shortness [...] In-person encounter Office Visit Pushpa Thomas MD [facility] HYPERCHOLESTEROLEMI A- intolerant of all statins and zetia - In-person encounter Office Visit Pushpa Thomas MD [facility] - In-person encounter Office Visit Pushpa Thomas MD [facility] - In-person encounter Office Visit Pushpa Thomas MD [facility] - In-person encounter Office Visit Pushpa Thomas MD [facility] HYPERCHOLESTEROLEMI A- intolerant of all statins and zetiaCAD-03/13 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, inf lat ischemia on stress 02/10 - In-person encounter Office Visit Pushpa Thomas MD [facility] CABG- SVG- DIAG open, 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 in [place]-10/29 CATH OCC VALDES-LAD, PAT SVG-2ND DIAGCAD-03/13 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, inf lat ischemia on stress 02/10DIZZINESS-02/10 HOLTER SB PVC-HR 83-42, 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 2013 - In-person encounter Office Visit Pushpa Thomas MD [facility] - In-person encounter Office Visit Pushpa Thomas MD [facility] - In-person encounter Office Visit Pushpa Thomas MD [facility] - In-person encounter Office Visit Pushpa Thomas MD [facility] Office - In-person encounter Office Visit Pushpa Thomas MD [facility] DIZZINESS-02/10 HOLTER SB PVC-HR 83-42, 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 2012 - In-person encounter Office Visit Pushpa Thomas MD [facility] - In-person encounter Office Visit Pushpa Thomas MD [facility] - In-person encounter Office Visit Pushpa Thomas MD [facility] - In-person encounter Office Visit Pushpa Thomas MD [facility] - In-person encounter Office Visit Pushpa Thomas MD [facility] - In-person encounter Office Visit Pushpa Thomas MD [facility] - In-person encounter Office Visit Pushpa Thomas MD [facility] - In-person encounter Office Visit Pushpa Thomas MD [facility] CAD-03/13 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, inf lat ischemia on stress 02/10TOBACCO ABUSE - In-person encounter Office Visit Pushpa Thomas MD [facility] HYPERCHOLESTEROLEMI A- intolerant of all statins and zetia - In-person encounter Office Visit Pushpa Thomas MD [facility] HTN-11/11 CAROTID NEGCABG- SVG- DIAG open, 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 in HYPERCHOLESTEROLE [place]- intolerant of all statins and zetia VITAL SIGNS Date Observation Value Provider blood pressure, diastolic 75 mm[Hg] Nj debbie Marcelino blood pressure, systolic 130 mm[Hg] [...] larios weight E&M 228 [lb_av] Michelle Willy [facility] Body Mass Index (Ratio) 30.11 kg/m2 Anea clark [facility] blood pressure, diastolic 74 mm[Hg] An eatris [facility] blood pressure, systolic 124 mm[Hg] Ane atris [facility] pulse rate 53 /min Aneatris [facility] oxygen saturation, oximetry 98 % Aneatris [facility] respiratory rate E&M 18 /min Aneatri s [facility] weight E&M 222 [lb_av] Aneatris [facility] Body Mass Index (Ratio) 29.70 kg/m2 Anea clark [facility] blood pressure, diastolic 87 mm[Hg] An eatris [facility] blood pressure, systolic 140 mm[Hg] Ane atris [facility] pulse rate 85 /min Aneatris Brown oxygen saturation, oximetry 95 % Aneatris Brown respiratory rate E&M 18 /min Aneatri s [facility] weight E&M 219 [lb_av] Aneatris Brown Body Mass Index (Ratio) 29.56 kg/m2 Anea clark [facility] blood pressure, diastolic 102 mm[Hg] An eatris Brown blood pressure, systolic 154 mm[Hg] Ane atris Brown pulse rate 80 /min Aneatris Brown oxygen saturation, oximetry 98 % Aneatris Brown respiratory rate E&M 18 /min Aneatri s [facility] weight E&M 218 [lb_av] Aneatris Brown Body Mass Index (Ratio) 29.81 kg/m2 Tessa ssa [facility] blood pressure, diastolic 70 mm[Hg] Nj debbie [facility] blood pressure, systolic 130 mm[Hg] Ruth Ann dailya [facility] pulse rate 48 /min Kiersten [facility] oxygen saturation, oximetry 97 % Kiersten Marcelino respiratory rate E&M 14 /min Kiersten [facility] weight E&M 219 [lb_av] Kiersten Marcelino Body [...] Mass Index (Ratio) 29.26 kg/m2 Travis Suero [employer] weight E&M 215 [lb_av] Melony Suero [employer] O[employer] Body Mass Index (Ratio) 29.81 kg/m2 [place] [...] Index (Ratio) 30.96 kg/m2 Lacr etifernando Tadeo [employer] OPERATOR weight E&M 221.2 [lb_av] Lacretifernando Contreras ls [employer] OPERATOR blood pressure, diastolic, standing 80 mm [Hg] [...] [facility]to [facility] [place] pulse rate 55 /min [place] oxygen saturation, oximetry 97 % [place] respiratory rate E&M 16 /min [place] weight E&M 226 [lb_av] [place] blood pressure, diastolic, left arm 61 mm [Hg] [facility] blood pressure, systolic, left arm 114 mm [Hg] [facility] blood pressure, diastolic, right arm 58 m m[Hg] Denyean [facility] blood pressure, systolic, right arm 132 m m[Hg] Denyean [facility] blood pressure, diastolic 61 mm[Hg] Sandoval [facility] blood pressure, systolic 114 mm[Hg] Andi an [facility] pulse rate 58 /min [facility] oxygen saturation, oximetry 98 % [facility] respiratory rate E&M 16 /min Andiyean [...] Jorge Ruiz international normalized ratio (INR) 1.0 [facility] blood glucose, random 96 mg/dL [facility] creatinine, serum 1.01 mg/dL [facility] urea nitrogen, blood 14 mg/dL [facility] potassium, serum 4.2 mmol/L [facility] sodium, serum 142 mmol/L [facility] TOTAL NON-HDL-C (LDL VLDL) 101 [facility] alanine aminotransferase (SGPT), serum 18 1/L [facility] aspartate aminotransferase (SGOT), serum 22 1/L [facility] cholesterol/HDL ratio, serum 4.2 [facility] cholesterol, serum 132 mg/dL [facility] triglyceride, target level 150 mg/dL [facility] HDL cholesterol, serum, target level 40 mg/dL [facility] triglyceride, serum, fasting 92 mg/dL [facility] Normal HDL cholesterol, serum 31 mg/dL [facility] Low LDL cholesterol, serum 82 mg/dL [facility] Normal LDL target level 100 mg/dL [facility] cholesterol, target level 200 mg/dL [facility] TOTAL NON-HDL-C (LDL VLDL) 101 [facility] aminotransferase (SGPT), serum 18 1/L [facility] aspartate aminotransferase (SGOT), serum 24 1/L [facility] cholesterol/HDL ratio, serum 3.7 [facility] cholesterol, serum 138 mg/dL [facility] triglyceride, target level 150 mg/dL [facility] HDL cholesterol, serum, target level 40 mg/dL [facility] triglyceride, serum, fasting 90 mg/dL Lui Tadeo [employer] Normal HDL cholesterol, serum 37 mg/dL Lui Tadeo [employer] Low LDL cholesterol, serum 83 mg/dL Lui Tadeo [employer] Normal LDL target level 100 mg/dL Lui Tadeo [employer] OPER[employer] cholesterol, target level 200 mg/dL Lui Tadeo [employer] OPER[employer] LDL cholesterol, serum 151 mg/dL [facility] cholesterol, serum 221 mg/dL [facility] triglyceride, serum, fasting 98 mg/dL [facility] HDL cholesterol, serum 33 mg/dL [facility] LDL cholesterol, serum 165 mg/dL [facility] cholesterol, serum 218 mg/dL [facility] thyroid stimulating hormone, serum 0.83 u[IU]/mL [facility] hemoglobin A1C, blood, as % of total hemoglobin 5.6 % [facility] anion gap, serum 8.9 [facility] globulins, serum, total 3.3 g/dL [facility] estimated glomerular filtration rate >60 [facility] albumin/globulin ratio, serum 1.2 [facility] protein, total, serum 7.4 g/dL [facility] albumin, serum 4.1 g/dL [facility] bilirubin, serum, total 0.55 mg/dL [facility] alkaline phosphatase, serum 137 1/L [facility] alanine aminotransferase (SGPT), serum 36 1/L [facility] aspartate aminotransferase (SGOT), serum 19 1/L [facility] calcium, serum 9.2 mg/dL [facility] blood glucose, fasting 102 mg/dL [facility] creatinine, serum 0.93 mg/dL [facility] urea nitrogen, blood 9.3 mg/dL [facility] carbon dioxide, serum, total 28 mmol/L [facility] chloride, serum 104 mmol/L [facility] potassium, serum 3.9 mmol/L [facility] sodium, serum 137 mmol/L [facility] platelet count 168 10*3/uL [facility] red blood cell distribution width 12.4 % [facility] mean corpuscular hemoglobin concentration, RBC 34.8 g/dL [facility] mean corpuscular hemoglobin, RBC 32.0 pg [facility] mean corpuscular volume, RBC 91.9 fL [facility] hematocrit, blood 42.2 % [facility] hemoglobin, blood 14.7 g/dL [facility] erythrocyte (RBC) count 4.59 10*6/mm3 [facility] monocytes as percent of blood leukocytes 8.9 % [facility] lymphocytes as percent of blood leukocytes 35.2 % [facility] leukocyte count, blood 5.9 10*3/mm3 [facility] cholesterol/HDL ratio, serum 3.3 [facility] triglyceride, serum, fasting 99 mg/dL [facility] HDL cholesterol, serum 39 mg/dL [facility] LDL cholesterol, serum 68 mg/dL [facility] cholesterol, serum 127 mg/dL [facility] albumin/globulin ratio, serum 1.4 [facility] protein, total, serum 6.6 g/dL [facility] albumin, serum 3.9 g/dL [facility] bilirubin, serum, total 0.7 mg/dL [facility] alkaline phosphatase, serum 103 1/L [facility] alanine aminotransferase (SGPT), serum 27 1/L [facility] aspartate aminotransferase (SGOT), serum 35 1/L [facility] calcium, serum 9.2 mg/dL [facility] blood glucose, fasting 109 mg/dL [facility] creatinine, serum 1.2 mg/dL [facility] urea nitrogen, blood 10 mg/dL [facility] carbon dioxide, serum, total 26 mmol/L [facility] chloride, serum 106 mmol/L [facility] potassium, serum 4.7 mmol/L [facility] sodium, serum 143 mmol/L [facility] platelet count 160 10*3/uL [facility] red blood cell distribution width 13.7 % [facility] mean corpuscular hemoglobin concentration, RBC 33.6 g/dL [facility] mean corpuscular hemoglobin, RBC 31.6 pg [facility] mean corpuscular volume, RBC 93.9 fL [facility] hematocrit, blood 49.4 % [facility] hemoglobin, blood 16.6 g/dL [facility] erythrocyte (RBC) count 5.3 10*6/mm3 [facility] neutrophils, segmented as percent of blood leukocytes 3.3 % [facility] monocyte count, blood 0.4 10*3/mm3 [facility] lymphocyte count, blood 2.7 10*3/mm3 [facility] neutrophils as percent of blood leukocytes 50.8 % [facility] monocytes as percent of blood leukocytes 6.7 % [facility] lymphocytes as percent of blood leukocytes 42.5 % [facility] leukocyte count, blood 6.4 10*3/mm3 [facility] cholesterol/HDL ratio, serum 3.3 [facility] triglyceride, serum, fasting 99 mg/dL [facility] HDL cholesterol, serum 39 mg/dL [facility] LDL cholesterol, serum 68 mg/dL [facility] cholesterol, serum 127 mg/dL [facility] albumin/globulin ratio, serum 1.4 [facility] protein, total, serum 6.6 g/dL [facility] albumin, serum 3.9 g/dL [facility] bilirubin, serum, total 0.7 mg/dL [facility] alkaline phosphatase, serum 103 1/L [facility] alanine aminotransferase (SGPT), serum 35 1/L [facility] aspartate aminotransferase (SGOT), serum 27 1/L [facility] calcium, serum 9.2 mg/dL [facility] blood glucose, fasting 109 mg/dL [facility] creatinine, serum 1.2 mg/dL [facility] Joseph urea nitrogen, blood 10 mg/dL [facility] carbon dioxide, serum, total 26 mmol/L [facility] chloride, serum 106 mmol/L [facility] potassium, serum 4.7 mmol/L [facility] sodium, serum 143 mmol/L [facility] platelet count 160 10*3/uL [facility] red blood cell distribution width 13.7 % [facility] Joseph mean corpuscular hemoglobin concentration, RBC 33.6 g/dL [facility] mean corpuscular hemoglobin, RBC 31.6 pg [facility] mean corpuscular volume, RBC 93.9 fL [facility] hematocrit, blood 49.4 % [facility] hemoglobin, blood 16.6 g/dL [facility] erythrocyte (RBC) count 5.3 10*6/mm3 [facility] neutrophils, segmented as percent of blood leukocytes 3.3 % [facility] monocyte count, blood 0.4 10*3/mm3 [facility] lymphocyte count, blood 2.7 10*3/mm3 [facility] neutrophils as percent of blood leukocytes 50.8 % [facility] monocytes as percent of blood leukocytes 6.7 % [facility] lymphocytes as percent of blood leukocytes 42.5 % [facility] leukocyte count, blood 6.4 10*3/mm3 [facility] international normalized ratio (INR) 1.[address] [facility] prothrombin time (patient) 10.[address] [facility] platelet count 162 THOUSAND/UL [facility] 140-400 Normal red blood cell distribution width 13.0 % [facility] 11.0-15.0 Normal mean corpuscular hemoglobin concentration, RBC [...] 10-35 Normal alkaline phosphatase, serum 102 1/L [facility] Normal bilirubin, serum, total [...] X 11 & 1 MG X 42 [facility] completed One pack. Take as directed. 07/08 [...] smoking history, tot al pack/year 38 Melida Dnaielle smoking history, tot al pack/day 1 Melida [...] patient education and counseling yes Melony Pio [employer] O[employer] smoking history, tot al pack/year 36 Melony Pio [employer] OPERATOR smoking/tobacco cess ation, patient education and counseling yes Pushpa Thomas MD drug use none Pushpa Thomas MD social history reviewed E&M reviewed Pushpa Thomas MD smoking history, tot al pack/day 1 Michelle Cortez smoking history, tot al pack/year 36 Michelle Cortez physical exercise, frequency, days per week yes Lui Tadeo [employer] OPERATOR smoking status current every day smoker L rjbutch Carlyle [employer] OPERATOR cigarette use 1 Lacrbutch Barretowilson breen [employer]AY [employer]OTH OPERATOR social history reviewed E&M reviewed Lui Tadeo [employer] OPERATOR smoking history, tot al pack/year 36 Lui Carlyle [employer] OPERATOR social history reviewed E&M reviewed Jeronimo Chandler [...] Payer name Policy type / Coverage type [place] [employer] [facility] DUAL COMPLETE HMO O [id number] TREATMENT PLAN Date Name Performer Cardiology [...] tab daily Toprol Xl 25 Mg Oral [id number] (Metoprolol succinate) ..... Take one pill a [...] this problem includes: Toprol Xl 50 Mg [id number] (Metoprolol succinate) ..... Take one pill a day Aspirin 325 Mg Tabs (Aspirin) ..... One tab daily Pushpa Thomas MD Follow Up: T he following medications were removed from the medication list: Crestor 10 Mg Tabs (Rosuvastatin calcium) ..... One tab. daily His updated medication list for this problem includes: Toprol Xl 50 Mg [id number] (Metoprolol succinate) ..... Take one pill a [...] the RCA. N ormal LV systolic function. [facility] (10/11/2008) C arotid Doppler/Duplex: Mild plaque with [...] this problem includes: Toprol Xl 50 Mg [id number] (Metoprolol succinate) ..... Take one pill a [...] this problem includes: Toprol Xl 50 Mg [id number]-[id number] (Metoprolol succinate) ..... Take one pill a day Aspirin 325 Mg Tabs (Aspirin) ..... One tab daily Crestor 10 Mg Tabs (Rosuvastatin calcium) ..... One tab. daily Orders: E KG (CPT-13540) BP today: 128/86 Prior BP: 124/69 (10/26/2012) [...] the RCA. N ormal LV systolic function. [facility] (10/11/2008) C arotid Doppler/Duplex: Mild plaque with [...] this problem includes: Toprol Xl 50 Mg [id number] (Metoprolol succinate) ..... Take one pill a [...] this problem includes: Toprol Xl 50 Mg [id number]-kin (Metoprolol succinate) ..... Take one pill a day Aspirin 325 Mg Tabs (Aspirin) ..... One tab daily Pushpa Thomas MD Follow up: T he following medications were removed from the medication list: Lipitor 20 Mg Tabs (Atorvastatin calcium) ..... One tab po daily His updated medication list for this problem includes: Toprol Xl 50 Mg [id number] (Metoprolol succinate) ..... Take one pill a day Aspirin 325 Mg Tabs (Aspirin) ..... One tab daily Orders: E KG (CPT-66944) BP today: 128/86 Prior BP: 124/69 (10/26/2012) [...] the RCA. N ormal LV systolic function. [facility] (10/11/2008) C arotid Doppler/Duplex: Mild plaque with [...] this problem includes: Toprol Xl 50 Mg [id number] (Metoprolol succinate) ..... Take one pill a [...] the RCA. N ormal LV systolic function. [facility] (10/11/2008) Pushpa Thomas MD Lipid management: H [...] this problem includes: Toprol Xl 50 Mg [id number]-sge (Metoprolol succinate) ..... Take one pill a [...] this problem includes: Toprol Xl 50 Mg [id number]-fuq (Metoprolol succinate) ..... Take one pill a [...] the RCA. N ormal LV systolic function. [facility] (10/11/2008) C HOL: 138 (07/08/2012) LDL: 83 [...] this problem includes: Toprol Xl 50 Mg Ji41s-weq (Metoprolol succinate) ..... Take one pill a [...] the RCA. N ormal LV systolic function. [facility] (10/11/2008) C HOL: 138 (07/08/2012) LDL: 83 [...] this problem includes: Toprol Xl 50 Mg Vu99d-uxz (Metoprolol succinate) ..... Take one pill a day Aspirin 325 Mg Tabs (Aspirin) ..... One tab daily BP today: 143/82 P rior BP: 134/78 (10/28/2011) Labs Reviewed: C reat: 0.93 (06/06/2011) C hol: 218 (06/06/2011) HDL: 33 (06/06/2011) LDL: 165 (06/06/2011) T (06/06/2011) Pushpa Thomas MD follow up: H is updated medication list for this problem includes: Toprol Xl 50 Mg Io15s-zmb (Metoprolol succinate) ..... Take one pill a [...] the RCA. N ormal LV systolic function. [facility] (10/11/2008) C HOL: 218 (06/06/2011) LDL: 165 [...] this problem includes: Toprol Xl 50 Mg [id number] (Metoprolol succinate) ..... Take one pill a day Aspirin 325 Mg Tabs (Aspirin) ..... One tab daily Lipitor 20 Mg Tabs (Atorvastatin calcium) ..... One tab po daily Orders: E KG (CPT-15575) BP today: 143/82 Prior BP: 134/78 (10/28/2011) [...] the RCA. N ormal LV systolic function. [facility] (10/11/2008) C HOL: 218 (06/06/2011) LDL: 165 [...] this problem includes: Toprol Xl 50 Mg Ce78h-fkl (Metoprolol succinate) ..... Take one pill a [...] the RCA. N ormal LV systolic function. [facility] (10/11/2008) C HOL: 218 (06/06/2011) LDL: 165 [...] the RCA. N ormal LV systolic function. [facility] (10/11/2008) C HOL: 218 (06/06/2011) LDL: 165 [...] month follow-up Pushpa Grewal 6 month follow-up [facility] Echo: H is updated medication list [...] (04/20/2009) Pushpa Thomas MD 6 month follow-up [facility] Echo: H is updated medication list [...] the RCA. N ormal LV systolic function. [facility] (10/11/2008) C HOL: 127 (04/20/2009) LDL: 68 [...] ..... One tab daily Orders: E KG (CPT-59640) BP today: 120/58 Prior BP: 114/61 (11/05/2010) N uclear Stress Findings: 1. Regadenoson mediated myocardial perfusion study 2 . Normal left ventricular systolic function with a calculated ejection fraction of 54%. 3 . There is a fixed defect involving the inferior wall most consistent with diaphragmatic attenuation. GC (10/30/2010) C ardiac Cath: Complete revascularization with the LAD territory to a vein graft. A tretic VALDES. 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 N ormal LV systolic function. & #13;[facility] (10/11/2008) C HOL: 127 (04/20/2009) LDL: 68 [...] the RCA. N ormal LV systolic function. [facility] [facility] (10/[facility]/2008) C HOL: 127 (04/20/2009) LDL: 68 [...] the RCA. N ormal LV systolic function. [facility] (10/11/2008) C HOL: 127 (04/20/2009) LDL: 68 [...] . Myocardial scintigraphy demonstrates inferior wall ischemia. [facility] (09/08/2008) C ardiac Cath: Complete revascularization with the LAD territory to a vein graft. A tretic VALDES. 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 N ormal LV systolic function. [facility] (10/11/2008) C HOL: 170 (09/07/2008) LDL: 97 [...] . Myocardial scintigraphy demonstrates inferior wall ischemia. [facility] (09/08/2008) C ardiac Cath: Complete revascularization with the LAD territory to a vein graft. Atretic VALDES. 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 N ormal LV systolic function. [facility] (10/11/2008) C HOL: 170 (09/07/2008) LDL: 97 [...] . Myocardial scintigraphy demonstrates inferior wall ischemia. [facility] (09/08/2008) C ardiac Cath: Complete revascularization with the LAD territory to a vein graft. Atretic VALDES. 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 N ormal LV systolic function. [facility] (10/11/2008) C HOL: 170 (09/07/2008) LDL: 97 [...] . Myocardial scintigraphy demonstrates inferior wall ischemia. [facility] (09/08/2008) C ardiac Cath: Complete revascularization with the LAD territory to a vein graft. Atretic VALDES. 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 N ormal LV systolic function. [facility] (10/11/2008) C HOL: 170 (09/07/2008) LDL: 97 [...] Name Provider Procedure Notes S tatus SNOMED-CT: 68814945 Physical Exam, Performed: Pulse Exam of Foot Pushpa Thomas MD completed SNOMED-CT: [id number] Current Medications Documented Pushpa Thomas MD completed FVC - 57376 Pushpa Thomas MD complete d FRC - 66077 Pushpa Thomas MD complete d DLCO - 42925 Pushpa Thomas MD complet ed Lipid Strip [...]
--- OUTSIDE RECORDS SUMMARY | 2024-10-09 09:57 | XMS_ITS | Clinical Summary ---
Author Organization [facility] [address] Address [address] [place] [address] Care Team Providers Care Workers Compensation Defense Attorney Name Role Phone Teodoro Garcia MD Primary Care Provider +1 -[phone] Allergies Active Allergy Reactions Criticality Noted Date Comments Erythromycin Ethyl Alcohol Unknown Ezetimibe Muscle pain Medium Simvastatin Nausea And Vomiting Low 07/20/2012 Jvelhnk-Isg-Yzz Reductase Inhibitors High Medications pantoprazole DR (PROTONIX) [...] a associated with type 2 diabetes mellitus ([facility]) 03/08/2019 Sick sinus syndrome 01/12/2018 Atrial bigeminy 12/22/2017 Ventricular bigeminy 09/08/2017 PVC's (premature ventricular contractions) 11/21 Overview (11/29/2016): Frequent PVCs Hyperglycemia 11/21/2016 Overview (11/29/2016): Elevated blood sugar Premature atrial contraction 11/21/2016 Overview (11/29/2016): PAC (premature atrial contraction) Muscle pain 10/11/2016 Overview (11/22/2016): Myalgia Bradycardia 10/11/2016 Overview (11/22/2016): Bradycardia Coronary artery disease of n ative artery of [place] heart with stable angina pectoris 01/29/2016 Overview (10/04/2016): Coronary artery disease involving [place] coronary artery of [place] heart without angina pectoris Dyspnea on exertion [...] Department Care Team Description 08/17/2024 8:30 AM CRUSHER PLANT OPERATOR Office Visit [facility] Cardiology [address] [place] [address] Guillaume Villafana MD Coronary artery disease of [place] artery of [place] heart with stable angina pectoris (Primary Dx) [...] on file Legal Sex Male 3:43 AM CRUSHER PLANT OPERATOR Gender Identity Not on file Sexual Orientation Not on file Obstetrics History Last Filed Vital Signs Vital Sign Reading Time Taken Comments Blood Pressure 118/60 08/17/2024 8:20 AM CRUSHER PLANT OPERATOR Pulse 54 08/17/2024 8:20 AM CRUSHER PLANT OPERATOR Temperature 36.7 C (98.1 F) 10/28/2023 7:22 AM CDT Respiratory Rate 12 03/07/2017 8:35 AM CDT Oxygen Saturation 98% 08/17/2024 8:20 AM CRUSHER PLANT OPERATOR Inhaled Oxygen Concentration - - Weight 89.4 kg (197 lb) 08/17/2024 8:20 AM CRUSHER PLANT OPERATOR Height 182.9 cm (6') 08/17/2024 8:20 AM CRUSHER PLANT OPERATOR Body Mass Index 26.72 08/17/2024 8:20 AM CRUSHER PLANT OPERATOR Plan of Treatment Health Maintenance Due Date [...] history exists Medical Devices Implanted Type Area Environmental Studies Faculty Member Device Identifier Shelf Expiration Date Model / Serial / Lot Other - See Comments Other - see comments Left: Knee Other - See Comments Other - see comments Right: Knee Medtronic [facility] Vasc Surgery 3.0 X 18mm Norman [place] Rx Coronary Stent [id number] - [id number] Implanted:Qty : 1 on 10/28/2023 by Abigail Saxena MD at [facility] 07/26/2026 [id number] / / [id number] [employer] Angio-Seal Vip 6fr Closere Device [id number] - [id number] Implanted:Qty : 1 on 10/28/2023 by Abigail Saxena MD at [facility] [employer] [id number] / / Procedures Procedure Name Priority Date/Time Associated Diagnosis Comments LIPID PANEL Routine 08/17/2024 8:34 AM CRUSHER PLANT OPERATOR EGFR Routine 10/28/2023 7:13 AM CDT HEMOGLOBIN A1C Routine 2017 from Last 3 Months or Most Recently Relevant to Health Maintenance Results * Lipid panel (08/17/2024 8:34 AM CRUSHER PLANT OPERATOR) SCRIBED Cholesterol, Total <100 <100 EXTERNAL LAB SCRIBED HDL 19 >40 EXTERNAL LAB SCRIBED LDL 63.6 <100 EXTERNAL LAB SCRIBED Triglycerides 82 <150 EXTERNAL LAB Blood 08/17/2024 8:34 AM CRUSHER PLANT OPERATOR us Guillaume Villafana MD LAB BLOOD [...] MD LAB BLOOD ORDERABLES Final Result STEPHANIE [address] [place] [address] * Hemoglobin A1c (2017) Blood specimen (specimen) Historical Provider LAB BLOOD ORDERABLES Norah l Result from Last 3 Months or Most Recently Relevant to Health Maintenance Insurance [employer] MEDICARE Advance Directives For more information, please contact: [phone] * Full Code (Latest Code Status on File) Date Activated Date Inactivated Comments 10/28/2023 10:03 AM 10/28/2023 4:45 PM Care Teams Workers Compensation Defense Attorney Relationship Specialty Start Date End Date Teodoro Garcia MD PCP - General Family Practice 03/19/23
--- OUTSIDE RECORDS SUMMARY | 2024-10-09 09:57 | XMS_ITS | Clinical Summary ---
Author Organization [facility] Address [address] [place] [address] Phone Care Team Providers Care Senior Military Analyst Name Role Phone Ace Hanna MD Primary Care Provider +1- [phone] Allergies Active Allergy Reactions Criticality Noted Date [...] on file Legal Sex Male 5:58 AM RECREATION PROGRAM COORDINATOR Gender Identity Not on file Sexual Orientation Not on file Occupation Industry Job Start Date Job End Date Not on file Not on file Not on file Not on file Last Filed Vital Signs Vital Sign Reading Time Taken Comments Blood Pressure 130/84 10/28/2016 1:24 PM CDT Pulse 60 07/17/2016 10:26 AM RECREATION PROGRAM COORDINATOR Temperature 37 C (98.6 F) 07/17/2016 10:25 AM RECREATION PROGRAM COORDINATOR Respiratory Rate 18 02/16/2013 10:09 AM CDT Oxygen Saturation 97% 07/17/2016 10:26 AM RECREATION PROGRAM COORDINATOR Inhaled Oxygen Concentration - - Weight 111.6 [...] (#1) 2024 Medical Devices Implanted Type Area Iap Displays Analyst Device Identifier Shelf Expiration Date Model / Serial / Lot Log [id number] - Brachytherapy Implants - 1 - Seed Calibrated 1-125 [id number] Implanted:Qty: 1 on 03/12/2011 at [facility] Bilateral: Prostate CR BARD- UROL DIV 06/29/2012 [id number] / / [id number] Description:total # [place]: 22total # Seeds:78 Insurance [facility] [id number] Advance Directives For more information, please contact: [phone] * Full Code (Latest Code Status on File) Date Activated Date Inactivated Comments 03/12/2011 1:20 PM 03/13/2011 1:33 PM * Full Code Date Activated Date Inactivated Comments 03/12/2011 7:51 AM 03/12/2011 1:20 PM Care Teams Senior Military Analyst Relationship Specialty Start Date End Date Ace Hanna MD [address] [facility] [address] [place] [address] PCP - General Family Practice 07/05/10
--- OUTSIDE RECORDS SUMMARY | 2024-10-09 09:57 | XMS_ITS | Encounter Summary ---
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
[2024-10-09 10:33] VITALS: BP 124/68; PULSE 48; RESP 16; TEMP 36.6; O2SAT 100
== END 2024-10-09 10:36 | disposition home or self-care (01) ==
LOC: ANHED 09:54
PROVIDERS: Emergency Provider Emergency Medicine; PCP Nurse Practitioner Family
DX: S00.03XA Contusion of scalp, initial encounter (principal); R00.1 Bradycardia, unspecified; I25.10 Atherosclerotic heart disease of native coronary artery without angina pectoris; I48.91 Unspecified atrial fibrillation; I10 Essential (primary) hypertension; E78.5 Hyperlipidemia, unspecified; E13.9 Other specified diabetes mellitus without complications; M19.90 Unspecified osteoarthritis, unspecified site; K21.9 Gastro-esophageal reflux disease without esophagitis; Z96.653 Presence of artificial knee joint, bilateral; Z95.1 Presence of aortocoronary bypass graft; Z85.46 Personal history of malignant neoplasm of prostate; Z87.11 Personal history of peptic ulcer disease; Z87.891 Personal history of nicotine dependence; Z90.49 Acquired absence of other specified parts of digestive tract; Z79.82 Long term (current) use of aspirin; Z79.02 Long term (current) use of antithrombotics/antiplatelets; Z79.899 Other long term (current) drug therapy; W18.39XA Other fall on same level, initial encounter
CPT/HCPCS: 70450; 72125; 93005; 96360; 99284; J7120

== ENCOUNTER 2024-11-03 13:08 | Outpatient (CLI) | payer MEDICARE, SELFPAY ==
--- NOTE | 2024-11-03 13:19 | ECG_ITS ---
Test Date: 2024-11-03 13:29:36 Measurements Intervals Hart Rate: 61 P: 0 SC: 0 QRS: 115 QRSD: 161 T: -28 QT: 426 QTc: 431 Interpretive Statements ATRIAL FIBRILLATION RIGHT BUNDLE BRANCH BLOCK [120+ ms QRS DURATION, UPRIGHT V1, 40+ ms S IN I/aVL/V4/V5/V6] LEFT POSTERIOR FASCICULAR BLOCK [QRS AXIS > 109, INFERIOR Q] Compared to ECG 10/09/2024 08:56:08 ATRIAL FIBRILLATION NOW PRESENT Electronically Signed On 11-03-2024 14:29:47 CDT by David Mcadams M.D.
--- OUTSIDE RECORDS SUMMARY | 2024-11-03 13:19 | XMS_ITS | Continuity of Care Document ---
Author Organization [facility] Address [address] [place] [address] [address] [place] [address] Phone Care Team Providers Care Beet End Supervisor Name Role Phone Amrinda Bauer Unavailable Unavailable Procedures Procedure Date Remove Foreign Body From Eye Advance Directives Directive Yes / No Effective Date File Name No Information Encounters Encounter Description Practice Location Reason(s) For Visit Diagnoses Date Provider Providers Copied on Encounter [facility], [address] [place] [address] [address], [place], [place], [id number], [place] tel:[phone] [facility] No Information [address] Lizette Hilliard. [address] [facility] , [address], [place], [address], [place]. tel:[phone] Family History Family Member Type Diagnosis Age At Onset No Information Payers Payer name Insurance type Covered democrat ID Authoriza tion(s) No Information Social History [...]
--- OUTSIDE RECORDS SUMMARY | 2024-11-03 13:19 | XMS_ITS | Referral Summary ---
Author Organization [facility] [address] [place] [address] [place] [address] [address] [place] [address] Care Team Providers Care Biological Inspector Name Role Phone Teodoro Garica MD Primary Care Provider [phone] [phone] Encounters Date Type Department Care Team Description 10/25/2024 10:05 AM CDT Ancillary Procedure [facility] [address] [place] [address] [place] [phone] Bradycardia 10/25/2024 9:00 AM CDT Office Visit [facility] Cardiology [address] [place] [address] [address] [place] [address] Teresa Stern NP Bradycardia (Primary Dx); PVC's (premature ventricular contractions); Coronary artery disease of [place] artery of [place] heart with stable angina pectoris 08/17/2024 8:30 AM IMMIGRATION ASSOCIATE Office Visit [facility] Cardiology [address] [place] [address] [place] [address] Guillaume Villafana MD Coronary artery disease of [place] artery of [place] heart with stable angina pectoris (Primary Dx) from Last 3 Months Allergies Active Allergy Reactions Criticality Noted Date Comments Erythromycin Ethyl Alcohol Unknown Ezetimibe Muscle pain Medium Simvastatin Nausea And Vomiting Low 07/20/2012 Mzeaylh-Tgu-Mme Reductase Inhibitors High Medications pantoprazole DR (PROTONIX) 40 mg EC tablet Take 1 tablet (40 mg total) by mouth daily Active aspirin 81 mg tablet Take 1 tablet (81 mg total) by mouth daily Active ezetimibe (ZETIA) 10 mg tablet Take 1 tablet (10 mg total) by mouth daily Active ticagrelor (BRILINTA) 60 mg tablet Take 1 tablet (60 mg total) by mouth 2 (two) times a day 180 tablet 3 08/17/19 25 2025 Active hydroCHLOROthi azide 12.5 mg tablet TAKE 1 TABLET BY MOUTH EVERY DAY 90 tablet 1 10/16/19 25 Active fluticasone propionate (FLONASE) 50 mcg/actuation nasal spray SPRAY 2 SPRAY INTRANASALLY DAILY ADMINISTER INTO EACH NOSTRIL 10/20/19 Active isosorbide mononitrate ER (IMDUR) 30 mg 24 hr tablet Take 1 tablet (30 mg total) by mouth daily 90 tablet 2 11/04/19 24 2024 Discontinued(T herapy completed) hydroCHLOROthi azide 12.5 mg tablet Take 1 tablet (12.5 mg total) by mouth daily 90 tablet 2 11/04/19 24 2024 Discontinued rosuvastatin (CRESTOR) 20 mg tablet Take 1 tablet (20 mg total) by mouth nightly 90 tablet 3 05/18/20 24 2024 Discontinued(P atient Reported) metoprolol tartrate (LOPRESSOR) 25 mg immediate release tablet Take 1 tablet (25 mg total) by mouth 2 (two) times a day 180 tablet 2 06/22/20 24 2024 Discontinued(A lternate therapy) Active Problems Problem Noted Date Diagnosed Date Chest pain 09/29/2023 Cardiovascular stress test abnormal 09/29/2023 PAD (peripheral artery disease) 09/23/2023 Tobacco abuse 12/10/2021 Unintentional weight loss 07/27/2020 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 Palpitations 03/08/2019 Mixed diabetic hyperlipidemi a associated with type 2 diabetes mellitus ([facility]) 03/08/2019 Sick sinus syndrome 01/12/2018 Atrial bigeminy 12/22/2017 Ventricular bigeminy 09/08/2017 PVC's (premature ventricular contractions) 11/21 Overview (11/29/2016): Frequent PVCs Hyperglycemia 11/21/2016 Overview (11/29/2016): Elevated blood sugar Premature atrial contraction 11/21/2016 Overview (11/29/2016): PAC (premature atrial contraction) Muscle pain 10/11/2016 Overview (11/22/2016): Myalgia Bradycardia 10/11/2016 Overview (11/22/2016): Bradycardia Coronary artery disease of n ative artery of [place] heart with stable angina pectoris 01/29/2016 Overview (10/04/2016): Coronary artery disease involving [place] coronary artery of [place] heart without angina pectoris Dyspnea on exertion [...] Years Used Date Smoking Tobacco: Former Cigarettes Q uit: 03/2024 Smokeless Tobacco: Never Tobacco Cessation:Counseling Given: Not Answered Alcohol Use Standard Drinks/Week [...] on file Legal Sex Male 3:43 AM IMMIGRATION ASSOCIATE Gender Identity Not on file Sexual Orientation Not on file Last Filed Vital Signs Vital Sign Reading Time Taken Comments Blood Pressure 108/62 10/25/2024 9:00 AM CDT Pulse 52 10/25/2024 9:00 AM CDT Temperature 36.7 C (98.1 F) 10/28/2023 7:22 AM CDT Respiratory Rate 12 03/07/2017 8:35 AM CDT Oxygen Saturation 96% 10/25/2024 9:00 AM CDT Inhaled Oxygen Concentration - - Weight 89.8 kg (198 lb) 10/25/2024 9:00 AM CDT Height 182.9 cm (6') 10/25/2024 9:00 AM CDT Body Mass Index 26.85 10/25/2024 9:00 AM CDT Plan of Treatment Not on file Medical Devices Implanted Type Area Pharmacy Data Analyst Device Identifier Shelf Expiration Date Model / Serial / Lot Other - See Comments Other - see comments Left: Knee Other - See Comments Other - see comments Right: Knee Medtronic Card Vasc Surgery 3.0 X 18mm Norman [place] Rx Coronary Stent [id number] - [id number] Implanted:Qty : 1 on 10/28/2023 by Abigail Saxena MD at [facility] Med[employer]onic Card Vasc Surgery 07/26/2026 [id number] / / [id number] [employer] Angio-Seal Vip 6fr Closere Device [id number] - [id number] Implanted:Qty : 1 on 10/28/2023 [id number] / / Procedures Procedure Name Priority Date/Time Associated Diagnosis Comments LIPID PANEL Routine 08/17/2024 8:34 AM IMMIGRATION ASSOCIATE EGFR Routine 10/28/2023 7:13 AM CDT HEMOGLOBIN A1C Routine 2017 from Last 3 Months or Most Recently Relevant to Health Maintenance Results * Lipid panel (08/17/2024 8:34 AM IMMIGRATION ASSOCIATE) SCRIBED Cholesterol, Total <100 <100 EXTERNAL LAB SCRIBED HDL 19 >40 EXTERNAL LAB SCRIBED LDL 63.6 <100 EXTERNAL LAB SCRIBED Triglycerides 82 <150 EXTERNAL LAB Blood 08/17/2024 8:34 AM IMMIGRATION ASSOCIATE us Guillaume Villafana MD LAB BLOOD ORDERABLES [...] MD LAB BLOOD ORDERABLES Final Result STEPHANIE [address] Department [place] [address] * Hemoglobin A1c (2017) Blood specimen (specimen) Historical Provider LAB BLOOD ORDERABLES Norah l Result from Last 3 Months or Most Recently Relevant to Health Maintenance Insurance T MEDICARE Advance Directives For more information, please contact: [phone] * Full Code (Latest Code Status on File) Date Activated Date Inactivated Comments 10/28/2023 10:03 AM 10/28/2023 4:45 PM Care Teams Biological Inspector Relationship Specialty Start Date End Date Teodoro Garcia MD PCP - General Family Practice 03/19/23
--- OUTSIDE RECORDS SUMMARY | 2024-11-03 13:19 | XMS_ITS | Clinical Summary ---
Author Organization [facility] Address [address] [place] [address] Phone Care Team Providers Care Merchandising Representative Name Role Phone Ace Hanna MD Primary Care Provider +1- [phone] Allergies Active Allergy Reactions Criticality Noted Date [...] on file Legal Sex Male 5:58 AM ENGINEERING SCIENTIST Gender Identity Not on file Sexual Orientation Not on file Occupation Industry Job Start Date Job End Date Not on file Not on file Not on file Not on file Last Filed Vital Signs Vital Sign Reading Time Taken Comments Blood Pressure 130/84 10/28/2016 1:24 PM CDT Pulse 60 07/17/2016 10:26 AM ENGINEERING SCIENTIST Temperature 37 C (98.6 F) 07/17/2016 10:25 AM ENGINEERING SCIENTIST Respiratory Rate 18 02/16/2013 10:09 AM CDT Oxygen Saturation 97% 07/17/2016 10:26 AM ENGINEERING SCIENTIST Inhaled Oxygen Concentration - - Weight 111.6 [...] (#1) 2024 Medical Devices Implanted Type Area Assistant Spa Manager Device Identifier Shelf Expiration Date Model / Serial / Lot Log [id number] - Brachytherapy Implants - 1 - Seed Calibrated 1-125 [id number] Implanted:Qty: 1 on 03/12/2011 at [facility] Bilateral: Prostate CR BARD- UROL DIV 06/29/2012 [id number] / / [id number] Description:total # [place]: 22total # Seeds:78 Insurance [facility] [id number] Advance Directives For more information, please contact: [phone] * Full Code (Latest Code Status on File) Date Activated Date Inactivated Comments 03/12/2011 1:20 PM 03/13/2011 1:33 PM * Full Code Date Activated Date Inactivated Comments 03/12/2011 7:51 AM 03/12/2011 1:20 PM Care Teams Merchandising Representative Relationship Specialty Start Date End Date Ace Hanna MD [address] [facility] [address] [place] [address] PCP - General Family Practice 07/05/10
--- OUTSIDE RECORDS SUMMARY | 2024-11-03 13:19 | XMS_ITS | Clinical Summary ---
Author Organization [facility] Address [address] [place] [address] Care Team Providers Care Customer Relationship Specialist Name Role Phone Ace Hanna MD Primary Care Provider +1- [phone] Source Comments [facility],non-owned Affiliates and Associated Physician Practices is amultiple site organization consisting of ambulatory clinics and hospital sitesin [place], [place], [place] and [place]. This disclosure is being madepursuant to the Care Everywhere program and may not contain all information available regarding this patient. Last updated 18.[facility] [place] Allergies No known active allergies Medications * [...] Comments Blood Pressure 113/80 07/18/2015 12:00 PM AMBULETTE DRIVER Pulse 62 07/18/2015 12:00 PM AMBULETTE DRIVER Temperature 36.8 C (98.3 F) 07/18/2015 11:32 AM AMBULETTE DRIVER Respiratory Rate 15 07/18/2015 12:00 PM AMBULETTE DRIVER Oxygen Saturation 94% 07/18/2015 12:00 PM AMBULETTE DRIVER Inhaled Oxygen Concentration - - Weight 111.1 kg (245 lb) 07/18/2015 9:34 AM AMBULETTE DRIVER Height 185.4 cm (6' 1 ) 07/18/2015 9:34 AM AMBULETTE DRIVER Body Mass Index 32.32 07/18/2015 9:34 AM AMBULETTE DRIVER Plan of Treatment Health Maintenance Due Date Last Done Comments DTAP/TDAP/TD VACCINES (1 - Tdap) 1962 PNEUMOCOCCAL VACCINE 50+ (1 of 2 - PCV) 1962 ZOSTER VACCINE (1 of 2) 1993 Respiratory Syncytial Virus (RSV) Vaccine Pt: or over 60 yrs (1 - 1-dose 75+ series) 2018 COVID-19 VACCINE ( - 2023-2 5 season) 2024 DEPRESSION SCREENING 06/30/2024 INFLUENZA VACCINE (Season Ended) 2025 HEPATITIS B [...] patient's age to complete this topic Insurance [facility] MANAGED MEDICARE ADV [facility] MANAGED MEDICARE ADV Care Teams Customer Relationship Specialist Relationship Specialty [place] [address] [place] [address] [address] [place] [address] PCP - General Family Medicine 11/25/12
--- OUTSIDE RECORDS SUMMARY | 2024-11-03 13:19 | XMS_ITS | CONTINUITY OF CARE DOCUMENT ---
Author Name bao, bao Address Unknown Organization [facility] Address [address] [place] [address] Phone [phone] Care Team Providers Care Director Of Valuation Name Role Phone William RODRÍGUEZ, Pushpa Unavailable [phone] ARASH DELATORRE MD Unavailable ARASH DELATORRE [...] In-person encounter Office Visit Pushpa Thomas MD [facility] HYPERCHOLESTEROLEMI A- intolerant of all statins and zetia - In-person encounter Office Visit Pushpa Thomas MD [facility] - In-person encounter Office Visit Pushpa Thomas MD [facility] - In-person encounter Office Visit Pushpa Thomas MD [facility] - In-person encounter Office Visit Pushpa Thomas MD [facility] HYPERCHOLESTEROLEMI A- intolerant of all statins and zetiaCAD-03/13 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, inf lat ischemia on stress 02/10 - In-person encounter Office Visit Pushpa Thomas MD [facility] CABG- SVG- DIAG open, 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 in [place]-10/29 CATH OCC VALDES-LAD, PAT SVG-2ND DIAGCAD-03/13 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, inf lat ischemia on stress 02/10DIZZINESS-02/10 HOLTER SB PVC-HR 83-42, 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 2013 - In-person encounter Office Visit Pushpa Thomas MD [facility] - In-person encounter Office Visit Pushpa Thomas MD [facility] - In-person encounter Office Visit Pushpa Thomas MD [facility] - In-person encounter Office Visit Pushpa Thomas MD [facility] - In-person encounter Office Visit Pushpa Thomas MD [facility] DIZZINESS-02/10 HOLTER SB PVC-HR 83-42, 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 2012 - In-person encounter Office Visit Pushpa Thomas MD [facility] - In-person encounter Office Visit Pushpa Thomas MD [facility] - In-person encounter Office Visit Pushpa Thomas MD [facility] - In-person encounter Office Visit Pushpa Thomas MD [facility] - In-person encounter Office Visit Pushpa Thomas MD [facility] - In-person encounter Office Visit Pushpa Thomas MD [facility] - In-person encounter Office Visit Pushpa Thomas MD [facility] - In-person encounter Office Visit Pushpa Thomas MD [facility] CAD-03/13 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, inf lat ischemia on stress 02/10TOBACCO ABUSE - In-person encounter Office Visit Pushpa Thomas MD [facility] HYPERCHOLESTEROLEMI A- intolerant of all statins and zetia - In-person encounter Office Visit Pushpa Thomas MD [facility] HTN-11/11 CAROTID NEGCABG- SVG- DIAG open, 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 in HYPERCHOLESTEROLE BLANCO- intolerant of all statins and zetia VITAL SIGNS Date Observation Value Provider blood pressure, diastolic 75 mm[Hg] Co debbie Marcelino blood pressure, systolic 130 mm[Hg] [...] weight E&M 228 [lb_av] Michelle Willy formerly named [facility] Body Mass Index (Ratio) 30.11 kg/m2 [facility] blood pressure, diastolic 74 mm[Hg] An [facility] blood pressure, systolic 124 mm[Hg] [facility] pulse rate 53 /min [facility] oxygen saturation, oximetry 98 % [facility] respiratory rate E&M 18 /min [facility] weight E&M 222 [lb_av] [facility] Body Mass Index (Ratio) 29.70 kg/m2 [facility] blood pressure, diastolic 87 mm[Hg] An [facility] blood pressure, systolic 140 mm[Hg] Ane [facility] pulse rate 85 /min Aneatris [facility] oxygen saturation, oximetry 95 % Aneatris [facility] respiratory rate E&M 18 /min Aneatri s [facility] weight E&M 219 [lb_av] Aneatris [facility] Body Mass Index (Ratio) 29.56 kg/m2 [facility] blood pressure, diastolic 102 mm[Hg] An eatris [facility] blood pressure, systolic 154 mm[Hg] Ane atris [facility] pulse rate 80 /min Aneatris [facility] oxygen saturation, oximetry 98 % Aneatris [facility] respiratory rate E&M 18 /min [facility] weight E&M 218 [lb_av] Aneatris [facility] Body Mass Index (Ratio) 29.81 kg/m2 Tessa ssa [facility] blood pressure, diastolic 70 mm[Hg] Co debbie [facility] blood pressure, systolic 130 mm[Hg] Ruth Ann dailya [facility] pulse rate 48 /min Kiersten [facility] oxygen saturation, oximetry 97 % Kiersten Marcelino respiratory rate E&M 14 /min Kiersten [facility] weight E&M 219 [lb_av] Kiersten Marcelino [...] Mass Index (Ratio) 29.26 kg/m2 Travis Suero [employer]WORK [employer] PROJECT MANAGER weight E&M 215 [lb_av] Melony Suero [employer]WORK [employer] PROJECT MANAGER Body Mass Index (Ratio) 29.81 kg/m2 [place] [...] Index (Ratio) 30.96 kg/m2 Lacr etifernando Tadeo [employer] PROJECT MANAGER weight E&M 221.2 [lb_av] Lacretifernando Contreras ls [employer]WORK SERVICES PROJECT MANAGER blood pressure, diastolic, standing 80 mm [Hg] [...] [facility] pulse rate 55 /min [facility] oxygen saturation, oximetry 97 % [facility] respiratory rate E&M 16 /min [facility] weight E&M 226 [lb_av] [facility] blood pressure, diastolic, left arm 61 mm [Hg] [facility], systolic, left arm 114 mm [Hg] [facility] pressure, diastolic, right arm 58 m m[Hg] Denyean [facility] blood pressure, systolic, right arm 132 m m[Hg] Denyean [facility] blood pressure, diastolic 61 mm[Hg] Sandoval [facility] blood pressure, systolic 114 mm[Hg] Andi an [facility] pulse rate 58 /min [facility] oxygen saturation, oximetry 98 % [facility] respiratory rate E&M 16 /min [...] Jorge Ruiz international normalized ratio (INR) 1.0 [facility] blood glucose, random 96 mg/dL [facility] creatinine, serum 1.01 mg/dL [facility] urea nitrogen, blood 14 mg/dL [facility] potassium, serum 4.2 mmol/L [facility] sodium, serum 142 mmol/L [facility] TOTAL NON-HDL-C (LDL VLDL) 101 [facility] alanine aminotransferase (SGPT), serum 18 1/L [facility] aspartate aminotransferase (SGOT), serum 22 1/L [facility] cholesterol/HDL ratio, serum 4.2 [facility] cholesterol, serum 132 mg/dL [facility] triglyceride, target level 150 mg/dL [facility] HDL cholesterol, serum, target level 40 mg/dL [facility] triglyceride, serum, fasting 92 mg/dL [facility] Normal HDL cholesterol, serum 31 mg/dL [facility] Low LDL cholesterol, serum 82 mg/dL [facility] Normal LDL target level 100 mg/dL [facility] cholesterol, target level 200 mg/dL [facility] TOTAL NON-HDL-C (LDL VLDL) [facility] (SGPT), serum 18 1/L [facility] aspartate aminotransferase (SGOT), serum 24 1/L [facility] cholesterol/HDL ratio, serum 3.[address] [facility] cholesterol, serum 138 mg/dL [facility] triglyceride, target level 150 mg/dL [facility] HDL cholesterol, serum, target level 40 mg/dL [facility] triglyceride, serum, fasting 90 mg/dL Lui Tadeo [employer] PROJECT MANAGER Normal HDL cholesterol, serum 37 mg/dL Lui Tadeo [employer] PRO[employer] MANAGER Low LDL cholesterol, serum 83 mg/dL Lui Tadeo [employer] PROJECT MANAGER Normal LDL target level 100 mg/dL Lui Tadeo [employer] PROJECT MANAGER cholesterol, target level 200 mg/dL Lui Tadeo [employer] PROJECT MANAGER LDL cholesterol, serum 151 mg/dL [facility] cholesterol, serum 221 mg/dL [facility] triglyceride, serum, fasting 98 mg/dL [facility] HDL cholesterol, serum 33 mg/dL [facility] LDL cholesterol, serum 165 mg/dL [facility] cholesterol, serum 218 mg/dL [facility] thyroid stimulating hormone, serum 0.83 u[IU]/mL [facility] hemoglobin A1C, blood, as % of total hemoglobin 5.6 % [facility] anion gap, serum 8.9 [facility] globulins, serum, total 3.3 g/dL [facility] estimated glomerular filtration rate >60 [facility] albumin/globulin ratio, serum 1.2 [facility] protein, total, serum 7.4 g/dL [facility] albumin, serum 4.1 g/dL [facility] bilirubin, serum, total 0.55 mg/dL [facility] alkaline phosphatase, serum 137 1/L [facility] alanine aminotransferase (SGPT), serum 36 1/L [facility] aspartate aminotransferase (SGOT), serum 19 1/L [facility] calcium, serum 9.2 mg/dL [facility] blood glucose, fasting 102 mg/dL [facility] creatinine, serum 0.93 mg/dL [facility] urea nitrogen, blood 9.3 mg/dL [facility] carbon dioxide, serum, total 28 mmol/L [facility] chloride, serum 104 mmol/L [facility] potassium, serum 3.9 mmol/L [facility] sodium, serum 137 mmol/L [facility] platelet count 168 10*3/uL [facility] red blood cell distribution width 12.4 % [facility] mean corpuscular hemoglobin concentration, RBC 34.8 g/dL [facility] mean corpuscular hemoglobin, RBC 32.0 pg [facility] mean corpuscular volume, RBC 91.9 fL [facility] hematocrit, blood 42.2 % [facility] hemoglobin, blood 14.7 g/dL [facility] erythrocyte (RBC) count 4.59 10*6/mm3 [facility] monocytes as percent of blood leukocytes 8.9 % [facility] lymphocytes as percent of blood leukocytes 35.2 % [facility] leukocyte count, blood 5.9 10*3/mm3 [facility] cholesterol/HDL ratio, serum 3.3 [facility] triglyceride, serum, fasting 99 mg/dL [facility] HDL cholesterol, serum 39 mg/dL [facility] LDL cholesterol, serum 68 mg/dL [facility] cholesterol, serum 127 mg/dL [facility] albumin/globulin ratio, serum 1.4 [facility] protein, total, serum 6.6 g/dL [facility] albumin, serum 3.9 g/dL [facility] bilirubin, serum, total 0.7 mg/dL [facility] alkaline phosphatase, serum 103 1/L [facility] alanine aminotransferase (SGPT), serum 27 1/L [facility] aspartate aminotransferase (SGOT), serum 35 1/L [facility] calcium, serum 9.2 mg/dL [facility] blood glucose, fasting 109 mg/dL [facility] creatinine, serum 1.2 mg/dL [facility] urea nitrogen, blood 10 mg/dL [facility] carbon dioxide, serum, total 26 mmol/L [facility] chloride, serum 106 mmol/L [facility] potassium, serum 4.7 mmol/L [facility] sodium, serum 143 mmol/L [facility] platelet count 160 10*3/uL [facility] red blood cell distribution width 13.7 % [facility] mean corpuscular hemoglobin concentration, RBC 33.6 g/dL [facility] mean corpuscular hemoglobin, RBC 31.6 pg [facility] mean corpuscular volume, RBC 93.9 fL [facility] hematocrit, blood 49.4 % [facility] hemoglobin, blood 16.6 g/dL [facility] erythrocyte (RBC) count 5.3 10*6/mm3 [facility] neutrophils, segmented as percent of blood leukocytes 3.3 % [facility] monocyte count, blood 0.4 10*3/mm3 [facility] lymphocyte count, blood 2.7 10*3/mm3 [facility] neutrophils as percent of blood leukocytes 50.8 % [facility] monocytes as percent of blood leukocytes 6.7 % [facility] lymphocytes as percent of blood leukocytes 42.5 % [facility] leukocyte count, blood 6.4 10*3/mm3 [facility] cholesterol/HDL ratio, serum 3.3 [facility] triglyceride, serum, fasting 99 mg/dL [facility] HDL cholesterol, serum 39 mg/dL [facility] LDL cholesterol, serum 68 mg/dL [facility] cholesterol, serum 127 mg/dL [facility] albumin/globulin ratio, serum 1.4 [facility] protein, total, serum 6.6 g/dL [facility] albumin, serum 3.9 g/dL [facility] bilirubin, serum, total 0.7 mg/dL [facility] alkaline phosphatase, serum 103 1/L [facility] alanine aminotransferase (SGPT), serum 35 1/L [facility] aspartate aminotransferase (SGOT), serum 27 1/L [facility] calcium, serum 9.2 mg/dL [facility] blood glucose, fasting 109 mg/dL [facility] creatinine, serum 1.2 mg/dL [facility] Joseph urea nitrogen, blood 10 mg/dL [facility] carbon dioxide, serum, total 26 mmol/L [facility] chloride, serum 106 mmol/L [facility] potassium, serum 4.7 mmol/L [facility] sodium, serum 143 mmol/L [facility] platelet count 160 10*3/uL [facility] red blood cell distribution width 13.7 % [facility] Joseph mean corpuscular hemoglobin concentration, RBC 33.6 g/dL [facility] mean corpuscular hemoglobin, RBC 31.6 pg [facility] mean corpuscular volume, RBC 93.9 fL [facility] hematocrit, blood 49.4 % [facility] hemoglobin, blood 16.6 g/dL [facility] erythrocyte (RBC) count 5.3 10*6/mm3 [facility] Joseph neutrophils, segmented as percent of blood leukocytes 3.3 % [facility] Joseph monocyte count, blood 0.4 10*3/mm3 [facility] lymphocyte count, blood 2.7 10*3/mm3 [facility] neutrophils as percent of blood leukocytes 50.8 % [facility] monocytes as percent of blood leukocytes 6.7 % [facility] lymphocytes as percent of blood leukocytes 42.5 % [facility] leukocyte count, blood 6.4 10*3/mm3 [facility] international normalized ratio (INR) 1.1 [facility] prothrombin time (patient) 10.[address] [facility] platelet count 162 THOUSAND/UL [facility] 140-400 Normal red blood cell distribution width 13.0 % [facility] 11.0-15.0 Normal mean corpuscular hemoglobin [...] 10-35 Normal alkaline phosphatase, serum 102 1/[facility] Normal bilirubin, serum, total 0.6 [...] X 11 & 1 MG X 42 [facility] completed One pack. Take as directed. 07/08 [...] Kiersten Marcelino smoking status Former smoker Kiersten Lilyl arthur social history reviewed E&M revi ewed [...] use, average drinks per day social Michelle Coretz alcohol use yes Michelle Willy davis number [...] patient education and counseling yes Melony Pio [employer] PROJECT MANAGER smoking history, tot al pack/year 34 Melony iPo [employer]WORK SERVICES PROJECT MANAGER smoking/tobacco cess ation, patient education and counseling yes Pushpa Thomas MD drug use none Pushpa Thomas MD social history reviewed E&M reviewed Pushpa Thomas MD smoking history, tot al pack/day 1 Michelle Cortez smoking history, tot al pack/year 36 Michelle Cortez physical exercise, frequency, days per week yes Lui Tadeo [employer] PROJECT MANAGER smoking status current every day smoker L jrbutch Carlyle [employer] PROJECT MANAGER cigarette use 1 Lacrbutch Barretowilson breen [employer]WORK SERVICES PROJECT MANAGER social history reviewed E&M reviewed Lui Tadeo [employer] PROJECT MANAGER smoking history, tot al pack/year 34 Lui Carlyle [employer]WORK SERVICES PROJECT MANAGER social history reviewed E&M reviewed Jeronimo Chandler [...] Payer name Policy type / Coverage type [employer] [facility] DUAL COMPLETE HMO O [id number] TREATMENT PLAN Date Name Performer Cardiology [...] tab daily Toprol Xl 25 Mg Oral [id number] (Metoprolol succinate) ..... Take one pill a [...] this problem includes: Toprol Xl 50 Mg [id number]-rtp (Metoprolol succinate) ..... Take one pill a day Aspirin 325 Mg Tabs (Aspirin) ..... One tab daily Pushpa Thomas MD Follow Up: T he following medications were removed from the medication list: Crestor 10 Mg Tabs (Rosuvastatin calcium) ..... One tab. daily His updated medication list for this problem includes: Toprol Xl 50 Mg Le94z-hqm (Metoprolol succinate) ..... Take one pill a [...] the RCA. N ormal LV systolic function. [facility] (10/11/2008) C arotid Doppler/Duplex: Mild plaque [...] this problem includes: Toprol Xl 50 Mg [id number]-[id number] (Metoprolol succinate) ..... Take one pill a [...] this problem includes: Toprol Xl 50 Mg Bz96q-jzg (Metoprolol succinate) ..... Take one pill a day Aspirin 325 Mg Tabs (Aspirin) ..... One tab daily Crestor 10 Mg Tabs (Rosuvastatin calcium) ..... One tab. daily Orders: E KG (CPT-07416) BP today: 128/86 Prior BP: 124/69 (10/26/2012) [...] the RCA. N ormal LV systolic function. [facility] (10/11/2008) C arotid Doppler/Duplex: Mild plaque [...] this problem includes: Toprol Xl 50 Mg Sc19k-jjz (Metoprolol succinate) ..... Take one pill a [...] this problem includes: Toprol Xl 50 Mg Kc28y-cgz (Metoprolol succinate) ..... Take one pill a day Aspirin 325 Mg Tabs (Aspirin) ..... One tab daily Pushpa Thomas MD Follow up: T he following medications were removed from the medication list: Lipitor 20 Mg Tabs (Atorvastatin calcium) ..... One tab po daily His updated medication list for this problem includes: Toprol Xl 50 Mg Og35q-ozc (Metoprolol succinate) ..... Take one pill a day Aspirin 325 Mg Tabs (Aspirin) ..... One tab daily Orders: E KG (CPT-59754) BP today: 128/86 Prior BP: 124/69 (10/26/2012) [...] the RCA. N ormal LV systolic function. [facility] (10/11/2008) C arotid Doppler/Duplex: Mild plaque [...] this problem includes: Toprol Xl 50 Mg Jj55k-egd (Metoprolol succinate) ..... Take one pill a [...] the RCA. N ormal LV systolic function. [facility] (10/11/2008) Pushpa Thomas MD Lipid management: [...] this problem includes: Toprol Xl 50 Mg [id number]-wsr (Metoprolol succinate) ..... Take one pill a [...] this problem includes: Toprol Xl 50 Mg Jg20j-trc (Metoprolol succinate) ..... Take one pill a [...] the RCA. N ormal LV systolic function. [facility] (10/11/2008) C HOL: 138 (07/08/2012) LDL: [...] this problem includes: Toprol Xl 50 Mg Ic88h-het (Metoprolol succinate) ..... Take one pill a [...] the RCA. N ormal LV systolic function. [facility] (10/11/2008) C HOL: 138 (07/08/2012) LDL: [...] this problem includes: Toprol Xl 50 Mg Ev93s-mim (Metoprolol succinate) ..... Take one pill a day Aspirin 325 Mg Tabs (Aspirin) ..... One tab daily BP today: 143/82 P rior BP: 134/78 (10/28/2011) Labs Reviewed: C reat: 0.93 (06/06/2011) C hol: 218 (06/06/2011) HDL: 33 (06/06/2011) LDL: 165 (06/06/2011) T (06/06/2011) Pushpa Thomas MD follow up: H is updated medication list for this problem includes: Toprol Xl 50 Mg Kn00p-dqf (Metoprolol succinate) ..... Take one pill a [...] the RCA. N ormal LV systolic function. [facility] (10/11/2008) C HOL: 218 (06/06/2011) LDL: [...] this problem includes: Toprol Xl 50 Mg Aa01a-pyr (Metoprolol succinate) ..... Take one pill a day Aspirin 325 Mg Tabs (Aspirin) ..... One tab daily Lipitor 20 Mg Tabs (Atorvastatin calcium) ..... One tab po daily Orders: E KG (CPT-06378) BP today: 143/82 Prior BP: 134/78 (10/28/2011) [...] the RCA. N ormal LV systolic function. [facility] (10/11/2008) C HOL: 218 (06/06/2011) LDL: [...] this problem includes: Toprol Xl 50 Mg Ih87j-iui (Metoprolol succinate) ..... Take one pill a [...] the RCA. N ormal LV systolic function. [facility] (10/11/2008) C HOL: 218 (06/06/2011) LDL: [...] the RCA. N ormal LV systolic function. [facility] (10/11/2008) C HOL: 218 (06/06/2011) LDL: [...] month follow-up Pushpa Grewal 6 month follow-up [facility]: H is updated medication list [...] (04/20/2009) Pushpa Thomas MD 6 month follow-up [facility]: H is updated medication list [...] the RCA. N ormal LV systolic function. [facility] (10/11/2008) C HOL: 127 (04/20/2009) LDL: [...] ..... One tab daily Orders: E KG (CPT-11787) BP today: 120/58 Prior BP: 114/61 (11/05/2010) [...] the RCA. N ormal LV systolic function. [facility] (10/11/2008) C HOL: 127 (04/20/2009) LDL: [...] the RCA. N ormal LV systolic function. [facility] (10/11/2008) C HOL: 127 (04/20/2009) LDL: [...] the RCA. N ormal LV systolic function. [facility] (10/11/2008) C HOL: 127 (04/20/2009) LDL: [...] . Myocardial scintigraphy demonstrates inferior wall ischemia. [facility] (09/08/2008) C ardiac Cath: Complete revascularization with the LAD territory to a vein graft. A tretic VALDES. 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 N ormal LV systolic function. [facility] (10/11/2008) C HOL: 170 (09/07/2008) LDL: [...] . Myocardial scintigraphy demonstrates inferior wall ischemia. [facility] (09/08/2008) C ardiac Cath: Complete revascularization with the LAD territory to a vein graft. Atretic VALDES. 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 N ormal LV systolic function. [facility] (10/11/2008) C HOL: 170 (09/07/2008) LDL: [...] . Myocardial scintigraphy demonstrates inferior wall ischemia. [facility] (09/08/2008) C ardiac Cath: Complete revascularization with the LAD territory to a vein graft. Atretic VALDES. 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 N ormal LV systolic function. [facility] (10/11/2008) C HOL: 170 (09/07/2008) LDL: [...] . Myocardial scintigraphy demonstrates inferior wall ischemia. [facility] (09/08/2008) C ardiac Cath: Complete revascularization with the LAD territory to a vein graft. Atretic VALDES. 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 N ormal LV systolic function. [facility] (10/11/2008) C HOL: 170 (09/07/2008) LDL: [...] Name Provider Procedure Notes S tatus SNOMED-CT: [id number] Physical Exam, Performed: Pulse Exam of Foot Pushpa Thomas MD completed SNOMED-CT: 956396040 [id number] Current Medications Documented Pushpa Thomas MD completed FVC - 27034 Pushpa Thomas MD complete d FRC - 36292 Pushpa Thomas MD complete d DLCO - 46514 Pushpa Thomas MD complet ed Lipid Strip [...]
--- OUTSIDE RECORDS SUMMARY | 2024-11-03 13:19 | XMS_ITS | Clinical Summary ---
Author Organization [facility] [address] Address [address] [place] [address] Care Team Providers Care Yoghurt Maker Name Role Phone Teodoro Garcia MD Primary Care Provider [phone] Allergies Active Allergy Reactions Criticality Noted Date Comments Erythromycin Ethyl Alcohol Unknown Ezetimibe Muscle pain Medium Simvastatin Nausea And Vomiting Low 07/20/2012 Qlpqdqm-Car-Okq Reductase Inhibitors High Medications pantoprazole DR (PROTONIX) [...] INTRANASALLY DAILY ADMINISTER INTO EACH NOSTRIL 10/20/19 25 Active isosorbide mononitrate ER (IMDUR) 30 mg [...] total) by mouth nightly 90 tablet 3 11/19/20 24 2024 Discontinued(P atient Reported) metoprolol tartrate [...] artery disease of n ative artery of redding heart with stable angina pectoris 01/29/2016 Overview (10/04/2016): Coronary artery disease involving redding coronary artery of redding heart without angina pectoris Dyspnea on exertion [...] Description 10/25/2024 10:05 AM CDT Ancillary Procedure [facility] [address] [place] [address] Bradycardia 10/25/2024 9:00 AM CDT Office Visit [facility] [address] [place] [address] Teresa Stern NP Bradycardia (Primary Dx); PVC's (premature ventricular contractions); 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 08/17/2024 8:30 AM AIRPORT OPERATIONS SPECIALIST Office Visit [facility] [address] [place] [address] Guillaume Villafana MD 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 (Primary Dx) [...] on file Legal Sex Male 3:43 AM AIRPORT OPERATIONS SPECIALIST Gender Identity Not on file Sexual [...] 10/25/2024 9:00 AM CDT Plan of Treatment Health Maintenance [...] history exists Medical Devices Implanted Type Area Veneer Stock Grader Device Identifier Shelf Expiration Date Model / Serial / Lot Other - See Comments Other - see comments Left: Knee Other - See Comments Other - see comments Right: Knee [employer] Card Vasc Surgery 3.0 X 18mm [place] Coronary Stent [id number] - [id number] Implanted:Qty : 1 on 10/28/2023 by Abigail Saxena MD at [facility] Medtronic Card Vasc Surgery 07/26/2026 [id number] / / [id number] [employer] Angio-Seal Vip 6fr Closere Device [id number] - [id number] Implanted:Qty : 1 on 10/28/2023 by Abigail Saxena MD at [facility] [employer] [id number] / / Procedures Procedure Name Priority Date/Time Associated Diagnosis Comments LIPID PANEL Routine 08/17/2024 8:34 AM AIRPORT OPERATIONS SPECIALIST EGFR Routine 10/28/2023 7:13 AM CDT HEMOGLOBIN A1C Routine 2017 from Last 3 Months or Most Recently Relevant to Health Maintenance Results * Lipid panel (08/17/2024 8:34 AM AIRPORT OPERATIONS SPECIALIST) SCRIBED Cholesterol, Total <100 <100 EXTERNAL LAB SCRIBED HDL 19 >40 EXTERNAL LAB SCRIBED LDL 63.6 <100 EXTERNAL LAB SCRIBED Triglycerides 82 <150 EXTERNAL LAB Blood 08/17/2024 8:34 AM AIRPORT OPERATIONS SPECIALIST us Guillaume Villafana MD LAB BLOOD [...] MD LAB BLOOD ORDERABLES Final Result STEPHANIE [address] [address] Department [place] [address] * Hemoglobin A1c (2017) Blood specimen (specimen) us Historical Provider LAB BLOOD ORDERABLES Norah canas Result from Last 3 Months or Most Recently Relevant to Health Maintenance Insurance [employer] MEDICARE [facility] MEDICARE Address: [facility] [id number] [place] [id number] Advance Directives For more information, please contact: [phone] * Full Code (Latest Code Status on File) Date Activated Date Inactivated Comments 10/28/2023 10:03 AM 10/28/2023 4:45 PM Care Teams Yoghurt Maker Relationship Specialty Start Date End Date Teodoro Garcia MD PCP - General Family Practice 03/19/23
== END 2024-11-03 13:09 | disposition home or self-care (01) ==
PROVIDERS: PCP Nurse Practitioner Family; Visit Provider Nurse Practitioner Family
DX: R94.31 Abnormal electrocardiogram [ECG] [EKG] (principal); I48.91 Unspecified atrial fibrillation; I45.10 Unspecified right bundle-branch block; I44.39 Other atrioventricular block
CPT/HCPCS: 93005

== ENCOUNTER 2024-11-16 08:41 | Outpatient (CLI) | payer MEDICARE, SELFPAY ==
--- OUTSIDE RECORDS SUMMARY | 2024-11-16 08:51 | XMS_ITS | Clinical Summary ---
Author Organization [facility] Address [address] [place] [address] Care Team Providers Care State Director Name Role Phone Ace Hanna MD Primary Care Provider [phone] Source Comments [facility],non-owned Affiliates and Associated Physician Practices is amultiple site organization consisting of ambulatory clinics and hospital sitesin [place], [place], [place] and [place]. This disclosure is being madepursuant to the Care Everywhere program and may not contain all information available regarding this patient. Last updated 18.[facility] Allergies No known active allergies Medications * [...] Comments Blood Pressure 113/80 07/18/2015 12:00 PM APPLICATOR SPRAYER Pulse 62 07/18/2015 12:00 PM APPLICATOR SPRAYER Temperature 36.8 C (98.3 F) 07/18/2015 11:32 AM APPLICATOR SPRAYER Respiratory Rate 15 07/18/2015 12:00 PM APPLICATOR SPRAYER Oxygen Saturation 94% 07/18/2015 12:00 PM APPLICATOR SPRAYER Inhaled Oxygen Concentration - - Weight 111.1 kg (245 lb) 07/18/2015 9:34 AM APPLICATOR SPRAYER Height 185.4 cm (6' 1 ) 07/18/2015 9:34 AM APPLICATOR SPRAYER Body Mass Index 32.32 07/18/2015 9:34 AM APPLICATOR SPRAYER Plan of Treatment Health Maintenance Due Date [...] patient's age to complete this topic Insurance [facility] MANAGED MEDICARE ADV [facility] MANAGED MEDICARE ADV Care Teams State Director Relationship Specialty [place] [address] [place] [address] [address] [place] [address] PCP - General Family Medicine 11/25/12
--- OUTSIDE RECORDS SUMMARY | 2024-11-16 08:51 | XMS_ITS | CONTINUITY OF CARE DOCUMENT ---
Author Name bao, bao Address Unknown Organization [facility] Address [address] [place] [address] Phone [phone] Care Team Providers Care Board Runner Name Role Phone William RODRÍGUEZ, Pushpa Unavailable [...] In-person encounter Office Visit Pushpa Thomas MD [place] [facility] HYPERCHOLESTEROLEMI A- intolerant of all statins and zetia - In-person encounter Office Visit Pushpa Thomas MD [place] [facility] - In-person encounter Office Visit Pushpa Thomas MD [place] [facility] - In-person encounter Office Visit Pushpa Thomas MD [place] [facility] - In-person encounter Office Visit Pushpa Thomas MD [place] [facility] HYPERCHOLESTEROLEMI A- intolerant of all statins and zetiaCAD-03/13 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, inf lat ischemia on stress 02/10 - In-person encounter Office Visit Pushpa Thomas MD [place] [facility] CABG- SVG- DIAG open, 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 in [place]-10/29 CATH OCC VALDES-LAD, PAT SVG-2ND DIAGCAD-03/13 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, inf lat ischemia on stress 02/10DIZZINESS-02/10 HOLTER SB PVC-HR 83-42, 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 2013 - In-person encounter Office Visit Pushpa Thomas MD [place] [facility] - In-person encounter Office Visit Pushpa Thomas MD [place] [facility] - In-person encounter Office Visit Pushpa Thomas MD [place] [facility] - In-person encounter Office Visit Pushpa Thomas MD [facility] - In-person encounter Office Visit Pushpa Thomas MD [place] [facility] DIZZINESS-02/10 HOLTER SB PVC-HR 83-42, 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 2012 - In-person encounter Office Visit Pushpa Thomas MD [place] [facility] - In-person encounter Office Visit Pushpa Thomas MD [place] [facility] - In-person encounter Office Visit Pushpa Thomas MD [place] [facility] - In-person encounter Office Visit Pushpa Thomas MD [place] [facility] - In-person encounter Office Visit Pushpa Thomas MD [place] [facility] - In-person encounter Office Visit Pushpa Thomas MD [place] [facility] - In-person encounter Office Visit Pushpa Thomas MD [place] [facility] - In-person encounter Office Visit Pushpa Thomas MD [place] [facility] CAD-03/13 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, inf lat ischemia on stress 02/10TOBACCO ABUSE - In-person encounter Office Visit Pushpa Thomas MD [place] [facility] HYPERCHOLESTEROLEMI A- intolerant of all statins and zetia - In-person encounter Office Visit Pushpa Thomas MD [place] [facility] HTN-11/11 CAROTID NEGCABG- SVG- DIAG open, 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 in HYPERCHOLESTEROLE BLANCO- intolerant of all statins and zetia VITAL SIGNS Date Observation Value Provider blood pressure, diastolic 75 mm[Hg] Ma debbie Marcelino blood pressure, systolic 130 mm[Hg] [...] larios weight E&M 228 [lb_av] Michelle Willy [facility] Body Mass Index (Ratio) 30.11 kg/m2 Anea clark [facility] blood pressure, diastolic 74 mm[Hg] An eatris [facility] blood pressure, systolic 124 mm[Hg] Ane atris [facility] pulse rate 53 /min Aneatris [facility] oxygen saturation, oximetry 98 % Aneatris [facility] respiratory rate E&M 18 /min Aneatri s [facility] weight E&M 222 [lb_av] Aneatris [facility] Body Mass Index (Ratio) 29.70 kg/m2 Anea clark [facility] blood pressure, diastolic 87 mm[Hg] An eatris [facility] blood pressure, systolic 140 mm[Hg] Ane atris [facility] pulse rate 85 /min Aneatris Brown oxygen saturation, oximetry 95 % Aneatris Brown respiratory rate E&M 18 /min Aneatri s Brown weight E&M 219 [lb_av] Aneatris Brown Body Mass Index (Ratio) 29.56 kg/m2 Anea clark [facility] blood pressure, diastolic 102 mm[Hg] An eatris Brown blood pressure, systolic 154 mm[Hg] Ane atris Brown pulse rate 80 /min Aneatris Brown oxygen saturation, oximetry 98 % Aneatris Brown respiratory rate E&M 18 /min Aneatri s [facility] weight E&M 218 [lb_av] Aneatris Brown Body Mass Index (Ratio) 29.81 kg/m2 Tessa ssa [facility] blood pressure, diastolic 70 mm[Hg] Ma debbie [facility] blood pressure, systolic 130 mm[Hg] Ruth Ann dailya [facility] pulse rate 48 /min Kiersten [facility] oxygen saturation, oximetry 97 % Kiersten Marcelino respiratory rate E&M 14 /min Kiersten [facility] weight E&M 219 [lb_av] Kiersten Marcelino [...] Mass Index (Ratio) 29.26 kg/m2 Travis Suero 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 weight E&M 215 [lb_av] Melony Suero 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 Body Mass Index (Ratio) 29.81 kg/m2 Mills [...] Index (Ratio) 30.96 kg/m2 Lacr etifernando 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 [employer]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 weight E&M 221.2 [lb_av] Lacretifernando Contreras ls 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 blood pressure, diastolic, standing 80 mm [Hg] [...] Adalberto eph [place] pulse rate 55 /min Sidney [place] oxygen saturation, oximetry 97 % Sidney [place] respiratory rate E&M 16 /min Sidney [place] weight E&M 226 [lb_av] Sidney [place] blood pressure, diastolic, left arm 61 mm [Hg] [facility] blood pressure, systolic, left arm 114 mm [Hg] [facility] blood pressure, diastolic, right arm 58 m m[Hg] Denyean Soliz blood pressure, systolic, right arm 132 m m[Hg] Denyean Soliz blood pressure, diastolic 61 mm[Hg] Sandoval Soliz blood pressure, systolic 114 mm[Hg] Andi an Soliz pulse rate 58 /min [facility] oxygen saturation, oximetry 98 % [facility] respiratory rate E&M 16 /min Andiyean [...] Jorge Ruiz international normalized ratio (INR) 1.0 [facility] blood glucose, random 96 mg/dL [facility] creatinine, serum 1.01 mg/dL [facility] urea nitrogen, blood 14 mg/dL [facility] potassium, serum 4.2 mmol/L [facility] sodium, serum 142 mmol/L [facility] TOTAL NON-HDL-C (LDL VLDL) [address] [facility] alanine aminotransferase (SGPT), serum 18 1/L [facility] aspartate aminotransferase (SGOT), serum 22 1/L [facility] cholesterol/HDL ratio, serum 4.[address] [facility] cholesterol, serum 132 mg/dL [facility] triglyceride, target level 150 mg/dL [facility] HDL cholesterol, serum, target level 40 mg/dL [facility] triglyceride, serum, fasting 92 mg/dL [facility] Normal HDL cholesterol, serum 31 mg/dL [facility] Low LDL cholesterol, serum 82 mg/dL [facility] Normal LDL target level 100 mg/dL [facility] cholesterol, target level 200 mg/dL [facility] TOTAL NON-HDL-C (LDL VLDL) 101 [facility] alanine aminotransferase (SGPT), serum 18 1/L Lacretia [facility] aspartate aminotransferase (SGOT), serum 24 1/L Lacretia [facility] cholesterol/HDL ratio, serum 3.7 Lacretia [facility] cholesterol, serum 138 mg/dL Lacretia [facility] triglyceride, target level 150 mg/dL Lacretia [facility] HDL cholesterol, serum, target level 40 mg/dL Lacretia [facility] triglyceride, serum, fasting 90 mg/dL Lui Tadeo 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 Normal HDL cholesterol, serum 37 mg/dL Lui Tadeo 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 Low LDL cholesterol, serum 83 mg/dL Lui Tadeo 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 Normal LDL target level 100 mg/dL Lui Tadeo 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 cholesterol, target level 200 mg/dL Lui Tadeo 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 LDL cholesterol, serum 151 mg/dL [facility] cholesterol, serum 221 mg/dL [facility] triglyceride, serum, fasting 98 mg/dL [facility] HDL cholesterol, serum 33 mg/dL [facility] LDL cholesterol, serum 165 mg/dL [facility] cholesterol, serum 218 mg/dL [facility] thyroid stimulating hormone, serum 0.83 u[IU]/mL [facility] hemoglobin A1C, blood, as % of total hemoglobin 5.6 % [facility] anion gap, serum 8.9 [facility] globulins, serum, total 3.3 g/dL [facility] estimated glomerular filtration rate >60 [facility] albumin/globulin ratio, serum 1.2 [facility] protein, total, serum 7.4 g/dL [facility] albumin, serum 4.1 g/dL [facility] bilirubin, serum, total 0.55 mg/dL [facility] alkaline phosphatase, serum 137 1/L [facility] alanine aminotransferase (SGPT), serum 36 1/L [facility] aspartate aminotransferase (SGOT), serum 19 1/L [facility] calcium, serum 9.2 mg/dL [facility] blood glucose, fasting 102 mg/dL [facility] creatinine, serum 0.93 mg/dL [facility] urea nitrogen, blood 9.3 mg/dL [facility] carbon dioxide, serum, total 28 mmol/L [facility] chloride, serum 104 mmol/L [facility] potassium, serum 3.9 mmol/L [facility] sodium, serum 137 mmol/L [facility] platelet count 168 10*3/uL [facility] red blood cell distribution width 12.4 % [facility] mean corpuscular hemoglobin concentration, RBC 34.8 g/dL [facility] mean corpuscular hemoglobin, RBC 32.0 pg [facility] mean corpuscular volume, RBC 91.9 fL [facility] hematocrit, blood 42.2 % [facility] hemoglobin, blood 14.7 g/dL [facility] erythrocyte (RBC) count 4.59 10*6/mm3 [facility] monocytes as percent of blood leukocytes 8.9 % [facility] lymphocytes as percent of blood leukocytes 35.2 % [facility] leukocyte count, blood 5.9 10*3/mm3 [facility] cholesterol/HDL ratio, serum 3.3 [facility] triglyceride, serum, fasting 99 mg/dL [facility] HDL cholesterol, serum 39 mg/dL [facility] LDL cholesterol, serum 68 mg/dL [facility] cholesterol, serum 127 mg/dL [facility] albumin/globulin ratio, serum 1.4 [facility] protein, total, serum 6.6 g/dL [facility] albumin, serum 3.9 g/dL [facility] bilirubin, serum, total 0.7 mg/dL [facility] alkaline phosphatase, serum 103 1/L [facility] alanine aminotransferase (SGPT), serum 27 1/L [facility] aspartate aminotransferase (SGOT), serum 35 1/L [facility] calcium, serum 9.2 mg/dL [facility] blood glucose, fasting 109 mg/dL [facility] creatinine, serum 1.2 mg/dL [facility] urea nitrogen, blood 10 mg/dL [facility] carbon dioxide, serum, total 26 mmol/L [facility] chloride, serum 106 mmol/L [facility] potassium, serum 4.7 mmol/L [facility] sodium, serum 143 mmol/L [facility] platelet count 160 10*3/uL [facility] red blood cell distribution width 13.7 % [facility] mean corpuscular hemoglobin concentration, RBC 33.6 g/dL [facility] mean corpuscular hemoglobin, RBC 31.6 pg [facility] mean corpuscular volume, RBC 93.9 fL [facility] hematocrit, blood 49.4 % [facility] hemoglobin, blood 16.6 g/dL [facility] erythrocyte (RBC) count 5.3 10*6/mm3 [facility] neutrophils, segmented as percent of blood leukocytes 3.3 % [facility] monocyte count, blood 0.4 10*3/mm3 [facility] lymphocyte count, blood 2.7 10*3/mm3 [facility] neutrophils as percent of blood leukocytes 50.8 % [facility] monocytes as percent of blood leukocytes 6.7 % [facility] lymphocytes as percent of blood leukocytes 42.5 % [facility] leukocyte count, blood 6.4 10*3/mm3 [facility] cholesterol/HDL ratio, serum 3.3 [facility] triglyceride, serum, fasting 99 mg/dL [facility] HDL cholesterol, serum 39 mg/dL [facility] LDL cholesterol, serum 68 mg/dL [facility] cholesterol, serum 127 mg/dL [facility] albumin/globulin ratio, serum 1.4 [facility] protein, total, serum 6.6 g/dL [facility] albumin, serum 3.9 g/dL [facility] bilirubin, serum, total 0.7 mg/dL [facility] alkaline phosphatase, serum 103 1/L [facility] alanine aminotransferase (SGPT), serum 35 1/L [facility] aspartate aminotransferase (SGOT), serum 27 1/L [facility] calcium, serum 9.2 mg/dL [facility] blood glucose, fasting 109 mg/dL [facility] creatinine, serum 1.2 mg/dL [facility] urea nitrogen, blood 10 mg/dL [facility] carbon dioxide, serum, total 26 mmol/L [facility] chloride, serum 106 mmol/L [facility] potassium, serum 4.7 mmol/L [facility] sodium, serum 143 mmol/L [facility] platelet count 160 10*3/uL [facility] red blood cell distribution width 13.7 % [facility] mean corpuscular hemoglobin concentration, RBC 33.6 g/dL [facility] mean corpuscular hemoglobin, RBC 31.6 pg [facility] mean corpuscular volume, RBC 93.9 fL [facility] hematocrit, blood 49.4 % [facility] hemoglobin, blood 16.6 g/dL [facility] erythrocyte (RBC) count 5.3 10*6/mm3 [facility] neutrophils, segmented as percent of blood leukocytes 3.3 % [facility] monocyte count, blood 0.4 10*3/mm3 [facility] lymphocyte count, blood 2.7 10*3/mm3 [facility] neutrophils as percent of blood leukocytes 50.8 % [facility] monocytes as percent of blood leukocytes 6.7 % [facility] lymphocytes as percent of blood leukocytes 42.5 % [facility] leukocyte count, blood 6.4 10*3/mm3 [facility] international normalized ratio (INR) 1.1 [facility] prothrombin time (patient) 10.5 s [facility] platelet count 162 THOUSAND/UL [facility] 140-400 Normal red blood cell distribution width 13.0 % [facility] 11.0-15.0 Normal mean corpuscular hemoglobin concentration, RBC [...] X 11 & 1 MG X 42 [facility] [place] One pack. Take as directed. 07/08 [...] ORAL TABLET active one tab daily Yolette [place] PROTONIX 40 MG ORAL TABLET DELAYED RELEASE [...] patient education and counseling yes Melony Pio 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 smoking history, tot al pack/year 36 Melony Pio [employer]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 smoking/tobacco cess ation, patient education and counseling yes Pushpa Thomas MD drug use none Pushpa Thomas MD social history reviewed E&M reviewed Pushpa Thomas MD smoking history, tot al pack/day 1 Michelle Cortez smoking history, tot al pack/year 36 Michelle Cortez physical exercise, frequency, days per week yes Lui Tadeo 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 smoking status current every day smoker L rjbutch Carlyle 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 cigarette use 1 Lacrbutch 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 Take one pill a day BP today: 120/80 P rior BP: 124/74 (04/04/2014) Prior 10 Yr Risk Heart Disease: N/A (07/08/2012) Labs Reviewed: C reat: 1.01 (02/21/2014) C hol: 132 (01/06/2013) HDL: 31 (01/06/2013) LDL: 82 (01/06/2013) T (01/06/2013) Pushpa Thoams MD Follow Up: T he following medications were removed from the medication list: Crestor 10 Mg Tabs (Rosuvastatin calcium) ..... One tab. daily His updated medication list for this problem includes: Toprol Xl 50 Mg [id number] (Metoprolol succinate) ..... Take one pill a day Aspirin 325 Mg Tabs (Aspirin) ..... One tab daily Pushpa Thomas MD Follow Up: T he following medications were removed from the medication list: Crestor 10 Mg Tabs (Rosuvastatin calcium) ..... One tab. daily His updated medication list for this problem includes: Toprol Xl 50 Mg [id number]-[id number] (Metoprolol succinate) ..... Take one pill a [...] the RCA. N ormal LV systolic function. [facility] (10/11/2008) C arotid Doppler/Duplex: Mild [...] this problem includes: Toprol Xl 50 Mg [id number]-[id number] (Metoprolol succinate) ..... Take one pill a [...] this problem includes: Toprol Xl 50 Mg [id number] (Metoprolol succinate) ..... Take one pill a day Aspirin 325 Mg Tabs (Aspirin) ..... One tab daily Crestor 10 Mg Tabs (Rosuvastatin calcium) ..... One tab. daily Orders: E KG (CPT-72938) BP today: 128/86 Prior BP: 124/69 (10/26/2012) [...] the RCA. N ormal LV systolic function. [facility] (10/11/2008) C arotid Doppler/Duplex: Mild [...] this problem includes: Toprol Xl 50 Mg Wy29p-mho (Metoprolol succinate) ..... Take one pill a [...] this problem includes: Toprol Xl 50 Mg Qr02w-qio (Metoprolol succinate) ..... Take one pill a day Aspirin 325 Mg Tabs (Aspirin) ..... One tab daily Pushpa Thomas MD Follow up: T he following medications were removed from the medication list: Lipitor 20 Mg Tabs (Atorvastatin calcium) ..... One tab po daily His updated medication list for this problem includes: Toprol Xl 50 Mg [id number]-gle (Metoprolol succinate) ..... Take one pill a day Aspirin 325 Mg Tabs (Aspirin) ..... One tab daily Orders: E KG (CPT-37939) BP today: 128/86 Prior BP: 124/69 (10/26/2012) [...] the RCA. N ormal LV systolic function. [facility] (10/11/2008) C arotid Doppler/Duplex: Mild [...] this problem includes: Toprol Xl 50 Mg Ia69q-ufp (Metoprolol succinate) ..... Take one pill a [...] the RCA. N ormal LV systolic function. [facility] (10/11/2008) Pushpa Thomas MD Lipid [...] this problem includes: Toprol Xl 50 Mg Wc10u-mei (Metoprolol succinate) ..... Take one pill a [...] this problem includes: Toprol Xl 50 Mg [id number]-[id number] (Metoprolol succinate) ..... Take one pill a [...] the RCA. N ormal LV systolic function. [facility] (10/11/2008) C HOL: 138 (07/08/2012) [...] this problem includes: Toprol Xl 50 Mg Dm00f-mtp (Metoprolol succinate) ..... Take one pill a [...] the RCA. N ormal LV systolic function. [facility] (10/11/2008) C HOL: 138 (07/08/2012) [...] this problem includes: Toprol Xl 50 Mg Xm13h-jop (Metoprolol succinate) ..... Take one pill a day Aspirin 325 Mg Tabs (Aspirin) ..... One tab daily BP today: 143/82 P rior BP: 134/78 (10/28/2011) Labs Reviewed: C reat: 0.93 (06/06/2011) C hol: 218 (06/06/2011) HDL: 33 (06/06/2011) LDL: 165 (06/06/2011) T (06/06/2011) Pushpa Thomas MD follow up: H is updated medication list for this problem includes: Toprol Xl 50 Mg Kh10a-odv (Metoprolol succinate) ..... Take one pill a [...] the RCA. N ormal LV systolic function. [facility] (10/11/2008) C HOL: 218 (06/06/2011) [...] this problem includes: Toprol Xl 50 Mg Ff14d-soj (Metoprolol succinate) ..... Take one pill a day Aspirin 325 Mg Tabs (Aspirin) ..... One tab daily Lipitor 20 Mg Tabs (Atorvastatin calcium) ..... One tab po daily Orders: E KG (CPT-39954) BP today: 143/82 Prior BP: 134/78 (10/28/2011) [...] the RCA. N ormal LV systolic function. [facility] (10/11/2008) C HOL: 218 (06/06/2011) [...] this problem includes: Toprol Xl 50 Mg Gq69o-jcp (Metoprolol succinate) ..... Take one pill a [...] the RCA. N ormal LV systolic function. [facility] (10/11/2008) C HOL: 218 (06/06/2011) [...] the RCA. N ormal LV systolic function. [facility] (10/11/2008) C HOL: 218 (06/06/2011) [...] follow-up Pushpa Grewal 6 month follow-up [facility] Echo: H is updated medication list for [...] Pushpa Thomas MD 6 month follow-up [facility] Echo: H is updated medication list for [...] the RCA. N ormal LV systolic function. [facility] (10/11/2008) C HOL: 127 (04/20/2009) [...] ..... One tab daily Orders: E KG (CPT-45860) BP today: 120/58 Prior BP: 114/61 (11/05/2010) [...] the RCA. N ormal LV systolic function. [facility] (10/11/2008) C HOL: 127 (04/20/2009) [...] the RCA. N ormal LV systolic function. [facility] (10/11/2008) C HOL: 127 (04/20/2009) [...] territory to a vein graft. A tretic VLADES. 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 N ormal LV systolic function. [facility] (10/11/2008) C HOL: 127 (04/20/2009) [...] . Myocardial scintigraphy demonstrates inferior wall ischemia. [facility] (09/08/2008) C ardiac Cath: Complete revascularization with the LAD territory to a vein graft. A tretic VALDES. 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 N ormal LV systolic function. [facility] (10/11/2008) C HOL: 170 (09/07/2008) [...] . Myocardial scintigraphy demonstrates inferior wall ischemia. [facility] (09/08/2008) C ardiac Cath: Complete revascularization with the LAD territory to a vein graft. Atretic VALDES. 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 N ormal LV systolic function. [facility] (10/11/2008) C HOL: 170 (09/07/2008) [...] . Myocardial scintigraphy demonstrates inferior wall ischemia. [facility] (09/08/2008) C ardiac Cath: Complete revascularization with the LAD territory to a vein graft. Atretic VALDES. 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 N ormal LV systolic function. [facility] (10/11/2008) C HOL: 170 (09/07/2008) [...] . Myocardial scintigraphy demonstrates inferior wall ischemia. [facility] (09/08/2008) C ardiac Cath: Complete revascularization with the LAD territory to a vein graft. Atretic VALDES. 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 N ormal LV systolic function. [facility] (10/11/2008) C HOL: 170 (09/07/2008) [...] Name Provider Procedure Notes S tatus SNOMED-CT: [id number] Physical Exam, Performed: Pulse Exam of Foot Pushpa hTomas MD completed SNOMED-CT: [id number] Current Medications Documented Pushpa Thomas MD completed FVC - 97208 Pushpa Thomas MD complete d FRC - 29175 Pushpa Thomas MD complete d DLCO - 66453 Pushpa Thomas MD complet ed Lipid Strip [...]
--- OUTSIDE RECORDS SUMMARY | 2024-11-16 08:51 | XMS_ITS | Clinical Summary ---
Author Organization [facility] [address] Address [address] [place] [address] Care Team Providers Care Manager Project Name Role Phone Teodoro Garcia MD Primary Care Provider [phone] Allergies Active Allergy Reactions Criticality Noted Date Comments Erythromycin Ethyl Alcohol Unknown Ezetimibe Muscle pain Medium Simvastatin Nausea And Vomiting Low 07/20/2012 Fbvnpxr-Wcz-Hxw Reductase Inhibitors High Medications pantoprazole DR (PROTONIX) 40 mg EC tablet Take 1 tablet (40 mg total) by mouth daily Active ezetimibe (ZETIA) 10 mg tablet Take 1 tablet (10 mg total) by mouth daily Active hydroCHLOROthia zide 12.5 mg tablet TAKE 1 TABLET BY MOUTH EVERY DAY 90 tablet 1 10/16/19 25 Active fluticasone propionate (FLONASE) 50 mcg/actuation nasal spray SPRAY 2 SPRAY INTRANASALLY DAILY ADMINISTER INTO EACH NOSTRIL 10/20/19 25 Active clopidogreL (PLAVIX) 75 mg tablet Take 1 tablet (75 mg total) by mouth daily 90 tablet 3 11/10/19 25 Active apixaban (ELIQUIS) 5 mg tablet Take 1 tablet (5 mg total) by mouth 2 (two) times a day 60 tablet 11 11/10/19 25 026 Active aspirin 81 mg tablet Take 1 tablet (81 mg total) by mouth daily 025 Discontin ued(Thera py completed ) isosorbide mononitrate ER (IMDUR) 30 mg 24 hr tablet Take 1 tablet (30 mg total) by mouth daily 90 tablet 2 11/04/19 24 025 Discontin ued(Thera py completed ) rosuvastatin (CRESTOR) 20 mg tablet Take 1 tablet (20 mg total) by mouth nightly 90 tablet 3 05/18/20 24 025 Discontin ued(Patie nt Reported) metoprolol tartrate (LOPRESSOR) 25 mg immediate release tablet Take 1 tablet (25 mg total) by mouth 2 (two) times a day 180 tablet 2 06/22/20 24 025 Discontin ued(Alter master therapy) ticagrelor (BRILINTA) 60 mg tablet Take 1 tablet (60 mg total) by mouth 2 (two) times a day 180 tablet 3 08/17/19 25 025 Discontin ued(Thera py completed ) Active Problems Problem Noted Date Diagnosed Date Other thrombophilia 11/09/2024 Chest pain 09/29/2023 Cardiovascular stress test abnormal 09/29/2023 PAD (peripheral artery disease) 09/23/2023 Tobacco abuse 12/10/2021 Unintentional weight loss 07/27/2020 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 Palpitations 03/08/2019 Mixed diabetic hyperlipidemi a associated with type 2 diabetes mellitus ([facility]) 03/08/2019 Sick sinus syndrome 01/12/2018 Atrial bigeminy 12/22/2017 Ventricular bigeminy 09/08/2017 PVC's (premature ventricular contractions) 11/21 Overview (11/29/2016): Frequent PVCs Hyperglycemia 11/21/2016 Overview (11/29/2016): Elevated blood sugar Premature atrial contraction 11/21/2016 Overview (11/29/2016): PAC (premature atrial contraction) Muscle pain 10/11/2016 Overview (11/22/2016): Myalgia Bradycardia 10/11/2016 Overview (11/22/2016): Bradycardia 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 Medical Group Cardiology [address] [place] [phone] Guillaume Villafana MD 11/09/2024 10:00 AM CDT Office Visit [facility] Medical [facility] Cardiology [address] [place] [address] Guillaume Villafana MD PVC's (premature ventricular contractions) (Primary Dx); Shortness of breath; Paroxysmal atrial fibrillation (HCC); Other thrombophilia (HCC) 11/05/2024 Telephone [facility] Cardiology [address] [place] [address] [place] [phone] Teresa Stern NP 11/04/2024 Results Follow-Up [facility] Cardiology [address] [place] [address] [place] [phone] Teresa Stern NP 48 HR Holter Monitor 11/03/[address] [phone] Teresa Stern NP 10/25/2024 10:05 AM CDT Ancillary Procedure [facility] Cardiology [address] [place] [phone] Bradycardia 10/25/2024 9:00 AM CDT Office Visit [facility] Cardiology [address] [place] [phone] Teresa Stern NP Bradycardia (Primary Dx); PVC's (premature ventricular contractions); 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 from Last 3 Months Surgical History Surgery [...] on file Legal Sex 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 Gender Identity Not on file Sexual Orientation Not on file Obstetrics History Last Filed Vital Signs Vital Sign Reading Time Taken Comments Blood Pressure 138/74 11/09/2024 10:14 AM CDT Pulse 91 11/09/2024 10:14 AM CDT Temperature 36.7 C (98.1 F) 10/28/2023 7:22 AM CDT Respiratory Rate 12 03/07/2017 8:35 AM CDT Oxygen Saturation 99% 11/09/2024 10:14 AM CDT Inhaled Oxygen Concentration - - Weight 90.3 kg (199 lb) 11/09/2024 10:14 AM CDT Height 182.9 cm (6') 11/09/2024 10:14 AM CDT Body Mass Index 26.99 11/09/2024 10:14 AM CDT Plan of Treatment Health Maintenance [...] history exists Medical Devices Implanted Type Area Candle Molder Machine Device Identifier Shelf Expiration Date Model / Serial / Lot Other - See Comments Other - see comments Left: Knee Other - See Comments Other - see comments Right: Knee Medtronic Card Vasc Surgery 3.0 X 18mm [place] Rx Coronary Stent [id number] - [id number] Implanted:Qty : 1 on 10/28/2023 by Abigail Saxena MD at [facility] Medtronic Card Vasc Surgery 07/26/2026 [id number] / / [id number] [employer] Angio-Seal Vip 6fr Closere Device [id number] - [id number] Implanted:Qty : 1 on 10/28/2023 by Abigail Saxena MD at [facility] [employer] [id number] / / Procedures Procedure Name Priority Date/Time Associated Diagnosis Comments ELECTROCARDIOGRAM REPORT Routine 11/09/2024 Shortness of breath ECG 12-LEAD Routine 11/03/2024 HOLTER MONITOR 48 HR Routine 10/25/2024 9:54 AM CDT Bradycardia LIPID PANEL Routine 08/17/2024 8:34 AM TRANSPORTATION REFRIGERATION TECHNICIAN EGFR Routine 10/28/2023 7:13 AM CDT HEMOGLOBIN A1C Routine 2017 from Last 3 Months or Most Recently Relevant to Health Maintenance Results * Electrocardiogram Report (11/09/2024) 11/09/2024 Guillaume Villafana MD ECG ORDERABLES Edited Result - Final * ECG 12 lead (11/03/2024) 11/03/2024 Brandy Person MD ECG ORDERABLES Edited Re sult - Final * 48 HR Holter Monitor (10/25/2024 9:54 AM CDT) Anatomical Region Laterality Modality Electrocardiogra phy Narrative 11/03/2024 3:15 PM CDT AMBULATORY SUPERVISOR PRINTING AND STAMPING REPORT Patient Name: Justin Fair Date of : 1945 Requesting Physician: Teresa Stern NP Date of interpretation: 11/03/24 Type of monitor : 48 hour Holter monitor Date of the study/Enrollment period: 10/26/2024 Indication: Bradycardia Quality of the study: Adequate Interpretation: Predominant underlying rhythm is sinus rhythm, heart rate ranged between 31 beats per minute to 151 beats per minute, average heart rate 60 beats per minute. QRS widening from known RBBB. Frequent supraventricular ectopy was noted with episodes of supraventricular tachycardia, fastest episode of 151 beats per minute, total supraventricular ectopic burden 11% for the duration of the study. Occasional ventricular ectopy was seen with a burden of less than 1% for the duration of the study. No symptoms reported. Conclusions: Predominant underlying rhythm is sinus rhythm, average heart rate 60 beats per minute. QRS widening from known RBBB. Frequent supraventricular ectopy was noted with episodes of SVT, fastest episode 151 beats per minute; total supraventricular ectopic burden 11% for the duration of the study. Occasional ventricular ectopy with a burden of less than 1%. No symptoms reported. Voice recognition software was used to complete this document, therefore, jewelry consultant variances may occur. Naseem Bae MD, [facility] 11/03/24 Procedure Note Naseem Bae MD - 11/03/2024 AMBULATORY SUPERVISOR PRINTING AND STAMPING REPORT Patient Name: Justin Fair Date of : 1945 Requesting Physician: Teresa Stern NP Date of interpretation: 11/03/24 Type of monitor : 48 hour Holter monitor Date of the study/Enrollment period: 10/26/2024 Indication: Bradycardia Quality of the study: Adequate Interpretation: Predominant underlying rhythm is sinus rhythm, heart rateranged between 31 beats per minute to 151 beats per minute, average heartrate 60 beats per minute. QRS widening from known RBBB. Frequentsupraventricular ectopy was noted with episodes of supraventriculartachycardia, fastest episode of 151 beats per minute, totalsupraventricular ectopic burden 11% for the duration of the study.Occasional ventricular ectopy was seen with a burden of less than 1% forthe duration of the study. No symptoms reported. Conclusions: Predominant underlying rhythm is sinus rhythm, average heart rate 60 beatsper minute. QRS widening from known RBBB. Frequent supraventricular ectopy was noted with episodes of SVT, fastestepisode 151 beats per minute; total supraventricular ectopic burden 11%for the duration of the study. Occasional ventricular ectopy with aburden of less than 1%. No symptoms reported. Voice recognition software was used to complete this document, therefore,jewelry consultant variances may occur. Naseem Bae MD, [facility] 11/03/24 Teresa Stern NP [facility] Final Result * Lipid panel (08/17/2024 8:34 AM TRANSPORTATION REFRIGERATION TECHNICIAN) SCRIBED Cholesterol, Total <100 <100 EXTERNAL LAB SCRIBED HDL 19 >40 EXTERNAL LAB SCRIBED LDL 63.6 <100 EXTERNAL LAB SCRIBED Triglycerides 82 <150 EXTERNAL LAB Blood 08/17/2024 8:34 AM TRANSPORTATION REFRIGERATION TECHNICIAN Guillaume Villafana MD LAB BLOOD ORDERABLES Final [...] MD LAB BLOOD ORDERABLES Final Result STEPHANIE [address] Department [place] [address] * Hemoglobin A1c (2017) Blood specimen (specimen) Historical Provider LAB BLOOD ORDERABLES Norah l Result from Last 3 Months or Most Recently Relevant to Health Maintenance Insurance [facility] MEDICARE Advance Directives For more information, please contact: [phone] * Full Code (Latest Code Status on File) Date Activated Date Inactivated Comments 10/28/2023 10:03 AM 10/28/2023 4:45 PM Care Teams Manager Project Relationship Specialty Start Date End Date Teodoro Garcia MD PCP - General Family Practice 03/19/23
--- OUTSIDE RECORDS SUMMARY | 2024-11-16 08:51 | XMS_ITS | Encounter Summary ---
Author Organization [facility] Healthcare Address [address] [place] [address] Care Team Providers Care Aerial Lineman Name Role Phone Teodoro Garcia MD Primary Care Provider [phone] Encounter Details Date Type Department Care Team (Late st Contact Info) Description 11/15/2024 Telephone [facility] Medical Group Cardiology [address] [place] [address] Guillaume Villafana MD [address] [facility] [address] [place] [address] Social History Tobacco Use Types Packs/Day Years Used Date Smoking Tobacco: Former Cigarettes Q uit: 03/2024 Smokeless Tobacco: Never Alcohol Use Standard Drinks/Week [...] on file 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 She verbalizes understanding and will get pt rescheduled. * Telephone Encounter - Mely Pulido RN - 11/15/2024 1:22 PM CDT Spoke with Shirley, she wanted to clarify if pt needs to have Echo done prior to scheduled colonoscopy and EGD? Will forward to WK. Please advise. * Telephone Encounter - Zarina Crum - 11/15/2024 12:32 PM CDT Shirley with Anaesthesia Pre Op Clearance calling for clarification. She verified that Last notes were also received with clearance. Paper states that echo is needed, but appt for echo is on 12/14/2024. (That is our soonest available in [place]). Pt is scheduled for 12/03/2024 at . Please call back at [phone] to let her know to reschedule procedure or ok to continued as planned. documented in this encounter Plan of Treatment Not on file documented as of this encounter Visit Diagnoses Not on filedocumented in this encounter Care Teams Aerial Lineman Relationship Specialty Start Date End Date Teodoro Garcia MD PCP - General Family Practice 03/19/23 documented as of this encounter
--- OUTSIDE RECORDS SUMMARY | 2024-11-16 08:51 | XMS_ITS | Continuity of Care Document ---
Author Organization [facility] Address [address] [place] [address] [address] [place] [address] Phone Care Team Providers Care Secondary Special Education Teacher Name Role Phone Arminda Bauer Unavailable Unavailable Procedures Procedure Date Remove Foreign Body From Eye Advance Directives Directive Yes / No Effective Date File Name No Information Encounters Encounter Description Practice Location Reason(s) For Visit Diagnoses Date Provider Providers Copied on Encounter [facility], [address] [place] [address] [address], [place], [place], [id number], [place] tel:[phone] [facility] No Information [address] Lizette [address]illiard. [address] [facility] , [address], [place], [address], [place]. tel:[phone] Family History Family Member Type Diagnosis Age [...]
--- OUTSIDE RECORDS SUMMARY | 2024-11-16 08:51 | XMS_ITS | Encounter Summary ---
Author Organization [facility] Healthcare Address [address] [place] [address] Care Team Providers Care Locomotive Oiler Name Role Phone Teodoro Garcia MD Primary Care Provider [phone] Encounter Details Date Type Department Care Team (Late st Contact Info) Description 11/04/2024 Results Follow-Up [facility] Medical Group Cardiology [address] [facility] [address] [place] [address] Teresa Stern NP [address] 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
--- OUTSIDE RECORDS SUMMARY | 2024-11-16 08:52 | XMS_ITS | Referral Summary ---
Author Organization [place] [address] [place] [address] Care Team Providers Care Retail Operations Specialist Name Role Phone Teodoro Garcia MD Primary Care Provider [phone] Encounters Date Type Department Care Team Description 11/15/2024 Telephone [place] [address] [place] [phone] Guillaume Villafana MD 11/09/2024 10:00 AM CDT Office Visit [facility] Cardiology [address] [place] [address] [place] [phone] Guillaume Villafana MD PVC's (premature ventricular contractions) (Primary Dx); Shortness of breath; Paroxysmal atrial fibrillation (HCC); Other thrombophilia (HCC) 11/05/2024 Telephone [place] [address] [place] [phone] Teresa Stern NP 11/04/2024 Results Follow-Up [facility] Cardiology [address] [place] [address] [place] [phone] Teresa Stern NP 48 HR Holter Monitor 11/03/2024 Telephone [place] [address] [place] [phone] Teresa Stern NP 10/25/2024 10:05 AM CDT Ancillary Procedure [place] [address] [place] [phone] Bradycardia 10/25/2024 9:00 AM CDT Office Visit [facility] Cardiology [address] [place] [address] Teresa Stern NP Bradycardia (Primary Dx); PVC's (premature ventricular contractions); 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 from Last 3 Months Allergies Active Allergy Reactions Criticality Noted Date Comments Erythromycin Ethyl Alcohol Unknown Ezetimibe Muscle pain Medium Simvastatin Nausea And Vomiting Low 07/20/2012 Zpouovf-Gfu-Acx Reductase Inhibitors High Medications pantoprazole DR (PROTONIX) [...] a associated with type 2 diabetes mellitus ([facility]) 03/08/2019 Sick sinus syndrome 01/12/2018 Atrial bigeminy 12/22/2017 Ventricular bigeminy 09/08/2017 PVC's (premature ventricular contractions) 11/21 Overview (11/29/2016): Frequent PVCs Hyperglycemia 11/21/2016 Overview (11/29/2016): Elevated blood sugar Premature atrial contraction 11/21/2016 Overview (11/29/2016): PAC (premature atrial contraction) Muscle pain 10/11/2016 Overview (11/22/2016): Myalgia Bradycardia 10/11/2016 Overview (11/22/2016): Bradycardia 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 01/29/2016 Overview (10/04/2016): Coronary artery disease involving osage coronary artery of osage heart without angina pectoris Dyspnea on exertion [...] on file 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 Gender Identity Not on file Sexual [...] 11/09/2024 10:14 AM CDT Plan of Treatment Not on file Medical Devices Implanted Type Area Groundsman Device Identifier Shelf Expiration Date Model / Serial / Lot Other - See Comments Other - see comments Left: Knee Other - See Comments Other - see comments Right: Knee Medtronic Card Vasc Surgery 3.0 X 18mm [place] Rx Coronary Stent [id number] - [id number] Implanted:Qty : 1 on 10/28/2023 by Abigail Saxena MD at [facility] Medtronic Card Vasc Surgery 07/26/2026 [id number] / / [id number] [employer] Angio-Seal Vip 6fr Closere Device [id number] - [id number] Implanted:Qty : 1 on 10/28/2023 by Abigail Saxena MD at [facility] [employer] [id number] / / Procedures Procedure Name Priority Date/Time Associated Diagnosis Comments ELECTROCARDIOGRAM REPORT Routine 11/09/2024 Shortness of breath ECG 12-LEAD Routine 11/03/2024 HOLTER MONITOR 48 HR Routine 10/25/2024 9:54 AM CDT Bradycardia LIPID PANEL Routine 08/17/2024 8:34 AM SHIFT SUPERVISOR EGFR Routine 10/28/2023 7:13 AM CDT HEMOGLOBIN A1C Routine 2017 from Last 3 Months or Most Recently Relevant to Health Maintenance Results * Electrocardiogram Report (11/09/2024) 11/09/2024 Guillaume Villafana MD ECG ORDERABLES Edited Result - Final * ECG 12 lead (11/03/2024) 11/03/2024 Brandy Provider ECG ORDERABLES Edited Re sult - Final * 48 HR Holter Monitor (10/25/2024 9:54 AM CDT) Anatomical Region Laterality Modality Electrocardiogra phy Narrative 11/03/2024 3:15 PM CDT AMBULATORY CUSTOMER SUCCESS MANAGER REPORT Patient Name: Justin Fair Date of [...] was used to complete this document, therefore, behavioral health aide variances may occur. Naseem Bae MD, [facility] 11/03/24 Procedure Note Naseem Bae MD - 11/03/2024 AMBULATORY CUSTOMER SUCCESS MANAGER REPORT Patient Name: Justin Fair Date of [...] software was used to complete this document, therefore,behavioral health aide variances may occur. Naseem Bae MD, [facility] 11/03/24 Teresa Stern NP [facility] Final Result * Lipid panel (08/17/2024 8:34 AM SHIFT SUPERVISOR) SCRIBED Cholesterol, Total <100 <100 EXTERNAL LAB SCRIBED HDL 19 >40 EXTERNAL LAB SCRIBED LDL 63.6 <100 EXTERNAL LAB SCRIBED Triglycerides 82 <150 EXTERNAL LAB Blood 08/17/2024 8:34 AM SHIFT SUPERVISOR Guillaume Villafana MD LAB BLOOD ORDERABLES Final [...] MD LAB BLOOD ORDERABLES Final Result STEPHANIE [address] [address] Department of Laboratories [place] [id number] * Hemoglobin A1c (2017) Blood specimen (specimen) us Historical Provider LAB BLOOD ORDERABLES Norah l Result from Last 3 Months or Most Recently Relevant to Health Maintenance Insurance [employer] MEDICARE Advance Directives For more information, please contact: [phone] * Full Code (Latest Code Status on File) Date Activated Date Inactivated Comments 10/28/2023 10:03 AM 10/28/2023 4:45 PM Care Teams Retail Operations Specialist Relationship Specialty Start Date End Date Teodoro Garcia MD PCP - General Family Practice 03/19/23
--- OUTSIDE RECORDS SUMMARY | 2024-11-16 08:52 | XMS_ITS | Clinical Summary ---
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 Gender Identity Not on file Sexual Orientation Not on file Occupation Industry Job Start Date Job End Date Not on file Not on file Not on file Not on file Last Filed Vital Signs Vital Sign Reading Time Taken Comments Blood Pressure 130/84 10/28/2016 1:24 PM CDT Pulse 60 07/17/2016 10:26 AM MEDICAL BILLING ASSISTANT Temperature 37 C (98.6 F) 07/17/2016 10:25 AM MEDICAL BILLING ASSISTANT Respiratory Rate 18 02/16/2013 10:09 AM CDT Oxygen Saturation 97% 07/17/2016 10:26 AM MEDICAL BILLING ASSISTANT Inhaled Oxygen Concentration - - Weight 111.6 [...] (#1) 2024 Medical Devices Implanted Type Area Carpet Mechanic Device Identifier Shelf Expiration Date Model / Serial / Lot Log [id number] - Brachytherapy Implants - 1 - Seed Calibrated 1-125 [id number] Implanted:Qty: 1 on 03/12/2011 at [facility] Bilateral: Prostate CR BARD- UROL DIV 06/29/2012 [id number] / / [id number] Description:total # Brusett: 22total # Seeds:78 Insurance [facility] [id number] Advance Directives For more information, please contact: [phone] * Full Code (Latest Code Status on File) Date Activated Date Inactivated Comments 03/12/2011 1:20 PM 03/13/2011 1:33 PM * Full Code Date Activated Date Inactivated Comments 03/12/2011 7:51 AM 03/12/2011 1:20 PM Care Teams Separator Operator Relationship Specialty Start Date End Date Ace Hanna MD [address] [facility] [address] [place] [address] PCP - General Family Practice 07/05/10
--- NOTE | 2024-11-16 15:22 | WPDPFTINT ---
PFT Procedure Performed PFT Procedure Performed Plethysmography (Lung Vol) Diffusing Cap (DLCO) Flow Vol Loop Spirometry w/o Bronchodil PFT Interpretation This is a pulmonary function test with spirometry, plethysmography and diffusing capacity. The test was performed and results interpreted in accordance with the 2019 and 2005 ATS/ERS Task Force guidelines respectively using the Global Lung Function Initiative-2012 reference equations. Patient demonstrated good effort and cooperation. Reproducibility criteria were met. The quality of the spirometry maneuver was Grade A. Findings: Spirometry: The contour the inspiratory and expiratory flow tracing are normal. The FVC is 4.23 L, 102% predicted. The fungal FEV1 is 3.41 L, 112% predicted. The FEV1: FVC ratio is 81%. Plethysmography: The total lung capacity is 6.05 L, 81% predicted. The functional residual capacity is 2.70 L, 66% predicted. The residual volume is 1.52 L, 54% predicted. Diffusing capacity: The diffusing capacity unadjusted for hemoglobin and carboxyhemoglobin 17.4, 71% predicted. The diffusing capacity adjusted for alveolar volume is 2.89, 83% predicted. Impression: The spirometry is normal without evidence of an obstructive abnormality. The total lung capacity and functional residual capacity are normal with a decreased residual volume. This is an abnormal but nonspecific lung volume pattern. The diffusing capacity is normal. There are no prior studies for comparison
== END 2024-11-16 08:42 | disposition home or self-care (01) ==
PROVIDERS: PCP Nurse Practitioner Family; Visit Provider Internal Medicine
DX: R91.8 Other nonspecific abnormal finding of lung field (principal); R06.02 Shortness of breath
CPT/HCPCS: 94375; 94726; 94729

== ENCOUNTER 2024-12-20 00:27 | Day surgery (SDC) | payer MEDICARE, SELFPAY ==
--- NOTE | 2024-11-16 08:46 | PC.NURSE ---
Mely RN from [facility] called stating that Dr. Villafana wants Justin to have his ECHO done prior to giving cardiac clearance for EGD/Colonoscopy. Notified pt. Pt said he has an ECHO scheduled for 12/14/24. We will get him rescheduled for his EGD/Colon after his ECHO is complete.
[2024-12-15 11:45] VITALS: BMI 24.7
--- NOTE | 2024-12-15 12:12 | PC.NURSE ---
Echo results and clearance received for pt from Dr. Villafana. Pt to hold Eliquis (last dose 12/17) and Plavix (last dose 12/15). Instructions given to pt regarding holding his Eliquis and Plavix. Pt stated understanding.
[2024-12-20 06:56] VITALS: BP 116/80; PULSE 70; RESP 18; TEMP 36.5; O2SAT 98
--- NOTE | 2024-12-20 07:00 | P.PNAN_ITS ---
Anes - Initial Pre Proc Eval Procedure: Operation Date: 12/20/24 08:00 Proposed Procedures p Esophagogastroduodenoscopy & Colonoscopy - Yohan Espinosa MD Date/Time: 12/20/24 07:00 Surgeon: Yohan Espinosa MD Pre Op Diagnosis: GERD, epigastric pain, diverticulitis, Patient Data Age: 79 Gender: M Height: 1.85 m Weight: 91.2 kg Last Vital Signs Temp 36.5 C 12/20/24 06:56 Pulse 70 12/20/24 06:56 Resp 18 12/20/24 06:56 BP 116/80 12/20/24 06:56 Pulse Ox 98 12/20/24 06:56 O2 Del Method Room Air 12/20/24 06:56 Allergies Allergy/AdvReac Type Severity Reaction Status Date / Time simvastatin Allergy Mild Leg cramp Verified 12/20/24 06:54 Kbyxtif-OLE-EoO Reductase Allergy Mild Cramping Verified 12/20/24 06:54 Inhibitor (Uulzlwd-Dld-Kqe of the Reductase Inhibitor) Muscles metformin AdvReac Severe Diarrhea Verified 12/20/24 06:54 Home Medications ?Medication ?Instructions ?Recorded ?Confirmed ?Type hydrochlorothiazide 25 mg tablet 12.5 mg PO DAILY 05/04/19 12/15/24 History aspirin 81 mg tablet,delayed 81 mg PO DAILY 07/01/19 12/15/24 History release (Adult Aspirin Regimen) acetaminophen 325 mg tablet 650 mg PO Q4H PRN Pain 08/10/19 12/15/24 History (Tylenol) blood-glucose meter (OneTouch #1 ea 07/20/20 11/03/24 Rx Verio Flex Meter) lancets 30 gauge (OneTouch Delica #200 ea 07/31/21 11/03/24 Rx Lancets) blood sugar diagnostic (OneTouch #200 ea 11/10/23 11/03/24 Rx Verio test strips) ticagrelor 60 mg tablet (Brilinta) 60 mg PO Q12H 04/13/24 12/15/24 History pantoprazole 40 mg tablet,delayed See Rx Instructions .Route 10/15/24 12/15/24 Rx release .COMPLEX #90 tabs ezetimibe 10 mg tablet See Rx Instructions .Route 10/19/24 12/15/24 Rx .COMPLEX #90 tabs fluticasone propionate 50 2 spray intranasal DAILY #16 mL 10/19/24 12/15/24 Rx mcg/actuation nasal spray,suspension (Flonase Allergy Relief) meloxicam 7.5 mg tablet 7.5 mg PO DAILY #90 tabs 10/19/24 12/15/24 Rx budesonide 160 mcg-glycopyr 9 160-9-4.8 mcg/actuation Hfa 11/03/24 12/15/24 Sample mcg-formot 4.8 mcg/actuation HFA Aerosol Inhaler#4 Samples inhaler ([employer]) apixaban 5 mg tablet (Eliquis) 5 mg PO BID 12/15/24 12/20/24 History clopidogrel 75 mg tablet (Plavix) 75 mg PO DAILY 12/15/24 12/20/24 History Patient hx anesthesia problems: none Family hx anesthesia problems: none Results Review: All pre-operative results and documents have been reviewed as part of the pre- operative evaluation. [facility] Past Medical History Medical History (Updated 12/20/24 @ 07:56 by Sanjeev Coleman DO) Mild pulmonary hypertension Arthritis Diarrhea Right shoulder pain Weight loss History of prostate cancer Treated with radiation pellets Primary osteoarthritis of left hip Left worse than right GERD (gastroesophageal reflux disease) CAD (coronary artery disease) History of 2 vessel CABG Afib Intermittent Peptic ulcer Hyperlipidemia Diabetes 1.5, managed as type 2 Hypertension Surgical History Surgical History (Updated 12/20/24 @ 07:56 by Sanjeev Coleman DO) History of coronary artery stent placement History of hernia repair History of cholecystectomy History of total bilateral knee replacement History of coronary artery bypass graft 2 vessel CABG Family History Family History Sibling Breast cancer Patient's sister is in good health Other Malignant neoplasm of prostate Arthritis Breast cancer Lung cancer Carcinoma of colon Mother Mesothelioma Hypertension High cholesterol Grandparent Diabetes mellitus Social History Social History Social History: Patient lives with his and she is the power of lamination spinner for healthcare. He desires to be full code. He has 3 sons and 1 stepdaughter. 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 Smoking packs per day: 1 Smoking cigarettes per day: 20.0 Years smoked: 40 Smoking pack-years: 40.00 Smoking status: Former smoker Tobacco type: cigarettes Second hand tobacco smoke exposure: No Smoking end date: 04/14/24 Additional smoking assessment comments: quit for 30 years and then started back up 2020 Alcohol intake: current Alcohol use details: social beers Substance use: never Substance use type: does not use and unknown Do You Feel Safe in your Home?: Yes Lack of Transportation: No Lack of Food: Never True Current Housing: I Have Housing Concerned About Future Housing: No Difficulty Paying Gas/Electric Bills: No Difficulty Paying for Meds: No Currently Unemployed: No Education: Decline to Answer Difficulty w/ Childcare or Family Care: No Living arrangements: with family Occupation/Education: retired Gender identity (if verbalized by the patient): Male Sexual Orientation (if Verbalized by the Patient): Straight or Heterosexual Spiritual care concerns: No Agree to blood products: Yes Anes - Eval Final PreProcedure Day of Procedure 12/20/24 07:00 Patient weight: overweight Heart: regular rate and rhythm Lungs: clear to auscultation Airway: Mallampati scale class II Neurological: alert and oriented Last oral intake: >/= 8 hours ASA classification: IV Emergent: no Anesthetic plan: proceed Anesthesia type and monitoring: general GIVS and standard monitoring Results Review: All pre-operative results and documents have been reviewed as part of the pre- operative evaluation. Informed Consent: The patient's anesthetic plan and its attendant risks and benefits were discussed with the patient/family/POA. Questions were solicited and answers provided to the satisfaction of the patient/family/POA.
[2024-12-20] MEDS: LACTATED RINGERS 1,000 ML 150 ML IV CONT (07:10)
--- NOTE | 2024-12-20 07:55 | PM.HPGS ---
History of Present Illness History of Present Illness Consent: Risks, benefits, and alternatives have been discussed and questions answered. Patient agrees to proceed with procedure. Chief complaint: GERD, epigastric pain, diverticulitis, Narrative: Justin Fair is a 79 year old male here for egd and colonoscopy, had diverticulitis earlier this year, also intermittent epigastric pain on ppi. Previous biopsy of duodenum was normal, no celiac. Review of Systems Review of Systems: All systems reviewed & are unremarkable except as noted in HPI and below PMFSH Past Medical History Medical History (Updated 12/20/24 @ 07:57 by Yohan Espinosa MD) History of diverticulitis Mild pulmonary hypertension Arthritis Diarrhea Right shoulder pain Weight loss History of prostate cancer Treated with radiation pellets Primary osteoarthritis of left hip Left worse than right GERD (gastroesophageal reflux disease) CAD (coronary artery disease) History of 2 vessel CABG Afib Intermittent Peptic ulcer Hyperlipidemia Diabetes 1.5, managed as type 2 Hypertension Surgical History Surgical History (Updated 12/20/24 @ 07:56 by Sanjeev Coleman DO) History of coronary artery stent placement History of hernia repair History of cholecystectomy History of total bilateral knee replacement History of coronary artery bypass graft 2 vessel CABG Family History Family History Sibling Breast cancer Patient's sister is in good health Other Malignant neoplasm of prostate Arthritis Breast cancer Lung cancer Carcinoma of colon Mother Mesothelioma Hypertension High cholesterol Grandparent Diabetes mellitus Social History Social History Social History: Patient lives with his and she is the power of electrical and instrument mechanic for healthcare. He desires to be full code. He has 3 sons and 1 stepdaughter. 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 Smoking packs per day: 1 Smoking cigarettes per day: 20.0 Years smoked: 40 Smoking pack-years: 40.00 Smoking status: Former smoker Tobacco type: cigarettes Second hand tobacco smoke exposure: No Smoking end date: 04/14/24 Additional smoking assessment comments: quit for 30 years and then started back up 2020 Alcohol intake: current Alcohol use details: social beers Substance use: never Substance use type: does not use and unknown Do You Feel Safe in your Home?: Yes Lack of Transportation: No Lack of Food: Never True Current Housing: I Have Housing Concerned About Future Housing: No Difficulty Paying Gas/Electric Bills: No Difficulty Paying for Meds: No Currently Unemployed: No Education: Decline to Answer Difficulty w/ Childcare or Family Care: No Living arrangements: with family Occupation/Education: retired Gender identity (if verbalized by the patient): Male Sexual Orientation (if Verbalized by the Patient): Straight or Heterosexual Spiritual care concerns: No Agree to blood products: Yes Meds Home Medications and Allergies Home Medications ?Medication ?Instructions ?Recorded ?Confirmed ?Type hydrochlorothiazide 25 mg tablet 12.5 mg PO DAILY 05/04/19 12/15/24 History aspirin 81 mg tablet,delayed 81 mg PO DAILY 07/01/19 12/15/24 History release (Adult Aspirin Regimen) acetaminophen 325 mg tablet 650 mg PO Q4H PRN Pain 08/10/19 12/15/24 History (Tylenol) blood-glucose meter (OneTouch #1 ea 07/20/20 11/03/24 Rx Verio Flex Meter) lancets 30 gauge (OneTouch Delica #200 ea 07/31/21 11/03/24 Rx Lancets) blood sugar diagnostic (OneTouch #200 ea 11/10/23 11/03/24 Rx Verio test strips) ticagrelor 60 mg tablet (Brilinta) 60 mg PO Q12H 04/13/24 12/15/24 History pantoprazole 40 mg tablet,delayed See Rx Instructions .Route 10/15/24 12/15/24 Rx release .COMPLEX #90 tabs ezetimibe 10 mg tablet See Rx Instructions .Route 10/19/24 12/15/24 Rx .COMPLEX #90 tabs fluticasone propionate 50 2 spray intranasal DAILY #16 mL 10/19/24 12/15/24 Rx mcg/actuation nasal spray,suspension (Flonase Allergy Relief) meloxicam 7.5 mg tablet 7.5 mg PO DAILY #90 tabs 10/19/24 12/15/24 Rx budesonide 160 mcg-glycopyr 9 160-9-4.8 mcg/actuation Hfa 11/03/24 12/15/24 Sample mcg-formot 4.8 mcg/actuation HFA Aerosol Inhaler#4 Samples inhaler ([employer]) apixaban 5 mg tablet (Eliquis) 5 mg PO BID 12/15/24 12/20/24 History clopidogrel 75 mg tablet (Plavix) 75 mg PO DAILY 12/15/24 12/20/24 History Allergies Allergy/AdvReac Type Severity Reaction Status Date / Time simvastatin Allergy Mild Leg cramp Verified 12/20/24 06:54 Jcqaztx-BJC-UbM Reductase Allergy Mild Cramping Verified 12/20/24 06:54 Inhibitor (Htzrkaz-Wgn-Azb of the Reductase Inhibitor) Muscles metformin AdvReac Severe Diarrhea Verified 12/20/24 06:54 Vital Signs Vital Signs - 24 hr 12/20/24 06:56 Temperature 97.7 F Pulse Rate 70 Respiratory Rate 18 Blood Pressure 116/80 Pulse Oximetry 98 Oxygen Delivery Room Air Exam Const: General: comfortable and no acute distress HENMT: Face/Nose/Sinus: Normal nares present Eyes: General: appearance normal, both eyes and all related structures Neck: Neck: no JVD Resp: Auscultation: clear to auscultation bilaterally Cardio: Rate: regular rate Rhythm: regular rhythm GI: Inspection: non-distended GI Palp: Yes Soft to palpation Skin: General skin exam: normal color Neuro: Speech: normal speech Extrem: General: normal to inspection Psych: Mental Status: mental status grossly normal Assessment and Plan Assessment and plan (1) GERD (gastroesophageal reflux disease): Code(s): K21.9 - Gastro-esophageal reflux disease without esophagitis Status: Acute Assessment and Plan: egd with bx (2) History of diverticulitis: Code(s): Z87.19 - Personal history of other diseases of the digestive system Status: Acute Assessment and Plan: colonoscopy
--- NOTE | 2024-12-20 08:07 | SUR.OPER ---
EGD ended 801 colonoscopy started 807
--- NOTE | 2024-12-20 08:08 | S_PTH ---
PATIENT: Justin Fair LOC: [facility]#:[id number] AGE/SX: 79/M ROOM: RE12/20/[address]: Yohan Espinosa MD : 1945 BED: DIS: 12/20/2024 SPEC #: [id number] RECD: 12/20/24 10:46 STATUS: TIANNA REMarlen #: [id number] EVELIO: 12/20/24 08:[address]: Yohan Espinosa DEPT: [facility] Surgical RECD BY: Jyoti Rangel ENTERED: 12/20/24 10:46 SP TYPE: Surgical OTHR DR: Cori Denise, RAFY Tissues: A - Gastric Biopsy B - Colon Polypectomy C - Colon Polypectomy Procedures: Hematoxylin and Eosin Stain Gross and Microscopic Level 4
[2024-12-20 08:29] VITALS: BP 101/71; PULSE 63; RESP 16; O2SAT 96
[2024-12-20 08:39] VITALS: BP 109/69; PULSE 63; RESP 20; O2SAT 96
[2024-12-20 08:49] VITALS: BP 115/74; PULSE 59; RESP 23; O2SAT 98
== END 2024-12-20 09:02 | disposition home or self-care (01) ==
PROVIDERS: PCP Nurse Practitioner Family; Referring Provider Nurse Practitioner; Visit Provider Internal Medicine Gastroenterology
PROC: 0DJ08ZZ Inspection of Upper Intestinal Tract, Via Natural or Artificial Opening Endoscopic (ICD-10-PCS; CPT 45378; principal; 2024-12-20 08:00)
DX: K21.9 Gastro-esophageal reflux disease without esophagitis (principal); K44.9 Diaphragmatic hernia without obstruction or gangrene; D12.0 Benign neoplasm of cecum; D12.2 Benign neoplasm of ascending colon; K57.30 Diverticulosis of large intestine without perforation or abscess without bleeding; K64.8 Other hemorrhoids; Z87.891 Personal history of nicotine dependence
CPT/HCPCS: 43239; 45385; 88305; J2003; J2704; J7120

== ENCOUNTER 2025-04-12 06:45 | Outpatient (CLI) | payer MEDICARE, SELFPAY ==
[2025-04-12 07:50] LABS: Hemoglobin A1C 6.8 % (<5.7)
[2025-04-12 08:00] LABS: Alanine Aminotransferase 29 U/L (6-50); Albumin Level 4.0 g/dL (3.5-5.1); Alkaline Phosphatase 90 U/L (38-126); Anion Gap 10 mmol/L (4-12); Aspartate Amino Transferase 31 U/L (17-59); Bilirubin,Total 0.8 mg/dL (0.2-1.3); Blood Urea Nitrogen 12 mg/dL (9-20); Calcium 9.5 mg/dL (8.4-10.2); Carbon Dioxide 24 mmol/L (22-30); Chloride 103 mmol/L (98-107); Cholesterol 195 mg/dL (0-200); Estimated Glomerular Filt Rate > 60; Glucose 147 mg/dL (65-110); HDL Direct 38 mg/dL; Potassium 3.8 mmol/L (3.4-5.0); Sodium 137 mmol/L (137-145); Total Protein 7.2 g/dL (6.3-8.2); Triglycerides 141 mg/dL (<150)
== END 2025-04-12 06:46 | disposition home or self-care (01) ==
PROVIDERS: PCP Nurse Practitioner Family; Visit Provider Nurse Practitioner Family
DX: I10 Essential (primary) hypertension (principal); E13.9 Other specified diabetes mellitus without complications; I25.810 Atherosclerosis of coronary artery bypass graft(s) without angina pectoris; Z87.891 Personal history of nicotine dependence
CPT/HCPCS: 36415; 80053; 80061; 83036